=== PATIENT | male | born 1945 | race Caucasian/White ===

== ENCOUNTER 2019-12-28 10:43 | Outpatient (REF) | payer MEDICARE, SELFPAY ==
[2019-12-28 15:14] LABS: Anion Gap 15 (12-20); Blood Urea Nitrogen 35 mg/dL (9-16); Carbon Dioxide 18 mmol/L (22-29); Chloride 111 mmol/L (96-108); Estimated Glomerular Filt Rate 46; Potassium 4.3 mmol/l (3.3-5.1); Sodium 140 mmol/L (135-145)
== END 2019-12-28 10:44 | disposition home or self-care (01) ==
LOC: HO.10HDL 10:43
PROVIDERS: Visit Provider Internal Medicine Hypertension Specialist
DX: R31.9 Hematuria, unspecified (principal); D49.59 Neoplasm of unspecified behavior of other genitourinary organ
CPT/HCPCS: 80051; 82565; 84520

== ENCOUNTER 2020-01-04 10:18 | Outpatient (REF) | payer MEDICARE, SELFPAY ==
[2020-01-04 14:38] LABS: Prostate Specific Antigen < 0.05 ng/mL (<0.05-4.0)
== END 2020-01-04 10:19 | disposition home or self-care (01) ==
LOC: HO.10HDL 10:18
PROVIDERS: Visit Provider Urology
DX: C61 Malignant neoplasm of prostate (principal)
CPT/HCPCS: 84153

== ENCOUNTER → 2020-01-11 10:03 | Outpatient (BNVA) | payer MEDICARE, SELFPAY | PROVIDERS: PCP Internal Medicine; Referring Provider Internal Medicine; Visit Provider Urology | DX: C61 Malignant neoplasm of prostate (principal); N52.9 Male erectile dysfunction, unspecified; Z92.3 Personal history of irradiation | CPT/HCPCS: 51798; 81002; 99212 ==

== ENCOUNTER → 2020-01-25 11:06 | Outpatient (BNVA) | payer MEDICARE, SELFPAY | PROVIDERS: PCP Internal Medicine; Referring Provider Internal Medicine; Visit Provider Internal Medicine Cardiovascular Disease | DX: I25.10 Atherosclerotic heart disease of native coronary artery without angina pectoris (principal); Z95.1 Presence of aortocoronary bypass graft | CPT/HCPCS: 99212 ==

== ENCOUNTER 2020-02-22 09:53 | Outpatient (REF) | payer MEDICARE, SELFPAY ==
[2020-02-22 10:39] LABS: Basophils Absolute Auto 0.1 X10*3/uL (0.0-0.2); Basophils Percent Auto 0.7 % (0-2); Eosinophils Absolute Auto 0.1 X10*3/uL (0.0-0.4); Eosinophils Percent Auto 1.4 % (0-4); Hematocrit 38.5 % (42-52); Imm Gran Abs Auto 0.02 X10*3/uL (0.00-0.03); Imm Gran Pct Auto 0.3 % (0.0-0.4); Immature Retic Fraction 13.9 % (2.3-13.4); Lymphocytes Absolute Auto 1.6 X10*3/uL (1.2-4.9); Mean Corpuscular HGB Conc 33.8 g/dl (31.0-36.0); Mean Corpuscular Volume 85.7 fL (80-98); Mean Platelet Volume 9.3 fL (9.4-12.4); Monocytes Absolute Auto 0.6 X10*3/uL (0.1-1.2); Monocytes Percent Auto 8.2 % (2-11); Neutrophils Absolute Auto 5.3 X10*3/uL (2.0-8.3); Neutrophils Percent Auto 68.4 % (45-73); Platelet Count 115 X10*3/uL (160-400); Red Blood Count 4.49 X10*6/uL (4.60-5.80); Red Cell Distribution Width 13.7 % (11.0-16.0); Retic HGB Equivalent 33.2 pg (30.0-35.0); Reticulocyte Percent 1.5 % (0.5-1.8); Reticulocytes Absolute 0.068 X10*6/uL (0.026-0.095); White Blood Count 7.7 X10*3/uL (4.8-10.8)
[2020-02-22 10:41] LABS: MANUAL DIFF FLAG NO
[2020-02-22 10:56] LABS: D Dimer 2331 NG/ML
[2020-02-22 11:14] LABS: B Type Natriuretic Peptide 210 pg/mL (<100)
[2020-02-22 11:16] LABS: Alanine Aminotransferase 8 U/L (0-40); Albumin Level 3.6 g/dL (3.5-5.0); Alkaline Phosphatase 102 U/L (39-117); Anion Gap 11 (12-20); Aspartate Amino Transferase 13 U/L (5-37); Bilirubin Total 0.6 mg/dL (0.0-1.0); Blood Urea Nitrogen 32 mg/dL (9-16); Calcium 8.4 mg/dL (8.4-10.2); Carbon Dioxide 22 mmol/L (22-29); Chloride 110 mmol/L (96-108); Estimated Glomerular Filt Rate 48; Glucose Fasting 91 mg/dL (60-99); Iron 61 mcg/dL (45-160); Percent Iron Saturation 25 % (15-50); Potassium 3.8 mmol/l (3.3-5.1); Sodium 139 mmol/L (135-145); Total Iron Binding Capacity 242 mcg/dL (228-428); Unsaturated Iron Binding 181 ug/dL
[2020-02-22 11:25] LABS: Ferritin 72 ng/mL (20-250)
[2020-02-22 11:39] LABS: Folate 4.1 ng/mL (> or = 4.0); Vitamin B12 340 pg/mL (200-900)
== END 2020-02-22 09:54 | disposition home or self-care (01) ==
LOC: HO.10HDL 09:53
PROVIDERS: PCP Internal Medicine; Visit Provider Internal Medicine
DX: I25.10 Atherosclerotic heart disease of native coronary artery without angina pectoris (principal); I12.9 Hypertensive chronic kidney disease with stage 1 through stage 4 chronic kidney disease, or unspecified chronic kidney disease; N18.9 Chronic kidney disease, unspecified; J44.9 Chronic obstructive pulmonary disease, unspecified; E78.00 Pure hypercholesterolemia, unspecified; K21.9 Gastro-esophageal reflux disease without esophagitis; G47.33 Obstructive sleep apnea (adult) (pediatric); E66.9 Obesity, unspecified; C61 Malignant neoplasm of prostate; I73.9 Peripheral vascular disease, unspecified; I26.99 Other pulmonary embolism without acute cor pulmonale
CPT/HCPCS: 36415; 80053; 82607; 82728; 82746; 83540; 83880; 85025; 85045; 85379

== ENCOUNTER → 2020-03-06 08:50 | Outpatient (BNV) | payer MEDICARE, SELFPAY | PROVIDERS: PCP Internal Medicine; Visit Provider Internal Medicine | DX: I82.401 Acute embolism and thrombosis of unspecified deep veins of right lower extremity (principal); N18.9 Chronic kidney disease, unspecified | CPT/HCPCS: 99212; 99213; 99214; 99442 ==

== ENCOUNTER → 2020-03-07 09:38 | Outpatient (BNVA) | payer MEDICARE, SELFPAY | PROVIDERS: PCP Internal Medicine; Visit Provider Internal Medicine | DX: G47.33 Obstructive sleep apnea (adult) (pediatric) (principal); J44.9 Chronic obstructive pulmonary disease, unspecified | CPT/HCPCS: 99212 ==

== ENCOUNTER 2020-03-07 15:42 | Outpatient (REF) | payer MEDICARE, SELFPAY ==
--- NOTE | 2020-03-06 14:26 | US_ITS ---
EXAMINATION: US VENOUS ULTRASOUND WITH DOPPLER LOWER EXTREMITY, RIGHT CLINICAL INFORMATION: Right leg DVT in 2019 COMPARISON: Previous right leg venous ultrasound January 2019 TECHNIQUE: Ultrasound of the deep veins is performed from the hip to the calf with compression sonography and color and pulse Doppler assessment. Spectral analysis with color-flow imaging is performed. FINDINGS: There is normal venous compression and respiratory variation and augmented flow. The visualized common femoral vein, superficial femoral vein, profunda femoral vein, and the trifurcation region shows no evidence of deep venous thrombosis. There is wall thickening, hypoechoic soft tissue and limited compression of the popliteal vein. This may represent changes from old DVT. If there is clinical suspicion of acute DVT, short-term follow-up exam in several days would be recommended. There is no significant popliteal fossa cyst. US/US venous duplex LE RT IMPRESSION: Wall thickening, hypoechoic material and limited compression of the popliteal vein. This may represent changes from old DVT. If there is clinical suspicion of acute DVT, short-term follow-up exam in several days would be recommended to ensure stability.
== END 2020-03-07 15:43 | disposition home or self-care (01) ==
LOC: HO.US 15:42
PROVIDERS: PCP Internal Medicine; Visit Provider Internal Medicine
DX: I82.401 Acute embolism and thrombosis of unspecified deep veins of right lower extremity (principal)
CPT/HCPCS: 93971

== ENCOUNTER 2020-03-28 09:47 | Outpatient (REF) | payer MEDICARE, SELFPAY ==
--- NOTE | 2020-03-28 | US_ITS ---
EXAMINATION: US EXTRACRANIAL CAROTID DUPLEX, BILATERAL CLINICAL INFORMATION: This is a 74-year-old male with previous tobacco use, hypertension, hyperlipidemia, myocardial infarction. Carotid artery disease. COMPARISON: Comparison is made to a previous study dated 06/02/2011 which demonstrated bilateral 0-49% internal carotid artery stenoses. TECHNIQUE: Real-time ultrasound and Doppler techniques (integrating B-mode 2-D vascular images, Doppler spectral analysis and color-flow Doppler imaging) were utilized to interrogate the extracranial carotid arteries, the vertebral arteries and proximal subclavian arteries bilaterally. The degree of stenosis is determined by criteria similar to NASCET. FINDINGS: Right Side: 1. There is minimal atherosclerotic plaque seen in the bifurcation/proximal ICA region. 2. The common carotid artery PSV proximally is 74 cm/s and distally PA cm/s. 3. The proximal internal carotid artery velocities are 83 cm/s systolic and 16 cm/s diastolic. 4. The proximal external carotid artery PSV is 234 cm/s. There is a moderate hemodynamically significant stenosis in the right external carotid artery. 5. The vertebral artery shows antegrade flow. 6. The subclavian artery waveforms are normal. Left Side: 1. There is minimal atherosclerotic plaque seen in the bifurcation/proximal ICA region. 2. The common carotid artery PSV proximally is 114 cm/s and distally 85 cm/s. 3. The proximal internal carotid artery velocities are 89 cm/s systolic and 19 cm/s diastolic. 4. The proximal external carotid artery PSV is 240 cm/s.. There is a moderate hemodynamically significant stenosis in the left external carotid artery. 5. The vertebral artery shows antegrade flow. 6. The subclavian artery waveforms are normal. US/US carotid duplex BI IMPRESSION: 1. RIGHT: Minimal, non-hemodynamically significant stenosis of the proximal right internal carotid artery corresponding to a 0-49% stenosis by velocity criteria. 2. LEFT: Minimal, non-hemodynamically significant stenosis of the proximal left internal carotid artery corresponding to a 0-49% stenosis by velocity criteria. 3. There is no change in the category severity of disease when compared to the previous study dated 06/02/2011. 4. There are hemodynamically significant stenoses of the bilateral external carotid arteries.
== END 2020-03-28 09:48 | disposition home or self-care (01) ==
LOC: HO.US 09:47
PROVIDERS: PCP Internal Medicine; Visit Provider Surgery Vascular Surgery
DX: I73.9 Peripheral vascular disease, unspecified (principal); I65.23 Occlusion and stenosis of bilateral carotid arteries; I10 Essential (primary) hypertension; E78.5 Hyperlipidemia, unspecified; I25.2 Old myocardial infarction; Z87.891 Personal history of nicotine dependence
CPT/HCPCS: 93880

== ENCOUNTER 2020-05-03 10:32 | Outpatient (REF) | payer MEDICARE, SELFPAY ==
[2020-05-03 14:54] LABS: Prostate Specific Antigen < 0.05 ng/mL (<0.05-4.0)
== END 2020-05-03 10:33 | disposition home or self-care (01) ==
LOC: HO.10HDL 10:32
PROVIDERS: Visit Provider Urology
DX: Z12.5 Encounter for screening for malignant neoplasm of prostate (principal); C61 Malignant neoplasm of prostate
CPT/HCPCS: 36415; 84153

== ENCOUNTER → 2020-05-11 09:52 | Outpatient (BNVA) | payer MEDICARE, SELFPAY | PROVIDERS: PCP Internal Medicine; Visit Provider Urology | DX: C61 Malignant neoplasm of prostate (principal); N40.0 Benign prostatic hyperplasia without lower urinary tract symptoms | CPT/HCPCS: 99212 ==

== ENCOUNTER 2020-05-16 11:46 | Outpatient (REF) | payer MEDICARE, SELFPAY ==
[2020-05-16 13:14] LABS: MANUAL DIFF FLAG NO
[2020-05-16 13:40] LABS: Anion Gap 13 (12-20); Blood Urea Nitrogen 30 mg/dL (9-16); Calcium 8.8 mg/dL (8.4-10.2); Carbon Dioxide 24 mmol/L (22-29); Chloride 108 mmol/L (96-108); Estimated Glomerular Filt Rate 42; Potassium 4.6 mmol/L (3.3-5.1); Sodium 140 mmol/L (135-145)
[2020-05-16 13:47] LABS: Basophils Absolute Auto 0.1 X10*3/uL (0.0-0.2); Basophils Percent Auto 0.8 % (0-2); Eosinophils Absolute Auto 0.4 X10*3/uL (0.0-0.4); Hematocrit 41.3 % (42-52); Hemoglobin 13.6 g/dl (14.0-18.0); Imm Gran Abs Auto 0.04 X10*3/uL (0.00-0.03); Imm Gran Pct Auto 0.4 % (0.0-0.4); Lymphocytes Absolute Auto 1.9 X10*3/uL (1.2-4.9); Mean Corpuscular HGB Conc 32.9 g/dl (31.0-36.0); Mean Corpuscular Hemoglobin 28.8 pg (27.0-33.0); Mean Corpuscular Volume 87.5 fL (80-98); Mean Platelet Volume 9.8 fL (9.4-12.4); Monocytes Absolute Auto 0.8 X10*3/uL (0.1-1.2); Monocytes Percent Auto 9.3 % (2-11); Neutrophils Absolute Auto 5.8 X10*3/uL (2.0-8.3); Neutrophils Percent Auto 64.5 % (45-73); Platelet Count 140 X10*3/uL (160-400); Red Blood Count 4.72 X10*6/uL (4.60-5.80); Red Cell Distribution Width 14.1 % (11.0-16.0)
== END 2020-05-16 11:47 | disposition home or self-care (01) ==
LOC: HO.10HDL 11:46
PROVIDERS: Visit Provider Internal Medicine Hypertension Specialist
DX: I12.9 Hypertensive chronic kidney disease with stage 1 through stage 4 chronic kidney disease, or unspecified chronic kidney disease (principal); N18.30 Chronic kidney disease, stage 3 unspecified; D49.59 Neoplasm of unspecified behavior of other genitourinary organ
CPT/HCPCS: 36415; 80051; 82310; 82565; 84520; 85025

== ENCOUNTER → 2020-06-01 08:53 | Outpatient (BNVA) | payer MEDICARE, SELFPAY | PROVIDERS: PCP Internal Medicine; Visit Provider Urology | DX: R33.9 Retention of urine, unspecified (principal) | CPT/HCPCS: 52000; 81002; 99212 ==

== ENCOUNTER → 2020-07-06 08:05 | Outpatient (BNVA) | payer MEDICARE, SELFPAY | PROVIDERS: PCP Internal Medicine; Visit Provider Urology | DX: Z13.89 Encounter for screening for other disorder (principal) | CPT/HCPCS: Q3014 ==

== ENCOUNTER → 2020-07-11 09:03 | Outpatient (BNVA) | payer MEDICARE, SELFPAY | PROVIDERS: PCP Internal Medicine; Referring Provider Internal Medicine; Visit Provider Internal Medicine Cardiovascular Disease | DX: I25.5 Ischemic cardiomyopathy (principal); I25.10 Atherosclerotic heart disease of native coronary artery without angina pectoris | CPT/HCPCS: 99212 ==

== ENCOUNTER 2020-08-15 10:52 | Outpatient (REF) | payer MEDICARE, SELFPAY ==
[2020-08-15 13:54] LABS: MANUAL DIFF FLAG NO
[2020-08-15 14:09] LABS: Basophils Absolute Auto 0.1 X10*3/uL (0.0-0.2); Basophils Percent Auto 0.7 % (0-2); Eosinophils Absolute Auto 0.2 X10*3/uL (0.0-0.4); Eosinophils Percent Auto 1.8 % (0-4); Hemoglobin 13.4 g/dl (14.0-18.0); Imm Gran Abs Auto 0.02 X10*3/uL (0.00-0.03); Imm Gran Pct Auto 0.2 % (0.0-0.4); Lymphocytes Absolute Auto 1.8 X10*3/uL (1.2-4.9); Lymphocytes Percent Auto 21.4 % (20-40); Mean Corpuscular HGB Conc 32.7 g/dl (31.0-36.0); Mean Corpuscular Hemoglobin 28.7 pg (27.0-33.0); Mean Corpuscular Volume 87.8 fL (80-98); Mean Platelet Volume 10.3 fL (9.4-12.4); Monocytes Absolute Auto 0.8 X10*3/uL (0.1-1.2); Monocytes Percent Auto 9.3 % (2-11); Neutrophils Absolute Auto 5.4 X10*3/uL (2.0-8.3); Neutrophils Percent Auto 66.6 % (45-73); Platelet Count 145 X10*3/uL (160-400); Red Blood Count 4.67 X10*6/uL (4.60-5.80); Red Cell Distribution Width 14.1 % (11.0-16.0); White Blood Count 8.2 X10*3/uL (4.8-10.8)
[2020-08-15 14:20] LABS: Alanine Aminotransferase 9 U/L (0-40); Albumin Level 3.8 g/dL (3.5-5.0); Alkaline Phosphatase 110 U/L (39-117); Anion Gap 13 (12-20); Aspartate Amino Transferase 15 U/L (5-37); Bilirubin Total 0.7 mg/dL (0.0-1.0); Blood Urea Nitrogen 36 mg/dL (9-16); Calcium 8.8 mg/dL (8.4-10.2); Carbon Dioxide 23 mmol/L (22-29); Chloride 110 mmol/L (96-108); Cholesterol 100 mg/dL; Estimated Glomerular Filt Rate 42; Glucose Random 89 mg/dL (60-115); HDL Cholesterol 28 mg/dL; LDL Cholesterol Calculated 57 mg/dl; Potassium 4.2 mmol/L (3.3-5.1); Sodium 142 mmol/L (135-145); Total Protein 6.1 g/dL (6.5-8.0); Triglycerides 79 mg/dL
[2020-08-15 14:22] LABS: B Type Natriuretic Peptide 114 pg/mL (<100)
[2020-08-15 14:42] LABS: Thyroid Stimulating Hormone 0.96 uIU/mL (0.32-4.0)
[2020-08-15 14:54] LABS: Vitamin B12 338 pg/mL (200-900)
== END 2020-08-15 10:53 | disposition home or self-care (01) ==
LOC: HO.10HDL 10:52
PROVIDERS: Visit Provider Internal Medicine
DX: I25.10 Atherosclerotic heart disease of native coronary artery without angina pectoris (principal); I10 Essential (primary) hypertension; E78.00 Pure hypercholesterolemia, unspecified
CPT/HCPCS: 36415; 80053; 80061; 82607; 82746; 83880; 84443; 85025

== ENCOUNTER → 2020-09-15 09:19 | Outpatient (REF) | payer MEDICARE, SELFPAY ==
--- NOTE | 2020-09-15 09:29 | CA_ITS ---
Transthoracic Echocardiogram Patient (Last, First, Middle): Brian Urena M Gender: Male Date of : 1945 Age: 75 Procedure Date: 09/15/2020 Procedure Type: Transthoracic Echocardiogram Location: OP Height: 165.1 cm Weight: 85.28 kg BSA: 1.93 m2 Heart Rate: bpm BP: 130 / 58 mmHg Cabinet Maker: KEENAN Referring MD: Manas Brennan MD Symptoms: I25.5 - Ischemic cardiomyopathy Conclusions: - Normal left ventricular cavity size. - The left ventricular systolic function is borderline reduced. The visually estimated ejection fraction is between 45-50%. 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 Findings Left Ventricle Normal left ventricular cavity size. There is mildly increased left ventricular wall thickness. The left ventricular systolic function is borderline reduced. The visually estimated ejection fraction is between 45 50%. There is evidence of regional wall motion abnormalities. Abnormal diastolic function is noted. Spectral Doppler is indicative of an impaired relaxation filling pattern. E/E prime ratio is between 8 and 15 consistent with indeterminate filling pressures. 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 Right Ventricle Mildly increased right ventricular cavity size. There is mild to moderately decreased right ventricular systolic function. Atria Both atria are normal in size. Aortic Valve There is a normal trileaflet aortic valve. There is mild calcification of the aortic valve. There is no aortic valve stenosis. There is no aortic valve regurgitation. Mitral Valve Normal mitral valve structure and function. There is trace mitral valve regurgitation. There is no mitral valve stenosis. Tricuspid Valve Normal tricuspid valve structure and function. There is mild to moderate tricuspid valve regurgitation. Normal right atrial pressure. There is no evidence of pulmonary hypertension. Great Vessels The pulmonary artery was not well visualized. There is mild dilatation of the ascending aorta measuring 3.60 cm. Venous The inferior vena cava is normal in size and collapses greater than 50% with inspiration. Pericardium/Pleural There is no evidence of pericardial effusion. Prior Study Comparison No significant change compared to prior study dated: 02/27/2019. Measurements M-Mode Liner Measurements Normals - Women/Men LVIDd: 6.04 3.9-5.3/4.2-5.9 cm LVIDd Index: 3.13 1.9-3.2 cm/m2 LVIDs: 4.52 2.0-3.8 cm M-Mode Volumes LV EDV: 183.00 LV ESV: 93.40 2D Linear Measurements IVSd: 1.11 0.6-0.9/0.6-1.0 cm LVIDd: 5.26 3.9-5.3/4.2-5.9 cm LVIDd Index: 2.73 2.4-3.2/2.2-3.1 cm/m2 LVIDs: 4.74 2.0-3.6 cm LVPWd: 1.16 0.7-1.1 cm Ao Root: 3.00 2.1-3.5 cm LA Diam: 5.40 2.7-3.8/3.0-4.0 cm LAIDs Index: 2.80 1.5-2.3 cm/m2 LV Mass: 292.68 67-162/88-224 g LV Mass Index: 151.65 43-95/49-115 g/m2 LVOT Diam: 2.20 3.0+(-)1.3 cm 2D Systolic Function EF 4C: 62.00 >55% EF 2C: 71.20 >55% M-Mode Systolic Function FS: 25.20 27-47/25-43% Mitral Valve MV Pk E: 0.70 MV PK A: 0.87 MV Decel Time: 130.00 E/A: 0.80 E'Lateral: 11.70 E'Medial: 7.18 E/E' Med: 9.80 E/E' Lat: 6.00 PHT: 38.00 MVA PHT: 5.79 Decel Jay: 5.40 Aortic Valve AoV Pk Iglesia: 1.28 AoV Pk Grad: 7.00 LVOT LVOT Pk Iglesia: 0.66 LVOT Mn Iglesia: 0.45 LVOT VTI: 0.14 LVOT Pk Grad: 2.00 LVOT Mn Grad: 1.00 LVOT Diam: 2.20 LVOT Area: 3.80 Diastolic Function MV Pk E: 0.70 MV Pk A: 0.87 E/A: 0.80 E'Medial: 7.18 E/E' Med: 9.80 E' Laterial: 11.70 E/E' Lat: 6.00 Right Ventricle TAPSE (mm): 1.80 Tricuspid Valve TR Pk Iglesia: 2.71 TR Pk Grad: 29.00 Great Vessels Aorta Ao Root-2D: 3.00 2.0-3.7 cm Ao Asc: 3.60 2.1-3.4 cm Updated in Other Vendor System with Status of Final Dipak Sanchez MD electronically signed on 09/17/2020 7:32:22 PM with status of Final
== END ==
LOC: HO.CARD 09:19
PROVIDERS: Visit Provider Internal Medicine Cardiovascular Disease
DX: I25.5 Ischemic cardiomyopathy (principal)
CPT/HCPCS: 93306

== ENCOUNTER → 2020-10-03 09:20 | Outpatient (BNVA) | payer MEDICARE, SELFPAY | PROVIDERS: PCP Internal Medicine; Visit Provider Internal Medicine | DX: J43.1 Panlobular emphysema (principal); G47.33 Obstructive sleep apnea (adult) (pediatric); Z99.89 Dependence on other enabling machines and devices | CPT/HCPCS: 99212 ==

== ENCOUNTER 2021-01-02 10:53 | Outpatient (REF) | payer MEDICARE, SELFPAY ==
[2021-01-02 13:54] LABS: Hemoglobin 13.3 g/dl (14.0-18.0); Mean Corpuscular HGB Conc 33.3 g/dl (31.0-36.0); Mean Corpuscular Hemoglobin 28.7 pg (27.0-33.0); Mean Corpuscular Volume 86.2 fL (80.0-98.0); Mean Platelet Volume 10.1 fL (9.4-12.4); Platelet Count 144 X10*3/uL (160-400); Red Blood Count 4.64 X10*6/uL (4.60-5.80); Red Cell Distribution Width 14.1 % (11.0-16.0); White Blood Count 9.1 X10*3/uL (4.8-10.8)
[2021-01-02 14:40] LABS: Anion Gap 13 (12-20); Blood Urea Nitrogen 27 mg/dL (9-16); Calcium 8.3 mg/dL (8.4-10.2); Carbon Dioxide 19 mmol/L (22-29); Chloride 111 mmol/L (96-108); Estimated Glomerular Filt Rate 41; Potassium 4.3 mmol/L (3.3-5.1); Sodium 139 mmol/L (135-145)
[2021-01-02 14:57] LABS: Prostate Specific Antigen < 0.05 ng/mL (<0.05-4.0)
== END 2021-01-02 10:54 | disposition home or self-care (01) ==
LOC: HO.10HDL 10:53
PROVIDERS: Internal Medicine Hypertension Specialist; Visit Provider Urology
DX: Z12.5 Encounter for screening for malignant neoplasm of prostate (principal); C61 Malignant neoplasm of prostate; N40.1 Benign prostatic hyperplasia with lower urinary tract symptoms; N13.8 Other obstructive and reflux uropathy; I12.9 Hypertensive chronic kidney disease with stage 1 through stage 4 chronic kidney disease, or unspecified chronic kidney disease; N18.9 Chronic kidney disease, unspecified
CPT/HCPCS: 36415; 80051; 82310; 82565; 84153; 84520; 85027

== ENCOUNTER 2021-01-09 10:08 | Outpatient (REF) | payer MEDICARE, SELFPAY ==
--- NOTE | ~2021-01-09 | XR_ITS ---
EXAMINATION: XR HIP, LEFT CLINICAL INFORMATION: Left hip pain COMPARISON: July 30, 2018 TECHNIQUE: Two views of the left hip. FINDINGS: 2 views of the left hip do not demonstrate any evidence of acute fracture or dislocation. There is an overlying region of sclerosis however this appears to be related to combination of acetabular lip and densely calcified arteries. No femoral head collapse. Hip joint space maintained. XR/XR hip LT min 2V IMPRESSION: No acute fracture or dislocation of the left hip. No significant degenerative change.
== END 2021-01-09 10:09 | disposition home or self-care (01) ==
LOC: HO.XRAY 10:08
PROVIDERS: PCP Internal Medicine; Referring Provider Internal Medicine; Visit Provider Internal Medicine Cardiovascular Disease
DX: I25.5 Ischemic cardiomyopathy (principal); I25.10 Atherosclerotic heart disease of native coronary artery without angina pectoris; M25.552 Pain in left hip
CPT/HCPCS: 73502; 93005; 99212

== ENCOUNTER → 2021-01-11 08:58 | Outpatient (BNVA) | payer MEDICARE, SELFPAY | PROVIDERS: PCP Internal Medicine; Visit Provider Urology | DX: N40.0 Benign prostatic hyperplasia without lower urinary tract symptoms (principal); C61 Malignant neoplasm of prostate | CPT/HCPCS: Q3014 ==

== ENCOUNTER 2021-02-20 10:30 | Outpatient (REF) | payer MEDICARE, SELFPAY ==
[2021-02-20 13:55] LABS: MANUAL DIFF FLAG NO
[2021-02-20 14:10] LABS: Basophils Absolute Auto 0.1 X10*3/uL (0.0-0.2); Basophils Percent Auto 0.7 % (0-2); Eosinophils Absolute Auto 0.2 X10*3/uL (0.0-0.4); Eosinophils Percent Auto 1.7 % (0-4); Hematocrit 38.2 % (42.0-52.0); Hemoglobin 13.1 g/dl (14.0-18.0); Imm Gran Abs Auto 0.05 X10*3/uL (0.00-0.03); Imm Gran Pct Auto 0.6 % (0.0-0.4); Lymphocytes Absolute Auto 1.7 X10*3/uL (1.2-4.9); Lymphocytes Percent Auto 19.2 % (20-40); Mean Corpuscular HGB Conc 34.3 g/dl (31.0-36.0); Mean Corpuscular Hemoglobin 29.4 pg (27.0-33.0); Mean Corpuscular Volume 85.7 fL (80.0-98.0); Mean Platelet Volume 10.4 fL (9.4-12.4); Monocytes Absolute Auto 0.7 X10*3/uL (0.1-1.2); Monocytes Percent Auto 7.6 % (2-11); Neutrophils Absolute Auto 6.1 x10*3/uL (2.0-8.3); Neutrophils Percent Auto 70.2 % (45-73); Platelet Count 159 X10*3/uL (160-400); Red Blood Count 4.46 X10*6/uL (4.60-5.80); Red Cell Distribution Width 13.7 % (11.0-16.0); White Blood Count 8.7 X10*3/uL (4.8-10.8)
[2021-02-20 14:59] LABS: Alanine Aminotransferase 11 U/L (0-40); Albumin Level 3.6 g/dL (3.5-5.0); Alkaline Phosphatase 103 U/L (39-117); Anion Gap 11 (12-20); Aspartate Amino Transferase 14 U/L (5-37); Bilirubin Total 0.6 mg/dL (0.0-1.0); Blood Urea Nitrogen 30 mg/dL (9-16); Carbon Dioxide 21 mmol/L (22-29); Chloride 111 mmol/L (96-108); Estimated Glomerular Filt Rate 45; Glucose Random 89 mg/dL (60-115); Potassium 4.3 mmol/L (3.3-5.1); Sodium 139 mmol/L (135-145)
[2021-02-20 15:00] LABS: B Type Natriuretic Peptide 164 pg/mL (<100)
== END 2021-02-20 10:31 | disposition home or self-care (01) ==
LOC: HO.10HDL 10:30
PROVIDERS: Visit Provider Internal Medicine
DX: I25.5 Ischemic cardiomyopathy (principal)
CPT/HCPCS: 36415; 80053; 83880; 85025

== ENCOUNTER → 2021-04-10 09:19 | Outpatient (BNVA) | payer MEDICARE, SELFPAY | PROVIDERS: PCP Internal Medicine; Visit Provider Internal Medicine | DX: G47.33 Obstructive sleep apnea (adult) (pediatric) (principal); J43.1 Panlobular emphysema; Z99.89 Dependence on other enabling machines and devices | CPT/HCPCS: 94010; 99212 ==

== ENCOUNTER → 2021-04-11 11:16 | Outpatient (BNVA) | payer MEDICARE, SELFPAY | PROVIDERS: PCP Internal Medicine; Referring Provider Internal Medicine; Visit Provider Internal Medicine Cardiovascular Disease | DX: R42 Dizziness and giddiness (principal) | CPT/HCPCS: 99212 ==

== ENCOUNTER 2021-05-16 14:15 | Outpatient (REF) | payer MEDICARE, SELFPAY ==
--- NOTE | ~2021-05-16 | US_ITS ---
EXAMINATION: US EXTRACRANIAL CAROTID DUPLEX, BILATERAL CLINICAL INFORMATION: Dizziness and giddiness, history of coronary artery disease, chronic kidney disease and COPD. COMPARISON: Carotid duplex on 03/28/2020 TECHNIQUE: Real-time ultrasound and Doppler techniques (integrating B-mode 2-D vascular images, Doppler spectral analysis and color-flow Doppler imaging) were utilized to interrogate the extracranial carotid arteries, the vertebral arteries and proximal subclavian arteries bilaterally. The degree of stenosis is determined by criteria similar to NASCET. FINDINGS: Right Side: 1. There is calcified atherosclerotic plaque seen in the bifurcation/proximal ICA region. 2. The common carotid artery PSV proximally is 118 cm/s and distally 80 cm/s. 3. The proximal internal carotid artery velocities are 127 cm/s systolic and 21 cm/s diastolic. 4. The proximal external carotid artery PSV is 310 cm/s. 5. The vertebral artery shows antegrade flow. 6. The subclavian artery waveforms are normal. Left Side: 1. There is calcified atherosclerotic plaque seen in the bifurcation/proximal ICA region. 2. The common carotid artery PSV proximally is 71 cm/s and distally 80 cm/s. 3. The proximal internal carotid artery velocities are 136 cm/s systolic and 20 cm/s diastolic. 4. The proximal external carotid artery PSV is 492 cm/s. 5. The vertebral artery shows antegrade flow. 6. The subclavian artery waveforms are normal. US/US carotid duplex BI IMPRESSION: 1. RIGHT: Moderate, hemodynamically significant stenosis of the proximal right internal carotid artery corresponding to a 50-79% stenosis by velocity criteria. 2. LEFT: Moderate, hemodynamically significant stenosis of the proximal left internal carotid artery corresponding to a 50-79% stenosis by velocity criteria. 3. Progression of severity of disease compared to 03/28/2020. 4. Stenoses of the bilateral external carotid arteries. 5. Incidental note is made of arrhythmia. Consider cardiology followup.
--- NOTE | 2021-05-16 15:00 | HM_ITS ---
* Total monitoring time 13 days and 18 hours. * Underlying rhythm is sinus. Average rate 71/Min. Range 59 to 103/Min. * Occasional supraventricular ectopy with minimal burden. Very brief run but nothing sustained. * Frequent PVCs with a burden of 1.9%. 2 morphologies. 248 couplets. 14 episodes of NSVT, longest 26 beats. * No patient events. MTDD
== END 2021-05-16 14:16 | disposition home or self-care (01) ==
LOC: HO.US 14:15
PROVIDERS: PCP Internal Medicine; Visit Provider Internal Medicine Cardiovascular Disease
DX: I65.23 Occlusion and stenosis of bilateral carotid arteries (principal); R42 Dizziness and giddiness
CPT/HCPCS: 93246; 93880

== ENCOUNTER 2021-07-13 11:30 | Outpatient (REF) | payer MEDICARE, SELFPAY ==
[2021-07-13 11:53] LABS: MANUAL DIFF FLAG NO
[2021-07-13 12:07] LABS: Basophils Absolute Auto 0.1 X10*3/uL (0.0-0.2); Basophils Percent Auto 0.6 % (0-2); Eosinophils Absolute Auto 0.1 X10*3/uL (0.0-0.4); Eosinophils Percent Auto 1.1 % (0-4); Hematocrit 39.9 % (42.0-52.0); Hemoglobin 13.7 g/dl (14.0-18.0); Imm Gran Abs Auto 0.04 X10*3/uL (0.00-0.03); Imm Gran Pct Auto 0.4 % (0.0-0.4); Lymphocytes Absolute Auto 1.6 X10*3/uL (1.2-4.9); Lymphocytes Percent Auto 17.2 % (20-40); Mean Corpuscular HGB Conc 34.3 g/dl (31.0-36.0); Mean Corpuscular Volume 84.5 fL (80.0-98.0); Mean Platelet Volume 9.2 fL (9.4-12.4); Monocytes Absolute Auto 0.9 X10*3/uL (0.1-1.2); Monocytes Percent Auto 9.5 % (2-11); Neutrophils Absolute Auto 6.4 x10*3/uL (2.0-8.3); Neutrophils Percent Auto 71.2 % (45-73); Platelet Count 140 X10*3/uL (160-400); Red Blood Count 4.72 X10*6/uL (4.60-5.80); Red Cell Distribution Width 13.5 % (11.0-16.0)
[2021-07-13 12:34] LABS: Alanine Aminotransferase 10 U/L (0-40); Albumin Level 3.9 g/dL (3.5-5.0); Alkaline Phosphatase 111 U/L (39-117); Anion Gap 13 (12-20); Aspartate Amino Transferase 14 U/L (5-37); Bilirubin Total 0.9 mg/dL (0.0-1.0); Blood Urea Nitrogen 25 mg/dL (9-16); Calcium 9.2 mg/dL (8.4-10.2); Carbon Dioxide 21 mmol/L (22-29); Chloride 107 mmol/L (96-108); Cholesterol 95 mg/dL; Estimated Glomerular Filt Rate 40; Glucose Random 91 mg/dL (60-115); HDL Cholesterol 29 mg/dL; LDL Cholesterol Calculated 52 mg/dl; Potassium 4.1 mmol/L (3.3-5.1); Sodium 137 mmol/L (135-145); Total Protein 6.4 g/dL (6.5-8.0); Triglycerides 71 mg/dL
[2021-07-13 12:55] LABS: Prostate Specific Antigen < 0.05 ng/mL (<0.05-4.0); Thyroid Stimulating Hormone 1.38 uIU/mL (0.32-4.0)
[2021-07-13 13:02] LABS: Vitamin B12 337 pg/mL (200-900)
== END 2021-07-13 11:31 | disposition home or self-care (01) ==
LOC: HO.LAB 11:30
PROVIDERS: Absent Provider Internal Medicine; PCP Internal Medicine; Visit Provider Urology
DX: C61 Malignant neoplasm of prostate (principal); I25.10 Atherosclerotic heart disease of native coronary artery without angina pectoris; E78.00 Pure hypercholesterolemia, unspecified; Z12.5 Encounter for screening for malignant neoplasm of prostate
CPT/HCPCS: 36415; 80053; 80061; 82607; 82746; 84153; 84439; 84443; 85025

== ENCOUNTER → 2021-07-19 15:01 | Outpatient (BNVA) | payer MEDICARE, SELFPAY | PROVIDERS: PCP Internal Medicine; Visit Provider Internal Medicine | DX: J43.1 Panlobular emphysema (principal); G47.33 Obstructive sleep apnea (adult) (pediatric); E66.9 Obesity, unspecified; R09.02 Hypoxemia; Z99.89 Dependence on other enabling machines and devices | CPT/HCPCS: 94618; 99212 ==

== ENCOUNTER → 2021-07-20 08:28 | Outpatient (REF) | payer MEDICARE, SELFPAY ==
--- NOTE | ~2021-07-20 | NM_ITS ---
Myocardial perfusion study Indication: Ischemic cardiomyopathy to evaluate for myocardial ischemia Technique: The patient was brought in for a Lexiscan perfusion study on 07/20/2021. Patient performed low-level exercise and was injected 0.4 mg of Lexiscan intravenously. Within a minute of injection, 30 mCi of sestamibi was given intravenously. Images were obtained using the SPECT gamma camera interlaced with the gating device. Images were obtained in supine position. Resting perfusion study was performed on 07/23/2021. Patient was administered 30 mCi of sestamibi intravenously at rest. Images were then obtained in supine position. Images obtained with and without CT attenuation. Total DLP 82 mGy-cm. Images were processed with the software and compared side to side in short axis, horizontal long axis and vertical long axis views. Findings: The stress perfusion study showed non attenuated images show moderate to severely reduced uptake in the inferior and ingested basal inferolateral wall and mildly reduced uptake in the mid and apical inferolateral wall as well as mildly reduced uptake in the basal lateral wall of the LV myocardium. Remainder of the LV myocardium is normally perfused. Attenuation corrected images show moderately reduced uptake in the inferior as well as moderately reduced uptake in the basal inferolateral and mildly reduced uptake in the mid and apical inferolateral wall of the LV myocardium. Remainder of the LV myocardium is normally perfused. The gated study shows mildly reduced LV systolic function with calculated LVEF of 47%. LV cavity is mildly dilated size. The gated study shows reduced wall thickening and contraction of inferior and inferolateral segments. Resting study shows no change in perfusion pattern compared to stress perfusion study. Gating at rest reveals inferior and inferolateral wall motion abnormality with ejection fraction at 49%. The findings are consistent with no reversible defect. Fixed inferior inferolateral defect consistent with nontransmural myocardial infarction. GA/GA cardiolite stress test Impression: 1. Myocardial perfusion imaging study shows no evidence of ischemia with nontransmural infarct of the inferior and inferolateral wall 2. Gated LVEF is 47% 3. Transient ischemic dilatation not present but LV cavity is dilated EKG is nondiagnostic for ischemia
--- NOTE | 2021-07-20 08:31 | CA_ITS ---
Acquisition Time: 2021-07-20 09:33:09 Total Exercise Time: 00:02:00 Test Indications: Ischemic Cardiomyopathy Medications: Protocol: LEXISCAN Max HR: 097 BPM 67% of Pred: 143 BPM Max BP: 164/072 mmHG Max Work Load: 1.0 METS Pharmacological stress test with Lexiscan injection, while sitting and kicking his legs, with mild to moderate shortness of breath, no chest discomfort, with isolated PAC and PVC, with normotensive response to injection, with nondiagnostic EKG for ischemia. In recovery he was treated with Aminophylline 75mg IVP to reverse Lexiscan. Nuclear images pending. Test reviewed with Dr Almazan. Note: prior to start of test he was instructed to take 2 puffs of his home Proair inhaler. Referred By: Manas Brennan Overread By: HECTOR MARINELLI
--- NOTE | 2021-07-20 08:31 | CA_ITS ---
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 The visually estimated ejection fraction is between 40-45%. - Even with contrast use, wall motion assessment is suboptimal. Basal inferior wall aneurysmal. Possible apical septal hypokinesis. - There is moderately decreased right ventricular systolic function. - There is mild calcification of the aortic valve. Findings Procedure Information Contrast agent, definity, is being given per protocol without apparent complications. Left Ventricle Normal left ventricular cavity size. The left ventricular systolic function is mildly decreased. The visually estimated ejection fraction is between 40 45%. There is evidence of regional wall motion abnormalities. There is paradoxical septal motion consistent with post-operative status. Diastolic function is normal for age. There is mild septal asymmetric hypertrophy. Even with contrast use, wall motion assessment is suboptimal. Basal inferior wall aneurysmal. Possible apical septal hypokinesis. Right Ventricle Mildly increased right ventricular cavity size. There is moderately decreased right ventricular systolic function. Atria Both atria are normal in size. Aortic Valve There is a normal trileaflet aortic valve. There is mild calcification of the aortic valve. There is no aortic valve stenosis. There is no aortic valve regurgitation. Mitral Valve The mitral valve appears normal. There is trace mitral valve regurgitation. There is no mitral valve stenosis. Pulmonic Valve The pulmonic valve is likely normal. Tricuspid Valve There is mild tricuspid valve regurgitation. The pulmonary artery systolic pressure is normal. Great Vessels The asc aorta is normal in size. Small plaque is seen in the sino tubular ridge. Venous The inferior vena cava is normal in size and collapses greater than 50% with inspiration. Pericardium/Pleural There is no evidence of pericardial effusion. Prior Study Comparison No significant change compared to prior study dated: 09/15/2020. Measurements 2D Linear Measurements IVSd: 1.21 0.6-0.9/0.6-1.0 cm LVIDd: 5.65 3.9-5.3/4.2-5.9 cm LVIDd Index: 2.94 2.4-3.2/2.2-3.1 cm/m2 LVIDs: 4.62 2.0-3.6 cm LVPWd: 0.94 0.7-1.1 cm LA Diam: 5.30 2.7-3.8/3.0-4.0 cm LAIDs Index: 2.76 1.5-2.3 cm/m2 LV Mass: 305.20 67-162/88-224 g LV Mass Index: 158.96 43-95/49-115 g/m2 LVOT Diam: 2.30 3.0+(-)1.3 cm 2D Systolic Function EF 4C: 51.60 >55% EF 2C: 50.40 >55% EF BiP: 50.90 >55% Mitral Valve MV Pk E: 0.68 MV PK A: 0.90 MV Decel Time: 99.00 E/A: 0.80 E'Lateral: 11.10 E'Medial: 6.20 E/E' Med: 11.00 E/E' Lat: 6.10 PHT: 29.00 MVA PHT: 7.59 Decel Trimble: 6.87 Aortic Valve AoV Pk Iglesia: 1.16 AoV Mn Iglesia: 0.72 AoV VTI: 0.20 AoV Pk Grad: 5.00 Aov Mn Grad: 3.00 JERAD Cont.VTI: 3.32 LVOT LVOT Pk Iglesia: 0.92 LVOT Mn Iglesia: 0.59 LVOT VTI: 0.16 LVOT Pk Grad: 3.00 LVOT Mn Grad: 2.00 LVOT Diam: 2.30 LVOT Area: 4.15 Diastolic Function MV Pk E: 0.68 MV Pk A: 0.90 E/A: 0.80 E'Medial: 6.20 E/E' Med: 11.00 E' Laterial: 11.10 E/E' Lat: 6.10 Right Ventricle TAPSE (mm): 11.20 TVS' Iglesia: 6.09 Tricuspid Valve TR Pk Iglesia: 2.43 TR Pk Grad: 24.00 Great Vessels Aorta Sinus of Valsalva: 3.26 2.0-3.[address] Ridge: 2.72 1.7-3.4 cm Ao Asc: 3.60 2.1-3.4 cm Pulmonary Valve PV Pk Iglesia: 0.85 Peak PV Grad: 3.00 Updated in Other Vendor System with Status of Final Yon Almazan MD electronically signed on 07/22/2021 2:57:46 PM with status of Final
== END ==
LOC: HO.CARD 08:28
PROVIDERS: Visit Provider Internal Medicine Cardiovascular Disease
DX: I25.5 Ischemic cardiomyopathy (principal)
CPT/HCPCS: 78452; 93017; 93306; A9500; J0280; J2785; Q9957

== ENCOUNTER → 2021-07-24 09:25 | Outpatient (BNVA) | payer MEDICARE, SELFPAY | PROVIDERS: PCP Internal Medicine; Visit Provider Urology | DX: I47.2 Ventricular tachycardia (principal); I25.10 Atherosclerotic heart disease of native coronary artery without angina pectoris; I25.5 Ischemic cardiomyopathy; N40.1 Benign prostatic hyperplasia with lower urinary tract symptoms; R33.8 Other retention of urine; R39.14 Feeling of incomplete bladder emptying | CPT/HCPCS: 99212; Q3014 ==

== ENCOUNTER 2021-08-08 10:22 | Outpatient (REF) | payer MEDICARE, SELFPAY ==
--- NOTE | ~2021-08-08 | US_ITS ---
EXAMINATIONS: US RETROPERITONEAL LIMITED (AORTA) NONINVASIVE ASSESSMENT OF THE ARTERIES OF BOTH LOWER EXTREMITIES TO INCLUDE A PVR EXAM LIMITED (1-2 LEVELS) AND DARON, BILATERAL. US DUPLEX DOPPLER BILATERAL LOWER EXTREMITY ARTERIAL SYSTEMS CLINICAL INFORMATION: Atherosclerosis. COMPARISON: None TECHNIQUES: Fields-scale, color Doppler and spectral Doppler evaluation of the abdominal aorta. The ankle/brachial indices of the distal posterior tibial and the dorsalis pedis arteries were obtained of the lower extremity arterial system bilaterally; along with pressures and pulse volume recordings at the ankle and duplex Doppler techniques of the common femoral, proximal femoral and proximal profunda arteries. The study was performed at rest. Real-time duplex on the examination of the lower extremity arterial systems was performed bilaterally from the levels of the external iliac arteries to the ankles. FINDINGS: A stent appears present within the abdominal aorta and bilateral common iliac arteries. The measurements of the aorta in maximum AP dimension and peak systolic velocity are as follows: Proximal: 2.7 cm, 57 cm/s Mid: 2.6 cm, 22 cm/s Distal: 3.0 cm, 21 cm/s The measurements of the common iliac arteries in maximum AP and TRV dimensions are as follows: Right Common Iliac Artery: 2.0 cm, 102 cm/s Right External Iliac Artery: 687 cm/s Left Common Iliac Artery: 1.7 cm, 27 cm/s Left External Iliac Artery: 0 cm/s FINDINGS AT REST:? RIGHT LE. THE RIGHT ANKLE-BRACHIAL INDEX IS: 0.55 (higher of the DP/PT) >0.97-1.25 = normal - no significant arterial disease 0.75-0.96 = mild peripheral arterial disease 0.50-0.74 = moderate peripheral arterial disease <0.50 = severe peripheral arterial disease <0.30 = critical arterial disease 2. SEGMENTAL PRESSURES: Ankle: PT 88 DP 82 3. PVR WAVEFORMS: Ankle: Limited. No clear dicrotic notch identified. LEFT LE. THE LEFT ANKLE-BRACHIAL INDEX IS: 0.36 (higher of the DP/PT) >0.97-1.25 = normal - no significant arterial disease 0.75-0.96 = mild peripheral arterial disease 0.50-0.74 = moderate peripheral arterial disease <0.50 = severe peripheral arterial disease <0.30 = critical arterial disease 2. SEGMENTAL PRESSURES: Ankle: PT 58 DP could not be identified 3. PVR WAVEFORMS: Ankle: Limited. No clear dicrotic notch identified. Right lower extremity peak systolic velocities (cm/s): Common femoral artery: 275 Profunda femoral artery: 297 Proximal superficial femoral artery: 130 Mid superficial femoral artery: 87 Distal superficial femoral artery: 53 Popliteal artery: 24 Posterior tibial artery: 24 Grayscale and color Doppler imaging of the right lower extremity demonstrates monophasic flow throughout. Left lower extremity peak systolic velocities (cm/s): Common femoral artery: 62 Profunda femoral artery: 27 Proximal superficial femoral artery: 23 Mid superficial femoral artery: 48 Distal superficial femoral artery: 9 Popliteal artery: 12 Posterior tibial artery: 7 Grayscale and color Doppler imaging of the left lower extremity demonstrates monophasic flow throughout. Waveforms appear particularly blunted and widened throughout. US/US abdominal aortic aneurysm IMPRESSION: Status post aortobiiliac stent placement. Significant aortobiiliac disease. Suspect occlusion of the left iliac stent. Suspect moderate to severe right aortoiliac disease. CTA may be of use for further evaluation if clinically indicated.
== END 2021-08-08 10:23 | disposition home or self-care (01) ==
LOC: HO.US 10:22
PROVIDERS: PCP Internal Medicine; Visit Provider Surgery Vascular Surgery
DX: I70.213 Atherosclerosis of native arteries of extremities with intermittent claudication, bilateral legs (principal)
CPT/HCPCS: 76706; 93923; 93925

== ENCOUNTER 2021-08-09 10:49 | Outpatient (REF) | payer MEDICARE, SELFPAY ==
[2021-08-09 11:56] LABS: Anion Gap 17 (12-20); Blood Urea Nitrogen 30 mg/dL (9-16); Calcium 8.5 mg/dL (8.4-10.2); Carbon Dioxide 18 mmol/L (22-29); Chloride 109 mmol/L (96-108); Estimated Glomerular Filt Rate 35; Glucose Random 95 mg/dL (60-115); Potassium 3.9 mmol/L (3.3-5.1); Sodium 140 mmol/L (135-145)
== END 2021-08-09 10:50 | disposition home or self-care (01) ==
LOC: HO.LAB 10:49
PROVIDERS: PCP Internal Medicine; Visit Provider Internal Medicine Hypertension Specialist
DX: I12.9 Hypertensive chronic kidney disease with stage 1 through stage 4 chronic kidney disease, or unspecified chronic kidney disease (principal); N18.9 Chronic kidney disease, unspecified
CPT/HCPCS: 36415; 80048

== ENCOUNTER → 2021-08-21 14:03 | Outpatient (BNVA) | payer MEDICARE, SELFPAY | PROVIDERS: PCP Internal Medicine; Visit Provider Surgery Vascular Surgery | DX: I71.4 Abdominal aortic aneurysm, without rupture (principal); I73.9 Peripheral vascular disease, unspecified; Z86.718 Personal history of other venous thrombosis and embolism; Z79.01 Long term (current) use of anticoagulants | CPT/HCPCS: 99212 ==

== ENCOUNTER → 2021-08-27 10:54 | Outpatient (REF) | payer MEDICARE, SELFPAY ==
--- NOTE | 2021-08-27 11:00 | HM_ITS ---
* Total monitoring time 2 days and 22 hours. * Underlying rhythm is sinus. Average rate 66/Min. Range 57 to 91/Min. * No atrial fibrillation or flutter or AV blocks or pauses. * Occasional supraventricular ectopy with minimal burden. * Occasional ventricular ectopy. 2 morphologies. 35 couplets. Minimal burden. * No patient events. MTDD
== END ==
LOC: HO.CARD 10:54
PROVIDERS: PCP Internal Medicine; Visit Provider Internal Medicine Cardiovascular Disease
DX: I47.2 Ventricular tachycardia (principal)
CPT/HCPCS: 93242

== ENCOUNTER 2021-10-25 14:47 | Outpatient (REF) | payer MEDICARE, SELFPAY ==
--- NOTE | ~2021-10-25 | XR_ITS ---
EXAMINATION: XR CHEST CLINICAL INFORMATION: Covid infection COMPARISON: Previous chest x-ray most recent January 2019 TECHNIQUE: 2 views of the chest were obtained. FINDINGS: The cardiac and mediastinal contours are stable. There are post-CABG changes. There is scarring or subsegmental atelectasis at the lung bases. The lungs are otherwise clear. There is no pleural effusion or pneumothorax. There are median sternotomy wires. There are degenerative changes of the spine. Aortic stent graft partially visualized. XR/XR chest 2V IMPRESSION: Increased linear markings at the lung bases suggestive of scarring or subsegmental atelectasis.
== END 2021-10-25 14:48 | disposition home or self-care (01) ==
LOC: HO.LAB 14:47
PROVIDERS: Absent Provider Internal Medicine; PCP Internal Medicine; Visit Provider Internal Medicine
DX: J43.1 Panlobular emphysema (principal); U07.1 COVID-19; I25.10 Atherosclerotic heart disease of native coronary artery without angina pectoris; E78.00 Pure hypercholesterolemia, unspecified
CPT/HCPCS: 71046

== ENCOUNTER 2021-10-29 10:50 | Outpatient (REF) | payer MEDICARE, SELFPAY ==
[2021-10-29 13:41] LABS: MANUAL DIFF FLAG NO
[2021-10-29 13:50] LABS: Basophils Absolute Auto 0.1 X10*3/uL (0.0-0.2); Basophils Percent Auto 0.5 % (0-2); Eosinophils Absolute Auto 0.2 X10*3/uL (0.0-0.4); Eosinophils Percent Auto 1.6 % (0-4); Hematocrit 39.8 % (42.0-52.0); Hemoglobin 13.5 g/dl (14.0-18.0); Imm Gran Abs Auto 0.06 X10*3/uL (0.00-0.03); Imm Gran Pct Auto 0.6 % (0.0-0.4); Lymphocytes Absolute Auto 2.1 X10*3/uL (1.2-4.9); Lymphocytes Percent Auto 21.4 % (20-40); Mean Corpuscular HGB Conc 33.9 g/dl (31.0-36.0); Mean Corpuscular Hemoglobin 28.8 pg (27.0-33.0); Mean Platelet Volume 9.3 fL (9.4-12.4); Monocytes Percent Auto 10.1 % (2-11); Neutrophils Absolute Auto 6.4 x10*3/uL (2.0-8.3); Neutrophils Percent Auto 65.8 % (45-73); Platelet Count 212 X10*3/uL (160-400); Red Blood Count 4.68 X10*6/uL (4.60-5.80); Red Cell Distribution Width 13.7 % (11.0-16.0); White Blood Count 9.7 X10*3/uL (4.8-10.8)
[2021-10-29 14:10] LABS: Alanine Aminotransferase 15 U/L (0-40); Albumin Level 3.6 g/dL (3.5-5.0); Alkaline Phosphatase 116 U/L (39-117); Anion Gap 15 (12-20); Aspartate Amino Transferase 18 U/L (5-37); Bilirubin Total 0.9 mg/dL (0.0-1.0); Blood Urea Nitrogen 21 mg/dL (9-16); Calcium 8.8 mg/dL (8.4-10.2); Carbon Dioxide 18 mmol/L (22-29); Chloride 110 mmol/L (96-108); Cholesterol 89 mg/dL; Estimated Glomerular Filt Rate 44; Glucose Fasting 101 mg/dL (60-99); HDL Cholesterol 27 mg/dL; LDL Cholesterol Calculated 48 mg/dl; Potassium 3.9 mmol/L (3.3-5.1); Sodium 139 mmol/L (135-145); Total Protein 6.1 g/dL (6.5-8.0); Triglycerides 73 mg/dL
[2021-10-29 14:24] LABS: Thyroid Stimulating Hormone 0.81 uIU/mL (0.32-4.0)
[2021-10-29 14:39] LABS: Folate 6.6 ng/mL (> or = 4.0); Vitamin B12 413 pg/mL (200-900)
== END 2021-10-29 10:51 | disposition home or self-care (01) ==
LOC: HO.10HDL 10:50
PROVIDERS: Visit Provider Internal Medicine
DX: I25.10 Atherosclerotic heart disease of native coronary artery without angina pectoris (principal); E78.00 Pure hypercholesterolemia, unspecified
CPT/HCPCS: 36415; 80053; 80061; 82607; 82746; 84439; 84443; 85025

== ENCOUNTER → 2021-11-27 10:36 | Outpatient (BNVA) | payer MEDICARE, SELFPAY | PROVIDERS: PCP Internal Medicine; Visit Provider Internal Medicine | DX: J43.1 Panlobular emphysema (principal); R09.02 Hypoxemia; G47.33 Obstructive sleep apnea (adult) (pediatric); Z99.89 Dependence on other enabling machines and devices | CPT/HCPCS: 99212 ==

== ENCOUNTER → 2021-12-25 10:19 | Outpatient (BNVA) | payer MEDICARE, SELFPAY | PROVIDERS: PCP Internal Medicine; Visit Provider Internal Medicine | DX: J43.1 Panlobular emphysema (principal); I73.9 Peripheral vascular disease, unspecified; I25.10 Atherosclerotic heart disease of native coronary artery without angina pectoris; G47.33 Obstructive sleep apnea (adult) (pediatric); R09.02 Hypoxemia; Z99.89 Dependence on other enabling machines and devices | CPT/HCPCS: 94618; 99212 ==

== ENCOUNTER 2021-12-26 08:21 | Outpatient (REF) | payer MEDICARE, SELFPAY ==
--- NOTE | ~2021-12-26 | CT_ITS ---
EXAMINATION: CT ANGIOGRAM ABDOMEN AND PELVIS WITH RUN-OFF CLINICAL INFORMATION: Peripheral vascular disease. COMPARISON: Arterial ultrasound from 08/08/[address] of the abdomen pelvis from 09/30/2019 TECHNIQUE: Multiple axial images were obtained through the abdomen, pelvis, and lower extremities following the administration of 85 mL of Omnipaque 350 intravenous contrast. Sagittal, coronal, and MIP oblique sagittal reformatted images were obtained on the CT workstation, uploaded to PACS, and reviewed. Images were evaluated on independent dedicated 3-D workstation and 3-D images were reconstructed with concurrent radiologist supervision and subsequently interpreted. This CT examination was performed using dose optimization techniques as appropriate, variously including the following: *Automated exposure control *Adjustment of mA and/or kV according to patient size (this includes techniques or standardized protocols for targeted exams where dose is matched to indication/reason for exam; i.e. extremities or head) *Use of iterative reconstruction technique DLP: 835 mGy-cm FINDINGS: VASCULATURE: Aorta: There is a fusiform infrarenal abdominal aortic aneurysm which measures a maximum diameter of 3.4 cm which is stable compared to the prior exam. There is an abdominal aortic to bilateral common iliac artery bifurcated stent graft. The main aortic body and right iliac limb is patent. There is occlusion of the left iliac limb of the stent graft. Celiac axis, superior mesenteric artery, inferior mesenteric artery and left renal arteries demonstrate scattered calcified plaque without significant stenosis. There is a stent seen in the right renal artery which is widely patent Right iliac arteries: Right common iliac limb of the stent graft is widely patent without underlying aneurysm or stenosis. The internal iliac artery is occluded. External iliac artery demonstrates diffuse scattered calcified plaque without significant stenosis. Left iliac arteries: Left iliac limb of the stent graft is occluded. There is occlusion extending throughout the left common iliac artery, external iliac artery and internal iliac artery. Right lower extremity: Common femoral artery demonstrates atherosclerotic plaque without significant stenosis. Heavily calcified plaque is causing moderate to severe stenosis in the mid to distal thigh with possible for segment occlusion at the level the adductor canal. Reconstituted flow is seen within the P1 segment of the popliteal artery. 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 A small amount of mural thrombus is seen within the aneurysm sac. No underlying stenosis is seen. Below knee runoff demonstrates patent flow in the anterior tibial artery, posterior tibial artery and peroneal artery without significant stenosis. Left lower extremity: Reconstituted flow is seen within the common femoral artery. Moderate calcified plaque is seen with diffuse mild stenosis. Extensive calcified plaque is seen within the superficial femoral artery with occlusion in the beginning in the mid to distal thigh. Reconstituted flow seen in the P1 segment of the popliteal artery. Popliteal artery demonstrates scattered calcified plaque without significant stenosis or aneurysm. Below knee runoff demonstrates scattered calcified plaque in the anterior tibial artery, posterior tibial artery and peroneal artery without significant stenosis. NONVASCULAR: Severe centrilobular emphysema seen in the lung bases. Small calcified stones seen in the gallbladder. No biliary duct dilatation seen. Bilateral kidneys demonstrate underlying atrophy and diffuse cortical thinning. There is an enhancing exophytic mass within the right kidney measuring 4.2 x 4.0 cm. This mass previously measured 4.0 x 3.4 cm on the noncontrast CT scan. There is a 4.2 x 3.5 cm simple fluid density cyst off the upper pole the left kidney, which is stable. There is an enhancing exophytic mass off the lateral aspect of the midpole the left kidney measuring 1.4 x 1.2 cm, previously measuring maximum diameter of 1.2 cm. Remaining solid abdominal organs are unremarkable. Bowel loops are unremarkable. No free fluid seen in the abdomen and pelvis. Urinary bladder is moderately distended. Metallic fiducial markers are seen within the prostate gland. No pathologic lymphadenopathy or mass lesion seen in the abdomen and pelvis. Osseous structures are intact. CT/CT angio abd aorta runoff IMPRESSION: 1. Infrarenal abdominal aortic aneurysm with a bifurcated stent graft. The main aortic body and right iliac limb are patent. There is occlusion of the left iliac limb of the stent graft. There is occlusion of the left common iliac artery, external iliac artery and internal iliac artery. Reconstituted flow is seen in the common femoral artery. 2. Moderate to severe stenosis in the mid to distal right superficial femoral artery with possible short segment occlusion at the level the adductor canal. Reconstituted flow seen in the P1 segment of the popliteal artery. 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 Patent flow seen in the right below-knee runoff. 3. Occlusion of the left superficial femoral artery beginning in the mid to distal thigh. Reconstituted flow seen in the P1 segment of the popliteal artery. 4. Enhancing masses in the bilateral kidneys as described above.
[2021-12-26] MEDS: iohexoL 350 MG/ML 75 ML INFUS..BTL 85 ML IV (10:59)
[2021-12-27 09:07] LABS: Creatinine POC 1.3 mg/dL (0.5-1.4); GFR POC 57
== END 2021-12-26 08:22 | disposition home or self-care (01) ==
LOC: HO.CT 08:21
PROVIDERS: PCP Internal Medicine; Visit Provider Surgery Vascular Surgery
DX: I73.9 Peripheral vascular disease, unspecified (principal)
CPT/HCPCS: 75635; 82565; Q9967

== ENCOUNTER → 2022-01-01 13:20 | Outpatient (BNVA) | payer MEDICARE, SELFPAY | PROVIDERS: PCP Internal Medicine; Referring Provider Internal Medicine; Visit Provider Internal Medicine Cardiovascular Disease | DX: R42 Dizziness and giddiness (principal); I25.10 Atherosclerotic heart disease of native coronary artery without angina pectoris; I47.20 Ventricular tachycardia, unspecified | CPT/HCPCS: 99212 ==

== ENCOUNTER 2022-01-10 10:54 | Outpatient (REF) | payer MEDICARE, SELFPAY ==
--- NOTE | ~2022-01-10 | CT_ITS ---
EXAMINATION: CT HEAD WITHOUT CONTRAST CLINICAL INFORMATION: Headache. COMPARISON: None available. TECHNIQUE: Contiguous axial imaging was performed from the skull base to vertex without intravenous administration of contrast. This CT examination was performed using dose optimization techniques as appropriate, variously including the following: *Automated exposure control. *Adjustment of mA and/or kV according to patient size (this includes techniques or standardized protocols for targeted exams where dose is matched to indication/reason for exam; i.e. extremities or head). *Use of iterative reconstruction technique. DLP: 629 mGy-cm FINDINGS: There is no evidence of acute intracranial hemorrhage or edematous territorial infarction. Fields-white matter differentiation is preserved. Scattered and partially confluent hypoattenuation in the periventricular and deep white matter are consistent with moderate microangiopathy. Small cortical calcification along the right temporal lobe. Proportional prominence of the ventricles and sulcal spaces without evidence of obstructive hydrocephalus. No abnormal mass effect or midline shift. No extra-axial fluid collections. Calcific atherosclerotic disease of the intracranial internal carotid and vertebral arteries. No hyperdense vessel sign. No acute soft tissue or osseous abnormalities. Mild anterior-inferior subluxation of the temporomandibular joints with degenerative arthropathy. Mild mucosal thickening of the paranasal sinuses. Moderate rightward nasal septal deviation. The mastoid air cells and middle ear cavities are clear. Bilateral lens extractions. CT/CT head/brain wo IV con IMPRESSION: 1. No evidence of acute intracranial hemorrhage or edematous territorial infarction. 2. Moderate underlying microangiopathy and generalized cerebral volume loss. 3. 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
== END 2022-01-10 10:55 | disposition home or self-care (01) ==
LOC: HO.CT 10:54
PROVIDERS: PCP Internal Medicine; Visit Provider Internal Medicine
DX: R51.9 Headache, unspecified (principal)
CPT/HCPCS: 70450

== ENCOUNTER 2022-01-21 11:12 | Outpatient (REF) | payer MEDICARE, SELFPAY ==
[2022-01-21 14:52] LABS: Prostate Specific Antigen < 0.10 ng/mL (<0.05-4.0)
== END 2022-01-21 11:13 | disposition home or self-care (01) ==
LOC: HO.10HDL 11:12
PROVIDERS: Visit Provider Urology
DX: Z12.5 Encounter for screening for malignant neoplasm of prostate (principal); C61 Malignant neoplasm of prostate
CPT/HCPCS: 36415; 84153

== ENCOUNTER → 2022-01-22 10:55 | Outpatient (REF) | payer MEDICARE, SELFPAY ==
--- NOTE | 2022-01-22 10:59 | HM_ITS ---
Conclusion: 1. Patient monitored for total period of 11 days and 8 hours with only 6 days and 23 hours of analyzable data otherwise artifactual 2. Baseline was normal sinus rhythm with average heart of 69 beats per minute 3. No significant pauses greater than 2.5 seconds 4. Total of 15,462 PACs accounting for 2.3% of total beats account for frequent PACs 5. Frequent 3-5 beat run of nonsustained VT some of them are monomorphic in some polymorphic. Fastest at 148 beats per minute 6. Total of 30,441 PVCs accounting for 4.4% total beats account for frequent PVCs 7. Patient reported multiple events that correlated with isolated PVCs MTDD
== END ==
LOC: HO.CARD 10:55
PROVIDERS: Visit Provider Internal Medicine Cardiovascular Disease
DX: I47.20 Ventricular tachycardia, unspecified (principal)
CPT/HCPCS: 93246

== ENCOUNTER → 2022-01-30 09:06 | Outpatient (BNVA) | payer MEDICARE, SELFPAY | PROVIDERS: PCP Internal Medicine; Visit Provider Urology | DX: N40.0 Benign prostatic hyperplasia without lower urinary tract symptoms (principal); C61 Malignant neoplasm of prostate | CPT/HCPCS: 51798; 99212 ==

== ENCOUNTER 2022-02-05 11:21 | Outpatient (REF) | payer MEDICARE, SELFPAY ==
[2022-02-05 14:07] LABS: MANUAL DIFF FLAG NO
[2022-02-05 14:18] LABS: Basophils Absolute Auto 0.1 X10*3/uL (0.0-0.2); Basophils Percent Auto 0.9 % (0-2); Eosinophils Absolute Auto 0.2 X10*3/uL (0.0-0.4); Eosinophils Percent Auto 2.4 % (0-4); Hematocrit 39.9 % (42.0-52.0); Hemoglobin 13.1 g/dl (14.0-18.0); Imm Gran Abs Auto 0.04 X10*3/uL (0.00-0.03); Imm Gran Pct Auto 0.5 % (0.0-0.4); Lymphocytes Absolute Auto 1.8 X10*3/uL (1.2-4.9); Lymphocytes Percent Auto 20.6 % (20-40); Mean Corpuscular HGB Conc 32.8 g/dl (31.0-36.0); Mean Corpuscular Volume 88.5 fL (80.0-98.0); Mean Platelet Volume 10.8 fL (9.4-12.4); Monocytes Absolute Auto 0.8 X10*3/uL (0.1-1.2); Monocytes Percent Auto 9.4 % (2-11); Neutrophils Absolute Auto 5.7 x10*3/uL (2.0-8.3); Neutrophils Percent Auto 66.2 % (45-73); Platelet Count 146 X10*3/uL (160-400); Red Blood Count 4.51 X10*6/uL (4.60-5.80); Red Cell Distribution Width 14.1 % (11.0-16.0); White Blood Count 8.6 X10*3/uL (4.8-10.8)
[2022-02-05 14:55] LABS: Anion Gap 17 (12-20); Blood Urea Nitrogen 31 mg/dL (9-16); Carbon Dioxide 20 mmol/L (22-29); Chloride 109 mmol/L (96-108); Estimated Glomerular Filt Rate 43; Sodium 141 mmol/L (135-145)
== END 2022-02-05 11:22 | disposition home or self-care (01) ==
LOC: HO.10HDL 11:21
PROVIDERS: Visit Provider Internal Medicine Hypertension Specialist
DX: N18.32 Chronic kidney disease, stage 3b (principal)
CPT/HCPCS: 36415; 80051; 82310; 82565; 84520; 85025

== ENCOUNTER → 2022-03-05 10:13 | Outpatient (BNVA) | payer MEDICARE, SELFPAY | PROVIDERS: PCP Internal Medicine; Visit Provider Surgery Vascular Surgery | DX: I71.40 Abdominal aortic aneurysm, without rupture, unspecified (principal); I73.9 Peripheral vascular disease, unspecified; I26.99 Other pulmonary embolism without acute cor pulmonale; M79.662 Pain in left lower leg; R42 Dizziness and giddiness; I25.10 Atherosclerotic heart disease of native coronary artery without angina pectoris; N18.32 Chronic kidney disease, stage 3b; Z95.1 Presence of aortocoronary bypass graft; Z99.81 Dependence on supplemental oxygen | CPT/HCPCS: 99212 ==

== ENCOUNTER → 2022-04-02 10:39 | Outpatient (BNVA) | payer MEDICARE, SELFPAY | PROVIDERS: PCP Internal Medicine; Visit Provider Internal Medicine | DX: J43.1 Panlobular emphysema (principal); R09.02 Hypoxemia; G47.33 Obstructive sleep apnea (adult) (pediatric); Z86.16 Personal history of COVID-19; Z99.89 Dependence on other enabling machines and devices | CPT/HCPCS: 99212 ==

== ENCOUNTER 2022-05-09 13:37 | Outpatient (REF) | payer MEDICARE, SELFPAY ==
[2022-05-09 15:26] LABS: Appearance Urine Clear; Color Urine Yellow; Glucose Urine UA Negative (Negative); Leukocyte Esterase Urine Negative (Negative); Nitrite Urine Negative (Negative); PH 5.5 (5.0-9.0); Specific Gravity - Urine 1.015 (1.005-1.025); Urine Blood Negative (Negative); Urine Ketones Negative (Negative); Urine Protein Negative (Neg-Trace)
[2022-05-09 15:31] LABS: Bacteria Urine None Seen (None Seen); Hyaline Casts Urine 0-2 /LPF (0-2); RBC Urine 0-2 /HPF (0-2); Squamous Epithelial Cell Urine 0-2 /HPF (0-2); WBC Urine 0-5 /HPF (0-5)
== END 2022-05-09 13:38 | disposition home or self-care (01) ==
LOC: HO.LAB 13:37
PROVIDERS: PCP Internal Medicine; Visit Provider Urology
DX: R33.9 Retention of urine, unspecified (principal)
CPT/HCPCS: 81001; 87086

== ENCOUNTER 2022-05-27 15:43 | Observation (INO) | payer MEDICARE, SELFPAY ==
[2022-05-27] VITALS (9 sets, daily range): BP systolic 87–168; BP diastolic 40–70; PULSE 20–87; RESP 13–74; TEMP 36.4–36.7; O2SAT 90–98; BMI 29.6
--- NOTE | ~2022-05-27 | US_ITS ---
EXAMINATION: US EXTRACRANIAL CAROTID DUPLEX, BILATERAL CLINICAL INFORMATION: Lightheadedness COMPARISON: Carotid ultrasound 05/16/2021 TECHNIQUE: Real-time ultrasound and Doppler techniques (integrating B-mode 2-D vascular images, Doppler spectral analysis and color-flow Doppler imaging) were utilized to interrogate the extracranial carotid arteries, the vertebral arteries and proximal subclavian arteries bilaterally. The degree of stenosis is determined by criteria similar to NASCET. FINDINGS: Right Side: 1. There is moderate atherosclerotic plaque seen in the bifurcation/proximal ICA region. 2. The common carotid artery PSV proximally is 81 cm/s and distally 82 cm/s. 3. The proximal internal carotid artery velocities are 160 cm/s systolic and 17 cm/s diastolic. 4. The proximal external carotid artery PSV is 289 cm/s. 5. The vertebral artery shows antegrade flow. 6. The subclavian artery waveforms are stenotic with elevated velocity of 230 cm/s. Left Side: 1. There is moderate atherosclerotic plaque seen in the bifurcation/proximal ICA region. 2. The common carotid artery PSV proximally is 86 cm/s and distally 54 cm/s. 3. The proximal internal carotid artery velocities are 149 cm/s systolic and 20 cm/s diastolic. 4. The proximal external carotid artery PSV is 423 cm/s. 5. The vertebral artery shows antegrade flow. 6. The subclavian artery waveforms are normal. US/US carotid duplex BI IMPRESSION: 1. RIGHT: Moderate, hemodynamically significant stenosis of the proximal right internal carotid artery corresponding to a 50-79% stenosis by velocity criteria. Right ECA stenosis is also present along with worsening right subclavian stenosis. 2. LEFT: Moderate, hemodynamically significant stenosis of the proximal left internal carotid artery corresponding to a 50-79% stenosis by velocity criteria. Severe left external carotid stenosis is again seen. 3. There is no change in the category severity of disease when compared to the previous study dated 05/16/2021.
--- NOTE | ~2022-05-27 | CT_ITS ---
EXAMINATION: CT HEAD WITHOUT CONTRAST CLINICAL INFORMATION: Lightheaded COMPARISON: CT head 01/10/2022 TECHNIQUE: Contiguous axial imaging was performed from the skull base to vertex without intravenous administration of contrast. This CT examination was performed using dose optimization techniques as appropriate, variously including the following: *Automated exposure control *Adjustment of mA and/or kV according to patient size (this includes techniques or standardized protocols for targeted exams where dose is matched to indication/reason for exam; i.e. extremities or head) *Use of iterative reconstruction technique DLP: 1608 mGy-cm FINDINGS: There is no evidence of acute intracranial hemorrhage, midline shift, mass effect, acute territorial infarction or abnormal extra-axial fluid collection. Mild bilateral periventricular white matter patchy low-attenuation changes are similar to that seen on the previous CT likely reflecting sequela of chronic microangiopathy. There is mild to moderate cerebral volume loss with proportionate dilatation of the ventricles and cortical sulci. The paranasal sinuses are clear. Mastoid air cells and middle ear cavities are well-aerated. Osseous calvarium is intact. No significant calvarial soft tissue abnormality is noted. Calcific atherosclerosis of the internal carotid and vertebral arteries. Degenerative changes are noted at the bilateral temporomandibular joints. CT/CT head/brain wo IV con IMPRESSION: No acute intracranial pathology. Generalized cerebral volume loss and mild to moderate underlying chronic microangiopathy.
--- NOTE | ~2022-05-27 | CT_ITS ---
EXAMINATION: CT CHEST WITHOUT CONTRAST CLINICAL INFORMATION: SOB COMPARISON: None available. TECHNIQUE: Multidetector volumetric CT imaging of the chest was done. Axial MIP volume rendering provided. Sagittal and coronal reformatted images were obtained. This CT examination was performed using dose optimization techniques as appropriate, variously including the following: *Automated exposure control *Adjustment of mA and/or kV according to patient size (this includes techniques or standardized protocols for targeted exams where dose is matched to indication/reason for exam; i.e. extremities or head) *Use of iterative reconstruction technique DLP: 263 mGy-cm FINDINGS: FIL[employer]ING [employer]: Well-expanded lungs. LUNGS: There is diffuse centrilobular emphysematous lungs more prominent in the right upper lobe with bullous changes. Patchy atelectatic changes are seen in the left upper and right middle lobe. PProminent interstitial changes seen in both lung bases slightly greater on the left suggestive chronic interstitial lung disease.. There is a 4 mm subpleural nodule left lower lobe image 33/3 and a 6 or nodule left lower lobe image 34/3. MEDIASTINUM: The thyroid lobes are symmetric and normal. The central trachea and the bronchi widely patent. Heart size and the great vessels are normal caliber. No pericardial effusion seen. No abnormal size mediastinal or hilar lymph nodes seen. The thyroid lobes are symmetric and normal. Small hiatal hernia suspected. CORONARY ARTERY CALCIFICATION: Mild coronary artery calcifications are seen PLEURA: There is minimal bilateral posterior basilar pleural thickening. No pleural effusion or calcification seen. AXILLA: No lymphadenopathy. UPPER ABDOMEN: There is focal linear hypodensity in the left hepatic lobe likely ductal prominence. Rest of the liver is unremarkable. Spleen, bilateral adrenal glands and pancreas is unremarkable. There are radiopaque gallstones. There is a large upper pole left renal cyst OSSEOUS STRUCTURES: No aggressive lytic or sclerotic process seen. Mildly indistinct changes with vacuum disc phenomena is noted. There are median sternotomy sutures noted. CT/CT chest wo IV con IMPRESSION: Diffuse centrilobular emphysema with bullous changes most prominent in right upper lobe. There are chronic interstitial lung changes in both lung bases. There are atelectatic changes in the right middle lobe and left upper lobe posteriorly. No consolidation or mass or abnormal lymphadenopathy. Fleischner guidelines were followed.
--- NOTE | ~2022-05-27 | XR_ITS ---
EXAMINATION: XR CHEST CLINICAL INFORMATION: Altered mental status. Cough. COMPARISON: October 25, 2021. TECHNIQUE: Portable AP view of the chest was obtained. XR/XR chest 1V FINDINGS/IMPRESSION: Small bibasilar patchy densities suggest atelectasis and/or infiltrates. No effusion or pneumothorax is seen. The cardiac silhouette is suboptimally evaluated. The patient is status post median sternotomy, possibly for CABG. The aorta is atherosclerotic and uncoiled, suggesting hypertension.
--- NOTE | ~2022-05-27 | MR_ITS ---
EXAMINATION: MR BRAIN WITHOUT CONTRAST CLINICAL INFORMATION: Ataxia. COMPARISON: Head CT from 05/27/2022. TECHNIQUE: Multiplanar, multisequence imaging of the brain was performed without contrast. FINDINGS: No diffusion abnormalities are identified to suggest an acute or subacute infarct. No mass effect or midline shift is seen. Very mild chronic white matter microangiopathic changes noted with generalized parenchymal volume loss and concordant ex vacuo dilatation of the ventricles, without evidence of hydrocephalus. No extra-axial fluid collections are seen. The brainstem and cerebellum are normal. The gradient refocused acquisition demonstrates no pathologic magnetic susceptibility artifact to indicate underlying acute or chronic blood products. The craniovertebral junction, marrow signal, and midline structures are normal. The major intracranial flow voids at the level of the wr[place] of [place] are preserved. The dural venous sinus flow voids are maintained. The mastoid air cells and paranasal sinuses are fairly well aerated. MR/MR head/brain wo con IMPRESSION: No acute intracranial process. Generalized parenchymal volume loss and very mild chronic white matter microangiopathy.
--- NOTE | 2022-05-27 16:01 | ECG_ITS ---
Test Reason : LIGHTHEADNESS Blood Pressure : / mmHG Vent. Rate : 072 BPM Atrial Rate : 072 BPM P-R Int : 224 ms QRS Dur : 126 ms QT Int : 402 ms P-R-T Axes : 000 -72 056 degrees QTc Int : 440 ms Sinus rhythm with marked sinus arrhythmia with 1st degree A-V block Left axis deviation Right bundle branch block Minimal voltage criteria for LVH, may be normal variant ( R in aVL ) Inferior infarct (cited on or before 27-MAY-2022) Abnormal ECG When compared with ECG of 31-MAR-2017 13:11, No significant changes seen Referred By: Faraz Oscar Electronically Signed By:LOAN MATOS
--- NOTE | 2022-05-27 16:09 | ED.EYEPROB ---
HPI - Eye Problem General Chief complaint: Eye Problems <ABDULAZIZ Morris - Last Filed: 05/27/22 18:08> Stated complaint: lightheaded <ABDULAZIZ Morris - Last Filed: 05/27/22 18:08> Time Seen by Provider: 05/27/22 16:00 <ABDULAZIZ Morris Last Filed: 05/27/22 18:08> Source: patient and EMS <ABDULAZIZ Morris Last Filed: 05/27/22 18:08> Mode of arrival: EMS <ABDULAZIZ Morris Last Filed: 05/27/22 18:08> Limitations: no limitations <ABDULAZIZ Morris Last Filed: 05/27/22 18:08> History of Present Illness HPI Narrative: This is a 76 year old male history of COPD on 2L nasal canal as needed , AAA w/o rupture, CAD sp CABG, vertigo, CKD, LAMBERTO on CPAP, isschemic cardiomyopathy, history of DVT anticoagulated on eliquis , BPH, CAD, prostate cancer, peripheral vascular disease presenting with complaints of pain behind R eye sudden in onset about 30 minutes ago a/c w/ lightheadedness described as difficulty ambulating. Patient reports that he has been having intermittent blurred vision however not today, this has been going on intermittently for a few weeks. Patient reports shortness of breath at baseline that may be slightly worsened. Denies chest pain, fevers, chills, headache, vision changes, nausea, vomiting, abdominal pain,weakness, dysphagia or difficulties with speech <ABDULAZIZ Morris Last Filed: 05/27/22 18:08> Related Data Home medications: Home Medications Medication Instructions Recorded Confirmed albuterol sulfate 90 mcg/actuation 2 puff inhalation Q6H PRN SOB 04/10/21 06/04/22 aerosol inhaler amlodipine 5 mg tablet 2.5 mg PO QPM 06/04/22 06/04/22 Previous Rx's Medication Instructions Recorded cilostazol 100 mg tablet 100 mg PO BID #60 tabs 12/13/21 furosemide 20 mg tablet 20 mg PO DAILY 90 days #90 tabs 01/08/22 finasteride 5 mg tablet 5 mg PO DAILY 90 days #90 tabs 01/21/22 lisinopril 20 mg tablet 20 mg PO DAILY 30 days #90 tabs 03/05/22 metoprolol succinate 100 mg 100 mg PO DAILY #90 tabs 03/22/22 tablet,extended release 24 hr apixaban 5 mg tablet 5 mg PO BID #180 tabs 04/26/22 atorvastatin 80 mg tablet 80 mg PO DAILY #30 tabs 04/26/22 nitroglycerin 0.4 mg sublingual 0.4 mg sublingual Q5M PRN chest 04/26/22 tablet pain #20 tabs omeprazole 20 mg capsule,delayed 20 mg PO DAILY #30 caps 04/26/22 release Symbicort 160 mcg-4.5 2 puff PO BID #10.2 grams 06/05/22 mcg/actuation HFA aerosol inhaler (budesonide-formoterol) <ABDULAZIZ Morris Last Filed: 05/27/22 18:08> Allergies/adverse reactions: Allergies Allergy/AdvReac Type Severity Reaction Status Date / Time codeine [CODEINE] Allergy Unknown STOMACH Verified 06/04/22 11:06 UPSET <ABDULAZIZ Morris Last Filed: 05/27/22 18:08> Review of Systems Review of Systems: Constitutional : No Weight loss, No Fever, No Chills, No Fatigue, No Malaise ENT/Mouth : No sore throat, No Rhinorrhea Eyes: + Eye Pain, No Swelling, No Redness Cardiovascular : No Chest Pain, No SOB, No Dyspnea on Exertion, No Orthopnea, No Edema, No Palpitations Respiratory : No Cough, No Sputum, No Wheezing Gastrointestinal : No Nausea, No Vomiting, No Diarrhea, No Constipation, No abdominal Pain, No Hematochezia, No Melena Genitourinary : No Dysuria, No Urinary Frequency, No Hematuria, Musculoskeletal : No joint pain, No Myalgias, No Joint Swelling Skin : No Skin Lesions, No rash Neuro : No Weakness, No Numbness, + Dizziness, No Headache Psych : No Anxiety/Panic, No Depression All other systems reviewed and are negative <ABUDLAZIZ Morris Last Filed: 05/27/22 18:08> Yes all other systems are reviewed and are negative <ABDULAZIZ Morris Last Filed: 05/27/22 18:08> [facility] Past Medical History Attestation statement: The following information was validated with the patient. <ABDULAZIZ Morris - Last Filed: 05/27/22 18:08> Source: old records reviewed and nursing notes reviewed <ABDULAZIZ Morris - Last Filed: 05/27/22 18:08> Medical History: Medical History BPH (benign prostatic hyperplasia) CAD (coronary artery disease) Chronic kidney disease (CKD) stage G3b/A1, moderately decreased glomerular filtration rate (GFR) between 30-44 mL/min/1.73 square meter and albuminuria creatinine ratio less than 30 mg/g COPD (chronic obstructive pulmonary disease) Exercise hypoxemia GERD (gastroesophageal reflux disease) Gout History of stent insertion of renal artery Hypercholesterolemia Hypertension Ischemic cardiomyopathy Obesity (BMI 30-39.9) LAMBERTO on CPAP Pulmonary embolism PVD (peripheral vascular disease) Right leg DVT Right renal mass <ABDULAZIZ Morris - Last Filed: 05/27/22 18:08> Surgical History: Surgical History History of appendectomy S/P AAA repair S/P CABG x 3 <ABDULAZIZ Morris - Last Filed: 05/27/22 18:08> Family History Family History: Family History Father Cancer Mother No problems noted. Brother Heart disease Sister Heart disease CVD (cardiovascular disease) <ABDULAZIZ Morris - Last Filed: 05/27/22 18:08> Social History Social History: Social History Household Members: Spouse and Children Housing: House Alcohol intake: former Patient Tobacco Use Status: Former Tobacco user Tobacco use type: Cigarette Cigarette Packs Per Day: 1 e-Cigarette/Vaping Use: Never Used Second Hand Smoke Exposure: No Advance Directives Date on File: 05/27/22 service: Yes Current occupational status: retired Cognitive needs: No Hearing needs: No Vision needs: Yes <ABDULAZIZ Morris - Last Filed: 05/27/22 18:08> Physical Exam Vital Signs: Vital Signs: Last Vital Signs Temp 98.7 F 05/29/22 11:02 Pulse 68 05/29/22 11:02 Resp 17 05/29/22 11:02 BP 134/64 05/29/22 11:02 Pulse Ox 97 05/29/22 11:02 O2 Del Method Room Air 05/29/22 11:02 O2 Flow Rate 2 05/29/22 07:14 BMI result Body Mass Index 29.6 Vital signs stable <ABDULAZIZ Morris - Last Filed: 05/27/22 18:08> Vital Signs: Last Vital Signs Temp 98.7 F 05/29/22 11:02 Pulse 68 05/29/22 11:02 Resp 17 05/29/22 11:02 BP 134/64 05/29/22 11:02 Pulse Ox 97 05/29/22 11:02 O2 Del Method Room Air 05/29/22 11:02 O2 Flow Rate 2 05/29/22 07:14 BMI result Body Mass Index 29.[address] <[address] MD - Last Filed: 06/07/22 10:50> Appearance: Alert.? Oriented X3.? No acute distress.? Head: Normocephalic, atraumatic, no step-offs or deformities Eyes: Pupils equal, round and reactive to light.? Neck: Normal inspection.? Neck supple.? CVS: Normal heart rate and rhythm.? Pulses normal.? Respiratory: No respiratory distress.? Breath sounds normal.? Abdomen: Soft and nontender.? Skin: Skin warm and dry.? Normal skin color.? Normal skin turgor.? Extremities: No lower extremity edema.? No calf ttp. 5/5 strength to bilateral upper and lower extremities Back: No midline tenderness, no C-spine tenderness, full range of motion, no CVA tenderness bilaterally Neuro: Oriented X 3.? No motor deficit.? No sensory deficit. CN 2-12 intact + cerebellar exam with slight ataxia to left hand with [id number]. Normal right hand [id number]-[id number]. Negative Romberg, pronator drift. Normal sensation to upper and lower extremities. Alert and oriented x4. Patient does not feel like he is able to ambulate he feels very lightheaded. <ABDULAZIZ Morris - Last Filed: 05/27/22 18:08> Course Reevaluation(s) Reevaluation #1: Pressure and then left eye 17, right eye 13. Low suspicion for wet macular degeneration or acute closed angle glaucoma. <ABDULAZIZ Morris - Last Filed: 05/27/22 18:08> Time: 16:23 <ABDULAZIZ Morris - Last Filed: 05/27/22 18:08> Reevaluation #2: Imaging deparment spoke to MRI they are here but not taking patients. Patient not a TPA and noted due to being anticoagulated on Eliquis. Obtaining a brain MRI would not change course of treatment as patient is anticoagulated on Eliquis and tPA would be contraindicated. <ABDULAZIZ Morris - Last Filed: 05/27/22 18:08> Time: 16:30 <ABDULAZIZ Morris - Last Filed: 05/27/22 18:08> Reevaluation #3: Neuro states this could be a migrane vs stroke. No urgency for MRI as patient is not a candidate for TPA. <ABDULAZIZ Morris - Last Filed: 05/27/22 18:08> Time: 16:40 <ABDULAZIZ Morris - Last Filed: 05/27/22 18:08> Additional Reevaluation(s): CBC appears to be around patient's baseline. Chemistry with slight kidney injury, appears to be around his baseline. Patient's BNP 338 deviating from patient's baseline concerns for possible CHF. Bilateral small bibasilar patchy densities suggesting possible atelectasis versus infiltrate, likely atelectasis. Will obtain CT of the chest. CPK within normal limits. EKG nonischemic however troponin pending. UA negative. COVID negative. Head CT with no acute intracranial pathology. Generalized cerebral volume loss and [id number] underlying chronic micro angiopathy 1803 Discussed case w/ Dr. Daniels patient to be admitted to the hospital for further eval and tx migrane vs stroke <ABDULAZIZ Morris - Last Filed: 05/27/22 18:08> Medications Administered Discontinued Medications Generic Name Dose Route Start Last Admin Trade Name Freq PRN Reason Stop Dose Admin Acetaminophen 650 mg 05/27/22 18:49 05/27/22 19:37 Acetaminophen 325 Mg Tablet PO 05/27/22 18:50 650 mg ONCE ONE Administration Amiodarone HCl 400 mg 05/28/22 21:00 05/29/22 08:49 Amiodarone Hcl 200 Mg Tablet PO 400 mg BID EDWARD Administration Amlodipine Besylate 5 mg 05/28/22 09:00 05/29/22 08:49 Amlodipine Besylate 5 Mg Tablet PO 5 mg DAILY EDWARD Administration Protocol Apixaban 5 mg 05/27/22 21:00 05/29/22 08:48 Apixaban 5 Mg Tablet PO 5 mg BID EDWARD Administration Atorvastatin Calcium 80 mg 05/28/22 09:00 05/29/22 08:49 Atorvastatin Calcium 80 Mg Tablet PO 80 mg DAILY EDWARD Administration Cilostazol 100 mg 05/27/22 21:00 05/29/22 08:50 Cilostazol 100 Mg Tablet PO 100 mg BID EDWARD Administration Diphenhydramine HCl 25 mg 05/27/22 18:49 05/27/22 19:37 Diphenhydramine Hcl 25 Mg Capsule PO 05/27/22 18:50 25 mg ONCE ONE Administration Finasteride 5 mg 05/28/22 09:00 05/29/22 08:35 Finasteride 5 Mg Tablet PO 5 mg DAILY EDWARD Administration Fluticasone/Vilanterol 1 puff 05/28/22 08:00 05/29/22 08:02 Fluticasone/Vilanterol 200/25 Blst.W.Dev INHALE 1 puff RDAILY [facility] Administration Furosemide 20 mg 05/28/22 09:00 05/29/22 08:35 Furosemide 20 Mg Tablet PO 20 mg DAILY EDWARD Administration Protocol Lisinopril 20 mg 05/28/22 09:00 05/29/22 08:35 Lisinopril 20 Mg Tablet PO 20 mg DAILY EDWARD Administration Protocol Metoclopramide HCl 10 mg 05/27/22 18:49 05/27/22 19:37 Metoclopramide Hcl 10 Mg Tablet PO 05/27/22 18:50 10 mg ONCE ONE Administration Metoprolol Succinate 100 mg 05/28/22 09:00 05/29/22 08:49 Metoprolol Succinate Er 100 Mg Tab.Er.24h PO 100 mg DAILY EDWARD Administration Protocol Omeprazole 20 mg 05/28/22 06:30 05/29/22 06:08 Omeprazole 20 Mg Capsule.Dr PO 20 mg DAILY@0630 EDWARD Administration Sodium Chloride 3 ml 05/28/22 00:00 05/29/22 08:50 0.9 % Sodium Chloride Flush 3 Ml Syringe IVFLUSH 3 ml QSHIFT EDWARD Administration <ABDULAZIZ Morris - Last Filed: 05/27/22 18:08> Medications Administered Discontinued Medications Generic Name Dose Route Start Last Admin Trade Name Sofiya PRN Reason Stop Dose Admin Acetaminophen 650 mg 05/27/22 18:49 05/27/22 19:37 Acetaminophen 325 Mg Tablet PO 05/27/22 18:50 650 mg ONCE ONE Administration Amiodarone HCl 400 mg 05/28/22 21:00 05/29/22 08:49 Amiodarone Hcl 200 Mg Tablet PO 400 mg BID EDWARD Administration Amlodipine Besylate 5 mg 05/28/22 09:00 05/29/22 08:49 Amlodipine Besylate 5 Mg Tablet PO 5 mg DAILY EDWARD Administration Protocol Apixaban 5 mg 05/27/22 21:00 05/29/22 08:48 Apixaban 5 Mg Tablet PO 5 mg BID EDWARD Administration Atorvastatin Calcium 80 mg 05/28/22 09:00 05/29/22 08:49 Atorvastatin Calcium 80 Mg Tablet PO 80 mg DAILY EDWARD Administration Cilostazol 100 mg 05/27/22 21:00 05/29/22 08:50 Cilostazol 100 Mg Tablet PO 100 mg BID EDWARD Administration Diphenhydramine HCl 25 mg 05/27/22 18:49 05/27/22 19:37 Diphenhydramine Hcl 25 Mg Capsule PO 05/27/22 18:50 25 mg ONCE ONE Administration Finasteride 5 mg 05/28/22 09:00 05/29/22 08:35 Finasteride 5 Mg Tablet PO 5 mg DAILY EDWARD Administration Fluticasone/Vilanterol 1 puff 05/28/22 08:00 05/29/22 08:02 Fluticasone/Vilanterol 200/25 Blst.W.Dev INHALE 1 puff RDAILY EDWARD Administration Furosemide 20 mg 05/28/22 09:00 05/29/22 08:35 Furosemide 20 Mg Tablet PO 20 mg DAILY EDWARD Administration Protocol Lisinopril 20 mg 05/28/22 09:00 05/29/22 08:35 Lisinopril 20 Mg Tablet PO 20 mg DAILY EDWARD Administration Protocol Metoclopramide HCl 10 mg 05/27/22 18:49 05/27/22 19:37 Metoclopramide Hcl 10 Mg Tablet PO 05/27/22 18:50 10 mg ONCE ONE Administration Metoprolol Succinate 100 mg 05/28/22 09:00 05/29/22 08:49 Metoprolol Succinate Er 100 Mg Tab.Er.24h PO 100 mg DAILY EDWARD Administration Protocol Omeprazole 20 mg 05/28/22 06:30 05/29/22 06:08 Omeprazole 20 Mg Capsule. PO 20 mg DAILY@0630 EDWARD Administration Sodium Chloride 3 ml 05/28/22 00:00 05/29/22 08:50 0.9 % Sodium Chloride Flush 3 Ml Syringe IVFLUSH 3 ml QSHIFT EDWARD Administration <Shin St MD - Last Filed: 06/07/22 10:50> Medical Decision Making Medical Decision Making [facility] Narrative: 1623 68-year-old male presents with sudden-onset right-sided eye pain, lightheadedness, intermittent blurred vision symptoms have been intermittent for the past few weeks however worsening 30 minutes prior to arrival. Chronic shortness of breath. Physical examination benign. I pressure in the right 13 eye pressure in the left 17. Neuro nonfocal. Cerebellar with slight ataxia to left hand with [id number]. Normal right hand [id number]. Negative Romberg, pronator drift. Normal sensation to upper and lower extremities. Alert and oriented x4. Patient does not feel like he is able to ambulate he feels very lightheaded. Concerns for possible posterior circulating stroke. Unlikely intracranial hemorrhage. Other differentials include BPPV, vertigo, electrolyte abnormalities, UTI. Shortness of breath likely chronic lung disease, I do not suspect acute COPD exacerbation. Other differential included CHF. Patient anticoagulated low suspicion for PE. Unlikely wet macular degeneration or acute closed angle glaucoma Plan labs, imaging. Case discussed with my attending who agrees MRIs appropriate MRI ordered to rule out posterior circulating stroke. <ABDULAZIZ Morris - Last Filed: 05/27/22 18:08> Differential Diagnosis Differential Diagnoses: The differential diagnosis associated with the presentation includes <ABDULAZIZ Morris - Last Filed: 05/27/22 18:08> Concerns for possible posterior circulating stroke. Unlikely intracranial hemorrhage. Other differentials include BPPV, vertigo, electrolyte abnormalities, UTI. Shortness of breath likely chronic lung disease, I do not suspect acute COPD exacerbation.Other differential included CHF. Patient anticoagulated low suspicion for PE. Unlikely wet macular degeneration or acute closed angle glaucoma <ABDULAZIZ Morris - Last Filed: 05/27/22 18:08> Admission/Observation Consideration of admission/observation: Escalation of care including admission/observation considered <ABDULAZIZ Morris - Last Filed: 05/27/22 18:08> ilsa <ABDULAZIZ Morris - Last Filed: 05/27/22 18:08> Consult Healthcare Provider Management of the patient was discussed with: Assistant Softball Coach (PCP) <ABDULAZIZ Morris - Last Filed: 05/27/22 18:08> Lab Data MDM Lab Attestation statement: I reviewed the patient's lab results. <ABDULAZIZ Morris - Last Filed: 05/27/22 18:08> Result Diagrams: 05/27/22 16:34 05/27/22 16:34 <ABDULAZIZ Morris - Last Filed: 05/27/22 18:08> Labs: Lab Results 05/27/22 05/27/22 05/27/22 Range/Units 16:26 16:34 16:34 WBC 8.7 (4.8-10.8) X10*3/uL RBC 4.84 (4.60-5.80) X10*6/uL Hgb 14.0 (14.0-18.0) g/dl Hct 41.8 L (42.0-52.0) % MCV 86.4 (80.0-98.0) fL MCH 28.9 (27.0-33.0) pg MCHC 33.5 (31.0-36.0) g/dl RDW 13.9 (11.0-16.0) % Plt Count 168 (160-400) X10*3/uL MPV 8.9 L (9.4-12.4) fL Immature Gran % (Auto) 0.3 (0.0-0.4) % Neut % (Auto) 72.5 (45-73) % Lymph % (Auto) 15.0 L (20-40) % Phelps % (Auto) 9.6 (2-11) % Eos % (Auto) 1.8 (0-4) % Baso % (Auto) 0.8 (0-2) % Lymph # (Auto) 1.3 (1.2-4.9) X10*3/uL Phelps # (Auto) 0.8 (0.1-1.2) X10*3/uL Eos # (Auto) 0.2 (0.0-0.4) X10*3/uL Baso # (Auto) 0.1 (0.0-0.2) X10*3/uL Abs Immat Gran (auto) 0.03 (0.00-0.03) X10*3/uL Absolute Neuts (auto) 6.3 (2.0-8.3) x10*3/uL Absolute Nucleated RBC 0.000 (0.0-0.012) X10*3/uL Nucleated RBC % (auto) 0.0 (0.0-0.2) /100WBC PT (10.0-13.1) SEC INR (0.9-1.1) Sodium 139 (135-145) mmol/L Potassium 4.2 (3.3-5.1) mmol/L Chloride 107 (96-108) mmol/L Carbon Dioxide 25 (22-29) mmol/L Anion Gap 11 L (12-20) BUN 27 H (9-16) mg/dL Creatinine 1.66 H (0.5-1.4) mg/dL Estim Creat Clear Calc 35.8 Estimated GFR 40 POC Glucose (60-115) mg/dL Random Glucose 104 (60-115) mg/dL Lactic Acid (0.5-2.0) mmol/L Calcium 9.2 (8.4-10.2) mg/dL Magnesium 2.0 (1.6-2.6) mg/dL Total Bilirubin 0.7 (0.0-1.0) mg/dL AST 15 (5-37) U/L ALT 14 (0-40) U/L Alkaline Phosphatase 105 (39-117) U/L Total Creatine Kinase 47 (38-174) U/L Troponin I High Sens (<3.5-35.0) ng/L B-Natriuretic Peptide (<100) pg/mL Total Protein 6.4 L (6.5-8.0) g/dL Albumin 3.9 (3.5-5.0) g/dL Lipase 23 (8-78) U/L TSH 1.09 (0.32-4.0) uIU/mL Urine Color Urine Appearance Urine pH (5.0-9.0) Ur Specific Hammond (1.005-1.025) Urine Protein (Neg-Trace) mg/dL Urine Glucose (UA) (Negative) mg/dL Urine Ketones (Negative) mg/dL Urine Blood (Negative) Urine Nitrite (Negative) Ur Leukocyte Esterase (Negative) Urine Opiates Screen (Not Detect) Urine Fentanyl Screen (Not Detect) Ur Barbiturates Screen (Not Detect) Ur Phencyclidine Scrn (Not Detect) Ur Amphetamines Screen (Not Detect) U Benzodiazepines Scrn (Not Detect) Urine Cocaine Screen (Not Detect) U Marijuana (THC) Screen (Not Detect) Ethyl Alcohol < 10 mg/dL COVID-19 (SHEILA) Negative (Negative) COVID-19 Clin Com See Note 05/27/22 05/27/22 05/27/22 Range/Units 16:34 16:34 16:35 WBC (4.8-10.8) X10*3/uL RBC (4.60-5.80) X10*6/uL Hgb (14.0-18.0) g/dl Hct (42.0-52.0) % MCV (80.0-98.0) fL MCH (27.0-33.0) pg MCHC (31.0-36.0) g/dl RDW (11.0-16.0) % Plt Count (160-400) X10*3/uL MPV (9.4-12.4) fL Immature Gran % (Auto) (0.0-0.4) % Neut % (Auto) (45-73) % Lymph % (Auto) (20-40) % Phelps % (Auto) (2-11) % Eos % (Auto) (0-4) % Baso % (Auto) (0-2) % Lymph # (Auto) (1.2-4.9) X10*3/uL Phelps # (Auto) (0.1-1.2) X10*3/uL Eos # (Auto) (0.0-0.4) X10*3/uL Baso # (Auto) (0.0-0.2) X10*3/uL Abs Immat Gran (auto) (0.00-0.03) X10*3/uL Absolute Neuts (auto) (2.0-8.3) x10*3/uL Absolute Nucleated RBC (0.0-0.012) X10*3/uL Nucleated RBC % (auto) (0.0-0.2) /100WBC PT 16.3 H (10.0-13.1) SEC INR 1.4 H (0.9-1.1) Sodium (135-145) mmol/L Potassium (3.3-5.1) mmol/L Chloride (96-108) mmol/L Carbon Dioxide (22-29) mmol/L Anion Gap (12-20) BUN (9-16) mg/dL Creatinine (0.5-1.4) mg/dL Estim Creat Clear Calc Estimated GFR POC Glucose (60-115) mg/dL Random Glucose (60-115) mg/dL Lactic Acid 1.9 (0.5-2.0) mmol/L Calcium (8.4-10.2) mg/dL Magnesium (1.6-2.6) mg/dL Total Bilirubin (0.0-1.0) mg/dL AST (5-37) U/L ALT (0-40) U/L Alkaline Phosphatase (39-117) U/L Total Creatine Kinase (38-174) U/L Troponin I High Sens (<3.5-35.0) ng/L B-Natriuretic Peptide 339 H (<100) pg/mL Total Protein (6.5-8.0) g/dL Albumin (3.5-5.0) g/dL Lipase (8-78) U/L TSH (0.32-4.0) uIU/mL Urine Color Urine Appearance Urine pH (5.0-9.0) Ur Specific Hammond (1.005-1.025) Urine Protein (Neg-Trace) mg/dL Urine Glucose (UA) (Negative) mg/dL Urine Ketones (Negative) mg/dL Urine Blood (Negative) Urine Nitrite (Negative) Ur Leukocyte Esterase (Negative) Urine Opiates Screen (Not Detect) Urine Fentanyl Screen (Not Detect) Ur Barbiturates Screen (Not Detect) Ur Phencyclidine Scrn (Not Detect) Ur Amphetamines Screen (Not Detect) U Benzodiazepines Scrn (Not Detect) Urine Cocaine Screen (Not Detect) U Marijuana (THC) Screen (Not Detect) Ethyl Alcohol mg/dL COVID-19 (SHEILA) (Negative) COVID-19 Clin Com 05/27/22 05/27/22 05/27/22 Range/Units 17:13 17:13 17:13 WBC (4.8-10.8) X10*3/uL RBC (4.60-5.80) X10*6/uL Hgb (14.0-18.0) g/dl Hct (42.0-52.0) % MCV (80.0-98.0) fL MCH (27.0-33.0) pg MCHC (31.0-36.0) g/dl RDW (11.0-16.0) % Plt Count (160-400) X10*3/uL MPV (9.4-12.4) fL Immature Gran % (Auto) (0.0-0.4) % Neut % (Auto) (45-73) % Lymph % (Auto) (20-40) % Phelps % (Auto) (2-11) % Eos % (Auto) (0-4) % Baso % (Auto) (0-2) % Lymph # (Auto) (1.2-4.9) X10*3/uL Phelps # (Auto) (0.1-1.2) X10*3/uL Eos # (Auto) (0.0-0.4) X10*3/uL Baso # (Auto) (0.0-0.2) X10*3/uL Abs Immat Gran (auto) (0.00-0.03) X10*3/uL Absolute Neuts (auto) (2.0-8.3) x10*3/uL Absolute Nucleated RBC (0.0-0.012) X10*3/uL Nucleated RBC % (auto) (0.0-0.2) /100WBC PT (10.0-13.1) SEC INR (0.9-1.1) Sodium (135-145) mmol/L Potassium (3.3-5.1) mmol/L Chloride (96-108) mmol/L Carbon Dioxide (22-29) mmol/L Anion Gap (12-20) BUN (9-16) mg/dL Creatinine (0.5-1.4) mg/dL Estim Creat Clear Calc Estimated GFR POC Glucose 104 (60-115) mg/dL Random Glucose (60-115) mg/dL Lactic Acid (0.5-2.0) mmol/L Calcium (8.4-10.2) mg/dL Magnesium (1.6-2.6) mg/dL Total Bilirubin (0.0-1.0) mg/dL AST (5-37) U/L ALT (0-40) U/L Alkaline Phosphatase (39-117) U/L Total Creatine Kinase (38-174) U/L Troponin I High Sens (<3.5-35.0) ng/L B-Natriuretic Peptide (<100) pg/mL Total Protein (6.5-8.0) g/dL Albumin (3.5-5.0) g/dL Lipase (8-78) U/L TSH (0.32-4.0) uIU/mL Urine Color Yellow Urine Appearance Clear Urine pH 6.0 (5.0-9.0) Ur Specific Hammond 1.015 (1.005-1.025) Urine Protein Negative (Neg-Trace) mg/dL Urine Glucose (UA) Negative (Negative) mg/dL Urine Ketones Negative (Negative) mg/dL Urine Blood Negative (Negative) Urine Nitrite Negative (Negative) Ur Leukocyte Esterase Negative (Negative) Urine Opiates Screen Not Detected (Not Detect) Urine Fentanyl Screen Not Detected (Not Detect) Ur Barbiturates Screen Not Detected (Not Detect) Ur Phencyclidine Scrn Not Detected (Not Detect) Ur Amphetamines Screen Not Detected (Not Detect) U Benzodiazepines Scrn Not Detected (Not Detect) Urine Cocaine Screen Not Detected (Not Detect) U Marijuana (THC) Screen Not Detected (Not Detect) Ethyl Alcohol mg/dL COVID-19 (SHEILA) (Negative) COVID-19 Clin Com 05/27/22 05/27/22 Range/Units 17:18 20:08 WBC (4.8-10.8) X10*3/uL RBC (4.60-5.80) X10*6/uL Hgb (14.0-18.0) g/dl Hct (42.0-52.0) % MCV (80.0-98.0) fL MCH (27.0-33.0) pg MCHC (31.0-36.0) g/dl RDW (11.0-16.0) % Plt Count (160-400) X10*3/uL MPV (9.4-12.4) fL Immature Gran % (Auto) (0.0-0.4) % Neut % (Auto) (45-73) % Lymph % (Auto) (20-40) % Phelps % (Auto) (2-11) % Eos % (Auto) (0-4) % Baso % (Auto) (0-2) % Lymph # (Auto) (1.2-4.9) X10*3/uL Phelps # (Auto) (0.1-1.2) X10*3/uL Eos # (Auto) (0.0-0.4) X10*3/uL Baso # (Auto) (0.0-0.2) X10*3/uL Abs Immat Gran (auto) (0.00-0.03) X10*3/uL Absolute Neuts (auto) (2.0-8.3) x10*3/uL Absolute Nucleated RBC (0.0-0.012) X10*3/uL Nucleated RBC % (auto) (0.0-0.2) /100WBC PT (10.0-13.1) SEC INR (0.9-1.1) Sodium (135-145) mmol/L Potassium (3.3-5.1) mmol/L Chloride (96-108) mmol/L Carbon Dioxide (22-29) mmol/L Anion Gap (12-20) BUN (9-16) mg/dL Creatinine (0.5-1.4) mg/dL Estim Creat Clear Calc Estimated GFR POC Glucose (60-115) mg/dL Random Glucose (60-115) mg/dL Lactic Acid (0.5-2.0) mmol/L Calcium (8.4-10.2) mg/dL Magnesium (1.6-2.6) mg/dL Total Bilirubin (0.0-1.0) mg/dL AST (5-37) U/L ALT (0-40) U/L Alkaline Phosphatase (39-117) U/L Total Creatine Kinase (38-174) U/L Troponin I High Sens 22.2 23.4 (<3.5-35.0) ng/L B-Natriuretic Peptide (<100) pg/mL Total Protein (6.5-8.0) g/dL Albumin (3.5-5.0) g/dL Lipase (8-78) U/L TSH (0.32-4.0) uIU/mL Urine Color Urine Appearance Urine pH (5.0-9.0) Ur Specific Hammond (1.005-1.025) Urine Protein (Neg-Trace) mg/dL Urine Glucose (UA) (Negative) mg/dL Urine Ketones (Negative) mg/dL Urine Blood (Negative) Urine Nitrite (Negative) Ur Leukocyte Esterase (Negative) Urine Opiates Screen (Not Detect) Urine Fentanyl Screen (Not Detect) Ur Barbiturates Screen (Not Detect) Ur Phencyclidine Scrn (Not Detect) Ur Amphetamines Screen (Not Detect) U Benzodiazepines Scrn (Not Detect) Urine Cocaine Screen (Not Detect) U Marijuana (THC) Screen (Not Detect) Ethyl Alcohol mg/dL COVID-19 (SHEILA) (Negative) COVID-19 Clin Com <ABDULAZIZ Morris - Last Filed: 05/27/22 18:08> Lab Results 05/27/22 05/27/22 05/27/22 Range/Units 16:26 16:34 16:34 WBC 8.7 (4.8-10.8) X10*3/uL RBC 4.84 (4.60-5.80) X10*6/uL Hgb 14.0 (14.0-18.0) g/dl Hct 41.8 L (42.0-52.0) % MCV 86.4 (80.0-98.0) fL MCH 28.9 (27.0-33.0) pg MCHC 33.5 (31.0-36.0) g/dl RDW 13.9 (11.0-16.0) % Plt Count 168 (160-400) X10*3/uL MPV 8.9 L (9.4-12.4) fL Immature Gran % (Auto) 0.3 (0.0-0.4) % Neut % (Auto) 72.5 (45-73) % Lymph % (Auto) 15.0 L (20-40) % [place] % (Auto) 9.6 (2-11) % Eos % (Auto) 1.8 (0-4) % Baso % (Auto) 0.8 (0-2) % Lymph # (Auto) 1.3 (1.2-4.9) X10*3/uL [place] # (Auto) 0.8 (0.1-1.2) X10*3/uL Eos # (Auto) 0.2 (0.0-0.4) X10*3/uL Baso # (Auto) 0.1 (0.0-0.2) X10*3/uL Abs Immat Gran (auto) 0.03 (0.00-0.03) X10*3/uL Absolute Neuts (auto) 6.3 (2.0-8.3) x10*3/uL Absolute Nucleated RBC 0.000 (0.0-0.012) X10*3/uL Nucleated RBC % (auto) 0.0 (0.0-0.2) /100WBC PT (10.0-13.1) SEC INR (0.9-1.1) Sodium 139 (135-145) mmol/L Potassium 4.2 (3.3-5.1) mmol/L Chloride 107 (96-108) mmol/L Carbon Dioxide 25 (22-29) mmol/L Anion Gap 11 L (12-20) BUN 27 H (9-16) mg/dL Creatinine 1.66 H (0.5-1.4) mg/dL Estim Creat Clear Calc 35.8 Estimated GFR 40 POC Glucose (60-115) mg/dL Random Glucose 104 (60-115) mg/dL Lactic Acid (0.5-2.0) mmol/L Calcium 9.2 (8.4-10.2) mg/dL Magnesium 2.0 (1.6-2.6) mg/dL Total Bilirubin 0.7 (0.0-1.0) mg/dL AST 15 (5-37) U/L ALT 14 (0-40) U/L Alkaline Phosphatase 105 (39-117) U/L Total Creatine Kinase 47 (38-174) U/L Troponin I High Sens (<3.5-35.0) ng/L B-Natriuretic Peptide (<100) pg/mL Total Protein 6.4 L (6.5-8.0) g/dL Albumin 3.9 (3.5-5.0) g/dL Lipase 23 (8-78) U/L TSH 1.09 (0.32-4.0) uIU/mL Urine Color Urine Appearance Urine pH (5.0-9.0) Ur Specific [place] (1.005-1.025) Urine Protein (Neg-Trace) mg/dL Urine Glucose (UA) (Negative) mg/dL Urine Ketones (Negative) mg/dL Urine Blood (Negative) Urine Nitrite (Negative) Ur Leukocyte Esterase (Negative) Urine Opiates Screen (Not Detect) Urine Fentanyl Screen (Not Detect) Ur Barbiturates Screen (Not Detect) Ur Phencyclidine Scrn (Not Detect) Ur Amphetamines Screen (Not Detect) U Benzodiazepines Scrn (Not Detect) Urine Cocaine Screen (Not Detect) U Marijuana (THC) Screen (Not Detect) Ethyl Alcohol < 10 mg/dL COVID-19 (SHEILA) Negative (Negative) COVID-19 Clin Com See Note 05/27/22 05/27/22 05/27/22 Range/Units 16:34 16:34 16:35 WBC (4.8-10.8) X10*3/uL RBC (4.60-5.80) X10*6/uL Hgb (14.0-18.0) g/dl Hct (42.0-52.0) % MCV (80.0-98.0) fL MCH (27.0-33.0) pg MCHC (31.0-36.0) g/dl RDW (11.0-16.0) % Plt Count (160-400) X10*3/uL MPV (9.4-12.4) fL Immature Gran % (Auto) (0.0-0.4) % Neut % (Auto) (45-73) % Lymph % (Auto) (20-40) % [place] % (Auto) (2-11) % Eos % (Auto) (0-4) % Baso % (Auto) (0-2) % Lymph # (Auto) (1.2-4.9) X10*3/uL [place] # (Auto) (0.1-1.2) X10*3/uL Eos # (Auto) (0.0-0.4) X10*3/uL Baso # (Auto) (0.0-0.2) X10*3/uL Abs Immat Gran (auto) (0.00-0.03) X10*3/uL Absolute Neuts (auto) (2.0-8.3) x10*3/uL Absolute Nucleated RBC (0.0-0.012) X10*3/uL Nucleated RBC % (auto) (0.0-0.2) /100WBC PT 16.3 H (10.0-13.1) SEC INR 1.4 H (0.9-1.1) Sodium (135-145) mmol/L Potassium (3.3-5.1) mmol/L Chloride (96-108) mmol/L Carbon Dioxide (22-29) mmol/L Anion Gap (12-20) BUN (9-16) mg/dL Creatinine (0.5-1.4) mg/dL Estim Creat Clear Calc Estimated GFR POC Glucose (60-115) mg/dL Random Glucose (60-115) mg/dL Lactic Acid 1.9 (0.5-2.0) mmol/L Calcium (8.4-10.2) mg/dL Magnesium (1.6-2.6) mg/dL Total Bilirubin (0.0-1.0) mg/dL AST (5-37) U/L ALT (0-40) U/L Alkaline Phosphatase (39-117) U/L Total Creatine Kinase (38-174) U/L Troponin I High Sens (<3.5-35.0) ng/L B-Natriuretic Peptide 339 H (<100) pg/mL Total Protein (6.5-8.0) g/dL Albumin (3.5-5.0) g/dL Lipase (8-78) U/L TSH (0.32-4.0) uIU/mL Urine Color Urine Appearance Urine pH (5.0-9.0) Ur Specific [place] (1.005-1.025) Urine Protein (Neg-Trace) mg/dL Urine Glucose (UA) (Negative) mg/dL Urine Ketones (Negative) mg/dL Urine Blood (Negative) Urine Nitrite (Negative) Ur Leukocyte Esterase (Negative) Urine Opiates Screen (Not Detect) Urine Fentanyl Screen (Not Detect) Ur Barbiturates Screen (Not Detect) Ur Phencyclidine Scrn (Not Detect) Ur Amphetamines Screen (Not Detect) U Benzodiazepines Scrn (Not Detect) Urine Cocaine Screen (Not Detect) U Marijuana (THC) Screen (Not Detect) Ethyl Alcohol mg/dL COVID-19 (S[facility]ILA) (Negative) COVID-19 Clin Com 05/27/22 05/27/22 05/27/22 Range/Units 17:13 17:13 17:13 WBC (4.8-10.8) X10*3/uL RBC (4.60-5.80) X10*6/uL Hgb (14.0-18.0) g/dl Hct (42.0-52.0) % MCV (80.0-98.0) fL MCH (27.0-33.0) pg MCHC (31.0-36.0) g/dl RDW (11.0-16.0) % Plt Count (160-400) X10*3/uL MPV (9.4-12.4) fL Immature Gran % (Auto) (0.0-0.4) % Neut % (Auto) (45-73) % Lymph % (Auto) (20-40) % [place] % (Auto) (2-11) % Eos % (Auto) (0-4) % Baso % (Auto) (0-2) % Lymph # (Auto) (1.2-4.9) X10*3/uL [place] # (Auto) (0.1-1.2) X10*3/uL Eos # (Auto) (0.0-0.4) X10*3/uL Baso # (Auto) (0.0-0.2) X10*3/uL Abs Immat Gran (auto) (0.00-0.03) X10*3/uL Absolute Neuts (auto) (2.0-8.3) x10*3/uL Absolute Nucleated RBC (0.0-0.012) X10*3/uL Nucleated RBC % (auto) (0.0-0.2) /100WBC PT (10.0-13.1) SEC INR (0.9-1.1) Sodium (135-145) mmol/L Potassium (3.3-5.1) mmol/L Chloride (96-108) mmol/L Carbon Dioxide (22-29) mmol/L Anion Gap (12-20) BUN (9-16) mg/dL Creatinine (0.5-1.4) mg/dL Estim Creat Clear Calc Estimated GFR POC Glucose 104 (60-115) mg/dL Random Glucose (60-115) mg/dL Lactic Acid (0.5-2.0) mmol/L Calcium (8.4-10.2) mg/dL Magnesium (1.6-2.6) mg/dL Total Bilirubin (0.0-1.0) mg/dL AST (5-37) U/L ALT (0-40) U/L Alkaline Phosphatase (39-117) U/L Total Creatine Kinase (38-174) U/L Troponin I High Sens (<3.5-35.0) ng/L B-Natriuretic Peptide (<100) pg/mL Total Protein (6.5-8.0) g/dL Albumin (3.5-5.0) g/dL Lipase (8-78) U/L TSH (0.32-4.0) uIU/mL Urine Color Yellow Urine Appearance Clear Urine pH 6.0 (5.0-9.0) Ur Specific [place] 1.015 (1.005-1.025) Urine Protein Negative (Neg-Trace) mg/dL Urine Glucose (UA) Negative (Negative) mg/dL Urine Ketones Negative (Negative) mg/dL Urine Blood Negative (Negative) Urine Nitrite Negative (Negative) Ur Leukocyte Esterase Negative (Negative) Urine Opiates Screen Not Detected (Not Detect) Urine Fentanyl Screen Not Detected (Not Detect) Ur Barbiturates Screen Not Detected (Not Detect) Ur Phencyclidine Scrn Not Detected (Not Detect) Ur Amphetamines Screen Not Detected (Not Detect) U Benzodiazepines Scrn Not Detected (Not Detect) Urine Cocaine Screen Not Detected (Not Detect) U Marijuana (THC) Screen Not Detected (Not Detect) Ethyl Alcohol mg/dL COVID-19 ([facility]ILA) (Negative) COVID-19 Clin Com 05/27/22 05/27/22 Range/Units 17:18 20:08 WBC (4.8-10.8) X10*3/uL RBC (4.60-5.80) X10*6/uL Hgb (14.0-18.0) g/dl Hct (42.0-52.0) % MCV (80.0-98.0) fL MCH (27.0-33.0) pg MCHC (31.0-36.0) g/dl RDW (11.0-16.0) % Plt Count (160-400) X10*3/uL MPV (9.4-12.4) fL Immature Gran % (Auto) (0.0-0.4) % Neut % (Auto) (45-73) % Lymph % (Auto) (20-40) % [place] % (Auto) (2-11) % Eos % (Auto) (0-4) % Baso % (Auto) (0-2) % Lymph # (Auto) (1.2-4.9) X10*3/uL [place] # (Auto) (0.1-1.2) X10*3/uL Eos # (Auto) (0.0-0.4) X10*3/uL Baso # (Auto) (0.0-0.2) X10*3/uL Abs Immat Gran (auto) (0.00-0.03) X10*3/uL Absolute Neuts (auto) (2.0-8.3) x10*3/uL Absolute Nucleated RBC (0.0-0.012) X10*3/uL Nucleated RBC % (auto) (0.0-0.2) /100WBC PT (10.0-13.1) SEC INR (0.9-1.1) Sodium (135-145) mmol/L Potassium (3.3-5.1) mmol/L Chloride (96-108) mmol/L Carbon Dioxide (22-29) mmol/L Anion Gap (12-20) BUN (9-16) mg/dL Creatinine (0.5-1.4) mg/dL Estim Creat Clear Calc Estimated GFR POC Glucose (60-115) mg/dL Random Glucose (60-115) mg/dL Lactic Acid (0.5-2.0) mmol/L Calcium (8.4-10.2) mg/dL Magnesium (1.6-2.6) mg/dL Total Bilirubin (0.0-1.0) mg/dL AST (5-37) U/L ALT (0-40) U/L Alkaline Phosphatase (39-117) U/L Total Creatine Kinase (38-174) U/L Troponin I High Sens 22.2 23.4 (<3.5-35.0) ng/L B-Natriuretic Peptide (<100) pg/mL Total Protein (6.5-8.0) g/dL Albumin (3.5-5.0) g/dL Lipase (8-78) U/L TSH (0.32-4.0) uIU/mL Urine Color Urine Appearance Urine pH (5.0-9.0) Ur Specific [place] (1.005-1.025) Urine Protein (Neg-Trace) mg/dL Urine Glucose (UA) (Negative) mg/dL Urine Ketones (Negative) mg/dL Urine Blood (Negative) Urine Nitrite (Negative) Ur Leukocyte Esterase (Negative) Urine Opiates Screen (Not Detect) Urine Fentanyl Screen (Not Detect) Ur Barbiturates Screen (Not Detect) Ur Phencyclidine Scrn (Not Detect) Ur Amphetamines Screen (Not Detect) U Benzodiazepines Scrn (Not Detect) Urine Cocaine Screen (Not Detect) U Marijuana (THC) Screen (Not Detect) Ethyl Alcohol mg/dL COVID-19 ([facility]ILA) (Negative) COVID-19 Clin Com <Shin St MD - Last Filed: 06/07/22 10:50> Radiology Impression Discussion of test interpretation with radiology: I have reviewed the radiologist's reading. <ABDULAZIZ Morris - Last Filed: 05/27/22 18:08> Core Measures AMI core measures followed: Yes <ABDULAZIZ Morris - Last Filed: 05/27/22 18:08> Measure exclusions: not indicated <ABDULAZIZ Morris - Last Filed: 05/27/22 18:08> Attestation Attending Attestation: I reviewed TITLE CHECKER/PA/Resident note, assessment and plan. I agree with the documentation, assessment and plan unless otherwise stated. <Shin St MD - Last Filed: 06/07/22 10:50> Critical Care Time Critical Care Time Critical Care Time: Yes <ABDULAZIZ Morris - Last Filed: 05/27/22 18:08> Total Critical Care Time: 35 <ABDULAZIZ Morris - Last Filed: 05/27/22 18:08> Attestation: I attest to this time spent taking care of the patient, obtaining history, physical, reviewing labs, imaging, speaking to my attending, speaking to specialist. <ABDULAZIZ Morris - Last Filed: 05/27/22 18:08> Discharge Plan Discharge Clinical Impression: Acute pain in right eye, Lightheadedness, CHF (congestive heart failure) <ABDULAZIZ Morris - Last Filed: 05/27/22 18:08> Patient Disposition: Admitted As Inpatient <ABDULAZIZ Morris - Last Filed: 05/27/22 18:08> Interventions: Admission Worksheet (ED) Last Done: 05/27/22 22:40 <ABDULAZIZ Morris - Last Filed: 05/27/22 18:08> Discharge Date/Time: 05/27/22 22:55 <ABDULAZIZ Morris - Last Filed: 05/27/22 18:08>
[2022-05-27 16:46] LABS: MANUAL DIFF FLAG NO
[2022-05-27 16:53] LABS: Basophils Absolute Auto 0.1 X10*3/uL (0.0-0.2); Basophils Percent Auto 0.8 % (0-2); Eosinophils Absolute Auto 0.2 X10*3/uL (0.0-0.4); Eosinophils Percent Auto 1.8 % (0-4); Hematocrit 41.8 % (42.0-52.0); Imm Gran Abs Auto 0.03 X10*3/uL (0.00-0.03); Imm Gran Pct Auto 0.3 % (0.0-0.4); Lymphocytes Absolute Auto 1.3 X10*3/uL (1.2-4.9); Mean Corpuscular HGB Conc 33.5 g/dl (31.0-36.0); Mean Corpuscular Hemoglobin 28.9 pg (27.0-33.0); Mean Corpuscular Volume 86.4 fL (80.0-98.0); Mean Platelet Volume 8.9 fL (9.4-12.4); Monocytes Absolute Auto 0.8 X10*3/uL (0.1-1.2); Monocytes Percent Auto 9.6 % (2-11); Neutrophils Absolute Auto 6.3 x10*3/uL (2.0-8.3); Neutrophils Percent Auto 72.5 % (45-73); Platelet Count 168 X10*3/uL (160-400); Red Blood Count 4.84 X10*6/uL (4.60-5.80); Red Cell Distribution Width 13.9 % (11.0-16.0); White Blood Count 8.7 X10*3/uL (4.8-10.8)
[2022-05-27 16:55] LABS: INTERNATIONAL NORM RATIO 1.4 (0.9-1.1); Prothrombin Time 16.3 SEC (10.0-13.1)
--- NOTE | 2022-05-27 17:04 | PHA.MEDREC ---
Pharmacy Consult ? Medication Reconciliation Pharmacy has completed the medication reconciliation. Spoke to patient. Patient had list
[2022-05-27 17:05] LABS: Lactic Acid 1.9 mmol/L (0.5-2.0)
[2022-05-27 17:10] LABS: COVID-19 Test Negative (Negative); IDNOW Serial# BCCEAD1C
[2022-05-27 17:16] LABS: B Type Natriuretic Peptide 339 pg/mL (<100)
[2022-05-27 17:21] LABS: Glucose, Whole Blood 104 mg/dL (60-115)
[2022-05-27 17:23] LABS: Alanine Aminotransferase 14 U/L (0-40); Albumin Level 3.9 g/dL (3.5-5.0); Alkaline Phosphatase 105 U/L (39-117); Anion Gap 11 (12-20); Aspartate Amino Transferase 15 U/L (5-37); Bilirubin Total 0.7 mg/dL (0.0-1.0); Blood Urea Nitrogen 27 mg/dL (9-16); Calcium 9.2 mg/dL (8.4-10.2); Carbon Dioxide 25 mmol/L (22-29); Chloride 107 mmol/L (96-108); Creatinine Clr Calc Pharmacy 35.8; Estimated Glomerular Filt Rate 40; Ethanol < 10 mg/dL; Glucose Random 104 mg/dL (60-115); Lipase 23 U/L (8-78); Potassium 4.2 mmol/L (3.3-5.1); Sodium 139 mmol/L (135-145); Total Protein 6.4 g/dL (6.5-8.0)
[2022-05-27 17:43] LABS: Appearance Urine Clear; Color Urine Yellow; Glucose Urine UA Negative (Negative); Leukocyte Esterase Urine Negative (Negative); Nitrite Urine Negative (Negative); Specific Gravity - Urine 1.015 (1.005-1.025); Urine Blood Negative (Negative); Urine Ketones Negative (Negative); Urine Protein Negative (Neg-Trace)
[2022-05-27 17:47] LABS: Amphetamine Screen Urine Not Detected (Not Detect); Barbiturates, Urine Not Detected (Not Detect); Benzodiazepines Screen Urine Not Detected (Not Detect); Cannabinoid Screen Urine Not Detected (Not Detect); Cocaine Screen Urine Not Detected (Not Detect); Fentanyl, urine Not Detected (Not Detect); Opiate Screen Urine Not Detected (Not Detect); Phencyclidine Screen Urine Not Detected (Not Detect)
[2022-05-27 18:06] LABS: Troponin-I High Sensitivity 22.2 ng/L (<3.5-35.0)
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
[2022-05-27] MEDS: diphenhydrAMINE HCL 25 MG CAPSULE PO (19:37)
[2022-05-27] MEDS: Acetaminophen 325 MG TABLET 650 MG PO (19:37)
[2022-05-27] MEDS: Metoclopramide HCl 10 MG TABLET PO (19:37)
--- NOTE | 2022-05-27 19:43 | PC.NURSE ---
assumed care of pt aox4 at bedside no apparent distress, resting quietly
[2022-05-27 20:43] LABS: Troponin-I High Sensitivity 23.4 ng/L (<3.5-35.0)
--- NOTE | 2022-05-27 21:00 | PC.NURSE ---
per pt will not take cilostazol until 2300 d/t eating later
--- NOTE | 2022-05-27 21:09 | MHC.EDTECH ---
pt was given a ham sandwich and haily yue to eat
--- NOTE | 2022-05-27 21:11 | PC.NURSE ---
med rec done by pharmacy per James
[2022-05-27] MEDS: Apixaban 5 MG TABLET PO (21:32)
--- NOTE | 2022-05-27 21:39 | PC.NURSE ---
Called ext [phone] to give report. This nurse was told to Cici Friedman RN. Cici sent.
[2022-05-27 21:45] LABS: TSH reflex Free T4 1.09 uIU/mL (0.32-4.0)
--- NOTE | 2022-05-27 21:55 | PC.NURSE ---
Gave report to [facility] Hudson. Pt to rm [id number].
[2022-05-28] VITALS (7 sets, daily range): BP systolic 125–156; BP diastolic 53–79; PULSE 62–79; RESP 16–20; TEMP 36.6–37.1; O2SAT 93–97
[2022-05-28] MEDS: Omeprazole 20 MG CAPSULE.DR PO (05:44)
[2022-05-28] MEDS: 0.9 % Sodium Chloride Flush 3 ML SYRINGE IVFLUSH ×3 (05:44→21:15)
[2022-05-28 07:39] LABS: MANUAL DIFF FLAG NO
[2022-05-28 07:45] LABS: Basophils Absolute Auto 0.1 X10*3/uL (0.0-0.2); Basophils Percent Auto 0.9 % (0-2); Eosinophils Absolute Auto 0.1 X10*3/uL (0.0-0.4); Eosinophils Percent Auto 1.7 % (0-4); Hematocrit 36.6 % (42.0-52.0); Hemoglobin 12.3 g/dl (14.0-18.0); Imm Gran Abs Auto 0.03 X10*3/uL (0.00-0.03); Imm Gran Pct Auto 0.4 % (0.0-0.4); Lymphocytes Absolute Auto 1.7 X10*3/uL (1.2-4.9); Lymphocytes Percent Auto 21.3 % (20-40); Mean Corpuscular HGB Conc 33.6 g/dl (31.0-36.0); Mean Corpuscular Hemoglobin 28.9 pg (27.0-33.0); Mean Corpuscular Volume 86.1 fL (80.0-98.0); Monocytes Percent Auto 12.5 % (2-11); Neutrophils Absolute Auto 5.2 x10*3/uL (2.0-8.3); Neutrophils Percent Auto 63.2 % (45-73); Platelet Count 146 X10*3/uL (160-400); Red Blood Count 4.25 X10*6/uL (4.60-5.80); Red Cell Distribution Width 13.9 % (11.0-16.0); White Blood Count 8.2 X10*3/uL (4.8-10.8)
[2022-05-28 08:06] LABS: Anion Gap 13 (12-20); Blood Urea Nitrogen 27 mg/dL (9-16); Calcium 8.5 mg/dL (8.4-10.2); Carbon Dioxide 23 mmol/L (22-29); Chloride 109 mmol/L (96-108); Creatinine Clr Calc Pharmacy 36.5; Estimated Glomerular Filt Rate 41; Glucose Random 78 mg/dL (60-115); Potassium 4.1 mmol/L (3.3-5.1); Sodium 141 mmol/L (135-145)
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
--- NOTE | 2022-05-28 10:54 | MHC.CM.PN ---
CM met with Patient at bedside and addressed AR[place] with him, providing him with the original and placing a copy on the chart. Patient lives in a house with his and he required no services nor DME DUPLICATION SPECIALIST. Home/self care is the goal and CM has initiated and will follow for dc planning. Patient has received Covid vax x3 and his PCP is Dr. Taylor Nuno.Patient's Son/Bryan is the HCP.
--- NOTE | 2022-05-28 12:00 | P.DS_ITS ---
DS: Providers Provider Date of Service: 05/28/22 Date of admission: 05/27/22 20:36 Date of discharge: 05/28/22 Primary care physician: Taylor Nuno MD Admitting clinician: Ana Toscano Attending physician on admission: Manny Davis Consults: 05/27/22 20:35 Consult to Neurology Routine Consulting Provider: [facility] Reason for consultation: dizziness 05/27/22 21:07 Consult to Cardiology Routine Consulting Provider: [facility] Reason for consultation: lightheadedness, NSVT on holter monitor Has provider been notified: Yes Attending physician on discharge: Alejandro Clinton Discharging clinician: Ana Toscano DS: Diagnosis Discharge Diagnosis (1) Lightheadedness: Status: Acute (2) PVC (premature ventricular contraction): Status: Acute (3) Nonsustained ventricular tachycardia: Status: Acute (4) Ischemic cardiomyopathy: Status: Acute (5) COPD (chronic obstructive pulmonary disease): Status: Acute DS: Summary Hospital Course Hospital Course: HPI on admission 05/27: 76-year-old male with history of BPH, CAD s/p CABG in 2014, CKD stage 3, severe COPD with exercise hypoxemia on 2 L supplemental O2 p.r.n., PAD, AAA without rupture, GERD, hypertension, ischemic cardiomyopathy, hypercholesterolemia, LAMBERTO on CPAP, history of DVT and PE anticoagulated with Eliquis presented to the ED earlier today for evaluation of sudden onset pain behind the right eye that lasted for several minutes before resolving Marley.? At that time he denies any visual changes.? Denies any pain of the eye globe itself and denies any history of glaucoma.? He states he has had intermittent blurred vision over the last few months but was not present today.? He states he has also been having intermittent lightheadedness with associated diaphoresis and reports constant tinnitus.? He denies any room spinning dizziness.? Denies any fevers, chills, otalgia, hearing loss from baseline, nausea, vomiting, abdominal pain, palpitations, worsening shortness of breath, or chest pain.? Denies any focal paresthesias or weakness.? No facial droop her slurred speech.? No dysphagia.? H e states he has been experiencing several episodes daily of diarrhea ongoing for many months that has not changed. In the ED, vital stable. IOPs within normal limits. Hematology studies unremarkable.? PT 16.3, INR 1.4.? Creatinine baseline at 1.66, BUN 27, electrolyte levels normal.? BNP 339. Urinalysis unremarkable.? Urine tox screen negative.? Negative for COVID-19.? Orthostatic vital signs negative.? Head CT without any acute intracranial abnormalities.? Chest CT shows diffuse central lobular emphysema with bullous changes most prominent in the right upper lobe as well as chronic interstitial lung changes in the bilateral lung bases and atelectasis in the right middle lobe and left upper lobe posteriorly.? No focal consolidation or mass.? ED provider discussed case with Neurology who is recommending admission. Hospital course: Hospital course uneventful. MRI brain without any acute abnormalities. There were no recurrent episodes of right eye pain or any episodes of lightheadednes s/diaphoresis. Orthostatic vital signs negative. ESR WNL. Carotid doppler showing b/l 50-79% stenosis, but no occlusive disease. Pt observed on telemetry showing occasional PVCs but no runs. Evaluated by neurology recommending follow up for EEG outpatient. Evaluated by Dr. Almazan who feels that it is possible that the frequent PACs/PVCs and short runs of NSVT on holter montior could be contributory to symptoms as symptoms reported at that time did correlate with PVCs on monitor. Recommended resuming amiodorone. Discussed with Dr. 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 Thyroid and liver function tests were within normal limits. Pt loaded with 400mg BID x 2 doses and will continue 400mg BID x 13 more days, then 200mg daily. Advised to follow up with both Dr. Brennan and Dr. Storm soon. Pt was educated on side effects and toxicity risks. Follow up with PCP soon. Status at Discharge Functional status at discharge: independent ambulation Overall status at discharge: patient is back to baseline Time Spent with Patient Time attestation: Total time managing care of this patient today ____ minutes. Discharge coordination time: Greater than 30 minutes Quality: Safe Use of Opioids Does Pt have an Active Cancer Diagnosis on the Problem List?: No Quality: Stroke Does the patient have a stroke diagnosis?: No Physical Exam Vital Signs: Vital Signs: Last Vital Signs Temp 98.7 F 05/28/22 11:16 Pulse 62 05/28/22 11:16 Resp 20 05/28/22 11:16 BP 148/70 H 05/28/22 11:16 Pulse Ox 93 05/28/22 11:16 O2 Del Method Room Air 05/28/22 11:16 O2 Flow Rate 2 05/28/22 07:30 BMI result Body Mass Index 29.6 Constitutional - Awake and Alert, No apparent distress Eyes - PERRLA, EOMI Cardiovascular - S1S2, RRR, No edema Respiratory - Normal lung expansion, Normal respiratory effort, No respiratory distress, CTA bilaterally Extremities - no calf tenderness bilaterally, no swelling Skin - Warm/Dry Neurological - Alert & oriented x3, CN II-XII in tact Psychological - Appropriate affect DS: Data Data Completed and Pending Labs on day of discharge: Laboratory Results - last 24 hr 05/27/22 05/27/22 05/27/22 16:26 16:34 16:34 WBC 8.7 RBC 4.84 Hgb 14.0 Hct 41.8 L MCV 86.4 MCH 28.9 MCHC 33.5 RDW 13.9 Plt Count 168 MPV 8.9 L Immature Gran % (Auto) 0.3 Neut % (Auto) 72.5 Lymph % (Auto) 15.0 L [place] % (Auto) 9.6 Eos % (Auto) 1.8 Baso % (Auto) 0.8 Lymph # (Auto) 1.3 [place] # (Auto) 0.8 Eos # (Auto) 0.2 Baso # (Auto) 0.1 Abs Immat Gran (auto) 0.03 Absolute Neuts (auto) 6.3 Absolute Nucleated RBC 0.000 Nucleated RBC % (auto) 0.0 PT INR Sodium 139 Potassium 4.2 Chloride 107 Carbon Dioxide 25 Anion Gap 11 L BUN 27 H Creatinine 1.66 H Estim Creat Clear Calc 35.8 Estimated GFR 40 POC Glucose Random Glucose 104 Lactic Acid Calcium 9.2 Magnesium 2.0 Total Bilirubin 0.7 AST 15 ALT 14 Alkaline Phosphatase 105 Total Creatine Kinase 47 Troponin I High Sens B-Natriuretic Peptide Total Protein 6.4 L Albumin 3.9 Lipase 23 TSH 1.09 Urine Color Urine Appearance Urine pH Ur Specific Hematite Urine Protein Urine Glucose (UA) Urine Ketones Urine Blood Urine Nitrite Ur Leukocyte Esterase Urine Opiates Screen Urine Fentanyl Screen Ur Barbiturates Screen Ur Phencyclidine Scrn Ur Amphetamines Screen U Benzodiazepines Scrn Urine Cocaine Screen U Marijuana (THC) Screen Ethyl Alcohol < 10 COVID-19 (SHEILA) Negative COVID-19 Clin Com See Note 05/27/22 05/27/22 05/27/22 16:34 16:34 16:35 WBC RBC Hgb Hct MCV MCH MCHC RDW Plt Count MPV Immature Gran % (Auto) Neut % (Auto) Lymph % (Auto) [place] % (Auto) Eos % (Auto) Baso % (Auto) Lymph # (Auto) [place] # (Auto) Eos # (Auto) Baso # (Auto) Abs Immat Gran (auto) Absolute Neuts (auto) Absolute Nucleated RBC Nucleated RBC % (auto) PT 16.3 H INR 1.4 H Sodium Potassium Chloride Carbon Dioxide Anion Gap BUN Creatinine Estim Creat Clear Calc Estimated GFR POC Glucose Random Glucose Lactic Acid 1.9 Calcium Magnesium Total Bilirubin AST ALT Alkaline Phosphatase Total Creatine Kinase Troponin I High Sens B-Natriuretic Peptide 339 H Total Protein Albumin Lipase TSH Urine Color Urine Appearance Urine pH Ur Specific Hematite Urine Protein Urine Glucose (UA) Urine Ketones Urine Blood Urine Nitrite Ur Leukocyte Esterase Urine Opiates Screen Urine Fentanyl Screen Ur Barbiturates Screen Ur Phencyclidine Scrn Ur Amphetamines Screen U Benzodiazepines Scrn Urine Cocaine Screen U Marijuana (THC) Screen Ethyl Alcohol COVID-19 ([facility]ILA) COVID-19 [employer] Com 05/27/22 05/27/22 05/27/22 17:13 17:13 17:13 WBC RBC Hgb Hct MCV MCH MCHC RDW Plt Count MPV Immature Gran % (Auto) Neut % (Auto) Lymph % (Auto) [place] % (Auto) Eos % (Auto) Baso % (Auto) Lymph # (Auto) [place] # (Auto) Eos # (Auto) Baso # (Auto) Abs Immat Gran (auto) Absolute Neuts (auto) Absolute Nucleated RBC Nucleated RBC % (auto) PT INR Sodium Potassium Chloride Carbon Dioxide Anion Gap BUN Creatinine Estim Creat Clear Calc Estimated GFR POC Glucose 104 Random Glucose Lactic Acid Calcium Magnesium Total Bilirubin AST ALT Alkaline Phosphatase Total Creatine Kinase Troponin I High Sens B-Natriuretic Peptide Total Protein Albumin Lipase TSH Urine Color Yellow Urine Appearance Clear Urine pH 6.0 Ur Specific Hematite 1.015 Urine Protein Negative Urine Glucose (UA) Negative Urine Ketones Negative Urine Blood Negative Urine Nitrite Negative Ur Leukocyte Esterase Negative Urine Opiates Screen Not Detected Urine Fentanyl Screen Not Detected Ur Barbiturates Screen Not Detected Ur Phencyclidine Scrn Not Detected Ur Amphetamines Screen Not Detected U Benzodiazepines Scrn Not Detected Urine Cocaine Screen Not Detected U Marijuana (THC) Screen Not Detected Ethyl Alcohol COVID-19 ([facility]ILA) COVID-19 [employer] Com 05/27/22 05/27/22 05/28/22 17:18 20:08 06:53 WBC 8.2 RBC 4.25 L Hgb 12.3 L Hct 36.6 L MCV 86.1 MCH 28.9 MCHC 33.6 RDW 13.9 Plt Count 146 L MPV 9.0 L Immature Gran % (Auto) 0.4 Neut % (Auto) 63.2 Lymph % (Auto) 21.3 [place] % (Auto) 12.5 H Eos % (Auto) 1.7 Baso % (Auto) 0.9 Lymph # (Auto) 1.7 [place] # (Auto) 1.0 Eos # (Auto) 0.1 Baso # (Auto) 0.1 Abs Immat Gran (auto) 0.03 Absolute Neuts (auto) 5.2 Absolute Nucleated RBC 0.000 Nucleated RBC % (auto) 0.0 PT INR Sodium Potassium Chloride Carbon Dioxide Anion Gap BUN Creatinine Estim Creat Clear Calc Estimated GFR POC Glucose Random Glucose Lactic Acid Calcium Magnesium Total Bilirubin AST ALT Alkaline Phosphatase Total Creatine Kinase Troponin I High Sens 22.2 23.4 B-Natriuretic Peptide Total Protein Albumin Lipase TSH Urine Color Urine Appearance Urine pH Ur Specific Hematite Urine Protein Urine Glucose (UA) Urine Ketones Urine Blood Urine Nitrite Ur Leukocyte Esterase Urine Opiates Screen Urine Fentanyl Screen Ur Barbiturates Screen Ur Phencyclidine Scrn Ur Amphetamines Screen U Benzodiazepines Scrn Urine Cocaine Screen U Marijuana (THC) Screen Ethyl Alcohol COVID-19 (SHEILA) COVID-19 [employer] 05/28/22 06:53 WBC RBC Hgb Hct MCV MCH MCHC RDW Plt Count MPV Immature Gran % (Auto) Neut % (Auto) Lymph % (Auto) [place] % (Auto) Eos % (Auto) Baso % (Auto) Lymph # (Auto) [place] # (Auto) Eos # (Auto) Baso # (Auto) Abs Immat Gran (auto) Absolute Neuts (auto) Absolute Nucleated RBC Nucleated RBC % (auto) PT INR Sodium 141 Potassium 4.1 Chloride 109 H Carbon Dioxide 23 Anion Gap 13 BUN 27 H Creatinine 1.63 H Estim Creat Clear Calc 36.5 Estimated GFR 41 POC Glucose Random Glucose 78 Lactic Acid Calcium 8.5 D Magnesium Total Bilirubin AST ALT Alkaline Phosphatase Total Creatine Kinase Troponin I High Sens B-Natriuretic Peptide Total Protein Albumin Lipase TSH Urine Color Urine Appearance Urine pH Ur Specific Hematite Urine Protein Urine Glucose (UA) Urine Ketones Urine Blood Urine Nitrite Ur Leukocyte Esterase Urine Opiates Screen Urine Fentanyl Screen Ur Barbiturates Screen Ur Phencyclidine Scrn Ur Amphetamines Screen U Benzodiazepines Scrn Urine Cocaine Screen U Marijuana (THC) Screen Ethyl Alcohol COVID-19 ([facility]) COVID-19 Clin Com Discharge Plan Discharge Anticipated Discharge Date/Time: 05/29/22 11:35 Patient Disposition: Home, Self-Care Discharge Diagnosis: right eye pain, lightheadedness Referrals: Jocelyn Storm MD [Physician] - 2 Weeks Jocelyn Kate MD [Physician] - 1 Week (EEG) Po,Taylor Huerta MD [Primary Care Provider] - 1 Week Manas Brennan MD [Physician] - 1 Week Discharge Medications: New amiodarone 200 mg Tablet See Rx Instructions .ROUTE .COMPLEX Qty: 60 0RF Rx Instructions: Take 2 tabs (400mg TWICE daily) x 13 days, then 200mg ONCE daily Continued cilostazol 100 mg tablet 100 mg PO BID Qty: 60 5RF furosemide 20 mg tablet 20 mg PO DAILY 90 Days Qty: 90 2RF finasteride 5 mg tablet 5 mg PO DAILY 90 Days Qty: 90 3RF lisinopril 20 mg tablet 20 mg PO DAILY 30 Days Qty: 90 2RF metoprolol succinate 100 mg tablet extended release 24 hr 100 mg PO DAILY Qty: 90 3RF omeprazole 20 mg capsule,delayed release(DR/EC) 20 mg PO DAILY Qty: 30 11RF amlodipine 5 mg tablet 5 mg PO DAILY 30 Days Qty: 30 7RF nitroglycerin 0.4 mg tablet, sublingual 0.4 mg sublingual Q5M PRN (Reason: chest pain) Qty: 20 1RF Rx Instructions: do not exceed 3 doses per episode atorvastatin 80 mg tablet 80 mg PO DAILY Qty: 30 11RF apixaban 5 mg tablet 5 mg PO BID Qty: 180 3RF budesonide-formoterol [Symbicort] 160-4.5 mcg/actuation HFA aerosol inhaler 2 puff PO BID Qty: 10.2 0RF albuterol sulfate 90 mcg/actuation HFA aerosol inhaler 2 puff inhalation Q6H PRN (Reason: SOB) Discharge Orders: Discharge Order (Routine); Ordered 05/29/22 Ordered By: Ana Toscano Diet: Advance to usual diet Activity on Discharge: As tolerated Stand Alone Forms: Patient Portal Discharge page Care Plan Goals: Resolve lightheadedness/diaphoresis episodes Health Concerns: Right eye pain Lightheadedness/diaphoresis Non-sustained Ventricular arrythemia noted on Holter monitor with PAC's/PVC's Plan of Treatment: Your head CT and subsequent MRI of the brain were negative for any acute abnormality to account for your symptoms. Your inflammatory markers were unremarkable. We evaluated your carotid arties which with ultrasound to look for any occlusive disease that could be contributory. There was stenosis of the arteries, but no occlusion. You should continue on your statin and cilostazol for your arterial disease and follow up with Dr. Valentin for routine visits as scheduled. You were evaluated by neurology as well while in the hospital. In addition to the mentioned studies, Dr. Kate is recommending outpatient follow up for EEG study. You were also evaluated by cardiology. It is less likely that the lightheadedness and diaphoresis episodes are neurologic in etiology, but it is possible they are related to the abnormal findings on your holter monitor from January. You were started on amiodorone while in the hospital to help with abnormal rhythm. You should follow up with cardiology for further monitoring. You will also need to follow up with Dr. Storm for pulmonary monitoring on this drug (he is aware it was initiated) Plan: -Continue amiodarone 400 mg twice daily x 13 days (additional 26 dose), then transition to 200mg daily. Next dose due tonight 05/29 at 845pm -Schedule follow up soon with Dr. Brennan -Schedule follow up with Dr. Storm -You will need follow up thyroid and liver function tests and pulmonary testing (PFTs and chest xrays with Dr. Storm) Follow up soon with PCP Assessment: See above Discharge Date/Time: 05/29/22 12:58
[2022-05-28] MEDS: Furosemide 20 MG TABLET PO (13:58)
[2022-05-28] MEDS: Apixaban 5 MG TABLET PO ×2 (13:58→21:05)
[2022-05-28] MEDS: Atorvastatin Calcium 80 MG TABLET PO (13:58)
[2022-05-28] MEDS: Finasteride 5 MG TABLET PO (13:58)
[2022-05-28] MEDS: amLODIPine Besylate 5 MG TABLET PO (13:58)
[2022-05-28] MEDS: Metoprolol Succinate ER 100 MG TAB.ER.24H PO (13:58)
[2022-05-28] MEDS: cilostazoL 100 MG TABLET PO ×2 (13:58→21:05)
[2022-05-28] MEDS: lisinopriL 20 MG TABLET PO (13:59)
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
[2022-05-28 15:47] LABS: Erythrocyte Sedimentation Rate 11 MM/HR (0-15)
--- NOTE | 2022-05-28 18:51 | P.PNIM_ITS ---
Subjective Subjective Date of Service: 05/28/22 Interval History: Seen in follow up for right eye pain, lightheadedness Interval history: no complaints. No recurrent symptoms Review of Systems Review of Systems: Yes all other systems are reviewed and are negative Physical Exam Vital Signs: Vital Signs: Last Vital Signs Temp 98.0 F 05/28/22 15:21 Pulse 64 05/28/22 15:21 Resp 17 05/28/22 15:21 BP 135/61 05/28/22 15:21 Pulse Ox 93 05/28/22 15:21 O2 Del Method Room Air 05/28/22 15:21 O2 Flow Rate 2 05/28/22 07:30 BMI result Body Mass Index 29.6 Constitutional - Awake and Alert, No apparent distress Eyes - PERRLA, EOMI Cardiovascular - S1S2, RRR, No edema Respiratory - Normal lung expansion, Normal respiratory effort, No respiratory distress, CTA bilaterally Extremities - no calf tenderness bilaterally, no swelling Skin - Warm/Dry Neurological - Alert & oriented x3, CN II-XII in tact Psychological - Appropriate affect Objective Data Active Medications Acetaminophen (Acetaminophen 325 Mg Tablet) 650 mg PO Q6H PRN PRN Reason: Pain, Mild (Pain Scale 1-3) Albuterol Sulfate (Albuterol Sulfate 90 Mcg 8 Gm Inhaler) 2 puff INHALE Q6H PRN PRN Reason: Shortness of Breath Amiodarone HCl (Amiodarone Hcl 200 Mg Tablet) 400 mg PO BID [facility] Amlodipine Besylate (Amlodipine Besylate 5 Mg Tablet) 5 mg PO DAILY [facility]; Protocol Last Admin: 05/28/22 13:58 Dose: 5 mg Documented By: MAYCO Apixaban (Apixaban 5 Mg Tablet) 5 mg PO BID [facility] Last Admin: 05/28/22 13:58 Dose: 5 mg Documented By: MAYCO Atorvastatin Calcium (Atorvastatin Calcium 80 Mg Tablet) 80 mg PO DAILY [facility] Last Admin: 05/28/22 13:58 Dose: 80 mg Documented By: MAYCO Cilostazol (Cilostazol 100 Mg Tablet) 100 mg PO BID [facility] Last Admin: 05/28/22 13:58 Dose: 100 mg Documented By: MAYCO Finasteride (Finasteride 5 Mg Tablet) 5 mg PO DAILY [facility] Last Admin: 05/28/22 13:58 Dose: 5 mg Documented By: MAYCO Fluticasone/Vilanterol (Fluticasone/Vilanterol 200/25 Blst.W.Dev) 1 puff INHALE RDAILY [facility] Last Admin: 05/28/22 09:16 Dose: Not Given Documented By: CODEY Non-Admin Reason: medication not available, pharm called. Furosemide (Furosemide 20 Mg Tablet) 20 mg PO DAILY [facility]; Protocol Last Admin: 05/28/22 13:58 Dose: 20 mg Documented By: MAYCO Lisinopril (Lisinopril 20 Mg Tablet) 20 mg PO DAILY [facility]; Protocol Last Admin: 05/28/22 13:59 Dose: 20 mg Documented By: MAYCO Melatonin (Melatonin 3 Mg Tablet) 6 mg PO BEDTIME PRN PRN Reason: Insomnia Metoprolol Succinate (Metoprolol Succinate Er 100 Mg Tab.Er.24h) 100 mg PO [place] [facility]; Protocol Last Admin: 05/28/22 13:58 Dose: 100 mg Documented By: MAYCO Nitroglycerin (Nitroglycerin 0.4 Mg Tab.Subl) 0.4 mg SUBLINGUAL Q5M PRN PRN Reason: chest pain Omeprazole (Omeprazole 20 Mg Capsule.Dr) 20 mg PO DAILY@0630 [facility] Last Admin: 05/28/22 05:44 Dose: 20 mg Documented By: SHAMAR Ondansetron HCl (Ondansetron Hcl 4 Mg/2 Ml Vial) 4 mg IVPUSH Q8H PRN PRN Reason: Nausea and Vomiting Pharmacy Consult (Consult Rx Perform Med Rec) 1 each MISCELLANE ONCE PRN PRN Reason: Consult order Sodium Chloride (0.9 % Sodium Chloride Flush 3 Ml Syringe) 3 ml IVFLUSH QSHIFT [facility] Last Admin: 05/28/22 14:05 Dose: 3 ml Documented By: MAYCO Labs 05/28/22 06:53 05/28/22 06:53 Labs: Laboratory Results - last 24 hr 05/27/22 05/27/22 05/28/22 16:34 20:08 06:53 MCV 86.1 MCH 28.9 MCHC 33.6 RDW 13.9 Plt Count 146 L MPV 9.0 L Immature Gran % (Auto) 0.4 Neut % (Auto) 63.2 Lymph % (Auto) 21.3 [place] % (Auto) 12.5 H Eos % (Auto) 1.7 Baso % (Auto) 0.9 Lymph # (Auto) 1.7 [place] # (Auto) 1.0 Eos # (Auto) 0.1 Baso # (Auto) 0.1 Abs Immat Gran (auto) 0.03 Absolute Neuts (auto) 5.2 Absolute Nucleated RBC 0.000 Nucleated RBC % (auto) 0.0 ESR Anion Gap Estim Creat Clear Calc Estimated GFR Random Glucose Calcium Troponin I High Sens 23.4 TSH 1.09 05/28/22 05/28/22 06:53 06:53 MCV MCH MCHC RDW Plt Count MPV Immature Gran % (Auto) Neut % (Auto) Lymph % (Auto) [place] % (Auto) Eos % (Auto) Baso % (Auto) Lymph # (Auto) [place] # (Auto) Eos # (Auto) Baso # (Auto) Abs Immat Gran (auto) Absolute Neuts (auto) Absolute Nucleated RBC Nucleated RBC % (auto) ESR 11 Anion Gap 13 Estim Creat Clear Calc 36.5 Estimated GFR 41 Random Glucose 78 Calcium 8.5 D Troponin I High Sens TSH Microbiology Microbiology Results: Microbiology 05/27/22 16:34 Blood Culture - Preliminary Blood - Venous No growth after 24 hours. 05/27/22 16:36 Blood Culture - Preliminary Blood - Venous No growth after 24 hours. Assessment and Plan (1) PVC (premature ventricular contraction): Status: Acute (2) Acute pain in right eye: Status: Acute (3) Lightheadedness: Status: Acute Plan 76-year-old male with history of BPH, CAD s/p CABG in 2014, CKD stage 3, severe COPD with exercise hypoxemia on 2 L supplemental O2 p.r.n., PAD, AAA without rupture, GERD, hypertension, ischemic cardiomyopathy, hypercholesterolemia, LAMBERTO on CPAP, history of DVT and PE anticoagulated with Eliquis to be observed for pain behind right eye and lightheadedness. #Pain behind right eye -?related to migraine -No focal neuro deficit on exam.? Head CT and MRI brain without any acute intracranial abnormality. -ESR normal -appreciate neurology input #Chronic intermittent lightheadedness with diaphoresis -ongoing several months. No syncope or falls -Orthostatics negative -Head CT negative, MRI brain with out acute abnormality -On eliquis and antiplatelet. Unable to obtain CTA head/neck d/t CKD, but carotid doppler pending per neurology -Appreciate neurology input -Will initiate amiodorone load per cardiology given holter results showing PACs/ PVCs and NSVT -monitor on telemetry #PAD/AAA with claudication -continue statin, cilostazol # CAD/ischemic cardiomyopathy -no anginal chest pain -continue Eliquis, cilostazol, beta-anabel #HFrEF -no acute exacerbation -continue furosemide # COPD -no acute exacerbation -continue maintenance inhalers, albuterol p.r.n. # hypertension-reasonably controlled -continue home antihypertensives # history DVT/PE -continue Eliquis # CKD stage 3 -renal function baseline, monitor BMP DVT prophylaxis-on Eliquis Full code Dispo- plan to d/c home tomorrow pending amiodorone tolerance Time Spent With Patient Time: Total time managing care of this patient today ____ minutes. Quality Stroke Does the patient have a stroke diagnosis?: No VTE Prior VTE?: No VTE Risk Level:: Medical - moderate - high VTE Device Contraindication: Treatment Not Indicated VTE Drug Contraindication: N/A - Med Ordered
[2022-05-28] MEDS: Amiodarone HCL 200 MG TABLET 400 MG PO (21:05)
[2022-05-29 03:24] VITALS: BP 121/58; PULSE 61; RESP 16; TEMP 36.8; O2SAT 97
[2022-05-29] MEDS: Omeprazole 20 MG CAPSULE.DR PO (06:08)
[2022-05-29 07:14] VITALS: BP 126/61; PULSE 58; RESP 17; TEMP 36.3; O2SAT 95
[2022-05-29] MEDS: Fluticasone/Vilanterol 200/25 BLST.W.DEV 1 PUFF INHALE (08:02)
[2022-05-29 08:04] VITALS: PULSE 82; RESP 18; O2SAT 94
[2022-05-29] MEDS: Finasteride 5 MG TABLET PO (08:35)
[2022-05-29] MEDS: Furosemide 20 MG TABLET PO (08:35)
[2022-05-29] MEDS: lisinopriL 20 MG TABLET PO (08:35)
[2022-05-29] MEDS: Apixaban 5 MG TABLET PO (08:48)
[2022-05-29] MEDS: Metoprolol Succinate ER 100 MG TAB.ER.24H PO (08:49)
[2022-05-29] MEDS: Atorvastatin Calcium 80 MG TABLET PO (08:49)
[2022-05-29] MEDS: amLODIPine Besylate 5 MG TABLET PO (08:49)
[2022-05-29] MEDS: Amiodarone HCL 200 MG TABLET 400 MG PO (08:49)
[2022-05-29] MEDS: 0.9 % Sodium Chloride Flush 3 ML SYRINGE IVFLUSH (08:50)
[2022-05-29] MEDS: cilostazoL 100 MG TABLET PO (08:50)
--- NOTE | 2022-05-29 10:19 | PM.PNCARD ---
Subjective Subjective Date of Service: 05/29/22 Interval history: States that he is feeling okay. No new complaints. Dizziness slightly better. Review of Systems Review of Systems Yes all other systems are reviewed and are negative Constitutional: Reports as per HPI and Reports no additional constitutional complaints Eyes: Reports as per HPI and Denies no additional eye complaints Denies system reviewed and no additional complaints, except as documented and Reports as per HPI Cardiovascular: Reports as per HPI, Reports no additional cardiovascular complaints, Denies acrocyanosis, Denies cool extremities, Denies chest pain, Denies leg edema, Reports lightheadedness, Denies palpitations and Reports dyspnea Respiratory: Reports as per HPI, Denies no additional respiratory complaints and Reports dyspnea Gastrointestinal: Reports as per HPI and Denies no additional gastrointestinal complaints Genitourinary: Reports no additional male genitourinary complaints and Reports as per HPI Musculoskeletal: Reports no additional musculoskeletal complaints and Reports as per HPI Skin/Breast: Reports system reviewed and no additional complaints, except as docu Reports system reviewed and no additional complaints, except as documented and Reports as per HPI Psychiatric: Reports no additional psychiatric complaints and Reports as per HPI Endocrine: Reports no additional endocrine complaints, Reports as per HPI and Denies palpitations Hematologic/Lymphatic: Reports no additional hematologic/lymphatic complaints and Reports as per HPI Allergic/Immunologic: Reports no additional allergic/immunologic complaints and Reports as per HPI Physical Exam Vital Signs: Last Vital Signs Temp 97.4 F 05/29/22 07:14 Pulse 82 05/29/22 08:04 Resp 18 05/29/22 08:04 BP 126/61 05/29/22 07:14 Pulse Ox 95 05/29/22 07:14 O2 Del Method Nasal Cannula 05/29/22 07:14 O2 Flow Rate 2 05/29/22 07:14 BMI result Body Mass Index 29.6 Const General: comfortable and no acute distress Orientation/consciousness: patient oriented x3 HEENT Other: Unremarkable Head: Yes normal to inspection Neck Neck: Yes normal visual inspection Chest Chest palpation & inspection: normal inspection of the chest Resp Auscultation: clear to auscultation bilaterally Cardio Palpation: normal PMI Heart sounds: S1 normal heart sound present, S2 normal heart sound present, no gallops, no murmurs and no rubs GI Palpation (GI): Soft to palpation Back/Spine/Pelvis Other: unremarkable Skin General skin exam: no rashes or lesions noted Neuro General: patient oriented x3 Extrem General: Yes normal to inspection Psych Mental Status: mental status grossly normal Objective Labs and Meds 05/28/22 06:53 05/28/22 06:53 Lab results: Laboratory Results - last 24 hr 05/28/22 06:53 ESR 11 Imaging Radiologist's impression: Impressions Brain MRI 05/28/22 10:12 IMPRESSION: No acute intracranial process. Generalized parenchymal volume loss and very mild chronic white matter microangiopathy. Carotid Doppler Study 05/28/22 17:56 IMPRESSION: 1. RIGHT: Moderate, hemodynamically significant stenosis of the proximal right internal carotid artery corresponding to a 50-79% stenosis by velocity criteria. Right ECA stenosis is also present along with worsening right subclavian stenosis. 2. LEFT: Moderate, hemodynamically significant stenosis of the proximal left internal carotid artery corresponding to a 50-79% stenosis by velocity criteria. Severe left external carotid stenosis is again seen. 3. There is no change in the category severity of disease when compared to the previous study dated 05/16/2021. Progress Note: A&P Assessment and plan (1) Lightheadedness: Status: Acute (2) PVC (premature ventricular contraction): Status: Acute (3) Nonsustained ventricular tachycardia: Status: Acute (4) Ischemic cardiomyopathy: Status: Acute (5) COPD (chronic obstructive pulmonary disease): Status: Acute (6) Encounter for monitoring amiodarone therapy: Status: Acute (7) Bilateral carotid artery stenosis: Status: Acute Plan Pertinent data reviewed. Holter from last year showed underlying sinus rhythm with frequent PACs and PVCs. Short runs of NSVT. There was correlation between symptoms and PVCs. Echocardiogram from last year with LVEF of 40-45%. Basal inferior aneurysm and possible apical septal hypokinesis. Diminished right ventricular function. Myocardial perfusion imaging study from 2021 shows no ischemia. Nontransmural infarct of the inferior/inferolateral wall. Telemetry with PVCs. Chest CT scan shows diffuse emphysema with bullous changes. Chronic interstitial lung changes. Troponins are unremarkable. Cardiac BNP is 339. Brain MRI shows no acute intracranial process. Generalized parenchymal volume loss and very mild chronic white matter microangiopathy. Carotid study shows moderate stenosis of both carotids. Right subclavian stenosis. Both right and left external carotid stenosis. It is mentioned that there is no changes severity compared to prior study from 1 year ago. Overall, still not clear as to why he feels dizzy but PVCs may play a role as there was a correlation between symptoms and PVCs on the Holter. Unless there is any other contraindication from pulmonary standpoint, can resume amiodarone. It seems that he already got a dose last night. We can monitor in the outpatient setting and see if that helps. Discussed with hospitalist. Time Spent With Patient Time: Total time managing care of this patient today 45 minutes. This includes review of chart, imaging studies, laboratory data, discussion with hospitalist, review of telemetry, documentation,arranging follow-up appointment, coordination of care. Progress Note: Quality Stroke Does the patient have a stroke diagnosis?: No Procedures Date of Service Date of Service: 05/29/22
[2022-05-29 11:02] VITALS: BP 134/64; PULSE 68; RESP 17; TEMP 37.1; O2SAT 97
--- NOTE | 2022-05-29 11:37 | MHC.CM.PN ---
Patient has been medically cleared for dc to home today, self care.
== END 2022-05-29 12:58 | disposition home or self-care (01) ==
LOC: HO.ED 18:08 → HO.EDOVER 20:43 → HO.IMC 21:12
PROVIDERS: Physician Assistant; Admitting Provider Student in an Organized Health Care Education/Training Program; Emergency Provider Emergency Medicine; PCP Internal Medicine; Visit Provider Physician Assistant
DX: H57.11 Ocular pain, right eye (principal); R42 Dizziness and giddiness; R06.02 Shortness of breath; I13.0 Hypertensive heart and chronic kidney disease with heart failure and stage 1 through stage 4 chronic kidney disease, or unspecified chronic kidney disease; N18.32 Chronic kidney disease, stage 3b; I50.9 Heart failure, unspecified; I49.3 Ventricular premature depolarization; Z20.822 Contact with and (suspected) exposure to COVID-19; I47.29 Other ventricular tachycardia; I25.5 Ischemic cardiomyopathy; E78.00 Pure hypercholesterolemia, unspecified; J43.1 Panlobular emphysema; Z99.81 Dependence on supplemental oxygen; Z86.718 Personal history of other venous thrombosis and embolism; Z87.891 Personal history of nicotine dependence; Z95.1 Presence of aortocoronary bypass graft; Z79.01 Long term (current) use of anticoagulants; Z79.02 Long term (current) use of antithrombotics/antiplatelets; Z79.899 Other long term (current) drug therapy
CPT/HCPCS: 36415; 70450; 70551; 71045; 71250; 80048; 80053; 80307; 81003; 82077; 82550; 82947; 83605; 83690; 83735; 83880; 84443; 84484; 85025; 85610; 85652; 87040; 87635; 93005; 93880; 94640; 99222; 99285

== ENCOUNTER → 2022-06-04 10:29 | Outpatient (BNVA) | payer MEDICARE, SELFPAY | PROVIDERS: PCP Internal Medicine; Visit Provider Internal Medicine | DX: I25.10 Atherosclerotic heart disease of native coronary artery without angina pectoris (principal); I47.20 Ventricular tachycardia, unspecified; I25.5 Ischemic cardiomyopathy; R42 Dizziness and giddiness; J43.1 Panlobular emphysema; R09.02 Hypoxemia; I82.501 Chronic embolism and thrombosis of unspecified deep veins of right lower extremity; I49.3 Ventricular premature depolarization; G47.33 Obstructive sleep apnea (adult) (pediatric); Z99.89 Dependence on other enabling machines and devices | CPT/HCPCS: 93005; 99212 ==

== ENCOUNTER 2022-07-17 10:38 | Outpatient (REF) | payer MEDICARE, SELFPAY ==
[2022-07-17 13:36] LABS: Blood Urea Nitrogen 38 mg/dL (9-16); Estimated Glomerular Filt Rate 34
== END 2022-07-17 10:39 | disposition home or self-care (01) ==
LOC: HO.10HDL 10:38
PROVIDERS: Visit Provider Surgery Vascular Surgery
DX: I73.9 Peripheral vascular disease, unspecified (principal)
CPT/HCPCS: 36415; 82565; 84520

== ENCOUNTER 2022-07-23 10:06 | Outpatient (REF) | payer MEDICARE, SELFPAY ==
[2022-07-23 11:57] LABS: Prostate Specific Antigen < 0.10 ng/mL (<0.05-4.0)
== END 2022-07-23 10:07 | disposition home or self-care (01) ==
LOC: HO.LAB 10:06
PROVIDERS: PCP Internal Medicine; Visit Provider Urology
DX: Z12.5 Encounter for screening for malignant neoplasm of prostate (principal); C61 Malignant neoplasm of prostate; G47.33 Obstructive sleep apnea (adult) (pediatric); I73.9 Peripheral vascular disease, unspecified; I25.10 Atherosclerotic heart disease of native coronary artery without angina pectoris; R09.02 Hypoxemia; Z99.89 Dependence on other enabling machines and devices
CPT/HCPCS: 36415; 84153; 99212

== ENCOUNTER → 2022-07-25 08:50 | Outpatient (BNVA) | payer MEDICARE, SELFPAY | PROVIDERS: PCP Internal Medicine; Visit Provider Urology | DX: N40.0 Benign prostatic hyperplasia without lower urinary tract symptoms (principal); C61 Malignant neoplasm of prostate | CPT/HCPCS: Q3014 ==

== ENCOUNTER 2022-08-05 09:45 | Outpatient (REF) | payer MEDICARE, SELFPAY ==
[2022-08-05 11:35] LABS: Hematocrit 38.2 % (42.0-52.0); Hemoglobin 12.5 g/dl (14.0-18.0); Mean Corpuscular HGB Conc 32.7 g/dl (31.0-36.0); Mean Corpuscular Hemoglobin 28.9 pg (27.0-33.0); Mean Corpuscular Volume 88.4 fL (80.0-98.0); Mean Platelet Volume 9.5 fL (9.4-12.4); Platelet Count 168 X10*3/uL (160-400); Red Blood Count 4.32 X10*6/uL (4.60-5.80); Red Cell Distribution Width 13.8 % (11.0-16.0); White Blood Count 8.9 X10*3/uL (4.8-10.8)
[2022-08-05 11:54] LABS: Anion Gap 13 (12-20); Blood Urea Nitrogen 38 mg/dL (9-16); Carbon Dioxide 26 mmol/L (22-29); Chloride 108 mmol/L (96-108); Estimated Glomerular Filt Rate 30; Glucose Random 88 mg/dL (60-115); Potassium 4.8 mmol/L (3.3-5.1); Sodium 142 mmol/L (135-145)
[2022-08-06 18:28] LABS: Calcium (PTHI) 9.1 mg/dL (8.6-10.3); PTHI 79 pg/mL (16-77)
== END 2022-08-05 09:46 | disposition home or self-care (01) ==
LOC: HO.LAB 09:45
PROVIDERS: PCP Internal Medicine; Visit Provider Internal Medicine Hypertension Specialist
DX: N18.30 Chronic kidney disease, stage 3 unspecified (principal)
CPT/HCPCS: 36415; 80048; 83970; 85027

== ENCOUNTER 2022-09-12 12:44 | Outpatient (AMB) | payer MEDICARE, SELFPAY ==
--- NOTE | 2022-09-12 12:50 | A.OFFVIS_ITS ---
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 Accompanied by: Spouse Allergies codeine [CODEINE] Allergy (Unknown, Verified 07/25/22 08:51) STOMACH UPSET Medication List - Last Reconciled 09/12/22 by Manas Brennan MD albuterol sulfate 90 mcg/actuation 2 puffs inhalation Q6H PRN amiodarone 200 mg PO DAILY amlodipine 2.5 mg PO QPM apixaban 5 mg PO BID atorvastatin 80 mg PO DAILY cilostazol 100 mg PO BID furosemide 20 mg PO DAILY 90 days lisinopril 10 mg PO DAILY metoprolol succinate ER 100 mg PO DAILY nitroglycerin 0.4 mg sublingual Q5M PRN pantoprazole 40 mg PO DAILY Symbicort 160-4.5 mcg/actuation (budesonide-formoterol) 2 puffs PO BID 30 days NS HPI HPI Comments History of Present Illness Details Brian comes for follow-up. He has been doing well from cardiac perspective. Does not have any significant palpitations. Still gets lightheaded but he says he gets lightheaded when he is asleep and wakes up from sleep. This is unlikely to be related to low blood pressure. However he also has lightheaded some other times. He denies any syncopal episodes. His lisinopril was recently reduced due to advancing kidney disease by Nephrology. He denies any orthopnea, PND, leg edema. No exertional chest pain. Uses oxygen when he exerts himself. Does have chronic exertional shortness of breath. [facility] Medical History (Updated 09/12/22 @ 13:18 by Manas Brennan MD) BPH (benign prostatic hyperplasia) CAD (coronary artery disease) CHF (congestive heart failure) Chronic kidney disease (CKD) stage G3b/A1, moderately decreased glomerular filtration rate (GFR) between 30-44 mL/min/1.73 square meter and albuminuria creatinine ratio less than 30 mg/g COPD (chronic obstructive pulmonary disease) Exercise hypoxemia GERD (gastroesophageal reflux disease) Gout History of stent insertion of renal artery Hypercholesterolemia Hypertension Ischemic cardiomyopathy Obesity (BMI 30-39.9) LAMBERTO on CPAP Pulmonary embolism PVD (peripheral vascular disease) Right leg DVT Right renal mass Surgical History History of appendectomy S/P AAA repair S/P CABG x 3 Family History Father Cancer Mother No problems noted. Brother Heart disease Sister Heart disease CVD (cardiovascular disease) Other Mental health disorder Substance use disorder Social History Household Members: Spouse and Children Housing: House Alcohol intake: former Patient Tobacco Use Status: Former Tobacco user Tobacco use type: Cigarette Cigarette Packs Per Day: 1 e-Cigarette/Vaping Use: Never Used Second Hand Smoke Exposure: No Advance Directives Date on File: 05/27/22 service: Yes Current occupational status: retired Cognitive needs: No Hearing needs: No Vision needs: Yes Review of Systems Const Denies chills, Denies fatigue, Denies fever(s), Denies frequent falls, Denies weakness, Denies weight gain and Denies weight loss ENT Denies dizziness Card Denies chest pain, Denies leg edema, Denies lightheadedness, Denies palpitations, Denies dyspnea, Denies dyspnea on exertion, Denies orthopnea and Denies other (loss of consciousness) Resp Denies cough, Denies dyspnea and Denies dyspnea on exertion GI Denies hematochezia and Denies change in stool character Musc Denies abnormal gait, Denies muscle weakness, Denies numbness, Denies radiating pain into limb and Denies tingling Neuro Denies abnormal gait, Denies dizziness, Denies frequent falls, Denies numbness, Denies tingling and Denies weakness Endo Denies fatigue and Denies palpitations Physical Exam Vital Signs: Last Vital Signs Pulse 60 09/12/22 12:52 BP 140/66 H 09/12/22 12:52 BMI result Body Mass Index 30.1 Const General: cooperative, comfortable, no acute distress, alert, awake and well groomed Nutritional Appearance: overweight Orientation/consciousness: patient oriented x3 Limitations: no limitations Neck Neck: Yes trachea midline, Yes supple and Yes no JVD Chest Chest palpation & inspection: normal inspection of the chest and other (Well- healed sternotomy scar) Resp Effort & Inspection: normal respiratory effort Auscultation: no crackles, no wheezes and diminished lung sounds Cardio Jugular venous distension: no JVD Palpation: normal PMI Rate: regular rate Rhythm: regular rhythm Heart sounds: S1 normal heart sound present, S2 normal heart sound present and Other heart sounds present (S4 present) Peripheral pulses: posterior tibial pulses not present and dorsalis pedis pulses not present GI Auscultation: normal bowel sounds Skin General skin exam: no rashes or lesions noted Neuro General: patient oriented x3 and no focal motor deficits Extrem General: Yes no clubbing, cyanosis or edema Psych Appearance: grossly normal Office Procedures EKG Details: EKG shows normal sinus rhythm first-degree AV block with left anterior fascicular block as well as right bundle-branch block with LVH [id number], Complete Assessment & Plan Assessment & Plan (1) CAD (coronary artery disease): Comment: Coronary artery bypass graft June [address] mendoza and Dr. Brennan October 2017 nuclear stress make ski me a an infarct inferolateral and basal echo August 2018 50-55% moderate TV basal inferior basal inferoseptal dyskinetic echo March 2019 EF 40-45% basal inferior aneurysmal Code(s): I25.10 - Atherosclerotic heart disease of [place] coronary artery without angina pectoris Qualifiers: Coronary Disease-Associated Artery/Lesion type: [place] artery Three Affiliated vs. transplanted heart: [place] heart Associated angina: without angina Qualified Code(s): I25.10 - Atherosclerotic heart disease of [place] coronary artery without angina pectoris Plan: CAD status post redo coronary artery bypass grafting with diffuse significant vascular disease. Doing well with no symptoms of angina. No further workup is indicated at this point time. Continue aggressive risk factor modification. Target goal LDL closer to 50 mg per daily. Continue full oral anticoagulation, currently on apixaban. Avoid aspirin therapy to reduce bleeding risk. Continue aggressive blood pressure control. (2) Labile blood pressure: Code(s): R09.89 - Other specified symptoms and signs involving the circulatory and respiratory systems Plan: Labile blood pressure which is difficult control given his diffuse vascular disease. Advised to maintain adequate hydration. Continues to intermittent episode of lightheadedness but much improved since changes medications. Allow permissive hypertension up to systolic 150 if necessary. Goal blood pressure although if possible up to systolic 140/84. Continue monitor blood pressure at home maintain a log. Continue current therapy. Low-salt diet was discussed. (3) Nonsustained ventricular tachycardia: Code(s): I47.2 - Ventricular tachycardia Plan: Nonsustained ventricular tachycardia in the setting of [id number] LV systolic dysfunction. Doing well on amiodarone therapy. Tolerating the same. Continue the same. Avoidance of stimulants was discussed. Annual check for amiodarone toxicity should be pursued. (4) Ischemic cardiomyopathy: Comment: Normalized LV ejection fraction after 2nd redo coronary artery bypass grafting in May of 2014. Echo 02/18 is 40-45% Code(s): I25.5 - Ischemic cardiomyopathy Plan: Ischemic cardiomyopathy with [id number] LV systolic dysfunction without any overt signs of heart failure. Continue current neurohormonal modulation metoprolol, lisinopril. On low-dose furosemide therapy. Continue aggressive blood pressure control. Continue CPAP therapy. Continue oxygen supplementation therapy for COPD. Continue maintain activity level as tolerated please current shortness of breath appears more likely related to deconditioning and COPD. Will follow up in the clinic in 6 months time, sooner p.r.n.. Thank you for allowing me to partake in his care Medications: Changed From lisinopril 20 mg PO DAILY 30 days 90 tabs 2RF To lisinopril 10 mg PO DAILY Coding Level of Care Code Est Pt Level 4 (96346) Diagnoses CAD (coronary artery disease) I25.10 Coronary Disease-Associated Artery/Lesion type: [place] artery Three [place] vs. transplanted heart: [place] heart Associated angina: without angina Labile blood pressure R09.89 Nonsustained ventricular tachycardia I47.2 Ischemic cardiomyopathy I25.5 CPT Codes EKG - CPT: [id number], Complete ([id number])
[2022-09-12 12:52] VITALS: BP 140/66; PULSE 60; BMI 30.1
== END 2022-09-12 13:21 | disposition home or self-care (01) ==
PROVIDERS: Visit Provider Internal Medicine Cardiovascular Disease
DX: I25.10 Atherosclerotic heart disease of native coronary artery without angina pectoris (principal); R09.89 Other specified symptoms and signs involving the circulatory and respiratory systems; I47.20 Ventricular tachycardia, unspecified; I25.5 Ischemic cardiomyopathy
CPT/HCPCS: 93010; 99214

== ENCOUNTER → 2022-09-12 12:44 | Outpatient (BNVA) | payer MEDICARE, SELFPAY | PROVIDERS: Visit Provider Internal Medicine Cardiovascular Disease | DX: I25.10 Atherosclerotic heart disease of native coronary artery without angina pectoris (principal); R09.89 Other specified symptoms and signs involving the circulatory and respiratory systems; I47.20 Ventricular tachycardia, unspecified; I25.5 Ischemic cardiomyopathy; Z79.899 Other long term (current) drug therapy; Z99.81 Dependence on supplemental oxygen; Z99.89 Dependence on other enabling machines and devices | CPT/HCPCS: 93005; 99212 ==

== ENCOUNTER 2022-09-30 10:23 | Outpatient (AMB) | payer MEDICARE, SELFPAY ==
[2022-09-30 10:34] VITALS: BP 130/62; PULSE 60; O2SAT 94; BMI 30.1
--- NOTE | 2022-09-30 10:34 | MHC.OFFVIS ---
Intake Vital Signs 09/30/22 10:34 Height 5 ft 5 in Weight 181 lb BMI 30.1 BP 130/62 Blood Pressure Location Lt brachial Position Standing Pulse 60 Pulse Source Pulse Oximeter Pulse Oximetry (%) 94 Oxygen Delivery Method Nasal Cannula Oxygen Flow Rate 2 Intake Visit Reasons: copd Intake Note: pt is here for follow up and states he is feeling okay, does not go out much, all same issues with lightheadedness. 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 Allergies codeine [CODEINE] Allergy (Unknown, Verified 09/30/22 10:40) STOMACH UPSET Medication List - Last Reconciled 09/30/22 by Jocelyn Storm MD albuterol sulfate 90 mcg/actuation 2 puffs inhalation Q6H PRN amiodarone 200 mg PO DAILY amlodipine 2.5 mg PO QPM 90 days apixaban 5 mg PO BID atorvastatin 80 mg PO DAILY cilostazol 100 mg PO BID furosemide 20 mg PO DAILY 90 days lisinopril 10 mg PO DAILY metoprolol succinate ER 100 mg PO DAILY nitroglycerin 0.4 mg sublingual Q5M PRN pantoprazole 40 mg PO DAILY Symbicort 160-4.5 mcg/actuation (budesonide-formoterol) 2 puffs PO BID 30 days NS Do you need a note to return to daycare/school/sports/work: No HPI copd HPI Details THIS 77 YEARS OLD VERY PLEASANT GENTLEMAN IS HERE FOR FOLLOW-UP. BREATHING HAS BEEN RELATIVELY STABLE EXCEPT FOR MILD INTERMITTENT COUGH AND GETTING SHORT OF BREATH ON WALKING. HE IS STAYING MOSTLY IN THE HOUSE. HE STAYS ON OXYGEN 24 HOURS A DAY. USES SYMBICORT 2 PUFFS B.I.D. REGULARLY AND ALBUTEROL HFA ONLY ONCE IN A WHILE. USING HIS CPAP REGULARLY EVERY NIGHT. ACCORDING TO HIS HE DOES NOT SNORE WHEN HE HAS THE CPAP ON, AND ALSO THERE IS NOT MUCH AIR LEAK. SO HE DID NOT GO TO USE CHINSTRAP. COMPLAINS OF INTERMITTENT LIGHTHEADED FEELING BUT HE HAS LEARNED TO LIVE WITH THAT USUALLY SITS DOWN AND RELAXES AND IT GOES AWAY. [facility] Medical History (Updated 09/30/22 @ 10:56 by Jocelyn Storm MD) BPH (benign prostatic hyperplasia) CAD (coronary artery disease) CHF (congestive heart failure) Chronic kidney disease (CKD) stage G3b/A1, moderately decreased glomerular filtration rate (GFR) between 30-44 mL/min/1.73 square meter and albuminuria creatinine ratio less than 30 mg/g COPD (chronic obstructive pulmonary disease) Exercise hypoxemia GERD (gastroesophageal reflux disease) Gout History of stent insertion of renal artery Hypercholesterolemia Hypertension Ischemic cardiomyopathy Obesity (BMI 30-39.9) LAMBERTO on CPAP Pulmonary embolism PVD (peripheral vascular disease) Right leg DVT Right renal mass Surgical History History of appendectomy S/P AAA repair S/P CABG x 3 Family History Father Cancer Mother No problems noted. Brother Heart disease Sister Heart disease CVD (cardiovascular disease) Other Mental health disorder Substance use disorder Social History Household Members: Spouse and Children Housing: House Alcohol intake: former Patient Tobacco Use Status: Former Tobacco user Tobacco use type: Cigarette Cigarette Packs Per Day: 1 e-Cigarette/Vaping Use: Never Used Second Hand Smoke Exposure: No Advance Directives Date on File: 05/27/22 service: Yes Current occupational status: retired Cognitive needs: No Hearing needs: No Vision needs: Yes Review of Systems Const All systems reviewed & are unremarkable except as noted in HPI and below Eyes Reports no additional complaints ENT Reports nasal congestion (Mild intermittent) Card Denies chest pain, Reports leg edema and Reports dyspnea on exertion Resp Reports as per HPI and Reports dyspnea on exertion GI Reports heartburn (GERD symptoms controlled) Reports urinary incontinence (Controlled with med) Musc Reports back pain (Mild) Skin/Breast Reports system reviewed and no additional complaints, except as documented Neuro Reports no additional complaints Psych Reports no additional complaints Physical Exam Vital Signs: Last Vital Signs Pulse 60 09/30/22 10:34 BP 130/62 09/30/22 10:34 Pulse Ox 94 09/30/22 10:34 Oxygen Delivery Method Nasal Cannula 09/30/22 10:34 Oxygen Flow Rate 2 09/30/22 10:34 BMI result Body Mass Index 30.1 Const General: cooperative, comfortable, no acute distress, alert, awake and well groomed Nutritional Appearance: overweight Orientation/consciousness: patient oriented x3 Limitations: no limitations Neck Neck: Yes trachea midline, Yes supple and Yes no JVD Chest Chest palpation & inspection: abnormal inspection of the chest, normal palpation of entire chest wall and other (Well-healed sternotomy scar) Resp Other: Percussion note is resonant, breath sounds are distant with prolonged expiratory phase. However clear and there is is there is no wheezing or Creps Auscultation: no crackles, no wheezes and diminished lung sounds Cardio Jugular venous distension: no JVD Palpation: normal PMI Rate: regular rate Rhythm: regular rhythm Heart sounds: S1 normal heart sound present, S2 normal heart sound present and Other heart sounds present (S4 present) Peripheral pulses: posterior tibial pulses not present and dorsalis pedis pulses not present GI Auscultation: normal bowel sounds Skin General skin exam: no rashes or lesions noted Neuro General: patient oriented x3 and no focal motor deficits Extrem General: Yes venous stasis dermatitis (He veers elastic stockings) Psych Appearance: grossly normal and well kempt Mental Status: mental status grossly normal Assessment & Plan Assessment & Plan (1) Obesity (BMI 30-39.9): Comment: Moderate ,stable Code(s): E66.9 - Obesity, unspecified (2) LAMBERTO on CPAP: Comment: He has chronic obstructive sleep apnea related to his obesity. Treated well with CPAP and he has been very compliant. He does have the new CPAP machine which is a different make ,LUZ His mask is the nasal, He seems to have air leak through the mouth, On his last visit we discussed about using the chinstrap. However he did not like to use it and say is that there is not much air leak through the mouth. He is doing fairly well. Code(s): G47.33 - Obstructive sleep apnea (adult) (pediatric); Z99.89 - Dependence on other enabling machines and devices (3) COPD (chronic obstructive pulmonary disease): Comment: HE HAS SEVERE CHRONIC OBSTRUCTIVE PULMONARY DISEASE, SYMPTOMATICALLY, HE IS REMAINING STABLE . REMAINS WELL CONTROLLED WITH HIS CURRENT REGIMEN, WHICH INCLUDES: [place]: SYMBICORT 160-4.52 PUFFS B.I.D. AND ALBUTEROL HFA 2 PUFFS Q 6 HOURS P.R.N.. Code(s): J44.9 - Chronic obstructive pulmonary disease, unspecified Qualifiers: COPD type: emphysema Emphysema type: panlobular Qualified Code(s): J43.1 - Panlobular emphysema Coding Level of Care Code Est Pt Level 3 (11652) Diagnoses Obesity (BMI 30-39.9) E66.9 LAMBERTO on CPAP G47.33; Z99.89 COPD (chronic obstructive pulmonary disease) J43.1 COPD type: emphysema Emphysema type: panlobular
== END 2022-09-30 10:50 | disposition home or self-care (01) ==
PROVIDERS: PCP Internal Medicine; Visit Provider Internal Medicine
DX: E66.9 Obesity, unspecified (principal); G47.33 Obstructive sleep apnea (adult) (pediatric); Z99.89 Dependence on other enabling machines and devices; J43.1 Panlobular emphysema
CPT/HCPCS: 99213

== ENCOUNTER → 2022-09-30 10:23 | Outpatient (BNVA) | payer MEDICARE, SELFPAY | PROVIDERS: PCP Internal Medicine; Visit Provider Internal Medicine | DX: G47.33 Obstructive sleep apnea (adult) (pediatric) (principal); J43.1 Panlobular emphysema; Z99.89 Dependence on other enabling machines and devices; E66.9 Obesity, unspecified; Z68.30 Body mass index [BMI] 30.0-30.9, adult | CPT/HCPCS: 99212 ==

== ENCOUNTER 2022-10-09 08:15 | Outpatient (AMB) | payer MEDICARE, SELFPAY ==
--- NOTE | 2022-10-09 08:26 | A.OFFPC_ITS ---
Vital Signs 10/09/22 08:27 Height 5 ft 5 in Weight 181 lb BMI 30.1 BP 172/92 H Blood Pressure Location Lt brachial Position Sitting Pulse 67 Pulse Source Pulse Oximeter Pulse Oximetry (%) 96 Oxygen Delivery Method Nasal Cannula Intake Visit Reasons: COPD cholesterol CAD Allergies codeine [CODEINE] Allergy (Unknown, Verified 10/09/22 08:27) STOMACH UPSET Tobacco use date assessed: 04/11/22 Fall risk assessment: No Falls in past year Last assessed Fall Risk: 10/09/22 Dental Screening Dental Screen Date: 10/09/22 Did you have a dental visit in the last 12 months?: Yes Did you have a dental problem in the last 6 months where you did not have access to dental care?: No Was dental information given to patient?: Patient has dentist HPI COPD cholesterol CAD HPI Details 77-year-old Obese male with multiple medical problems hypertension coronary artery disease hypercholesterolemia obstructive sleep apnea chronic kidney disease and history of nonsustained ventricular tachycardia coming in for follow-up. June last seen. Patient has been complaining of shortness of breath had seen Pulmonary on Symbicort and albuterol and on oxygen. Uses CPAP regularly for obstructive sleep apnea. Patient follows up with Cardiology also concern about the lightheadedness but patient relates this occurs when he wakes up from sleep. Blood pressure goal up to 150 for the ventricular tachycardia on amiodarone. Patient also follows up with Renal stage III chronic kidney disease creatinine is a increased and so decrease lisinopril to 5 mg once a day continue with amlodipine 5 mg once a day as for the prostate cancer patient follows up with urology seen 07/25/2022 2018 had radiation and hormones [facility] Medical History (Updated 09/30/22 @ 10:56 by Jocelyn Storm MD) BPH (benign prostatic hyperplasia) CAD (coronary artery disease) CHF (congestive heart failure) Chronic kidney disease (CKD) stage G3b/A1, moderately decreased glomerular filtration rate (GFR) between 30-44 mL/min/1.73 square meter and albuminuria creatinine ratio less than 30 mg/g COPD (chronic obstructive pulmonary disease) Exercise hypoxemia GERD (gastroesophageal reflux disease) Gout History of stent insertion of renal artery Hypercholesterolemia Hypertension Ischemic cardiomyopathy Obesity (BMI 30-39.9) LAMBERTO on CPAP Pulmonary embolism PVD (peripheral vascular disease) Right leg DVT Right renal mass Surgical History History of appendectomy S/P AAA repair S/P CABG x 3 Family History Father Cancer Mother No problems noted. Brother Heart disease Sister Heart disease CVD (cardiovascular disease) Other Mental health disorder Substance use disorder Social History Household Members: Spouse and Children Housing: House Alcohol intake: former Patient Tobacco Use Status: Former Tobacco user Tobacco use type: Cigarette Cigarette Packs Per Day: 1 e-Cigarette/Vaping Use: Never Used Second Hand Smoke Exposure: No Advance Directives Date on File: 05/27/22 service: Yes Current occupational status: retired Cognitive needs: No Hearing needs: No Vision needs: Yes Questionnaire PHQ-9 Over the last 2 weeks, how often have you been bothered by any of the following problems? 1. Little interest or pleasure in doing things: not at all 2. Feeling down, depressed, or hopeless: not at all 3. Trouble falling or staying asleep, or sleeping too much: not at all 4. Feeling tired or having little energy: not at all 5. Poor appetite or overeating: not at all 6. Feeling bad about yourself - or that you are a failure or have let yourself or your family down: not at all 7. Trouble concentrating on things, such as reading the newspaper or watching television: not at all 8. Moving or speaking so slowly that other people could have noticed. Or the opposite - being so fidgety or restless that you have been moving around a lot more than usual: not at all 9. Thoughts that you would be better off or of hurting yourself in some way: not at all Total score: 0 Depression Screening Interpretation: Negative Source: Developed by Drs. Raoul Bazan, Malini Tejada, Ari Randall and colleagues, with an educational chad from [employer]. Thrive Questionnaire Date Thrive assessed: 04/11/22 AUDIT C Alcohol Use Questionnaire (AUDIT-C) 1. How often do you have a drink containing alcohol?: Never 2. How many drinks containing alcohol do you have on a typical day when you are drinking?: 1 or 2 (0) 3. How often do you have six or more drinks on one occasion?: Never Total Score: 0 STARR-7 AMB Questionnaire STARR-7 Date STARR - 7 assessed: 04/11/22 Source: Developed by Drs. Raoul Bazan, Malini Tejaad, Ari Randall and colleagues, with an educational chad from [employer]. Physical exam (Primary Care) Vital Signs: Last Vital Signs Pulse 67 10/09/22 08:27 BP 172/92 H 10/09/22 08:27 Pulse Ox 96 10/09/22 08:27 Oxygen Delivery Method Nasal Cannula 10/09/22 08:27 BMI result Body Mass Index 30.1 Tobacco/Smoking Status: Tobacco use Status Tobacco use date assessed 04/11/22 10/09/22 08:28 Patient Tobacco Use Status Former Tobacco user 10/09/22 08:28 Tobacco use type Cigarette 10/09/22 08:28 e-Cigarette/Vaping Use Never Used 10/09/22 08:28 PHQ-9: PHQ-9 Score PHQ-9: Total score 0 10/09/22 08:28 Depression Screening Interpretation: Negative Thrive Assessment: Date of Thrive Assessment Date Thrive assessed 04/11/22 10/09/22 08:28 Const General: alert; No acute distress Eyes Conjunctivae: conjunctivae normal Resp Auscultation: clear to auscultation bilaterally Cardio Rate: regular rate Rhythm: regular rhythm GI Inspection: Yes normal to inspection Extrem General: Yes normal to inspection and No edema Assessment and Plan Assessment & Plan (1) COPD (chronic obstructive pulmonary disease): Comment: HE HAS SEVERE CHRONIC OBSTRUCTIVE PULMONARY DISEASE, SYMPTOMATICALLY, HE IS REMAINING STABLE . REMAINS WELL CONTROLLED WITH HIS CURRENT REGIMEN, WHICH INCLUDES: [place]: SYMBICORT 160-4.52 PUFFS B.I.D. AND ALBUTEROL HFA 2 PUFFS Q 6 HOURS P.R.N.. Code(s): J44.9 - Chronic obstructive pulmonary disease, unspecified Qualifiers: COPD type: emphysema Emphysema type: panlobular Qualified Code(s): J43.1 - Panlobular emphysema Plan: Patient follows up with Pulmonary continue with inhalers and oxygen about blood work (2) Ischemic cardiomyopathy: Comment: Normalized LV ejection fraction after 2nd redo coronary artery bypass grafting in May of 2014. Echo 02/18 is 40-45% Code(s): I25.5 - Ischemic cardiomyopathy Plan: Continue with present medication and follows up with Cardiology. Control the cholesterol, weight, blood pressure (3) Nonsustained ventricular tachycardia: Code(s): I47.2 - Ventricular tachycardia Plan: Continue with amiodarone will continue to follow-up with renal function (4) Chronic kidney disease (CKD) stage G3b/A1, moderately decreased glomerular filtration rate (GFR) between 30-44 mL/min/1.73 square meter and albuminuria creatinine ratio less than 30 mg/g: Code(s): N18.32 - Chronic kidney disease, stage 3b Plan: Stay hydrated, avoid NSAIDs (5) LAMBERTO on CPAP: Comment: He has chronic obstructive sleep apnea related to his obesity. Treated well with CPAP and he has been very compliant. He does have the new CPAP machine which is a different make ,LUZ His mask is the nasal, He seems to have air leak through the mouth, On his last visit we discussed about using the chinstrap. However he did not like to use it and say is that there is not much air leak through the mouth. He is doing fairly well. Code(s): G47.33 - Obstructive sleep apnea (adult) (pediatric); Z99.89 - Dependence on other enabling machines and devices Plan: Continue to use the CPAP more than 4 hours a night and benefits from this (6) Right leg DVT: Comment: Patient has history of DVT and he continues to be on Apixaban 5 mg b.i.d. Code(s): I82.401 - Acute embolism and thrombosis of unspecified deep veins of right lower extremity Qualifiers: Affected thrombotic vein of extremity: unspecified vein of extremity Chronicity: chronic Qualified Code(s): I82.501 - Chronic embolism and thrombosis of unspecified deep veins of right lower extremity Plan: Continue with anticoagulation (7) BPH (benign prostatic hyperplasia): Code(s): N40.0 - Benign prostatic hyperplasia without lower urinary tract symptoms Plan: Patient follows up with urology (8) Obesity (BMI 30-39.9): Comment: Moderate ,stable Code(s): E66.9 - Obesity, unspecified Plan: Diet and exercise (9) Hypercholesterolemia: Code(s): E78.00 - Pure hypercholesterolemia, unspecified Plan: Avoid fried foods, chicken skin, eggs, butter margarine, pastries and meat. Be it pork or beef they have a lot of cholesterol LDL goal of less than 50 and triglyceride less than 150 patient is on atorvastatin 80 mg once a day (10) CAD (coronary artery disease): Comment: Coronary artery bypass graft June [address] and Dr. Brennan October 2017 nuclear stress make ski me a an infarct inferolateral and basal echo August 2018 50-55% moderate TV basal inferior basal inferoseptal dyskinetic echo March 2019 EF 40-45% basal inferior aneurysmal Code(s): I25.10 - Atherosclerotic heart disease of [place] coronary artery without angina pectoris Qualifiers: Coronary Disease-Associated Artery/Lesion type: [place] artery [place] vs. transplanted heart: [place] heart Associated angina: without angina Qualified Code(s): I25.10 - Atherosclerotic heart disease of [place] coronary artery without angina pectoris Plan: Control the cholesterol, weight, blood pressure (11) Prostate cancer: Comment: Late 201718 Grade group 4 external beam radiation with GnRH Code(s): C61 - Malignant neoplasm of prostate Plan: Patient follows up with urology PSA less than 0.1 (12) Hypertension: Code(s): I10 - Essential (primary) hypertension Qualifiers: Hypertension type: essential hypertension Qualified Code(s): I10 - Essential (primary) hypertension Plan: Continue with blood pressure medication. Decrease salt intake and exercise continue with lisinopril 10 mg once a day metoprolol 100 mg once a day and a mlodipine 2.5 mg once a day Coding Level of Care Code Est Pt Level 4 (87338) Diagnoses COPD (chronic obstructive pulmonary disease) J43.1 COPD type: emphysema Emphysema type: panlobular Ischemic cardiomyopathy I25.5 Nonsustained ventricular tachycardia I47.2 Chronic kidney disease (CKD) stage G3b/A1, moderately decreased glomerular filtration rate (GFR) between 30-44 mL/min/1.73 square meter and albuminuria creatinine ratio less than 30 mg/g N18.32 LAMBERTO on CPAP G47.33; Z99.89 Right leg DVT I82.501 Affected thrombotic vein of extremity: unspecified vein of extremity Chronicity: chronic BPH (benign prostatic hyperplasia) N40.0 Obesity (BMI 30-39.9) E66.9 Hypercholesterolemia E78.00 CAD (coronary artery disease) I25.10 Coronary Disease-Associated Artery/Lesion type: [place] artery [place] vs. transplanted heart: [place] heart Associated angina: without angina Prostate cancer C61 Hypertension I10 Hypertension type: essential hypertension
[2022-10-09 08:27] VITALS: BP 172/92; PULSE 67; O2SAT 96; BMI 30.1
== END 2022-10-09 09:24 | disposition home or self-care (01) ==
PROVIDERS: PCP Internal Medicine; Visit Provider Internal Medicine
DX: I12.9 Hypertensive chronic kidney disease with stage 1 through stage 4 chronic kidney disease, or unspecified chronic kidney disease (principal); J43.1 Panlobular emphysema; I47.20 Ventricular tachycardia, unspecified; N18.32 Chronic kidney disease, stage 3b; I25.5 Ischemic cardiomyopathy; G47.33 Obstructive sleep apnea (adult) (pediatric); Z99.89 Dependence on other enabling machines and devices; I82.501 Chronic embolism and thrombosis of unspecified deep veins of right lower extremity; N40.0 Benign prostatic hyperplasia without lower urinary tract symptoms; E66.9 Obesity, unspecified; E78.00 Pure hypercholesterolemia, unspecified; I25.10 Atherosclerotic heart disease of native coronary artery without angina pectoris
CPT/HCPCS: 99214

== ENCOUNTER 2022-11-19 13:29 | Outpatient (REF) | payer MEDICARE, SELFPAY ==
[2022-11-19 14:39] LABS: Hemoglobin 11.6 g/dl (14.0-18.0); Mean Corpuscular HGB Conc 32.2 g/dl (31.0-36.0); Mean Corpuscular Volume 86.7 fL (80.0-98.0); Mean Platelet Volume 9.3 fL (9.4-12.4); Platelet Count 192 X10*3/uL (160-400); Red Blood Count 4.15 X10*6/uL (4.60-5.80); Red Cell Distribution Width 15.6 % (11.0-16.0); White Blood Count 10.3 X10*3/uL (4.8-10.8)
[2022-11-19 15:59] LABS: Anion Gap 12 (12-20); Blood Urea Nitrogen 39 mg/dL (9-16); Calcium 9.5 mg/dL (8.4-10.2); Carbon Dioxide 25 mmol/L (22-29); Chloride 107 mmol/L (96-108); Estimated Glomerular Filt Rate 29; Glucose Random 99 mg/dL (60-115); Potassium 4.6 mmol/L (3.3-5.1); Sodium 139 mmol/L (135-145)
== END 2022-11-19 13:30 | disposition home or self-care (01) ==
LOC: HO.LAB 13:29
PROVIDERS: PCP Internal Medicine; Visit Provider Internal Medicine Hypertension Specialist
DX: N18.32 Chronic kidney disease, stage 3b (principal)
CPT/HCPCS: 36415; 80048; 85027

== ENCOUNTER 2022-11-26 10:20 | Outpatient (RCR) | payer MEDICARE, SELFPAY ==
[2020-03-06 08:57] VITALS: BP 152/67; PULSE 80; RESP 12; TEMP 36.9; O2SAT 94; BMI 31.6
--- NOTE | 2020-03-06 09:33 | PM.HEMONCPN ---
Medical Summary - Medical Summary Date of Service: 03/06/20 Chief complaint: Follow-up Medical Summary: Diagnosis: Right lower extremity DVT, right pulmonary embolism January 2019 Admitted to [facility] in January with upper respiratory infection. Few days later admitted to [facility] with complaints of right lower extremity swelling and shortness of breath. Doppler revealed acute thrombus in right middle femoral vein to the calfs. CT angio performed 02/25 revealed large filling defect inferior branch of right lower lobe pulmonary artery. Interval History Interval history: Patient is here in follow-up. He is doing okay, wearing compression socks on the right lower extremity which is helping for leg swelling. He denies any chest pain or shortness of breath. He has been advised to take folic acid supplementation. However the cost of prescription strength folic acid is prohibitive, it is not covered by his insurance. Cost of Eliquis is also going to be over 400 dollars until he meets his deductible for this year. Review of Systems - Constitutional Reports as per HPI, Reports no additional constitutional complaints - Cardiovascular Reports no additional cardiovascular complaints - Respiratory Reports no additional respiratory complaints - Gastrointestinal Reports no additional gastrointestinal complaints [facility] Medical History: Medical History (Last Updated 02/24/20 @ 17:12 by Taylor Nuno MD) BPH (benign prostatic hyperplasia) CAD (coronary artery disease) Chronic kidney disease (CKD) stage G3b/A1, moderately decreased glomerular filtration rate (GFR) between 30-44 mL/min/1.73 square meter and albuminuria creatinine ratio less than 30 mg/g COPD (chronic obstructive pulmonary disease) GERD (gastroesophageal reflux disease) Gout History of stent insertion of renal artery Hypercholesterolemia Hypertension Ischemic cardiomyopathy Obesity (BMI 30-39.9) Obstructive sleep apnea Pulmonary embolism PVD (peripheral vascular disease) Right leg DVT Right renal mass Family History: Family History (Last Updated 02/18/20 @ 09:15 by ALEJANDRO Winkler) Father Cancer Mother No problems noted. Brother Heart disease Sister Heart disease CVD (cardiovascular disease) Surgical History: Surgical History (Last Updated 02/18/20 @ 09:14 by ALEJANDRO Winkler) History of appendectomy S/P AAA repair S/P CABG x 3 Smoking status: Former smoker Oncology Screenings - ECOG Performance Status ECOG Performance Status: 1 Home Medications and Allergies Home Medications Medication Instructions Recorded Confirmed Type amlodipine 2.5 mg tablet 2.5 mg PO DAILY 01/11/20 03/06/20 History apixaban 5 mg tablet 5 mg PO BID 01/11/20 03/06/20 History atorvastatin 80 mg tablet 80 mg PO DAILY 01/11/20 03/06/20 History finasteride 5 mg tablet 5 mg PO DAILY 01/11/20 03/06/20 History furosemide 20 mg tablet 20 mg PO DAILY 01/11/20 03/06/20 History metoprolol succinate 100 mg 100 mg PO DAILY 01/11/20 03/06/20 History tablet,extended release 24 hr Allergies Allergy/AdvReac Type Severity Reaction Status Date / Time codeine [CODEINE] Allergy Unknown STOMACH Verified 02/18/20 09:13 UPSET Exam Vital signs: Vital Signs Temp 98.4 F 03/06/20 08:57 Pulse 80 03/06/20 08:57 Resp 12 03/06/20 08:57 BP 152/67 H 03/06/20 08:57 Pulse Ox 94 03/06/20 08:57 Intake & Output 03/05/20 03/06/20 03/06/20 18:59 06:59 18:59 Other: Weight 86.2 kg Weight 86.2 kg Body Mass Index 31.6 - Constitutional Present: no acute distress - Routine HEENT Exam Head: Present: normal inspection Eye: Present: EOMI - Routine Neck Exam Present: full ROM. Absent: lymphadenopathy - Routine Respiratory Exam Absent: respiratory distress - Routine Cardiovascular Exam Cardiovascular: Present: S1, S2 - Routine Extremities Exam Absent: pedal edema Progress Note: A/P (1) Right leg DVT Status: Chronic Assessment and plan: 1. This is a 74-year-old male with right lower extremity DVT and right sided pulmonary embolism diagnosed in January 2019. He has been on Eliquis for over a year. Because of persistent elevation of D-dimer he was recommended extended duration of anticoagulation. Now the cost of Eliquis is becoming prohibitive. I have ordered right lower extremity Doppler to re-evaluate thrombus. I will consider discontinuing anticoagulation or switching to warfarin if he needs to be on AC. 2. Mild folic acid deficiency. Was advised to take at least the 400 micro g dose which is cheaper and [id number]. Results to be discussed via tele visit. - Time Spent With Patient Total time spent is greater than 50% in coordination of care (as documented) at patient's floor/unit and/or counseling patient: 15 - 24 minutes
--- NOTE | 2020-03-06 09:37 | MHC.HEMONCMA ---
Patient came in for a follow up of his DVT, state he is still taking his eliquis, and that he is feeling good but sometimes gets alot of pain in his calves. He will get blood work and have a 2 week f/u telehealth appt with the doctor.
--- NOTE | 2020-03-06 10:24 | MHC.HEMONCMA ---
Patient needs to have an ultrasound to look for a DVT. I tried placing order in order fascilitator, but the website is having issues. I will try in a couple of hours.
--- NOTE | 2020-03-06 12:40 | MHC.HEMONCMA ---
Spoke with ultrasound, we booked the patient for today at 2:30pm. Patient needs to register. Called and spoke with patient and let him know about the appt.
--- NOTE | 2020-03-21 10:12 | HO.HEMONCTE1 ---
Hem/Onc Clinic Telehealth - Telehealth Location of Provider rendering services: office Location of Patient: home Patient Identification confirmed using: Name, : Yes Telehealth Method: telephone Patient verbally consented to treatment: yes Patient verbally consented to billing insurance company: Yes Patient informed of any privacy concerns related to visit: Yes Medical Summary - Medical Summary Date of Service: 03/21/20 Chief complaint: Scheduled follow-up Medical Summary: Diagnosis: Right lower extremity DVT, right pulmonary embolism January 2019 Admitted to [facility] in January with upper respiratory infection. Few days later admitted to [facility] [place] [place] with complaints of right lower extremity swelling and shortness of breath. Doppler revealed acute thrombus in right middle femoral vein to the calfs. CT angio performed 02/25 revealed large filling defect inferior branch of right lower lobe pulmonary artery. Interval History Interval history: This is a scheduled tele visit for patient based on COVID-19 pandemic guidelines. He remains on Eliquis. He wants to know results of blood work from his last visit as well as lower extremity Doppler. He is doing well and has no complaints today. Review of Systems - Constitutional Reports system reviewed and no additional complaints, except as documented, Denies fatigue, Denies fever(s) Home Medications and Allergies Home Medications Medication Instructions Recorded Confirmed Type atorvastatin 80 mg tablet 80 mg PO DAILY 01/11/20 03/06/20 History finasteride 5 mg tablet 5 mg PO DAILY 01/11/20 03/06/20 History metoprolol succinate 100 mg 100 mg PO DAILY 01/11/20 03/06/20 History tablet,extended release 24 hr nitroglycerin 0.4 mg sublingual 0.4 mg SUBLINGUAL DAILY 03/07/20 03/21/20 History tablet Allergies Allergy/AdvReac Type Severity Reaction Status Date / Time codeine [CODEINE] Allergy Unknown STOMACH Verified 03/07/20 09:47 UPSET Exam Vital signs: Vital Signs Temp 98.4 F 03/06/20 08:57 Pulse 80 03/06/20 08:57 Resp 12 03/06/20 08:57 BP 152/67 H 03/06/20 08:57 Pulse Ox 94 03/06/20 08:57 Weight 86.2 kg Body Mass Index 31.6 - Constitutional Present: no acute distress - Routine HEENT Exam Head: Present: normal inspection - Routine Neck Exam Present: full ROM. Absent: lymphadenopathy - Routine Respiratory Exam Absent: respiratory distress - Routine Cardiovascular Exam Cardiovascular: Present: S1, S2 - Routine Extremities Exam Absent: pedal edema Progress Note: A/P (1) Right leg DVT Status: Chronic Assessment and plan: 1. This is a 74-year-old male with right lower extremity DVT and right sided pulmonary embolism diagnosed in January 2019. He has been on Eliquis for over a year. Because of persistent elevation of D-dimer he was recommended extended duration of anticoagulation. His last D-dimer in February 2020remains above 2000. right lower extremity Doppler revealed probable changes of old DVT in right popliteal vein which could not be compressed. We again discussed pros and cons of long-term anticoagulation. He prefers to remain on Eliquis although it is expensive. follow-up in 6 months. - Time Spent With Patient Total time spent is greater than 50% in coordination of care (as documented) at patient's floor/unit and/or counseling patient: 15 - 24 minutes
--- NOTE | 2020-03-21 10:50 | MHC.HEMONCMA ---
Patient had a telehealth f/u with the doctor. Reviewed the chart with the patient, updated medications and allergies. Transferred call to the doctor. Dr Vincent would like to see him again in 6 months. Appt was made and mailed to the patient.
--- NOTE | 2020-09-18 09:49 | P.PNHO_ITS ---
Medical Summary - Medical Summary Date of Service: 09/18/20 Chief complaint: Follow-up Medical Summary: Diagnosis: Right lower extremity DVT, right pulmonary embolism January 2019 Admitted to [facility] in January with upper respiratory infection. Few days later admitted to [facility] [place] with complaints of right lower extremity swelling and shortness of breath. Doppler revealed acute thrombus in right middle femoral vein to the calfs. CT angio performed 02/25 revealed large filling defect inferior branch of right lower lobe pulmonary artery. Interval History Interval history: Patient is here in follow-up. He is doing quite well and has no complaints today. He remains on Eliquis twice daily and tolerating it well. He does report occasional skin bruising but nothing significant and denies any mucosal bleeding such as epistaxis or hematuria. He denies fatigue, pleuritic chest pain, shortness of breath or cough. Review of Systems - Constitutional Reports as per HPI, Reports no additional constitutional complaints - Cardiovascular Reports no additional cardiovascular complaints - Respiratory Reports no additional respiratory complaints - Gastrointestinal Reports no additional gastrointestinal complaints [facility] Medical History: Medical History (Last Updated 07/11/20 @ 09:46 by Manas Brennan MD) BPH (benign prostatic hyperplasia) CAD (coronary artery disease) Chronic kidney disease (CKD) stage G3b/A1, moderately decreased glomerular filtration rate (GFR) between 30-44 mL/min/1.73 square meter and albuminuria creatinine ratio less than 30 mg/g COPD (chronic obstructive pulmonary disease) GERD (gastroesophageal reflux disease) Gout History of stent insertion of renal artery Hypercholesterolemia Hypertension Ischemic cardiomyopathy Obesity (BMI 30-39.9) Obstructive sleep apnea Pulmonary embolism PVD (peripheral vascular disease) Right leg DVT Right renal mass Family History: Family History (Last Reviewed 07/06/20 @ 08:05 by ALEJANDRO Warren) Father Cancer Mother No problems noted. Brother Heart disease Sister Heart disease CVD (cardiovascular disease) Surgical History: Surgical History (Last Reviewed 07/06/20 @ 08:05 by ALEJANDRO Warren) History of appendectomy S/P AAA repair S/P CABG x 3 Social History: Social History (Last Reviewed 07/06/20 @ 08:05 by ALEJANDRO Warren) Alcohol History: Alcohol intake: former Alcohol History Details: Alcohol intake frequency: does not drink Tobacco History: Cigarette Packs Per Day: 1 Smoked in Last 30 Days: No Substance Use History: Use of substances other than those prescribed or required for medical reasons : No Oncology Screenings - ECOG Performance Status ECOG Performance Status: 1 Home Medications and Allergies Home Medications Medication Instructions Recorded Confirmed Type finasteride 5 mg tablet 5 mg PO DAILY 01/11/20 08/25/20 History Allergies Allergy/AdvReac Type Severity Reaction Status Date / Time codeine [CODEINE] Allergy Unknown STOMACH Verified 07/06/20 08:04 UPSET Exam Vital signs: Vital Signs Temp 98.4 F 03/06/20 08:57 Pulse 80 03/06/20 08:57 Resp 12 03/06/20 08:57 BP 152/67 H 03/06/20 08:57 Pulse Ox 94 03/06/20 08:57 Weight 86.2 kg Body Mass Index 31.6 - Constitutional Present: no acute distress - Routine HEENT Exam Head: Present: normal inspection - Routine Neck Exam Present: full ROM. Absent: lymphadenopathy - Routine Respiratory Exam Absent: respiratory distress - Routine Cardiovascular Exam Cardiovascular: Present: S1, S2 - Routine Extremities Exam Absent: pedal edema Data - Labs CBC & Chem 7: 09/18/20 10:15 Progress Note: A/P (1) Right leg DVT Status: Chronic Assessment and plan: 1. This is a 75-year-old male with right lower extremity DVT and right sided pulmonary embolism diagnosed in January 2019. He is on Eliquis 5 mg b.i.d.. He has persistent elevation of D-dimer. In March 2020 revealed wall thickening, hypoechoic material and limited compression of popliteal vein, probable old DVT. 2. Chronic mild thrombocytopenia. Normal vitamin B12 and folate levels. This is being monitored. follow-up in 6 months. - Time Spent With Patient Time Spent with Patient (in minutes): 15
[2020-09-18 10:20] LABS: Hematocrit 39.5 % (42-52); Hemoglobin 13.1 g/dl (14.0-18.0); Mean Corpuscular HGB Conc 33.2 g/dl (31.0-36.0); Mean Corpuscular Hemoglobin 28.5 pg (27.0-33.0); Mean Corpuscular Volume 86.1 fL (80-98); Mean Platelet Volume 9.1 fL (9.4-12.4); Platelet Count 126 X10*3/uL (160-400); Red Blood Count 4.59 X10*6/uL (4.60-5.80); Red Cell Distribution Width 13.6 % (11.0-16.0); White Blood Count 8.1 X10*3/uL (4.8-10.8)
[2020-09-18 10:22] VITALS: BP 145/65; PULSE 69; RESP 14; TEMP 36.4; O2SAT 93; BMI 31.5
[2020-09-18 10:37] LABS: D Dimer 2036 NG/ML
--- NOTE | 2020-09-18 16:06 | MHC.HEMONCMA ---
Patient came in for a follow up, states that he is doing well. Clinical summary was reviewed and updated. Patient had labs and will return in 6 months for a follow up.
--- NOTE | 2021-03-26 08:24 | HE.ONCSEC ---
PATIENTS CALLED AND CANCELLED APPT SAYS HE IS NOT FEELING TOO WELL , I RESCHEDULED APPT W/ PATIENT ON THE PHONE .
--- NOTE | 2021-04-17 10:32 | P.PNHO_ITS ---
Medical Summary - Medical Summary Date of Service: 04/17/21 Chief complaint: Follow-up Medical Summary: Diagnosis: Right lower extremity DVT, right pulmonary embolism January 2019 Admitted to [facility] in January with upper respiratory infection. Few days later admitted to [facility] with complaints of right lower extremity swelling and shortness of breath. Doppler revealed acute thrombus in right middle femoral vein to the calfs. CT angio performed 02/25 revealed large filling defect inferior branch of right lower lobe pulmonary artery. Interval History Interval history: Patient is here in follow-up. He is doing quite well and has no complaints today. He remains on Eliquis twice daily and tolerating it well. He does report occasional skin bruising but nothing significant and denies any mucosal bleeding such as epistaxis or hematuria. He denies fatigue, pleuritic chest pain, shortness of breath or cough. [facility] Medical History: Medical History (Last Reviewed 04/11/21 @ 12:01 by Manas Brennan MD) BPH (benign prostatic hyperplasia) CAD (coronary artery disease) Chronic kidney disease (CKD) stage G3b/A1, moderately decreased glomerular filtration rate (GFR) between 30-44 mL/min/1.73 square meter and albuminuria creatinine ratio less than 30 mg/g COPD (chronic obstructive pulmonary disease) GERD (gastroesophageal reflux disease) Gout History of stent insertion of renal artery Hypercholesterolemia Hypertension Ischemic cardiomyopathy Obesity (BMI 30-39.9) LAMBERTO on CPAP Pulmonary embolism PVD (peripheral vascular disease) Right leg DVT Right renal mass Family History: Family History (Last Reviewed 04/11/21 @ 12:01 by Manas Brennan MD) Father Cancer Mother No problems noted. Brother Heart disease Sister Heart disease CVD (cardiovascular disease) Surgical History: Surgical History (Last Reviewed 04/11/21 @ 12:01 by Manas Brennan MD) History of appendectomy S/P AAA repair S/P CABG x 3 Social History: Social History (Last Reviewed 04/11/21 @ 12:01 by Manas Brennan MD) Living Situation History: Housing: House Tobacco History: Patient Tobacco Use Status: Former Tobacco user Tobacco use type: Cigarette Cigarette Packs Per Day: 1 Smoked in Last 30 Days: No e-Cigarette/Vaping Use: Never Used Second Hand Smoke Exposure: No Substance Use History: Use of substances other than those prescribed or required for medical reasons : No Occupation Assessmet: Current occupational status: retired Oncology Screenings - ECOG Performance Status ECOG Performance Status: 1 Home Medications and Allergies Home Medications Medication Instructions Recorded Confirmed Type albuterol sulfate 90 mcg/actuation 2 puff INHALATION Q6H PRN 04/10/21 04/17/21 History aerosol inhaler amlodipine 2.5 mg tablet 5 mg PO DAILY tab 04/10/21 04/17/21 History Allergies Allergy/AdvReac Type Severity Reaction Status Date / Time codeine [CODEINE] Allergy Unknown STOMACH Verified 04/10/21 09:42 UPSET Exam Vital signs: Vital Signs Temp 97.6 F 09/18/20 10:22 Pulse 69 09/18/20 10:22 Resp 14 09/18/20 10:22 BP 145/65 H 09/18/20 10:22 Pulse Ox 93 09/18/20 10:22 Weight 86 kg BMI result Body Mass Index 31.5 - Constitutional Present: no acute distress - Routine HEENT Exam Head: Present: normal inspection - Routine Neck Exam Present: full ROM. Absent: lymphadenopathy - Routine Respiratory Exam Absent: respiratory distress - Routine Cardiovascular Exam Cardiovascular: Present: S1, S2 - Routine Extremities Exam Absent: pedal edema Data - Labs CBC & Chem 7: 09/18/20 10:15 Labs: Laboratory Tests 02/20/21 10:35 WBC 8.7 RBC 4.46 L Hgb 13.1 L Hct 38.2 L MCV 85.7 Plt Count 159 L Assessment and Plan Patient Active problem list reviewed?: Yes (1) Right leg DVT Status: Chronic Assessment and plan: 1. This is a 75-year-old male with right lower extremity DVT and right sided pulmonary embolism diagnosed in January 2019. He is on Eliquis 5 mg b.i.d.. He has persistent elevation of D-dimer. He has chronic swelling of right lower extremity. In March 2020 revealed wall thickening, hypoechoic material and limited compression of popliteal vein, probable old DVT. 2. Chronic mild thrombocytopenia. Normal vitamin B12 and folate levels. follow-up in 6 months. - Time Spent With Patient Time Spent with Patient (in minutes): 15
[2021-04-17 10:38] VITALS: BP 146/71; PULSE 78; RESP 18; TEMP 36.8; O2SAT 95; BMI 31.4
--- NOTE | 2021-04-17 14:35 | MHC.HEMONC ---
Patient present for follow up with Dr Vincent. Vital signs done, medications reviewed and labs drawn by phlebotomy. Dr Vincent in to see the patient. Follow up scheduled for 10/16/21.
--- NOTE | 2021-09-17 11:50 | MHC.HEMONC ---
Triage line - Sent stat message for Apixaban (Eliquis) refill. called pt back to notify of receipt of vm
--- NOTE | 2021-09-18 11:55 | MHC.HEMONC ---
Pt called for Eloquis refill, Dr Vincent notified. Pt called notified of refill reordered
--- NOTE | 2021-11-26 09:05 | P.PNHO-ONC_ITS ---
Medical Summary - Medical Summary Date of Service: 11/26/21 Chief complaint: Follow-up Medical Summary: Diagnosis: Right lower extremity DVT, right pulmonary embolism January 2019 Admitted to [facility] in January with upper respiratory infection. Few days later [place] [facility] [place] complaints of right lower extremity swelling and shortness of breath. Doppler revealed acute thrombus in right middle femoral vein to the calfs. CT angio performed 02/25 revealed large filling defect inferior branch of right lower lobe pulmonary artery. Interval History Interval history: Patient is here in follow-up. He is doing quite well and has no complaints today. He remains on Eliquis twice daily and tolerating it well. He states that for several months he has been experiencing lightheadedness and sweats which comes on suddenly even at nighttime. This is not related to position. He has undergone cardiac evaluation, he was told that he may have atrial fibrillation. Review of Systems - Constitutional Reports as per HPI, Reports no additional constitutional complaints, Denies anorexia, Denies fatigue, Denies lack of energy, Denies malaise - Cardiovascular Denies chest pain with activity, Denies foot swelling - Respiratory Reports no additional respiratory complaints - Gastrointestinal Reports no additional gastrointestinal complaints [facility] Medical History: Medical History (Last Reviewed 11/26/21 @ 09:10 by Smitha Guajardo) BPH (benign prostatic hyperplasia) CAD (coronary artery disease) Chronic kidney disease (CKD) stage G3b/A1, moderately decreased glomerular filtration rate (GFR) between 30-44 mL/min/1.73 square meter and albuminuria creatinine ratio less than 30 mg/g COPD (chronic obstructive pulmonary disease) Exercise hypoxemia GERD (gastroesophageal reflux disease) Gout History of stent insertion of renal artery Hypercholesterolemia Hypertension Ischemic cardiomyopathy Obesity (BMI 30-39.9) LAMBERTO on CPAP Pulmonary embolism PVD (peripheral vascular disease) Right leg DVT Right renal mass Family History: Family History (Last Reviewed 11/26/21 @ 09:10 by Smitha Guajardo) Father Cancer Mother No problems noted. Brother Heart disease Sister Heart disease CVD (cardiovascular disease) Surgical History: Surgical History (Last Reviewed 11/26/21 @ 09:10 by Smitha Guajardo) History of appendectomy S/P AAA repair S/P CABG x 3 Social History: Social History (Last Updated 11/26/21 @ 09:11 by Smitha Guajardo) Living Situation History: Household Members: None Housing: House Alcohol History Details: 1. How often do you have a drink containing alcohol?: a. Never Tobacco History: Patient Tobacco Use Status: Former Tobacco user Tobacco use type: Cigarette Cigarette Packs Per Day: 1 Smoked in Last 30 Days: No e-Cigarette/Vaping Use: Never Used Second Hand Smoke Exposure: No Substance Use History: Use of substances other than those prescribed or required for medical reasons : No Domestic Abuse History: Have you been hit, kicked, punched, or otherwise hurt by someone within the past year? If so, by whom?: No Do you feel safe in your current relationship?: No Current Relationship Homicidal Assessment: Do you have thoughts of harming others: None Do you have a plan to hurt others: No Plan Do you have the means to hurt others: No Nutrition Assessment: Recently lost weight without trying: No Occupation Assessmet: Current occupational status: retired Home Medications and Allergies Home Medications Medication Instructions Recorded Confirmed Type albuterol sulfate 90 mcg/actuation 2 puff inhalation Q6H PRN SOB 04/10/21 11/26/21 History aerosol inhaler Allergies Allergy/AdvReac Type Severity Reaction Status Date / Time codeine [CODEINE] Allergy Unknown STOMACH Verified 10/30/21 12:28 UPSET Exam Vital signs: Vital Signs Temp 98.2 F 04/17/21 10:38 Pulse 78 04/17/21 10:38 Resp 18 04/17/21 10:38 BP 146/71 H 04/17/21 10:38 Pulse Ox 95 04/17/21 10:38 O2 Del Method 04/17/21 10:38 Weight 85.7 kg BMI result Body Mass Index 31.4 - Constitutional Present: no acute distress - Routine HEENT Exam Head: Present: normal inspection - Routine Neck Exam Present: full ROM. Absent: lymphadenopathy - Routine Respiratory Exam Absent: respiratory distress - Routine Cardiovascular Exam Cardiovascular: Present: S1, S2 - Routine Extremities Exam Absent: pedal edema Data - Labs CBC & Chem 7: 09/18/20 10:15 Labs: Laboratory Tests 10/29/21 11:00 WBC 9.7 RBC 4.68 Hgb 13.5 L Hct 39.8 L Plt Count 212 D Assessment and Plan Patient Active problem list reviewed?: Yes (1) Right leg DVT Status: Chronic Assessment and plan: 1. This is a 75-year-old male with right lower extremity DVT and right sided pulmonary embolism diagnosed in January 2019. He is on chronic anticoagulation with Eliquis 5 mg b.i.d.. In March 2020 revealed wall thickening, hypoechoic material and limited compression of popliteal vein, probable old DVT. 2. Chronic mild thrombocytopenia. Normal vitamin B12 and folate levels. CBC in October 2021 shows normal platelet counts. follow-up in 1 year. - Time Spent With Patient Time Spent with Patient (in minutes): 15
[2021-11-26 09:08] VITALS: BP 178/82; PULSE 77; RESP 14; TEMP 36.8; O2SAT 94; BMI 29.9
--- NOTE | 2021-11-26 09:59 | MHC.HEMONCMA ---
patient seen today for followup prostate ca, VSS, labs, 1 yr followup.
[2022-11-26 10:13] VITALS: BP 180/77; PULSE 59; RESP 15; TEMP 36.4; O2SAT 95; BMI 30.3
--- NOTE | 2022-11-26 10:33 | MHC.HEMONCMA ---
Patient seen today for followup right LE DVT, VSS, 1 yr followup.
--- NOTE | 2022-11-26 10:43 | PM.HEMONCPN ---
Medical Summary - Medical Summary Date of Service: 11/26/22 Chief complaint: Follow-up Primary Care Provider: Taylor Nuno MD Medical Summary: Diagnosis: Right lower extremity DVT, right pulmonary embolism January 2019 Admitted to [facility] in January with upper respiratory infection. Few days later admitted to [facility] with complaints of right lower extremity swelling and shortness of breath. Doppler revealed acute thrombus in right middle femoral vein to the calfs. CT angio performed 02/25 revealed large filling defect inferior branch of right lower lobe pulmonary artery. Interval History Interval history: Patient is here in follow-up. He is doing okay, he is aware that his kidney functions have deteriorated somewhat. He has a follow-up with his counseling department chair in 2 days. He was told by his floriculture professor to remain on Eliquis. He is taking 5 mg b.i.d.. He denies dysuria, decreased urination, frequency or urgency. He reports some low back pain. He is now on oxygen, 2 L nasal cannula. He denies any chest pain or shortness of breath at this time. He denies any bruising or bleeding. Review of Systems - Constitutional Reports as per HPI, Reports fatigue, Reports malaise, Denies weight loss - Cardiovascular Reports no additional cardiovascular complaints - Respiratory Reports no additional respiratory complaints - Gastrointestinal Reports no additional gastrointestinal complaints [facility] Medical History: Medical History (Last Reviewed 11/26/22 @ 10:17 by Smitha Guajardo) BPH (benign prostatic hyperplasia) CAD (coronary artery disease) CHF (congestive heart failure) Chronic kidney disease (CKD) stage G3b/A1, moderately decreased glomerular filtration rate (GFR) between 30-44 mL/min/1.73 square meter and albuminuria creatinine ratio less than 30 mg/g COPD (chronic obstructive pulmonary disease) Exercise hypoxemia GERD (gastroesophageal reflux disease) Gout History of stent insertion of renal artery Hypercholesterolemia Hypertension Ischemic cardiomyopathy Obesity (BMI 30-39.9) LAMBERTO on CPAP Pulmonary embolism PVD (peripheral vascular disease) Right leg DVT Right renal mass Family History: Family History (Last Reviewed 11/26/22 @ 10:17 by Smitha Guajardo) Father Cancer Mother No problems noted. Brother Heart disease Sister Heart disease CVD (cardiovascular disease) Other Mental health disorder Substance use disorder Surgical History: Surgical History (Last Reviewed 11/26/22 @ 10:17 by Smitha Guajardo) History of appendectomy S/P AAA repair S/P CABG x 3 Social History: Social History (Last Reviewed 11/26/22 @ 10:17 by Smitha Guajardo) Living Situation History: Household Members: Spouse Household Members: Children Housing: House Alcohol History Details: 1. How often do you have a drink containing alcohol?: a. Never Tobacco History: Patient Tobacco Use Status: Former Tobacco user Tobacco use type: Cigarette Cigarette Packs Per Day: 1 Smoked in Last 30 Days: No e-Cigarette/Vaping Use: Never Used Second Hand Smoke Exposure: No Substance Use History: Use of substances other than those prescribed or required for medical reasons: No Domestic Abuse History: Have you been hit, kicked, punched, or otherwise hurt by someone within the past year? 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: service: Yes Current occupational status: retired Home Medications and Allergies Home Medications Medication Instructions Recorded Confirmed Type albuterol sulfate 90 mcg/actuation 2 puff inhalation Q6H PRN SOB 04/10/21 11/26/22 History aerosol inhaler lisinopril 20 mg tablet 10 mg PO DAILY 09/12/22 11/26/22 History Allergies Allergy/AdvReac Type Severity Reaction Status Date / Time codeine [CODEINE] Allergy Unknown STOMACH Verified 10/09/22 08:27 UPSET Exam Vital signs: Vital Signs Temp 97.6 F 11/26/22 10:13 Pulse 59 11/26/22 10:13 Resp 15 11/26/22 10:13 BP 180/77 H 11/26/22 10:13 Pulse Ox 95 11/26/22 10:13 O2 Del Method Room Air, Nasal Cannula 11/26/22 10:13 Intake & Output 11/25/22 11/26/22 11/26/22 18:59 06:59 18:59 Other: Weight 82.6 kg Weight in Grams 42329 Weight 82.6 kg BMI result Body Mass Index 30.3 - Constitutional Present: no acute distress - Routine HEENT Exam Head: Present: normal inspection - Routine Neck Exam Present: full ROM. Absent: lymphadenopathy - Routine Respiratory Exam Absent: respiratory distress - Routine Cardiovascular Exam Cardiovascular: Present: S1, S2 - Routine Extremities Exam Absent: pedal edema Data - Labs CBC & Chem 7: 09/18/20 10:15 Assessment and Plan Patient Active problem list reviewed?: Yes (1) Right leg DVT Problem details: Patient has history of DVT and he continues to be on Apixaban 5 mg b.i.d. Status: Chronic Assessment and plan: 1. This is a 77-year-old male with right lower extremity DVT and right sided pulmonary embolism diagnosed in January 2019. He is on chronic anticoagulation with Eliquis 5 mg b.i.d.. He was recommended to stay on anticoagulation by his floriculture professor as well. In March 2020 revealed wall thickening, hypoechoic material and limited compression of popliteal vein, probable old DVT. He has worsening kidney functions. His creatinine is now over 2. I have recommended that he cut back his Eliquis to 2.5 mg b.i.d.. He will check with his floriculture professor and counseling department chair as well. CBC in November 2022 shows mild normocytic anemia, thrombocytopenia has resolved. follow-up in 1 year. - Time Spent With Patient Time Spent with Patient (in minutes): 20
== END 2023-09-26 | disposition home or self-care (01) ==
LOC: HO.ONC 10:20
PROVIDERS: PCP Internal Medicine; Visit Provider Internal Medicine
DX: I26.99 Other pulmonary embolism without acute cor pulmonale (principal); I82.411 Acute embolism and thrombosis of right femoral vein; I82.4Z1 Acute embolism and thrombosis of unspecified deep veins of right distal lower extremity; D69.6 Thrombocytopenia, unspecified; J44.9 Chronic obstructive pulmonary disease, unspecified; Z79.01 Long term (current) use of anticoagulants; Z99.81 Dependence on supplemental oxygen
CPT/HCPCS: 36415; 85027; 85379; 99213; 99214; Q3014

== ENCOUNTER 2022-11-28 14:49 | Outpatient (REF) | payer MEDICARE, SELFPAY | END 2022-11-28 14:50 | disposition home or self-care (01) | LOC: HO.LAB 14:49 | PROVIDERS: Visit Provider Internal Medicine Hypertension Specialist | DX: N39.0 Urinary tract infection, site not specified (principal) | CPT/HCPCS: 87086 ==

== ENCOUNTER 2022-12-16 13:28 | Outpatient (AMB) | payer MEDICARE, SELFPAY ==
--- NOTE | 2022-12-16 13:52 | AM.OFFVISNUR ---
Intake Intake Visit Reasons: Flu Shot Allergies codeine [CODEINE] Allergy (Unknown, Verified 10/09/22 08:27) STOMACH UPSET Office Procedures Flu Questionnaire Does the patient have a severe egg allergy?: No Does the patient have severe life threatening allergies?: No Does the patient have a fever or illness today?: No Has the patient ever had Guillain-[place] Syndrome?: No Has the patient ever had any past reaction to a flu shot?: No Immunizations flu vacc [id number] 6mos up(PF) 60 mcg(15 mcgx4)/0.5 mL IM syringe Performing Provider: Taylor Nuno MD Performing Location: [facility] Administered by: ALEJANDRO Haq on 12/16/22 13:52 Dose Route Admin Location Dispensed Lot Number Expiration Date NDC Manager Client 0.5 mL IM Left Deltoid 0.5 mL [id number] 08/31/23 69235-986-25 [employer] VIS Given Date VIS Provided VIS Publication Date 12/16/22 Single Vaccine 20 Eligibility Eligibility Date Funding Source Not [facility] Eligible 12/16/22 Private Coding Assessment & Plan Assessment & Plan Orders: Orders Influenza [id number] Immunization Today Z23 - Encounter for immunization
== END 2022-12-16 13:53 | disposition home or self-care (01) ==
LOC: HO.HMGH 13:28
PROVIDERS: PCP Internal Medicine; Visit Provider Internal Medicine
DX: Z23 Encounter for immunization (principal)
CPT/HCPCS: 90471; 90686

== ENCOUNTER 2023-01-13 10:51 | Outpatient (AMB) | payer MEDICARE, SELFPAY ==
--- NOTE | 2023-01-13 11:00 | A.OFFPC_ITS ---
Vital Signs 01/13/23 11:01 01/13/23 11:46 Height 5 ft 5 in Weight 181 lb BMI 30.1 BP 190/62 H 160/60 H Blood Pressure Location Lt brachial Lt brachial Position Sitting Pulse 65 Pulse Source Pulse Oximeter Pulse Oximetry (%) 97 Oxygen Delivery Method Room Air Intake Visit Reasons: 3 mon f/u Turkish Rubber Required: No Accompanied by: Spouse Allergies codeine [CODEINE] Allergy (Unknown, Verified 01/13/23 11:03) STOMACH UPSET Medication List - Last Reconciled 01/13/23 by Taylor Nuno MD albuterol sulfate 90 mcg/actuation 2 puffs inhalation Q6H PRN amiodarone 200 mg PO DAILY amlodipine 2.5 mg PO QPM 90 days apixaban 5 mg PO BID atorvastatin 80 mg PO DAILY cilostazol 100 mg PO BID furosemide 20 mg PO DAILY 90 days lisinopril 10 mg PO DAILY 30 days metoprolol succinate ER 100 mg PO DAILY nitroglycerin 0.4 mg sublingual Q5M PRN pantoprazole 40 mg PO DAILY Symbicort 160-4.5 mcg/actuation (budesonide-formoterol) 2 puffs PO BID 30 days NS Tobacco use date assessed: 04/11/22 Fall risk assessment: No Falls in past year Last assessed Fall Risk: 01/13/23 Dental Screening Dental Screen Date: 01/13/23 Did you have a dental visit in the last 12 months?: No Did you have a dental problem in the last 6 months where you did not have access to dental care?: No Was dental information given to patient?: No (Dentures) HPI 3 mon f/u HPI Details 77-year-old obese male with multiple med ical problems COPD ischemic cardiomyopathy nonsustained ventricular tachycardia chronic kidney disease obstructive sleep apnea history of right leg DVT BPH hypercholesterolemia coronary artery disease hypertension and history of prostate cancer last seen in October 2022.. Review of the notes November 2022 seen by Nephrology stage IIIB chronic kidney disease stable blood pressure continue with amlodipine lisinopril: Echo showing mild to moderate reduction in systolic function and diastolic dysfunction EF 45%. Patient also follows up with hematology oncology with a history of right lower extremity DVT and right pulmonary embolism January 2019 anticoagulation Eliquis 5 mg twice a day March 2020 ultrasound showing popliteal vein limited compression all DVT patient was advised to decrease Eliquis to 2.5 mg twice a day [facility] Medical History (Updated 01/13/23 @ 11:54 by Taylor Nuno MD) CHF (congestive heart failure) Exercise hypoxemia LAMBERTO on CPAP Pulmonary embolism Right leg DVT Gout BPH (benign prostatic hyperplasia) Obesity (BMI 30-39.9) GERD (gastroesophageal reflux disease) Hypercholesterolemia Chronic kidney disease (CKD) stage G3b/A1, moderately decreased glomerular filtration rate (GFR) between 30-44 mL/min/1.73 square meter and albuminuria creatinine ratio less than 30 mg/g Right renal mass History of stent insertion of renal artery Ischemic cardiomyopathy CAD (coronary artery disease) PVD (peripheral vascular disease) COPD (chronic obstructive pulmonary disease) Hypertension Surgical History History of appendectomy S/P AAA repair S/P CABG x 3 Family History Father Cancer Mother No problems noted. Brother Heart disease Sister Heart disease CVD (cardiovascular disease) Other Mental health disorder Substance use disorder Social History Household Members: Spouse and Children Housing: House Alcohol intake: former Patient Tobacco Use Status: Former Tobacco user Tobacco use type: Cigarette Cigarette Packs Per Day: 1 e-Cigarette/Vaping Use: Never Used Second Hand Smoke Exposure: No Advance Directives Date on File: 05/27/22 service: Yes Current occupational status: retired Cognitive needs: No Hearing needs: No Vision needs: Yes Questionnaire Thrive Questionnaire Date Thrive assessed: 04/11/22 STARR-7 AMB Questionnaire STARR-7 Date STARR - 7 assessed: 04/11/22 Source: Developed by Drs. Raoul Bazan, Malini Tejada, Ari Randall and colleagues, with an educational chad from [facility]. Physical exam (Primary Care) Vital Signs: Last Vital Signs Pulse 65 01/13/23 11:01 BP 160/60 H 01/13/23 11:46 Pulse Ox 97 01/13/23 11:01 Oxygen Delivery Method Room Air 01/13/23 11:01 BMI result Body Mass Index 30.1 Tobacco/Smoking Status: Tobacco use Status Tobacco use date assessed 04/11/22 01/13/23 11:06 Patient Tobacco Use Status Former Tobacco user 11/13/23 11:06 Tobacco use type Cigarette 01/13/23 11:06 e-Cigarette/Vaping Use Never Used 01/13/23 11:06 Thrive Assessment: Date of Thrive Assessment Date Thrive assessed 04/11/22 01/13/23 11:06 Const General: alert; No acute distress Eyes Conjunctivae: conjunctivae normal Resp Auscultation: clear to auscultation bilaterally Cardio Rate: regular rate Rhythm: regular rhythm GI Inspection: Yes normal to inspection Extrem General: Yes normal to inspection and No edema Assessment and Plan Assessment & Plan (1) Ischemic cardiomyopathy: Comment: Normalized LV ejection fraction after 2nd redo coronary artery bypass grafting in May of 2014. Echo 02/18 is 40-45% Code(s): I25.5 - Ischemic cardiomyopathy Plan: Continue to follow-up with cardiology continue with present medication (2) Chronic kidney disease (CKD) stage G3b/A1, moderately decreased glomerular filtration rate (GFR) between 30-44 mL/min/1.73 square meter and albuminuria creatinine ratio less than 30 mg/g: Code(s): N18.32 - Chronic kidney disease, stage 3b Plan: Patient follows up with Nephrology continuing to monitor. Continue with blood pressure control (3) CAD (coronary artery disease): Comment: Coronary artery bypass graft June [address] and Dr. Brennan October 2017 nuclear stress make ski me a an infarct inferolateral and basal echo August 2018 50-55% moderate TV basal inferior basal inferoseptal dyskinetic echo March 2019 EF 40-45% basal inferior aneurysmal Code(s): I25.10 - Atherosclerotic heart disease of [place] coronary artery without angina pectoris Qualifiers: Associated angina: without angina Coronary Disease-Associated Artery/L esion type: [place] artery [place] vs. transplanted heart: lo[place]ock heart Qualified Code(s): I25.10 - Atherosclerotic heart disease of [place] coronary artery without angina pectoris Plan: Control the cholesterol, weight, blood pressure (4) Prostate cancer: Comment: Late 201718 Grade group 4 external beam radiation with GnRH Code(s): C61 - Malignant neoplasm of prostate Plan: July 2022 last PSA number tested (5) Hypercholesterolemia: Code(s): E78.00 - Pure hypercholesterolemia, unspecified Plan: Avoid fried foods, chicken skin, eggs, butter margarine, pastries and meat. Be it pork or beef they have a lot of cholesterol LDL goal of less than 70 and triglyceride of less than 150. Patient on atorvastatin 80 mg once a (6) Obesity (BMI 30-39.9): Comment: Moderate ,stable Code(s): E66.9 - Obesity, unspecified Plan: Diet and exercise (7) Right leg DVT: Comment: Patient has history of DVT and he continues to be on Apixaban 5 mg b.i.d. Code(s): I82.401 - Acute embolism and thrombosis of unspecified deep veins of right lower extremity Qualifiers: Affected thrombotic vein of extremity: unspecified vein of extremity Chronicity: chronic Qualified Code(s): I82.501 - Chronic embolism and thrombosi s of unspecified deep veins of right lower extremity Plan: Patient follows up with Hematology-Oncology continue with anticoagulation and due to renal function has been advised decrease in dose (8) LAMBERTO on CPAP: Comment: He has chronic obstructive sleep apnea related to his obesity. Treated well with CPAP and he has been very compliant. He does have the new CPAP machine which is a different make ,LUZ His mask is the nasal, He seems to have air leak through the mouth, On his last visit we discussed about using the chinstrap. However he did not like to use it and say is that there is not much air leak through the mouth. He is doing fairly well. Code(s): G47.33 - Obstructive sleep apnea (adult) (pediatric); Z99.89 - Dependence on other enabling machines and devices Plan: Continue to use the CPAP more than 4 hours a night and benefits from this (9) COPD (chronic obstructive pulmonary disease): Comment: HE HAS SEVERE CHRONIC OBSTRUCTIVE PULMONARY DISEASE, SYMPTOMATICALLY, HE IS REMAINING STABLE . REMAINS WELL CONTROLLED WITH HIS CURRENT REGIMEN, WHICH INCLUDES: [place]: SYMBICORT 160-4.52 PUFFS B.I.D. AND ALBUTEROL HFA 2 PUFFS Q 6 HOURS P.R.N.. Code(s): J44.9 - Chronic obstructive pulmonary disease, unspecified Qualifiers: COPD type: emphysema Emphysema type: panlobular Qualified Code(s): J43.1 - Panlobular emphysema Plan: Continue with inhaler as needed patient follows up with Pulmonary (10) Low back pain: Code(s): M54.50 - Low back pain, unspecified Orders: Orders XR lumbar spine 2-3V Today M54.50 - Low back pain, unspecified B Type Natriuretic Peptide 3 Months I25.5 - Ischemic cardiomyopathy Complete Blood Count Auto Diff 3 Months I25.5 - Ischemic cardiomyopathy Comprehensive Met. Panel 3 Months I25.5 - Ischemic cardiomyopathy Free T4 (Free Thyroxine) 3 Months I25.5 - Ischemic cardiomyopathy Thyroid Stimulating Hormone 3 Months I25.5 - Ischemic cardiomyopathy Lipid Panel 3 Months E78.00 - Pure hypercholesterolemia, unspecified, I25.5 - Ischemic cardiomyopathy Reticulocyte Count 3 Months I25.5 - Ischemic cardiomyopathy Ferritin 3 Months I25.5 - Ischemic cardiomyopathy IRON PROFILE 3 Months I25.5 - Ischemic cardiomyopathy Vitamin B12 and Folate 3 Months I25.5 - Ischemic cardiomyopathy Medications: Refilled lisinopril 10 mg PO DAILY 30 days 30 tabs 11RF I10 - Essential (primary) hypertension Coding Level of Care Code Est Pt Level 4 (01969) Diagnoses Ischemic cardiomyopathy I25.5 Chronic kidney disease (CKD) stage G3b/A1, moderately decreased glomerular filtration rate (GFR) between 30-44 mL/min/1.73 square meter and albuminuria creatinine ratio less than 30 mg/g N18.32 Coronary artery disease involving lovelock coronary artery of [place] heart without angina pectoris I25.10 Associated angina: without angina Coronary Disease-Associated Artery/Lesion type: [place] artery [place] vs. transplanted heart: lo[place]ock heart Prostate cancer C61 Hypercholesterolemia E78.00 Obesity (BMI 30-39.9) E66.9 Chronic deep vein thrombosis (DVT) of right lower extremity, unspecified vein I82.501 Affected thrombotic vein of extremity: unspecified vein of extremity Chronicity: chronic LAMBERTO on CPAP G47.33; Z99.89 Panlobular emphysema J43.1 COPD type: emphysema Emphysema type: panlobular Low back pain M54.50
[2023-01-13 11:01] VITALS: BP 190/62; PULSE 65; O2SAT 97; BMI 30.1
[2023-01-13 11:46] VITALS: BP 160/60
== END 2023-01-13 12:01 | disposition home or self-care (01) ==
PROVIDERS: PCP Internal Medicine; Visit Provider Internal Medicine
DX: N18.32 Chronic kidney disease, stage 3b (principal); C61 Malignant neoplasm of prostate; I82.501 Chronic embolism and thrombosis of unspecified deep veins of right lower extremity; J43.1 Panlobular emphysema; I25.5 Ischemic cardiomyopathy; I25.10 Atherosclerotic heart disease of native coronary artery without angina pectoris; E78.00 Pure hypercholesterolemia, unspecified; E66.9 Obesity, unspecified; G47.33 Obstructive sleep apnea (adult) (pediatric); Z99.89 Dependence on other enabling machines and devices; M54.50 Low back pain, unspecified
CPT/HCPCS: 99214

== ENCOUNTER 2023-01-15 10:48 | Outpatient (REF) | payer MEDICARE, SELFPAY ==
--- NOTE | ~2023-01-15 | XR_ITS ---
EXAMINATION: XR LUMBOSACRAL SPINE CLINICAL INFORMATION: Low back pain COMPARISON: 05/30/2018 TECHNIQUE: Three views of the lumbosacral spine. FINDINGS: Examination is limited due to retroperitoneal vascular stent. Lateral views revealed diffuse osteopenia and mild degenerative changes with narrowing of L4-L5 intervertebral disc space and facet arthropathy. There is no fracture, subluxation, spondylolysis or listhesis. The XR/XR lumbar spine 2-3V IMPRESSION: Mild degenerative changes at the level of L4-L5.
== END 2023-01-15 10:49 | disposition home or self-care (01) ==
LOC: HO.XRAY 10:48
PROVIDERS: PCP Internal Medicine; Visit Provider Internal Medicine
DX: M54.50 Low back pain, unspecified (principal)
CPT/HCPCS: 72100

== ENCOUNTER 2023-01-29 11:00 | Outpatient (REF) | payer MEDICARE, SELFPAY ==
[2023-01-29 12:54] LABS: Prostate Specific Antigen < 0.10 ng/mL (<0.05-4.0)
== END 2023-01-29 11:01 | disposition home or self-care (01) ==
LOC: HO.LAB 11:00
PROVIDERS: PCP Internal Medicine; Visit Provider Urology
DX: Z12.5 Encounter for screening for malignant neoplasm of prostate (principal); C61 Malignant neoplasm of prostate
CPT/HCPCS: 36415; 84153

== ENCOUNTER 2023-01-31 08:45 | Outpatient (AMB) | payer MEDICARE, SELFPAY ==
--- NOTE | 2023-01-31 08:47 | MHC.OFFVIS ---
Intake Intake Visit Reasons: 6m/PSA(set) Intake Note: Patient is Present for Follow Up Urology Medication: none Antibiotic Allergies: None Blood Thinners: Apixaban PVR: 700 Allergies codeine [CODEINE] Allergy (Unknown, Verified 01/31/23 08:51) STOMACH UPSET HPI HPI Comments History of Present Illness Details Nicholas is a pleasant male. He is patient of Dr. Nuno. He is seen for the following urologic issues - prostate cancer - incomplete bladder emptying High PVR 700 cc PSA remains stable Did discuss high residual with poor bladder emptying Will proceed with teaching CIC To perform 2 times per day Prostate cancer: 2018 - Grade group 4 - radiation with hormones Prostate cancer was diagnosed 09/17 Dr Thornton. Diagnosis was reached by needle biopsy, for elevated PSA, PSA at diagnosis 13, size at TRUS 95gm The [place] grade is 12 core biopsy 6/6 right side , 4+4 = 8 10-80%, 2/6 left, 3+3 = 6. TNM Classification of Malignant Tumours (TNM) T1c. The [place] (NCCN) risk category is 09/17 , High Risk (PSA > 20, Gl 8+, T3). Initial therapy included Primary treatment, External beam radiation with short term hormonal ablation 09/19/17 GnRH - bicalutamide 10/05/17 GnRH shot 10/20/17 Laser TURP and gold seed marker placement 12/18 bicalutamide 150, finasteride 03/[address] [place] [facility] [place] of [place]. Recent labs included 11/18 PSA 3.6, T 636 07/19 PSA 0.25, T 5, 10/19 PSA 0.16, T 8, 02/18 PSA 0.1 T 7 2 PSA 0.07 T 208, 09/19 PSA 0.05 T 220, 12/20 PSA < 0.05 T 220, 05/21 <0.1, 01/21 <0.1, 01/22 <0.1, 07/23 <0.1, 01/23 <0.1 Recent imaging included 09/17 , a bone scan - NAD 09/17, a CT (computed tomography) scan, NAD Associated conditions erectile dysfunction Yes Therapeutic plan: Continue with surveillance - finasteride can stop Neurogenic bladder Prior TURP late 2017 [facility] Medical History CHF (congestive heart failure) Exercise hypoxemia LAMBERTO on CPAP Pulmonary embolism Right leg DVT Gout BPH (benign prostatic hyperplasia) Obesity (BMI 30-39.9) GERD (gastroesophageal reflux disease) Hypercholesterolemia Chronic kidney disease (CKD) stage G3b/A1, moderately decreased glomerular filtration rate (GFR) between 30-44 mL/min/1.73 square meter and albuminuria creatinine ratio less than 30 mg/g Right renal mass History of stent insertion of renal artery Ischemic cardiomyopathy CAD (coronary artery disease) PVD (peripheral vascular disease) COPD (chronic obstructive pulmonary disease) Hypertension Surgical History History of appendectomy S/P AAA repair S/P CABG x 3 Family History Father Cancer Mother No problems noted. Brother Heart disease Sister Heart disease CVD (cardiovascular disease) Other Mental health disorder Substance use disorder Social History Household Members: Spouse and Children Housing: House Alcohol intake: former Patient Tobacco Use Status: Former Tobacco user Tobacco use type: Cigarette Cigarette Packs Per Day: 1 e-Cigarette/Vaping Use: Never Used Second Hand Smoke Exposure: No Advance Directives Date on File: 05/27/22 service: Yes Current occupational status: retired Cognitive needs: No Hearing needs: No Vision needs: Yes Review of Systems Const Denies chills and Denies fever(s) Card Reports no additional complaints and Denies syncope Resp Denies cough GI Denies abdominal pain and Denies heartburn Reports as per HPI and Denies change in libido Neuro Denies syncope Psych Denies change in libido Endo Denies change in libido Physical Exam Const General: cooperative, healthy appearing, comfortable and no acute distress Orientation/consciousness: patient oriented x3 HEENT Face and sinus: Yes normal facial exam Mouth: moist mucous membranes Neck Neck: Yes normal visual inspection, Yes full ROM and Yes trachea midline Chest Chest palpation & inspection: normal inspection of the chest Resp Effort & Inspection: normal respiratory effort, able to speak in complete sentences and no respiratory distress GI Inspection: Yes normal to inspection Back/Spine/Pelvis Cervical Spine: normal cervical lordosis Thoracic/Lumbar Spine: thoracic and lumbar spine normal to inspection Skin General skin exam: no rashes or lesions noted Neuro General: patient oriented x3, gait normal, tone normal and moves all extremities Extrem General: Yes normal to inspection and Yes capillary refill normal Office Procedures Post Void Residual Post Residual Void Post Void Residual (PVR): 700 [id number] Void Residual by ultrasound Assessment & Plan Assessment & Plan (1) Prostate cancer: Comment: Late 2018 Grade group 4 external beam radiation with GnRH Code(s): C61 - Malignant neoplasm of prostate (2) Urinary retention with incomplete bladder emptying: Code(s): R33.9 - Retention of urine, unspecified Plan CIC teaching for incomplete bladder emptying Six month follow-up PSA Orders: Orders AMB Urinalysis Automated Today Z13.9 - Encounter for screening, unspecified AMB Post Void Residual by ultrasound Today N40.0 - Benign prostatic hyperplasia without lower urinary tract symptoms Prostate Specific Antigen 6 Months C61 - Malignant neoplasm of prostate Patient Instructions: Imaging studies, laboratory and physical exam results were discussed and reviewed in detail. No major barriers to patient understanding were identified. An opportunity to ask questions regarding the treatment plan was provided. All questions were answered. The patient expressed understanding and agreement with the above treatment plan. The patient is aware they should contact our office by phone for worsening of their current condition or the appearance of new urologic symptoms. Compliance is encouraged with any medications and followup testing that is ordered. It is a privilege to participate in the urologic care of your patient. If you have any questions or concerns regarding treatment for the above conditions, or other urologic issues, please do not hesitate to contact me. The office telephone contact is [phone]. This note is constructed using voice recognition software. While every effort has been made to ensure accuracy check out clerk errors may have been included. Yours sincerely, Dr Juan Thornton MD, [facility] - Urology Providers of Expert, Compassionate Care for the Genitourinary System Coding Level of Care Code Est Pt Level 4 (65458) Diagnoses Prostate cancer C61 Urinary retention with incomplete bladder emptying R33.9 CPT Codes Post Residual Void - PVR CPT Code: 35921-Syap Void Residual by ultrasound ([id number])
== END 2023-01-31 09:13 | disposition home or self-care (01) ==
PROVIDERS: Visit Provider Urology
DX: C61 Malignant neoplasm of prostate (principal); R33.9 Retention of urine, unspecified
CPT/HCPCS: 99213

== ENCOUNTER → 2023-01-31 08:45 | Outpatient (BNVA) | payer MEDICARE, SELFPAY | PROVIDERS: Visit Provider Urology | DX: C61 Malignant neoplasm of prostate (principal); R33.9 Retention of urine, unspecified | CPT/HCPCS: 51798; 99212 ==

== ENCOUNTER 2023-02-04 10:45 | Outpatient (AMB) | payer MEDICARE, SELFPAY ==
[2023-02-04 10:51] VITALS: BP 142/58; PULSE 59; O2SAT 95; BMI 31.0
--- NOTE | 2023-02-04 10:51 | MHC.OFFVIS ---
Intake Vital Signs 02/04/23 10:51 Height 5 ft 5 in Weight 186 lb 4.65 oz BMI 31.0 BP 142/58 H Blood Pressure Location Lt brachial Position Sitting Pulse 59 Pulse Source Pulse Oximeter Pulse Oximetry (%) 95 Oxygen Delivery Method Nasal Cannula Oxygen Flow Rate 3 Intake Visit Reasons: copd Intake Note: pt is here for follow up and states he is using cpap, using oxygen before bed and it seems to be helping with the usage of cpap and keeping his mouth closed. [employer] Required: No Allergies codeine [CODEINE] Allergy (Unknown, Verified 02/04/23 11:14) STOMACH UPSET Medication List - Last Reconciled 02/04/23 by Jocelyn Storm MD albuterol sulfate 90 mcg/actuation 2 puffs inhalation Q6H PRN amiodarone 200 mg PO DAILY amlodipine 2.5 mg PO QPM 90 days apixaban 5 mg PO BID atorvastatin 80 mg PO DAILY cilostazol 100 mg PO BID furosemide 20 mg PO DAILY 90 days lisinopril 10 mg PO DAILY 30 days metoprolol succinate ER 100 mg PO DAILY nitroglycerin 0.4 mg sublingual Q5M PRN pantoprazole 40 mg PO DAILY Symbicort 160-4.5 mcg/actuation (budesonide-formoterol) 2 puffs PO BID 30 days NS Do you need a note to return to daycare/school/sports/work: No HPI copd HPI Details 77 years old very pleasant gentleman is here for his follow-up after 6 months. He is a case of COPD which is well controlled with the current use of Symbicort. He has to use albuterol only once in a while. He is mostly staying in the house only once a week he goes outdoors for [employer]. Sleeps well with his CPAP on. He uses nasal pillows, does need chinstrap but he does not want to use it. So according to his there is some air leak . He feels comfortable and wakes up refreshed. [facility] Medical History CHF (congestive heart failure) Exercise hypoxemia LAMBERTO on CPAP Pulmonary embolism Right leg DVT Gout BPH (benign prostatic hyperplasia) Obesity (BMI 30-39.9) GERD (gastroesophageal reflux disease) Hypercholesterolemia Chronic kidney disease (CKD) stage G3b/A1, moderately decreased glomerular filtration rate (GFR) between 30-44 mL/min/1.73 square meter and albuminuria creatinine ratio less than 30 mg/g Right renal mass History of stent insertion of renal artery Ischemic cardiomyopathy CAD (coronary artery disease) PVD (peripheral vascular disease) COPD (chronic obstructive pulmonary disease) Hypertension Surgical History History of appendectomy S/P AAA repair S/P CABG x 3 Family History Father Cancer Mother No problems noted. Brother Heart disease Sister Heart disease CVD (cardiovascular disease) Other Mental health disorder Substance use disorder Social History Household Members: Spouse and Children Housing: House Alcohol intake: former Patient Tobacco Use Status: Former Tobacco user Tobacco use type: Cigarette Cigarette Packs Per Day: 1 e-Cigarette/Vaping Use: Never Used Second Hand Smoke Exposure: No Advance Directives Date on File: 05/27/22 service: Yes Current occupational status: retired Cognitive needs: No Hearing needs: No Vision needs: Yes Review of Systems Const All systems reviewed & are unremarkable except as noted in HPI and below Eyes Reports no additional complaints ENT Reports nasal congestion (Mild intermittent) Card Denies chest pain, Reports leg edema and Reports dyspnea on exertion Resp Reports as per HPI and Reports dyspnea on exertion GI Reports heartburn (GERD symptoms controlled) Reports urinary incontinence (Controlled with med) Musc Reports back pain (Mild) Skin/Breast Reports system reviewed and no additional complaints, except as documented Neuro Reports no additional complaints Psych Reports no additional complaints Physical Exam Vital Signs: Last Vital Signs Pulse 59 02/04/23 10:51 BP 142/58 H 02/04/23 10:51 Pulse Ox 95 02/04/23 10:51 Oxygen Delivery Method Nasal Cannula 02/04/23 10:51 Oxygen Flow Rate 3 02/04/23 10:51 BMI result Body Mass Index 31.0 Const General: cooperative, comfortable, no acute distress, alert, awake and well groomed Nutritional Appearance: overweight Orientation/consciousness: patient oriented x3 Limitations: no limitations Neck Neck: Yes trachea midline, Yes supple and Yes no JVD Chest Chest palpation & inspection: normal inspection of the chest, normal palpation of entire chest wall and no tenderness Resp Other: Percussion note is resonant, breath sounds are distant with prolonged expiratory phase. However clear and there is is there is no wheezing or Creps Auscultation: no crackles, no wheezes and diminished lung sounds Cardio Jugular venous distension: no JVD Palpation: normal PMI Rate: regular rate Rhythm: regular rhythm Heart sounds: S1 normal heart sound present, S2 normal heart sound present and Other heart sounds present (S4 present) Peripheral pulses: posterior tibial pulses not present and dorsalis pedis pulses not present GI Auscultation: normal bowel sounds Skin General skin exam: no rashes or lesions noted Neuro General: patient oriented x3 and no focal motor deficits Extrem General: Yes venous stasis dermatitis (He veers elastic stockings) Psych Appearance: grossly normal and well kempt Mental Status: mental status grossly normal Results Reviewed Results Reviewed: Compliance report for the last 30 nights is reviewed, He has used 30/30 nights, 100%. Average use per night 9 hours 0 minute. There is air leak moderate to maximum. The residual AHI is still 12.7 mostly due to obstructive events about some central apneas as well Assessment & Plan Assessment & Plan (1) COPD (chronic obstructive pulmonary disease): Comment: HE HAS SEVERE CHRONIC OBSTRUCTIVE PULMONARY DISEASE, HE IS REMAINING STABLE . COPD REMAINS WELL CONTROLLED WITH HIS CURRENT REGIMEN. WHICH INCLUDES: [place]: Code(s): J44.9 - Chronic obstructive pulmonary disease, unspecified Qualifiers: COPD type: emphysema Emphysema type: panlobular Qualified Code(s): J43.1 - Panlobular emphysema Plan: CONTINUE CURRENT REGIMEN : SYMBICORT 160-4.52 PUFFS B.I.D.. ALBUTEROL 2 PUFFS Q 4 6 HOURS ONLY P.R.N. (2) Exercise hypoxemia: Comment: Brian is known to have exercise induced hypoxemia. He uses O2 2 L/minute with any physical activity and especially when he goes outdoors. He has POC which is quite convenient to use. Code(s): R09.02 - Hypoxemia Plan: CONTINUE THE SAME (3) LAMBERTO on CPAP: Comment: He has chronic obstructive sleep apnea related to his obesity. Treated well with CPAP and he has been very compliant. He does have the new CPAP machine which is a different make ,LUZ His mask is the nasal, He does have Air leak , mostly through the mouth. Discussed about using the chinstrap, but he does not want it. Code(s): G47.33 - Obstructive sleep apnea (adult) (pediatric); Z99.89 - Dependence on other enabling machines and devices Plan: Discussed with him about the air leak, Advise that he should tighten the straps little more, And make sure that the mask stays on his nose Coding Level of Care Code Est Pt Level 3 (03944) Diagnoses Panlobular emphysema J43.1 COPD type: emphysema Emphysema type: panlobular Exercise hypoxemia R09.02 LAMBERTO on CPAP G47.33; Z99.89
== END 2023-02-04 11:16 | disposition home or self-care (01) ==
PROVIDERS: PCP Internal Medicine; Visit Provider Internal Medicine
DX: J43.1 Panlobular emphysema (principal); R09.02 Hypoxemia; G47.33 Obstructive sleep apnea (adult) (pediatric); Z99.89 Dependence on other enabling machines and devices
CPT/HCPCS: 99213

== ENCOUNTER → 2023-02-04 10:45 | Outpatient (BNVA) | payer MEDICARE, SELFPAY | PROVIDERS: PCP Internal Medicine; Visit Provider Internal Medicine | DX: J43.1 Panlobular emphysema (principal); R09.02 Hypoxemia; G47.33 Obstructive sleep apnea (adult) (pediatric); Z99.89 Dependence on other enabling machines and devices | CPT/HCPCS: 99212 ==

== ENCOUNTER 2023-02-11 10:51 | Outpatient (AMB) | payer MEDICARE, SELFPAY ==
[2023-02-11 10:53] VITALS: BP 164/66; PULSE 63; O2SAT 97; BMI 30.4
--- NOTE | 2023-02-11 10:53 | HO.NEPHOV ---
HPI HPI Comments History of Present Illness Details 77-year-old obese male with multiple medical problems COPD on home oxygen coronary artery disease/ ischemic cardiomyopathy nonsustained ventricular tachycardia ;Echo showing mild to moderate reduction in systolic function and diastolic dysfunction EF 45%. obstructive sleep apnea - on CPAP history of right leg DVT BPH /history of prostate cancer last seen in October 2022 hypercholesterolemia hypertension Patient also follows up with hematology oncology with a history of right lower extremity DVT and right pulmonary embolism [place] He has chronic kidney disease stage IIIB with a baseline serum creatinine of 2 mg/dL He has a history of incomplete bladder emptying. He has follow-up with Urology for possible intermittent catheterization. He is not too keen on this at this time. Today has no specific complaints like dysuria, urgency, increased frequency. No hematuria. PFSH Medical History CHF (congestive heart failure) Exercise hypoxemia LAMBERTO on CPAP Pulmonary embolism Right leg DVT Gout BPH (benign prostatic hyperplasia) Obesity (BMI 30-39.9) GERD (gastroesophageal reflux disease) Hypercholesterolemia Chronic kidney disease (CKD) stage G3b/A1, moderately decreased glomerular filtration rate (GFR) between 30-44 mL/min/1.73 square meter and albuminuria creatinine ratio less than 30 mg/g Right renal mass History of stent insertion of renal artery Ischemic cardiomyopathy CAD (coronary artery disease) PVD (peripheral vascular disease) COPD (chronic obstructive pulmonary disease) Hypertension Surgical History History of appendectomy S/P AAA repair S/P CABG x 3 Family History Father Cancer Mother No problems noted. Brother Heart disease Sister Heart disease CVD (cardiovascular disease) Other Mental health disorder Substance use disorder Social History Household Members: Spouse and Children Housing: House Alcohol intake: former Patient Tobacco Use Status: Former Tobacco user Tobacco use type: Cigarette Cigarette Packs Per Day: 1 e-Cigarette/Vaping Use: Never Used Second Hand Smoke Exposure: No Advance Directives Date on File: 05/27/22 service: Yes Current occupational status: retired Cognitive needs: No Hearing needs: No Vision needs: Yes Vital Signs 02/11/23 10:53 Height 5 ft 5 in Weight 183 lb BMI 30.4 BP 164/66 H Blood Pressure Location Lt brachial Position Sitting Pulse 63 Pulse Source Pulse Oximeter Pulse Oximetry (%) 97 Oxygen Delivery Method Room Air Physical Exam Vital Signs: Last Vital Signs Pulse 63 02/11/23 10:53 BP 164/66 H 02/11/23 10:53 Pulse Ox 97 02/11/23 10:53 Oxygen Delivery Method Room Air 02/11/23 10:53 BMI result Body Mass Index 30.4 Const General: comfortable Nutritional Appearance: well nourished Orientation/consciousness: patient oriented x3 HEENT Head: No normal to inspection Mouth: moist mucous membranes Neck Neck: Yes supple and Yes no JVD Resp Auscultation: clear to auscultation bilaterally, no rales and rub present Cardio Jugular venous distension: no JVD Palpation: no palpable S3 and no palpable S4 Heart sounds: no rubs GI Palpation (GI): Soft to palpation and nontender Percussion: No Fluid wave present General: Yes no CVA tenderness Back/Spine/Pelvis Back: no CVA tenderness Skin General skin exam: no rashes or lesions noted Neuro General: patient oriented x3 Extrem General: Yes no pedal edema and No clubbing Assessment & Plan Assessment & Plan (1) Chronic kidney disease (CKD) stage G3b/A1, moderately decreased glomerular filtration rate (GFR) between 30-44 mL/min/1.73 square meter and albuminuria creatinine ratio less than 30 mg/g: Code(s): N18.32 - Chronic kidney disease, stage 3b Plan: Renal function is close to baseline. I will recheck renal function today. Continue to avoid nephrotoxic agents including NSAIDs. Since he has a history of urinary retention/incomplete by bladder emptying ongoing obstruction should be considered. Once he starts intermittent catheterization the renal function might improve further. (2) CAD (coronary artery disease): Comment: Coronary artery bypass graft June [address] and Dr. Brennan October 2017 nuclear stress make ski me a an infarct inferolateral and basal echo August 2018 50-55% moderate TV basal inferior basal inferoseptal dyskinetic echo March 2019 EF 40-45% basal inferior aneurysmal Code(s): I25.10 - Atherosclerotic heart disease of [place] coronary artery without angina pectoris Qualifiers: Associated angina: without angina Coronary Disease-Associated Artery/Lesion type: [place] artery [place] vs. transplanted heart: [place] heart Qualified Code(s): I25.10 - Atherosclerotic heart disease of [place] coronary artery without angina pectoris Plan: Currently stable. Follows with Cardiology (3) Hypertension: Code(s): I10 - Essential (primary) hypertension Qualifiers: Hypertension type: essential hypertension Qualified Code(s): I10 - Essential (primary) hypertension Plan: Blood pressure is elevated today. He has not taken his medications yet. Increase him to stand low-sodium diet. Discussed importance of compliance (4) Prostate cancer: Comment: Late 2018 Grade group 4 external beam radiation with GnRH Code(s): C61 - Malignant neoplasm of prostate Plan: Follows with Urology (5) Urinary retention with incomplete bladder emptying: Code(s): R33.9 - Retention of urine, unspecified Plan: Await initiation of intermittent catheterization Orders: Orders Creatinine Today C61 - Malignant neoplasm of prostate, I10 - Essential (primary) hypertension, I25.10 - Atherosclerotic heart disease of [place] coronary artery without angina pectoris, I25.5 - Ischemic cardiomyopathy, N18.32 - Chronic kidney disease, stage 3b, R33.9 - Retention of urine, unspecified Electrolytes Today C61 - Malignant neoplasm of prostate, I10 - Essential (primary) hypertension, I25.10 - Atherosclerotic heart disease of [place] coronary artery without angina pectoris, I25.5 - Ischemic cardiomyopathy, N18.32 - Chronic kidney disease, stage 3b, R33.9 - Retention of urine, unspecified Blood Urea Nitrogen Today C61 - Malignant neoplasm of prostate, I10 - Essential (primary) hypertension, I25.10 - Atherosclerotic heart disease of [place] coronary artery without angina pectoris, I25.5 - Ischemic cardiomyopathy, N18.32 - Chronic kidney disease, stage 3b, R33.9 - Retention of urine, unspecified Calcium Today C61 - Malignant neoplasm of prostate, I10 - Essential (primary) hypertension, I25.10 - Atherosclerotic heart disease of [place] coronary artery without angina pectoris, I25.5 - Ischemic cardiomyopathy, N18.32 - Chronic kidney disease, stage 3b, R33.9 - Retention of urine, unspecified Parathyroid Hormone Intact Today C61 - Malignant neoplasm of prostate, I10 - Essential (primary) hypertension, I25.10 - Atherosclerotic heart disease of [place] coronary artery without angina pectoris, I25.5 - Ischemic cardiomyopathy, N18.32 - Chronic kidney disease, stage 3b, R33.9 - Retention of urine, unspecified Complete Blood Count no Diff Today C61 - Malignant neoplasm of prostate, I10 - Essential (primary) hypertension, I25.10 - Atherosclerotic heart disease of [place] coronary artery without angina pectoris, I25.5 - Ischemic cardiomyopathy, N18.32 - Chronic kidney disease, stage 3b, R33.9 - Retention of urine, unspecified Coding Level of Care Code Est Pt Level 4 (67614) Diagnoses Chronic kidney disease (CKD) stage G3b/A1, moderately decreased glomerular filtration rate (GFR) between 30-44 mL/min/1.73 square meter and albuminuria creatinine ratio less than 30 mg/g N18.32 Coronary artery disease involving [place] coronary artery of [place] heart without angina pectoris I25.10 Associated angina: without angina Coronary Disease-Associated Artery/Lesion type: [place] artery [place] vs. transplanted heart: [place] heart Essential hypertension I10 Hypertension type: essential hypertension Prostate cancer C61 Urinary retention with incomplete bladder emptying R33.9 Results Reviewed Nephrology Results: Hgb 11.6 g/dl (14.0-18.0) L 11/19/22 WBC 10.3 X10*3/uL (4.8-10.8) 11/19/22 Plt Count 192 X10*3/uL (160-400) 11/19/22 Sodium 139 mmol/L (135-145) 11/19/22 Potassium 4.6 mmol/L (3.3-5.1) 11/19/22 Chloride 107 mmol/L (96-108) 11/19/22 Carbon Dioxide 25 mmol/L (22-29) 11/19/22 BUN 39 mg/dL (9-16) H 11/19/22 Creatinine 2.19 mg/dL (0.5-1.4) H 11/19/22 Calcium 9.5 mg/dL (8.4-10.2) 11/19/22
== END 2023-02-11 11:19 | disposition home or self-care (01) ==
PROVIDERS: PCP Internal Medicine; Visit Provider Internal Medicine Hypertension Specialist
DX: N18.32 Chronic kidney disease, stage 3b (principal); I25.10 Atherosclerotic heart disease of native coronary artery without angina pectoris; I10 Essential (primary) hypertension; C61 Malignant neoplasm of prostate; R33.9 Retention of urine, unspecified
CPT/HCPCS: 99214

== ENCOUNTER → 2023-02-11 10:51 | Outpatient (BNVA) | payer MEDICARE, SELFPAY | PROVIDERS: PCP Internal Medicine; Visit Provider Internal Medicine Hypertension Specialist | DX: I12.9 Hypertensive chronic kidney disease with stage 1 through stage 4 chronic kidney disease, or unspecified chronic kidney disease (principal); N18.32 Chronic kidney disease, stage 3b; I25.10 Atherosclerotic heart disease of native coronary artery without angina pectoris; C61 Malignant neoplasm of prostate; R33.9 Retention of urine, unspecified | CPT/HCPCS: 99212 ==

== ENCOUNTER 2023-02-11 11:30 | Outpatient (REF) | payer MEDICARE, SELFPAY ==
[2023-02-11 13:59] LABS: Hematocrit 34.7 % (42.0-52.0); Hemoglobin 11.1 g/dl (14.0-18.0); Mean Corpuscular Hemoglobin 27.9 pg (27.0-33.0); Mean Corpuscular Volume 87.2 fL (80.0-98.0); Mean Platelet Volume 9.6 fL (9.4-12.4); Platelet Count 209 X10*3/uL (160-400); Red Blood Count 3.98 X10*6/uL (4.60-5.80); White Blood Count 8.6 X10*3/uL (4.8-10.8)
[2023-02-11 14:17] LABS: Parathyroid Hormone Intact 102.1 pg/mL (8.7-77.1)
== END 2023-02-11 11:31 | disposition home or self-care (01) ==
LOC: HO.10HDL 11:30
PROVIDERS: Visit Provider Internal Medicine Hypertension Specialist
DX: N18.32 Chronic kidney disease, stage 3b (principal); I25.10 Atherosclerotic heart disease of native coronary artery without angina pectoris; I10 Essential (primary) hypertension; C61 Malignant neoplasm of prostate; R33.9 Retention of urine, unspecified; I25.5 Ischemic cardiomyopathy; E78.00 Pure hypercholesterolemia, unspecified
CPT/HCPCS: 36415; 83970; 85027

== ENCOUNTER → 2023-02-25 10:03 | Outpatient (BNVA) | payer MEDICARE, SELFPAY | PROVIDERS: PCP Internal Medicine; Visit Provider Urology ==

== ENCOUNTER 2023-03-04 09:02 | Outpatient (REF) | payer MEDICARE, SELFPAY ==
--- NOTE | ~2023-03-04 | CT_ITS ---
EXAMINATION: CT ABDOMEN AND PELVIS WITHOUT CONTRAST CLINICAL INFORMATION: Abdominal aortic aneurysm. COMPARISON: CTA abdomen 12/26/2021. TECHNIQUE: Multidetector volumetric imaging was performed from the superior aspect of the liver through the pubic symphysis. Sagittal and coronal reformatted images were obtained on the technologist's workstation. This CT examination was performed using dose optimization techniques as appropriate, variously including the following: *Automated exposure control *Adjustment of mA and/or kV according to patient size (this includes techniques or standardized protocols for targeted exams where dose is matched to indication/reason for exam; i.e. extremities or head) *Use of iterative reconstruction technique DLP: 468 mGy-cm FINDINGS: LUNG BASES: Severe emphysema with subpleural fibrosis at the lung bases.. LIVER, GALLBLADDER, AND BILIARY TREE: The liver is normal in size, shape, and attenuation. No focal hepatic lesion or biliary ductal dilatation is present. Layering cholelithiasis without evidence of cholecystitis. PANCREAS: No discrete pancreatic mass. No pancreatic ductal dilatation. SPLEEN: Unremarkable. ADRENAL GLANDS: Unremarkable. KIDNEYS AND URETERS: 4.5 x 3.9 cm exophytic mass in the upper pole right kidney measures simple fluid density, but on previous imaging wasn't enhancing mass. I do not see the typical post ablation change around this lesion so it is unclear whether this is been treated. Similar 1.3 cm exophytic lesion from the lateral mid left kidney also measures simple fluid density 1 previously was enhancing. Clinical correlation is necessary. Renal vascular calcifications. No definite kidney stones. No hydroureteronephrosis. BLADDER: Markedly distended urinary bladder similar to the previous exam. GASTROINTESTINAL TRACT: The small and large bowel are normal in caliber. ABDOMINAL WALL: Bilateral fat-containing inguinal hernias. LYMPH NODES: No lymphadenopathy. VASCULAR: Aortobiiliac stent graft. Right renal artery stent. The excluded aneurysm sac is stable measuring a maximum of 3.6 x 2.8 cm compared to 3.6 x 2.9 cm. PELVIC VISCERA: Prostate fiducial markers and likely TURP defect. OSSEOUS STRUCTURES: Degenerative changes in the spine. CT/CT abdomen pelvis wo IV con IMPRESSION: Stable abdominal aortic aneurysm status post endovascular aortic repair. Nonspecific renal masses as above. On the current study these measure simple fluid density and on the prior study were enhancing. Recommend clinical correlation for any interval treatment. Would recommend ongoing surveillance depending on clinical circumstances. Fleischner guidelines were followed.
[2023-03-04 09:25] LABS: MANUAL DIFF FLAG NO
[2023-03-04 09:28] LABS: Basophils Absolute Auto 0.1 X10*3/uL (0.0-0.2); Basophils Percent Auto 0.9 % (0-2); Eosinophils Absolute Auto 0.1 X10*3/uL (0.0-0.4); Eosinophils Percent Auto 1.5 % (0-4); Hemoglobin 10.8 g/dl (14.0-18.0); Imm Gran Abs Auto 0.05 X10*3/uL (0.00-0.03); Imm Gran Pct Auto 0.6 % (0.0-0.4); Immature Retic Fraction 24.7 % (2.3-13.4); Lymphocytes Absolute Auto 1.7 X10*3/uL (1.2-4.9); Lymphocytes Percent Auto 18.8 % (20-40); Mean Corpuscular HGB Conc 32.7 g/dl (31.0-36.0); Mean Corpuscular Hemoglobin 27.1 pg (27.0-33.0); Mean Corpuscular Volume 82.9 fL (80.0-98.0); Mean Platelet Volume 8.8 fL (9.4-12.4); Monocytes Absolute Auto 0.9 X10*3/uL (0.1-1.2); Neutrophils Absolute Auto 6.2 x10*3/uL (2.0-8.3); Neutrophils Percent Auto 68.2 % (45-73); Platelet Count 190 X10*3/uL (160-400); Red Blood Count 3.98 X10*6/uL (4.60-5.80); Retic HGB Equivalent 30.5 pg (30.0-35.0); Reticulocyte Percent 1.6 % (0.5-1.8); Reticulocytes Absolute 0.065 X10*6/uL (0.026-0.095); White Blood Count 9.1 X10*3/uL (4.8-10.8)
[2023-03-04 09:51] LABS: B Type Natriuretic Peptide 511 pg/mL (<100)
[2023-03-04 09:54] LABS: Alanine Aminotransferase 20 U/L (0-40); Albumin Level 3.7 g/dL (3.5-5.0); Alkaline Phosphatase 96 U/L (39-117); Anion Gap 12 (12-20); Aspartate Amino Transferase 24 U/L (5-37); Bilirubin Total 0.5 mg/dL (0.0-1.0); Blood Urea Nitrogen 41 mg/dL (9-16); Calcium 9.4 mg/dL (8.4-10.2); Carbon Dioxide 25 mmol/L (22-29); Chloride 109 mmol/L (96-108); Cholesterol 97 mg/dL (<200); Estimated Glomerular Filt Rate 26; Glucose Random 93 mg/dL (60-115); HDL Cholesterol 36 mg/dL (>40); Iron 37 mcg/dL (45-160); LDL Cholesterol Calculated 47 mg/dL (<100); Percent Iron Saturation 13 % (15-50); Potassium 4.8 mmol/L (3.3-5.1); Sodium 141 mmol/L (135-145); Total Iron Binding Capacity 276 mcg/dL (228-428); Total Protein 6.6 g/dL (6.5-8.0); Triglycerides 73 mg/dL (<150); Unsaturated Iron Binding 239 ug/dL
[2023-03-04 10:08] LABS: Ferritin 15 ng/mL (20-250); Free T4 (Free Thyroxine) 1.27 ng/dL (0.71-1.85); Thyroid Stimulating Hormone 1.79 uIU/mL (0.32-4.0)
[2023-03-04 10:23] LABS: Folate 5.1 ng/mL (> or = 4.0)
[2023-03-04 12:39] LABS: Vitamin B12 290 pg/mL (200-900)
== END 2023-03-04 09:03 | disposition home or self-care (01) ==
LOC: HO.CT 09:02
PROVIDERS: PCP Internal Medicine; Visit Provider Surgery Vascular Surgery
DX: I71.40 Abdominal aortic aneurysm, without rupture, unspecified (principal); I10 Essential (primary) hypertension; I25.5 Ischemic cardiomyopathy; E78.00 Pure hypercholesterolemia, unspecified
CPT/HCPCS: 36415; 74176; 80053; 80061; 82607; 82728; 82746; 83540; 83880; 84439; 84443; 85025; 85045

== ENCOUNTER 2023-03-17 11:09 | Outpatient (AMB) | payer MEDICARE, SELFPAY ==
--- NOTE | 2023-03-17 11:15 | A.OFFVIS_ITS ---
Intake Vital Signs 03/17/23 11:16 Height 5 ft 5 in Weight 185 lb 3.013 oz BMI 30.8 BP 134/76 Blood Pressure Location Lt brachial Position Sitting Pulse 56 Intake Visit Reasons: 6 mth f/up Intake Note: 6 month follow-up with ekg feeling ok [employer] Required: No Allergies codeine [CODEINE] Allergy (Unknown, Verified 02/11/23 10:56) STOMACH UPSET Medication List - Last Reconciled 03/17/23 by Manas Brennan MD albuterol sulfate 90 mcg/actuation 2 puffs inhalation Q6H PRN amiodarone 200 mg PO DAILY amlodipine 2.5 mg PO QPM apixaban 5 mg PO BID ascorbate calcium (vitamin C) 500 mg PO DAILY ascorbic acid (vitamin C) 500 mg PO DAILY 90 days atorvastatin 80 mg PO DAILY cilostazol 100 mg PO BID cyanocobalamin (vitamin B-12) 1,000 mcg PO DAILY ferrous sulfate 324 mg PO DAILY furosemide 20 mg PO DAILY 90 days lisinopril 10 mg PO DAILY 30 days mecobalamin (vitamin B12) 1,000 mcg PO DAILY metoprolol succinate ER 100 mg PO DAILY nitroglycerin 0.4 mg sublingual Q5M PRN pantoprazole 40 mg PO DAILY Symbicort 160-4.5 mcg/actuation (budesonide-formoterol) 2 puffs PO BID NS HPI HPI Comments History of Present Illness Details Brian comes for follow-up. Cardiac perspective he has been doing well. His blood pressure is better regulated. Denies any lightheadedness, syncope. No worsening shortness of breath. Using oxygen around the clock. Denies orthopnea, PND, leg edema. No anginal sounding chest discomfort. Taking all his medications. Creatinine is noted to be in the 2.4 range. No repeat blood clots. No prolonged palpitations irregular heartbeat. [facility] Medical History CHF (congestive heart failure) Exercise hypoxemia LAMBERTO on CPAP Pulmonary embolism Right leg DVT Gout BPH (benign prostatic hyperplasia) Obesity (BMI 30-39.9) GERD (gastroesophageal reflux disease) Hypercholesterolemia Chronic kidney disease (CKD) stage G3b/A1, moderately decreased glomerular filtration rate (GFR) between 30-44 mL/min/1.73 square meter and albuminuria creatinine ratio less than 30 mg/g Right renal mass History of stent insertion of renal artery Ischemic cardiomyopathy CAD (coronary artery disease) PVD (peripheral vascular disease) COPD (chronic obstructive pulmonary disease) Hypertension Surgical History History of appendectomy S/P AAA repair S/P CABG x 3 Family History Father Cancer Mother No problems noted. Brother Heart disease Sister Heart disease CVD (cardiovascular disease) Other Mental health disorder Substance use disorder Social History Household Members: Spouse and Children Housing: House Alcohol intake: former Patient Tobacco Use Status: Former Tobacco user Tobacco use type: Cigarette Cigarette Packs Per Day: 1 e-Cigarette/Vaping Use: Never Used Second Hand Smoke Exposure: No Advance Directives Date on File: 05/27/22 service: Yes Current occupational status: retired Cognitive needs: No Hearing needs: No Vision needs: Yes Review of Systems Const Denies chills, Denies fatigue, Denies fever(s), Denies frequent falls, Denies weakness, Denies weight gain and Denies weight loss ENT Denies dizziness Card Denies chest pain, Denies leg edema, Denies lightheadedness, Denies palpitations, Denies dyspnea, Denies dyspnea on exertion, Denies orthopnea and Denies other (loss of consciousness) Resp Denies cough, Denies dyspnea and Denies dyspnea on exertion GI Denies hematochezia and Denies change in stool character Musc Denies abnormal gait, Denies muscle weakness, Denies numbness, Denies radiating pain into limb and Denies tingling Neuro Denies abnormal gait, Denies dizziness, Denies frequent falls, Denies numbness, Denies tingling and Denies weakness Endo Denies fatigue and Denies palpitations Physical Exam Vital Signs: Last Vital Signs Pulse 56 03/17/23 11:16 BP 134/76 03/17/23 11:16 BMI result Body Mass Index 30.8 Const General: cooperative, comfortable, no acute distress, alert, awake and well groomed Nutritional Appearance: overweight Orientation/consciousness: patient oriented x3 Limitations: no limitations Neck Neck: Yes trachea midline, Yes supple and Yes no JVD Chest Chest palpation & inspection: normal inspection of the chest and other (Well- healed sternotomy scar) Resp Effort & Inspection: normal respiratory effort Auscultation: no crackles, no wheezes and diminished lung sounds Cardio Jugular venous distension: no JVD Palpation: normal PMI Rate: regular rate Rhythm: regular rhythm Heart sounds: S1 normal heart sound present, S2 normal heart sound present and Other heart sounds present (S4 present) Peripheral pulses: posterior tibial pulses not present and dorsalis pedis pulses not present GI Auscultation: normal bowel sounds Skin General skin exam: no rashes or lesions noted Neuro General: patient oriented x3 and no focal motor deficits Extrem General: Yes no clubbing, cyanosis or edema Psych Appearance: grossly normal Office Procedures EKG Details: EKG shows sinus bradycardia with first-degree AV block with low-amplitude P waves suggestive of atrial myopathy with right bundle-branch block and left axis deviation suggestive of left anterior fascicular block, inferior infarct can not be ruled out with LVH [id number], Complete Assessment & Plan Assessment & Plan (1) Ischemic cardiomyopathy: Comment: Normalized LV ejection fraction after 2nd redo coronary artery bypass grafting in May of 2014. Echo 02/18 is 40-45% Code(s): I25.5 - Ischemic cardiomyopathy Plan: Ischemic cardiomyopathy with [id number] LV systolic dysfunction. Clinically euvolemic and well compensated. Doing well with no signs of heart failure. Continue current neurohormonal modulation with lisinopril and metoprolol. Continue current low-dose diuretic therapy. No clinical signs of heart failure. Continue management of COPD with oxygen supplementation. (2) Nonsustained ventricular tachycardia: Code(s): I47.2 - Ventricular tachycardia Plan: Nonsustained ventricular tachycardia with inferior scar. Clinically without any recurrence. Questionable symptoms related to it but has done well on amiodarone therapy with no symptoms of lightheadedness. Continue to monitor for amiodarone toxicity on annual basis with TSH chest x-ray. (3) CAD (coronary artery disease): Comment: Coronary artery bypass graft June [address] m[address] and Dr. Brennan October 2017 nuclear stress make ski me a an infarct inferolateral and basal echo August 2018 50-55% moderate TV basal inferior basal inferoseptal dyskinetic echo March 2019 EF 40-45% basal inferior aneurysmal Code(s): I25.10 - Atherosclerotic heart disease of [place] coronary artery without angina pectoris Qualifiers: Coronary Disease-Associated Artery/Lesion type: [place] artery [place] vs. transplanted heart: [place] heart Associated angina: without angina Qualified Code(s): I25.10 - Atherosclerotic heart disease of [place] coronary artery without angina pectoris Plan: CAD status post redo coronary artery bypass grafting. Currently doing well without any symptoms of angina. Currently on full oral anticoagulation which needs to be reduced to 2.5 mg b.i.d. given his advancing kidney disease. Continue high-intensity statin therapy with atorvastatin 80 mg daily a target goal LDL closer to 60 mg/dL. It has diffuse vascular disease being followed by vascular surgery. Blood pressure is optimally controlled at this point in time. (4) Labile blood pressure: Code(s): R09.89 - Other specified symptoms and signs involving the circulatory and respiratory systems Plan: Labile blood pressure related to diffuse vascular disease. Difficult control. Target goal blood pressure less than systolic 140s acceptable. Low-salt diet was discussed. Continue current therapy. Importance of adequate oral hydration was discussed. Follow up in the clinic in 6 months time, sooner p.r.n.. Thank you for allowing me to partake in his care Medications: Changed From apixaban 5 mg PO BID 180 tabs 3RF To apixaban 2.5 mg (1/2 x 5 mg) PO BID 180 tabs 3RF Coding Level of Care Code Est Pt Level 4 (96930) Diagnoses Ischemic cardiomyopathy I25.5 Nonsustained ventricular tachycardia I47.2 Coronary artery disease involving [place] coronary artery of [place] heart without angina pectoris I25.10 Coronary Disease-Associated Artery/Lesion type: [place] artery [place] vs. transplanted heart: [place] heart Associated angina: without angina Labile blood pressure R09.89 CPT Codes EKG - CPT: 05023-[id number], Complete ([id number])
[2023-03-17 11:16] VITALS: BP 134/76; PULSE 56; BMI 30.8
== END 2023-03-17 11:53 | disposition home or self-care (01) ==
PROVIDERS: PCP Internal Medicine; Visit Provider Internal Medicine Cardiovascular Disease
DX: I25.5 Ischemic cardiomyopathy (principal); I47.20 Ventricular tachycardia, unspecified; I25.10 Atherosclerotic heart disease of native coronary artery without angina pectoris; R09.89 Other specified symptoms and signs involving the circulatory and respiratory systems
CPT/HCPCS: 93010; 99214

== ENCOUNTER → 2023-03-17 11:09 | Outpatient (BNVA) | payer MEDICARE, SELFPAY | PROVIDERS: PCP Internal Medicine; Visit Provider Internal Medicine Cardiovascular Disease | DX: I25.5 Ischemic cardiomyopathy (principal); I47.29 Other ventricular tachycardia; I25.10 Atherosclerotic heart disease of native coronary artery without angina pectoris; R09.89 Other specified symptoms and signs involving the circulatory and respiratory systems | CPT/HCPCS: 93005; 99212 ==

== ENCOUNTER 2023-03-27 13:55 | Outpatient (AMB) | payer MEDICARE, SELFPAY ==
--- NOTE | 2023-03-27 14:10 | A.OFFVIS_ITS ---
Intake Intake Visit Reasons: discuss [facility]IC Intake Note: Patient is Present for Follow Up Urology Medication: None Antibiotic Allergies: None Blood Thinners: Eliquis Allergies codeine [CODEINE] Allergy (Unknown, Verified 03/27/23 14:23) STOMACH UPSET HPI HPI Comments History of Present Illness Details Nicholas is a pleasant male. He is patient of Dr. Nuno. He is seen for the following urologic issues - prostate cancer - incomplete bladder emptying High PVR 700 cc PSA remains stable Discussed teaching for [facility] At this point he would prefer to follow with intermittent PVR Was accompanied by Bladder slowly failing Prostate cancer: 2018 - Grade group 4 - radiation with hormones Prostate cancer was diagnosed 09/17 Dr Thornton. Diagnosis was reached by needle biopsy, for elevated PSA, PSA at diagnosis 13, size at TRUS 95gm The [place] grade is 12 core biopsy 6/6 right side , 4+4 = 8 10-80%, 2/6 left, 3+3 = 6. TNM Classification of Malignant Tumours (TNM) T1c. The [place] (NCCN) risk category is 09/17 , High Risk (PSA > 20, Gl 8+, T3). Initial therapy included Primary treatment, External beam radiation with short term hormonal ablation 09/19/17 GnRH - bicalutamide 10/05/17 GnRH shot 10/20/17 Laser TURP and gold seed marker placement 12/18 bicalutamide 150, finasteride 03/[address] Levine [facility] [place] - 12 m of suppression. Recent labs included 11/18 PSA 3.6, T 636 07/19 PSA 0.25, T 5, 10/19 PSA 0.16, T 8, 02/18 PSA 0.1 T 7 04/22 PSA 0.07 T 208, 09/19 PSA 0.05 T 220, 12/20 PSA < 0.05 T 220, 05/21 <0.1, 01/21 <0.1, 01/22 <0.1, 07/23 <0.1, 01/23 <0.1 Recent imaging included 09/17 , a bone scan - NAD 09/17, a CT (computed tomography) scan, NAD Associated conditions erectile dysfunction Yes Therapeutic plan: Continue with surveillance - finasteride can stop Neurogenic bladder Prior TURP late 2017 [facility] Medical History CHF (congestive heart failure) Exercise hypoxemia LAMBERTO on CPAP Pulmonary embolism Right leg DVT Gout BPH (benign prostatic hyperplasia) Obesity (BMI 30-39.9) GERD (gastroesophageal reflux disease) Hypercholesterolemia Chronic kidney disease (CKD) stage G3b/A1, moderately decreased glomerular filtration rate (GFR) between 30-44 mL/min/1.73 square meter and albuminuria creatinine ratio less than 30 mg/g Right renal mass History of stent insertion of renal artery Ischemic cardiomyopathy CAD (coronary artery disease) PVD (peripheral vascular disease) COPD (chronic obstructive pulmonary disease) Hypertension Surgical History History of appendectomy S/P AAA repair S/P CABG x 3 Family History Father Cancer Mother No problems noted. Brother Heart disease Sister Heart disease CVD (cardiovascular disease) Other Mental health disorder Substance use disorder Social History Household Members: Spouse and Children Housing: House Alcohol intake: former Patient Tobacco Use Status: Former Tobacco user Tobacco use type: Cigarette Cigarette Packs Per Day: 1 e-Cigarette/Vaping Use: Never Used Second Hand Smoke Exposure: No Advance Directives Date on File: 05/27/22 service: Yes Current occupational status: retired Cognitive needs: No Hearing needs: No Vision needs: Yes Review of Systems Const Denies chills and Denies fever(s) Card Reports no additional complaints and Denies syncope Resp Denies cough GI Denies abdominal pain and Denies heartburn Reports as per HPI and Denies change in libido Neuro Denies syncope Psych Denies change in libido Endo Denies change in libido Physical Exam Const General: cooperative, healthy appearing, comfortable and no acute distress Orientation/consciousness: patient oriented x3 HEENT Face and sinus: Yes normal facial exam Mouth: moist mucous membranes Neck Neck: Yes normal visual inspection, Yes full ROM and Yes trachea midline Chest Chest palpation & inspection: normal inspection of the chest Resp Effort & Inspection: normal respiratory effort, able to speak in complete sentences and no respiratory distress GI Inspection: Yes normal to inspection Back/Spine/Pelvis Cervical Spine: normal cervical lordosis Thoracic/Lumbar Spine: thoracic and lumbar spine normal to inspection Skin General skin exam: no rashes or lesions noted Neuro General: patient oriented x3, gait normal, tone normal and moves all extremities Extrem General: Yes normal to inspection and Yes capillary refill normal Assessment & Plan Assessment & Plan (1) BPH (benign prostatic hyperplasia): Code(s): N40.0 - Benign prostatic hyperplasia without lower urinary tract symptoms (2) Prostate cancer: Comment: Late 2018 Grade group 4 external beam radiation with GnRH Code(s): C61 - Malignant neoplasm of prostate (3) Urinary retention with incomplete bladder emptying: Code(s): R33.9 - Retention of urine, unspecified Plan Six-month follow-up Orders: Orders Prostate Specific Antigen 6 Months C61 - Malignant neoplasm of prostate Patient Instructions: Imaging studies, laboratory and physical exam results were discussed and reviewed in detail. No major barriers to patient understanding were identified. An opportunity to ask questions regarding the treatment plan was provided. All questions were answered. The patient expressed understanding and agreement with the above treatment plan. The patient is aware they should contact our office by phone for worsening of their current condition or the appearance of new urologic symptoms. Compliance is encouraged with any medications and followup testing that is ordered. It is a privilege to participate in the urologic care of your patient. If you have any questions or concerns regarding treatment for the above conditions, or other urologic issues, please do not hesitate to contact me. The office telephone contact is [phone]. This note is constructed using voice recognition software. While every effort has been made to ensure accuracy consultant errors may have been included. Yours sincerely, Dr Juan Thornton MD, [facility] - Urology Providers of Expert, Compassionate Care for the Genitourinary System Coding Level of Care Code Est Pt Level 3 (72545) Diagnoses BPH (benign prostatic hyperplasia) N40.0 Prostate cancer C61 Urinary retention with incomplete bladder emptying R33.9
== END 2023-03-27 14:41 | disposition home or self-care (01) ==
PROVIDERS: PCP Internal Medicine; Visit Provider Urology
DX: N40.0 Benign prostatic hyperplasia without lower urinary tract symptoms (principal); C61 Malignant neoplasm of prostate; R33.9 Retention of urine, unspecified
CPT/HCPCS: 99213

== ENCOUNTER → 2023-03-27 13:55 | Outpatient (BNVA) | payer MEDICARE, SELFPAY | PROVIDERS: PCP Internal Medicine; Visit Provider Urology | DX: N40.1 Benign prostatic hyperplasia with lower urinary tract symptoms (principal); R33.9 Retention of urine, unspecified; C61 Malignant neoplasm of prostate | CPT/HCPCS: 99212 ==

== ENCOUNTER 2023-04-03 14:10 | Outpatient (AMB) | payer MEDICARE, SELFPAY ==
[2023-04-03 14:13] VITALS: BMI 30.8
--- NOTE | 2023-04-03 14:13 | A.OFFVIS_ITS ---
Intake Vital Signs 04/03/23 14:13 Height 5 ft 5 in Weight 185 lb BMI 30.8 Intake Visit Reasons: CTA Abd/pelvis for AAA on 03/04/23 Intake Note: 1 yr follow up AAA s/p CTA abd/pelvis 03/04/23. Pt states no abdominal pain but does have bilateral LE pain, pt states its a tired and aching sensation Accompanied by: Self / Same As Patient Allergies codeine [CODEINE] Allergy (Unknown, Verified 04/03/23 14:15) STOMACH UPSET HPI CTA Abd/pelvis for AAA on 03/04/23 HPI Details Very pleasant 77-year-old gentleman presents for routine surveillance regarding aortic aneurysm. He originally had this aneurysm repaired at [facility] by Dr. Peter. This was nearly 12 years ago. He has been seeing us for routine surveillance ultrasounds. Currently is doing fairly well. He does report that he has difficulty ambulating and is leading mostly a sedentary lifestyle. But he is able to function and do his daily activities. He does go to [place] once a week. Now presents for routine surveillance follow-up. [facility] Medical History CHF (congestive heart failure) Exercise hypoxemia LAMBERTO on CPAP Pulmonary embolism Right leg DVT Gout BPH (benign prostatic hyperplasia) Obesity (BMI 30-39.9) GERD (gastroesophageal reflux disease) Hypercholesterolemia Chronic kidney disease (CKD) stage G3b/A1, moderately decreased glomerular filtration rate (GFR) between 30-44 mL/min/1.73 square meter and albuminuria creatinine ratio less than 30 mg/g Right renal mass History of stent insertion of renal artery Ischemic cardiomyopathy CAD (coronary artery disease) PVD (peripheral vascular disease) COPD (chronic obstructive pulmonary disease) Hypertension Surgical History History of appendectomy S/P AAA repair S/P CABG x 3 Family History Father Cancer Mother No problems noted. Brother Heart disease Sister Heart disease CVD (cardiovascular disease) Other Mental health disorder Substance use disorder Social History Household Members: Spouse and Children Housing: House Alcohol intake: former Patient Tobacco Use Status: Former Tobacco user Tobacco use type: Cigarette Cigarette Packs Per Day: 1 e-Cigarette/Vaping Use: Never Used Second Hand Smoke Exposure: No Advance Directives Date on File: 05/27/22 service: Yes Current occupational status: retired Cognitive needs: No Hearing needs: No Vision needs: Yes Review of Systems Const All systems reviewed & are unremarkable except as noted in HPI and below Reports no additional complaints ENT Reports Normal hearing present Card Denies chest pain, Denies chest pain at rest, Denies chest pain with activity and Denies pedal edema Resp Denies cough GI Denies abdominal pain Musc Denies abnormal gait, Denies muscle cramps and Denies radiating pain into limb Skin/Breast Denies skin ulcer and Denies wounds Neuro Reports Normal hearing present and Denies abnormal gait Psych Reports no additional complaints Physical Exam Vital Signs: BMI result Body Mass Index 30.8 Const General: cooperative, healthy appearing and comfortable Orientation/consciousness: oriented to person, oriented to place and oriented to time HEENT Head: Yes normal to inspection Neck Neck: Yes normal visual inspection Carotids: no bruits Chest Chest palpation & inspection: normal inspection of the chest Resp Effort & Inspection: normal respiratory effort and able to speak in complete sentences Auscultation: clear to auscultation bilaterally, no crackles, no rales, no rhonchi and no wheezes Cardio Rate: regular rate Rhythm: regular rhythm Heart sounds: S1 normal heart sound present and S2 normal heart sound present Bruits: no carotid bruits Peripheral pulses: Peripheral pulses 2+ throughout GI Inspection: Yes normal to inspection Skin Wounds: no wounds Hair: normal Neuro General: oriented to person, oriented to place and oriented to time Cranial nerves: Yes CN's II-XII intact bilaterally and Yes Normal hearing present Cognition (Neuro): normal cognition Motor exam (neuro): 5/5 motor strength present throughout Extrem Other: venous exam: No significant superficial varicosities or spider telangiec tasias, minimal edema General: No clubbing, No cyanosis and No edema Psych Appearance: grossly normal Mental Status: mental status grossly normal Speech and movement: Normal speech and movement present Results Reviewed Results Reviewed: CT angiogram dated 03/04/2023 demonstrates stable aortic endograft measuring 3.6 cm. Written report and images were reviewed Assessment & Plan Assessment & Plan (1) AAA (abdominal aortic aneurysm) without rupture: Comment: 2012 - EVAR by Dr. Peter at [facility] Code(s): I71.4 - Abdominal aortic aneurysm, without rupture Qualifiers: Abdominal aorta location: infrarenal aorta Qualified Code(s): I71.43 - Infrarenal abdominal aortic aneurysm, without rupture Plan: In short patient has stable aortic endograft. We have discussed the pathophysiology of aortic aneurysms and the risk of ruptures. We have discussed rupture risk based on size. the patient is scheduled for surveillance follow- up in approximately 1 year. Thank you for allowing us to participate in the care of this patient Orders: Orders CT abdomen pelvis wo IV con 364 Days I71.43 - Infrarenal abdominal aortic aneurysm, without rupture Coding Level of Care Code Est Pt Level 4 (02540) Diagnoses Infrarenal abdominal aortic aneurysm (AAA) without rupture I71.43 Abdominal aorta location: infrarenal aorta
== END 2023-04-03 14:33 | disposition home or self-care (01) ==
PROVIDERS: PCP Internal Medicine; Visit Provider Surgery Vascular Surgery
DX: I71.43 Infrarenal abdominal aortic aneurysm, without rupture (principal)
CPT/HCPCS: 99213

== ENCOUNTER → 2023-04-03 14:10 | Outpatient (BNVA) | payer MEDICARE, SELFPAY | PROVIDERS: PCP Internal Medicine; Visit Provider Surgery Vascular Surgery | DX: I71.43 Infrarenal abdominal aortic aneurysm, without rupture (principal) | CPT/HCPCS: 99212 ==

== ENCOUNTER 2023-04-17 10:37 | Outpatient (AMB) | payer MEDICARE, SELFPAY ==
[2023-04-17 10:40] VITALS: BP 152/68; PULSE 65; BMI 29.6
--- NOTE | 2023-04-17 10:40 | MHC.PC.OV ---
Vital Signs 04/17/23 10:40 Height 5 ft 5 in Weight 178 lb BMI 29.6 BP 152/68 H Blood Pressure Location Lt brachial Position Sitting Pulse 65 Pulse Source Pulse Oximeter Oxygen Delivery Method Nasal Cannula Intake Visit Reasons: 3 month f/u Intake Note: Patient came in without oxygen. Sat went down to 82. I put him on the oxygen tank here in the office and it went up to 94. Allergies codeine [CODEINE] Allergy (Unknown, Verified 04/17/23 10:40) STOMACH UPSET Medication List - Last Reconciled 04/17/23 by Taylor Nuno MD albuterol sulfate 90 mcg/actuation 2 puffs inhalation Q6H PRN amiodarone 200 mg PO DAILY amlodipine 2.5 mg PO QPM apixaban 2.5 mg (1/2 x 5 mg) PO BID ascorbic acid (vitamin C) 500 mg PO DAILY 90 days atorvastatin 80 mg PO DAILY cilostazol 100 mg PO BID cyanocobalamin (vitamin B-12) 1,000 mcg PO DAILY ferrous sulfate 324 mg PO DAILY furosemide 20 mg PO DAILY 90 days lisinopril 10 mg PO DAILY 30 days mecobalamin (vitamin B12) 1,000 mcg PO DAILY metoprolol succinate ER 100 mg PO DAILY nitroglycerin 0.4 mg sublingual Q5M PRN pantoprazole 40 mg PO DAILY Symbicort 160-4.5 mcg/actuation (budesonide-formoterol) 2 puffs PO BID NS Tobacco use date assessed: 04/17/23 Fall risk assessment: No Falls in past year Last assessed Fall Risk: 04/17/23 Dental Screening Dental Screen Date: 04/17/23 Did you have a dental visit in the last 12 months?: Yes Did you have a dental problem in the last 6 months where you did not have access to dental care?: No Was dental information given to patient?: Patient has dentist HPI 3 month f/u HPI Details 77-year-old overweight male with a history of ischemic cardiomyopathy chronic kidney disease coronary artery disease history of prostate cancer hypercholesterolemia history of right leg DVT obstructive sleep apnea COPD coming in for follow-up last seen in January 2023. Patient has a history of AAA and had recent CT scan March 2023 3.6 cm this was repaired 12 years ago stable surveillance with a CT scan 1 year. Patient follows up with urology incomplete bladder emptying high PVR 700 cc CIC. As for cardiology March 2023 doing well using oxygen normalized left ventricular ejection fraction after 2nd redo of the coronary artery bypass graft May 2014 full anticoagulation advised reduced to 2.5 mg twice a day given advancing kidney disease atorvastatin 80 mg once a day less than 60 target target blood pressure of 140. Patient also follows up with Nephrology chronic kidney disease stage IIIb. Pulmonary follow-up for COPD continuing with Symbicort and albuterol has the O2 for physical activity and as for obstructive sleep apnea continue with CPAP. [facility] Medical History CHF (congestive heart failure) Exercise hypoxemia LAMBERTO on CPAP Pulmonary embolism Right leg DVT Gout BPH (benign prostatic hyperplasia) Obesity (BMI 30-39.9) GERD (gastroesophageal reflux disease) Hypercholesterolemia Chronic kidney disease (CKD) stage G3b/A1, moderately decreased glomerular filtration rate (GFR) between 30-44 mL/min/1.73 square meter and albuminuria creatinine ratio less than 30 mg/g Right renal mass History of stent insertion of renal artery Ischemic cardiomyopathy CAD (coronary artery disease) PVD (peripheral vascular disease) COPD (chronic obstructive pulmonary disease) Hypertension Surgical History History of appendectomy S/P AAA repair S/P CABG x 3 Family History Father Cancer Mother No problems noted. Brother Heart disease Sister Heart disease CVD (cardiovascular disease) Other Mental health disorder Substance use disorder Social History Household Members: Spouse and Children Housing: House Alcohol intake: former Patient Tobacco Use Status: Former Tobacco user Tobacco use type: Cigarette Cigarette Packs Per Day: 1 e-Cigarette/Vaping Use: Never Used Second Hand Smoke Exposure: No Advance Directives Date on File: 05/27/22 service: Yes Current occupational status: retired Cognitive needs: No Hearing needs: No Vision needs: Yes Questionnaire PHQ-9 Over the last 2 weeks, how often have you been bothered by any of the following problems? 1. Little interest or pleasure in doing things: not at all 2. Feeling down, depressed, or hopeless: not at all 3. Trouble falling or staying asleep, or sleeping too much: not at all 4. Feeling tired or having little energy: not at all 5. Poor appetite or overeating: not at all 6. Feeling bad about yourself - or that you are a failure or have let yourself or your family down: not at all 7. Trouble concentrating on things, such as reading the newspaper or watching television: not at all 8. Moving or speaking so slowly that other people could have noticed. Or the opposite - being so fidgety or restless that you have been moving around a lot more than usual: not at all 9. Thoughts that you would be better off or of hurting yourself in some way: not at all Total score: 0 Depression Screening Interpretation: Negative Depression Screening Done: Yes Source: Developed by Drs. Raoul Bazan, Malini Tejada, Ari Randall and colleagues, with an educational chad from [employer]. Thrive Questionnaire Date Thrive assessed: 04/17/23 I am a: Patient What is your living situation today?: I have a steady place to live Within the past 12 months, did the food you bought not last and you didn't have the money to get more?: Never true Within the past 12 months, did you worry whether your food would run out before you got money to buy more?: Never true Do you have trouble paying for medicines?: No Do you have trouble getting transportation to medical appointments?: No Do you have trouble paying your heating and electricity bill?: No Do you have trouble taking care of your child, family member or friend?: No Do you have trouble with day-to-day activities such as bathing, preparing meals, shopping, managing finances, etc.?: No Are you currently unemployed and looking for a job?: No Are you interested in more education?: No Currently or been in a relationship where the following occur: no concerns reported THRIVE Score: 0 AUDIT C Alcohol Use Questionnaire (AUDIT-C) 1. How often do you have a drink containing alcohol?: Never 2. How many drinks containing alcohol do you have on a typical day when you are drinking?: 1 or 2 (0) 3. How often do you have six or more drinks on one occasion?: Never Total Score: 0 STARR-7 AMB Questionnaire STARR-7 Date STARR - 7 assessed: 04/17/23 Feeling nervous, anxious, or on edge: 0 = Not at all Not being able to stop or control worryin = Not at all Worrying too much about different things: 0 = Not at all Trouble relaxin = Not at all Being so restless that it is hard to sit still: 0 = Not at all Becoming easily annoyed or irritable: 0 = Not at all Feeling afraid as if something awful might happen: 0 = Not at all Total STARR-7 score (0-4 normal; 5-9 mild; 10-14 moderate; 15-21 severe): 0 Source: Developed by Drs. Raoul Bazan, Malini Tejada, Ari Randall and colleagues, with an educational chad from [employer]. Physical exam (Primary Care) Vital Signs: Last Vital Signs Pulse 65 04/17/23 10:40 BP 152/68 H 04/17/23 10:40 Oxygen Delivery Method Nasal Cannula 04/17/23 10:40 BMI result Body Mass Index 29.6 Tobacco/Smoking Status: Tobacco use Status Tobacco use date assessed 04/17/23 04/17/23 10:51 Patient Tobacco Use Status Former Tobacco user 04/17/23 10:51 Tobacco use type Cigarette 04/17/23 10:51 e-Cigarette/Vaping Use Never Used 04/17/23 10:51 PHQ-9: PHQ-9 Score PHQ-9: Total score 0 04/17/23 11:17 Depression Screening Interpretation: Negative Thrive Assessment: Date of Thrive Assessment Date Thrive assessed 04/17/23 04/17/23 10:51 Currently or been in a relationship where the following occur: no concerns reported Const General: alert; No acute distress Eyes Conjunctivae: conjunctivae normal Resp Auscultation: clear to auscultation bilaterally Cardio Rate: regular rate Rhythm: regular rhythm GI Inspection: Yes normal to inspection Extrem General: Yes normal to inspection and No edema Results AMB Urinalysis, Automated UA Leukoctes 2 Jona/uL Last Edit by ALEJANDRO Polanco on 04/17/23 11:54 UA Nitrite Negative Last Edit by ALEJANDRO Polanco on 04/17/23 11:54 UA Urobilinogen 0.2 mg/dL Last Edit by ALEJANDRO Polanco on 04/17/23 11:54 UA Protein 3 mg/dL Last Edit by Allan Hines, RMA on 04/17/23 11:54 UA pH 6.0 Last Edit by Allan Hines, RMA on 04/17/23 11:54 UA Blood 2 Dat/uL Last Edit by Allan Hines, RMA on 04/17/23 11:54 UA Specific [place] 1.020 Last Edit by Allan Hines, RMA on 04/17/23 11:54 UA Ketone Negative Last Edit by Allan Hines, RMA on 04/17/23 11:54 UA Bilirubin 0 mg/dL Last Edit by Allan Hines, RMA on 04/17/23 11:54 UA Glucose 0 mg/dL Last Edit by Allan Hines, RMA on 04/17/23 11:54 Assessment and Plan Assessment & Plan (1) COPD (chronic obstructive pulmonary disease): Comment: HE HAS SEVERE CHRONIC OBSTRUCTIVE PULMONARY DISEASE, HE IS REMAINING STABLE . COPD REMAINS WELL CONTROLLED WITH HIS CURRENT REGIMEN. WHICH INCLUDES: [place]: Code(s): J44.9 - Chronic obstructive pulmonary disease, unspecified Qualifiers: COPD type: emphysema Emphysema type: panlobular Qualified Code(s): J43.1 - Panlobular emphysema Plan: Continue to follow-up with Pulmonary and continue with the inhalers (2) Ischemic cardiomyopathy: Comment: Normalized LV ejection fraction after 2nd redo coronary artery bypass grafting in May of 2014. Echo 02/18 is 40-45% Code(s): I25.5 - Ischemic cardiomyopathy Plan: Continue with present medication patient is being followed up by Cardiology (3) Labile blood pressure: Code(s): R09.89 - Other specified symptoms and signs involving the circulatory and respiratory systems Plan: Continue with present blood pressure medication (4) AAA (abdominal aortic aneurysm) without rupture: Comment: 2011 - EVAR by Dr. Peter at [facility] Code(s): I71.4 - Abdominal aortic aneurysm, without rupture Qualifiers: Abdominal aorta location: infrarenal aorta Qualified Code(s): I71.43 - Infrarenal abdominal aortic aneurysm, without rupture Plan: Patient is followed up by vascular surgeon and stable with last March [address] scan (5) Chronic kidney disease (CKD) stage G3b/A1, moderately decreased glomerular filtration rate (GFR) between 30-44 mL/min/1.73 square meter and albuminuria creatinine ratio less than 30 mg/g: Code(s): N18.32 - Chronic kidney disease, stage 3b Plan: Keep well hydrated avoid NSAIDs patient follows up with Nephrology (6) LAMBERTO on CPAP: Comment: He has chronic obstructive sleep apnea related to his obesity. Treated well with CPAP and he has been very compliant. He does have the new CPAP machine which is a different make ,LUZ His mask is the nasal, He does have Air leak , mostly through the mouth. Discussed about using the chinstrap, but he does not want it. Code(s): G47.33 - Obstructive sleep apnea (adult) (pediatric); Z99.89 - Dependence on other enabling machines and devices Plan: Continue to use the CPAP more than 4 hours a night and benefits from this (7) Hypercholesterolemia: Code(s): E78.00 - Pure hypercholesterolemia, unspecified Plan: Avoid fried foods, chicken skin, eggs, butter margarine, pastries and meat. Be it pork or beef they have a lot of cholesterol LDL goal of less than 60 on atorvastatin 80 mg once a day (8) CAD (coronary artery disease): Comment: Coronary artery bypass graft June [address] and Dr. Brennan October 2017 nuclear stress make ski me a an infarct inferolateral and basal echo August 2018 50-55% moderate TV basal inferior basal inferoseptal dyskinetic echo March 2019 EF 40-45% basal inferior aneurysmal Code(s): I25.10 - Atherosclerotic heart disease of [place] coronary artery without angina pectoris Qualifiers: Associated angina: without angina Coronary Disease-Associated Artery/Lesion type: [place] artery [place] vs. transplanted heart: [place] heart Qualified Code(s): I25.10 - Atherosclerotic heart disease of [place] coronary artery without angina pectoris Plan: Control the cholesterol, weight, blood pressure, diabetes on anticoagulation lower dose due to renal function (9) Prostate cancer: Comment: Late 201718 Grade group 4 external beam radiation with GnRH Code(s): C61 - Malignant neoplasm of prostate Plan: CIC advised patient follows up with urology (10) Hypertension: Code(s): I10 - Essential (primary) hypertension Qualifiers: Hypertension type: essential hypertension Qualified Code(s): I10 - Essential (primary) hypertension Plan: Continue with blood pressure medication. Decrease salt intake and exercise patient takes lisinopril 10 mg once a day metoprolol 100 mg once a day amlodipine 2.5 mg once a day (11) Dysuria: Code(s): R30.0 - Dysuria Orders: Orders AMB Urinalysis Automated Today R30.0 - Dysuria, Z13.9 - Encounter for screening, unspecified Coding Level of Care Code Est Pt Level 4 (94119) Diagnoses Panlobular emphysema J43.1 COPD type: emphysema Emphysema type: panlobular Ischemic cardiomyopathy I25.5 Labile blood pressure R09.89 Infrarenal abdominal aortic aneurysm (AAA) without rupture I71.43 Abdominal aorta location: infrarenal aorta Chronic kidney disease (CKD) stage G3b/A1, moderately decreased glomerular filtration rate (GFR) between 30-44 mL/min/1.73 square meter and albuminuria creatinine ratio less than 30 mg/g N18.32 LAMBERTO on CPAP G47.33; Z99.89 Hypercholesterolemia E78.00 Coronary artery disease involving [place] coronary artery of [place] heart without angina pectoris I25.10 Associated angina: without angina Coronary Disease-Associated Artery/Lesion type: [place] artery [place] vs. transplanted heart: [place] heart Prostate cancer C61 Essential hypertension I10 Hypertension type: essential hypertension Dysuria R30.0
== END 2023-04-17 11:42 | disposition home or self-care (01) ==
PROVIDERS: PCP Internal Medicine; Visit Provider Internal Medicine
DX: R30.0 Dysuria (principal)
CPT/HCPCS: 81003; 99214

== ENCOUNTER 2023-05-07 09:55 | Outpatient (REF) | payer MEDICARE, SELFPAY ==
[2023-05-07 10:20] LABS: MANUAL DIFF FLAG NO
[2023-05-07 10:51] LABS: Basophils Absolute Auto 0.1 X10*3/uL (0.0-0.2); Eosinophils Absolute Auto 0.2 X10*3/uL (0.0-0.4); Eosinophils Percent Auto 2.4 % (0-4); Hematocrit 35.9 % (42.0-52.0); Imm Gran Abs Auto 0.05 X10*3/uL (0.00-0.03); Imm Gran Pct Auto 0.6 % (0.0-0.4); Lymphocytes Absolute Auto 1.7 X10*3/uL (1.2-4.9); Lymphocytes Percent Auto 21.4 % (20-40); Mean Corpuscular HGB Conc 33.4 g/dl (31.0-36.0); Mean Corpuscular Hemoglobin 27.5 pg (27.0-33.0); Mean Corpuscular Volume 82.3 fL (80.0-98.0); Mean Platelet Volume 9.4 fL (9.4-12.4); Monocytes Absolute Auto 0.8 X10*3/uL (0.1-1.2); Monocytes Percent Auto 9.7 % (2-11); Neutrophils Absolute Auto 5.3 x10*3/uL (2.0-8.3); Neutrophils Percent Auto 64.9 % (45-73); Platelet Count 223 X10*3/uL (160-400); Red Blood Count 4.36 X10*6/uL (4.60-5.80); Red Cell Distribution Width 17.4 % (11.0-16.0); White Blood Count 8.1 X10*3/uL (4.8-10.8)
[2023-05-07 11:14] LABS: Calcium 8.9 mg/dL (8.4-10.2)
[2023-05-07 11:17] LABS: B Type Natriuretic Peptide 335 pg/mL (<100)
[2023-05-07 11:29] LABS: Alanine Aminotransferase 24 U/L (0-40); Albumin Level 3.5 g/dL (3.5-5.0); Alkaline Phosphatase 107 U/L (39-117); Anion Gap 13 (12-20); Aspartate Amino Transferase 24 U/L (5-37); Bilirubin Total 0.6 mg/dL (0.0-1.0); Blood Urea Nitrogen 42 mg/dL (9-16); Carbon Dioxide 20 mmol/L (22-29); Chloride 109 mmol/L (96-108); Cholesterol 93 mg/dL (<200); Estimated Glomerular Filt Rate 32; Glucose Random 86 mg/dL (60-115); HDL Cholesterol 31 mg/dL (>40); LDL Cholesterol Calculated 51 mg/dL (<100); Potassium 4.6 mmol/L (3.3-5.1); Sodium 137 mmol/L (135-145); Total Protein 6.6 g/dL (6.5-8.0); Triglycerides 59 mg/dL (<150)
[2023-05-07 11:58] LABS: Free T4 (Free Thyroxine) 1.22 ng/dL (0.71-1.85); Thyroid Stimulating Hormone 1.86 uIU/mL (0.32-4.0)
[2023-05-07 12:05] LABS: Folate 6.4 ng/mL (> or = 4.0); Vitamin B12 640 pg/mL (200-900)
== END 2023-05-07 09:56 | disposition home or self-care (01) ==
LOC: HO.LAB 09:55
PROVIDERS: Internal Medicine; Visit Provider Internal Medicine Hypertension Specialist
DX: E78.00 Pure hypercholesterolemia, unspecified (principal); I12.9 Hypertensive chronic kidney disease with stage 1 through stage 4 chronic kidney disease, or unspecified chronic kidney disease; N18.32 Chronic kidney disease, stage 3b; I25.10 Atherosclerotic heart disease of native coronary artery without angina pectoris; C61 Malignant neoplasm of prostate; R33.9 Retention of urine, unspecified; I25.5 Ischemic cardiomyopathy; I71.40 Abdominal aortic aneurysm, without rupture, unspecified
CPT/HCPCS: 36415; 80053; 80061; 82310; 82607; 82746; 83880; 84439; 84443; 85025

== ENCOUNTER 2023-05-13 11:07 | Outpatient (AMB) | payer MEDICARE, SELFPAY ==
[2023-05-13 11:10] VITALS: BP 160/64; PULSE 56; O2SAT 97; BMI 30.6
--- NOTE | 2023-05-13 11:10 | HO.NEPHOV ---
HPI HPI Comments History of Present Illness Details 77-year-old obese male with multiple medical problems COPD on home oxygen coronary artery disease/ ischemic cardiomyopathy nonsustained ventricular tachycardia ;Echo showing mild to moderate reduction in systolic function and diastolic dysfunction EF 45%. obstructive sleep apnea - on CPAP history of right leg DVT BPH /history of prostate cancer last seen in October 2022 hypercholesterolemia hypertension Patient also follows up with hematology oncology with a history of right lower extremity DVT and right pulmonary embolism [place] He has chronic kidney disease stage IIIB with a baseline serum creatinine of 2 mg/dL He has a history of incomplete bladder emptying. He has follow-up with Urology for possible intermittent catheterization. He is not too keen on this at this time. Today has no specific complaints like dysuria, urgency, increased frequency. No hematuria. [facility] Medical History CHF (congestive heart failure) Exercise hypoxemia LAMBERTO on CPAP Pulmonary embolism Right leg DVT Gout BPH (benign prostatic hyperplasia) Obesity (BMI 30-39.9) GERD (gastroesophageal reflux disease) Hypercholesterolemia Chronic kidney disease (CKD) stage G3b/A1, moderately decreased glomerular filtration rate (GFR) between 30-44 mL/min/1.73 square meter and albuminuria creatinine ratio less than 30 mg/g Right renal mass History of stent insertion of renal artery Ischemic cardiomyopathy CAD (coronary artery disease) PVD (peripheral vascular disease) COPD (chronic obstructive pulmonary disease) Hypertension Surgical History History of appendectomy S/P AAA repair S/P CABG x 3 Family History Father Cancer Mother No problems noted. Brother Heart disease Sister Heart disease CVD (cardiovascular disease) Other Mental health disorder Substance use disorder Social History Household Members: Spouse and Children Housing: House Alcohol intake: former Patient Tobacco Use Status: Former Tobacco user Tobacco use type: Cigarette Cigarette Packs Per Day: 1 e-Cigarette/Vaping Use: Never Used Second Hand Smoke Exposure: No Advance Directives Date on File: 05/27/22 service: Yes Current occupational status: retired Cognitive needs: No Hearing needs: No Vision needs: Yes Vital Signs 05/13/23 11:10 Height 5 ft 5 in Weight 184 lb 2 oz BMI 30.6 BP 160/64 H Blood Pressure Location Lt brachial Position Sitting Pulse 56 Pulse Source Pulse Oximeter Pulse Oximetry (%) 97 Oxygen Delivery Method Nasal Cannula Physical Exam Vital Signs: Last Vital Signs Pulse 56 05/13/23 11:10 BP 160/64 H 05/13/23 11:10 Pulse Ox 97 05/13/23 11:10 Oxygen Delivery Method Nasal Cannula 05/13/23 11:10 BMI result Body Mass Index 30.6 Assessment & Plan Assessment & Plan (1) Chronic kidney disease (CKD) stage G3b/A1, moderately decreased glomerular filtration rate (GFR) between 30-44 mL/min/1.73 square meter and albuminuria creatinine ratio less than 30 mg/g: Code(s): N18.32 - Chronic kidney disease, stage 3b Plan: Renal function is close to baseline. Continue to avoid nephrotoxic agents including NSAIDs. No IV Contrast (2) CAD (coronary artery disease): Comment: Coronary artery bypass graft June [address] and Dr. Brennan October 2017 nuclear stress make ski me a an infarct inferolateral and basal echo August 2018 50-55% moderate TV basal inferior basal inferoseptal dyskinetic echo March 2019 EF 40-45% basal inferior aneurysmal Code(s): I25.10 - Atherosclerotic heart disease of [place] coronary artery without angina pectoris Qualifiers: Coronary Disease-Associated Artery/Lesion type: [place] artery [place] vs. transplanted heart: [place] heart Associated angina: without angina Qualified Code(s): I25.10 - Atherosclerotic heart disease of [place] coronary artery without angina pectoris Plan: Currently stable. Follows with Cardiology (3) Hypertension: Code(s): I10 - Essential (primary) hypertension Qualifiers: Hypertension type: essential hypertension Qualified Code(s): I10 - Essential (primary) hypertension Plan: Blood pressure remains elevated WILL INCREASE AMLODIPINE to 5 mg DAILY ( from 2.5 mg) Encouraged him to stay low-sodium diet. Discussed importance of compliance (4) Prostate cancer: Comment: Late 201718 Grade group 4 external beam radiation with GnRH Code(s): C61 - Malignant neoplasm of prostate Plan: Follows with Urology Orders: Orders Parathyroid Hormone Intact 4 Months N18.32 - Chronic kidney disease, stage 3b Coding Level of Care Code Est Pt Level 4 (07996) Diagnoses Chronic kidney disease (CKD) stage G3b/A1, moderately decreased glomerular filtration rate (GFR) between 30-44 mL/min/1.73 square meter and albuminuria creatinine ratio less than 30 mg/g N18.32 Coronary artery disease involving [place] coronary artery of [place] heart without angina pectoris I25.10 Coronary Disease-Associated Artery/Lesion type: [place] artery [place] vs. transplanted heart: [place] heart Associated angina: without angina Essential hypertension I10 Hypertension type: essential hypertension Prostate cancer C61 Results Reviewed Nephrology Results: Hgb 12.0 g/dl (14.0-18.0) L 05/07/23 WBC 8.1 X10*3/uL (4.8-10.8) 05/07/23 Plt Count 223 X10*3/uL (160-400) 05/07/23 Sodium 137 mmol/L (135-145) 05/07/23 Potassium 4.6 mmol/L (3.3-5.1) 05/07/23 Chloride 109 mmol/L (96-108) H 05/07/23 Carbon Dioxide 20 mmol/L (22-29) L 05/07/23 BUN 42 mg/dL (9-16) H 05/07/23 Creatinine 2.03 mg/dL (0.5-1.4) H 05/07/23 Calcium 9.0 mg/dL (8.4-10.2) 05/07/23 PTH Intact 102.1 pg/mL (8.7-77.1) H 02/11/23
== END 2023-05-13 11:36 | disposition home or self-care (01) ==
PROVIDERS: PCP Internal Medicine; Visit Provider Internal Medicine Hypertension Specialist
DX: N18.32 Chronic kidney disease, stage 3b (principal); I25.10 Atherosclerotic heart disease of native coronary artery without angina pectoris; I10 Essential (primary) hypertension; C61 Malignant neoplasm of prostate
CPT/HCPCS: 99214

== ENCOUNTER → 2023-05-13 11:07 | Outpatient (BNVA) | payer MEDICARE, SELFPAY | PROVIDERS: PCP Internal Medicine; Visit Provider Internal Medicine Hypertension Specialist | DX: I12.9 Hypertensive chronic kidney disease with stage 1 through stage 4 chronic kidney disease, or unspecified chronic kidney disease (principal); N18.32 Chronic kidney disease, stage 3b; I25.10 Atherosclerotic heart disease of native coronary artery without angina pectoris; C61 Malignant neoplasm of prostate | CPT/HCPCS: 99212 ==

== ENCOUNTER 2023-07-24 11:37 | Outpatient (AMB) | payer MEDICARE, SELFPAY ==
--- NOTE | 2023-07-24 11:38 | A.OFFPC_ITS ---
Vital Signs 07/24/23 11:50 Height 5 ft 5 in Weight 183 lb BMI 30.4 BP 144/76 H Blood Pressure Location Lt brachial Position Sitting Pulse 87 Pulse Source Pulse Oximeter Pulse Oximetry (%) 97 Oxygen Delivery Method Nasal Cannula Intake Visit Reasons: Urinary retention, cardiomyopathy COPD Allergies codeine [CODEINE] Allergy (Unknown, Verified 05/13/23 11:12) STOMACH UPSET Medication List - Last Reconciled 07/24/23 by Taylor Huerta Po, albuterol sulfate 90 mcg/actuation 2 puffs inhalation Q6H PRN amiodarone 200 mg PO DAILY amlodipine 5 mg PO QPM apixaban 2.5 mg PO BID ascorbic acid (vitamin C) 500 mg PO DAILY 90 days atorvastatin 80 mg PO DAILY cilostazol 100 mg PO BID ferrous sulfate 324 mg PO DAILY furosemide 20 mg PO DAILY 90 days lisinopril 10 mg PO DAILY 30 days mecobalamin (vitamin B12) 1,000 mcg PO DAILY metoprolol succinate ER 100 mg PO DAILY nitroglycerin 0.4 mg sublingual Q5M PRN pantoprazole 40 mg PO DAILY Symbicort 160-4.5 mcg/actuation (budesonide-formoterol) 2 puffs PO BID NS Tobacco use date assessed: 04/17/23 Fall risk assessment: No Falls in past year Last assessed Fall Risk: 07/24/23 Dental Screening Dental Screen Date: 04/17/23 HPI Urinary retention, cardiomyopathy COPD HPI Details 77-year-old obese male with COPD ischemi c cardiomyopathy hypertension history of AAA, chronic kidney disease obstructive sleep apnea hypercholesterolemia coronary artery disease history of prostate cancer coming in for follow-up. Last seen in April 2023. Review of the notes follows up w [facility] Nephrology last echocardiogram showing EF of 45% chronic kidney disease stage IIIB serum creatinine baseline 2 has a history of incomplete bladder emptying and doing CIC knows to have no IV contrast as well as NSAIDs. With the blood pressure being elevated advised to increase amlodipine to 5 mg once a day. PAtient complains of leg swelling, also cic cannot do- seeing Urology [facility] Medical History CHF (congestive heart failure) Exercise hypoxemia LAMBERTO on CPAP Pulmonary embolism Right leg DVT Gout BPH (benign prostatic hyperplasia) Obesity (BMI 30-39.9) GERD (gastroesophageal reflux disease) Hypercholesterolemia Chronic kidney disease (CKD) stage G3b/A1, moderately decreased glomerular filtration rate (GFR) between 30-44 mL/min/1.73 square meter and albuminuria creatinine ratio less than 30 mg/g Right renal mass History of stent insertion of renal artery Ischemic cardiomyopathy CAD (coronary artery disease) PVD (peripheral vascular disease) COPD (chronic obstructive pulmonary disease) Hypertension Surgical History History of appendectomy S/P AAA repair S/P CABG x 3 Family History Father Cancer Mother No problems noted. Brother Heart disease Sister Heart disease CVD (cardiovascular disease) Other Mental health disorder Substance use disorder Social History Household Members: Spouse and Children Housing: House Alcohol intake: former Patient Tobacco Use Status: Former Tobacco user Tobacco use type: Cigarette Cigarette Packs Per Day: 1 e-Cigarette/Vaping Use: Never Used Second Hand Smoke Exposure: No Advance Directives Date on File: 05/27/22 service: Yes Current occupational status: retired Cognitive needs: No Hearing needs: No Vision needs: Yes Questionnaire Thrive Questionnaire Date Thrive assessed: 04/17/23 STARR-7 AMB Questionnaire STARR-7 Date STARR - 7 assessed: 04/17/23 Source: Developed by Drs. Raoul Bazan, Malini Tejada, Ari Randall and colleagues, with an educational chad from [employer]. Physical exam (Primary Care) Vital Signs: Last Vital Signs Pulse 87 07/24/23 11:50 BP 144/76 H 07/24/23 11:50 Pulse Ox 97 07/24/23 11:50 Oxygen Delivery Method Nasal Cannula 07/24/23 11:50 BMI result Body Mass Index 30.4 Tobacco/Smoking Status: Tobacco use Status Tobacco use date assessed 04/17/23 07/24/23 11:39 Patient Tobacco Use Status Former Tobacco user 07/24/23 11:39 Tobacco use type Cigarette 07/24/23 11:39 e-Cigarette/Vaping Use Never Used 07/24/23 11:39 Thrive Assessment: Date of Thrive Assessment Date Thrive assessed 04/17/23 07/24/23 11:39 Const General: alert; No acute distress Eyes Conjunctivae: conjunctivae normal Resp Auscultation: clear to auscultation bilaterally Cardio Rate: regular rate Rhythm: regular rhythm GI Inspection: Yes normal to inspection Extrem General: Yes normal to inspection and No edema Assessment and Plan Assessment & Plan (1) Ischemic cardiomyopathy: Comment: Normalized LV ejection fraction after 2nd redo coronary artery bypass grafting in May of 2014. Echo 02/18 is 40-45% Code(s): I25.5 - Ischemic cardiomyopathy Plan: Continue to follow up with Cardiology and continue with present medication (2) COPD (chronic obstructive pulmonary disease): Comment: HE HAS SEVERE CHRONIC OBSTRUCTIVE PULMONARY DISEASE, HE IS REMAINING STABLE . COPD REMAINS WELL CONTROLLED WITH HIS CURRENT REGIMEN. WHICH INCLUDES: [place]: Code(s): J44.9 - Chronic obstructive pulmonary disease, unspecified Qualifiers: COPD type: emphysema Emphysema type: panlobular Qualified Code(s): J43.1 - Panlobular emphysema Plan: Continue with albuterol inhaler and Symbicort (3) Chronic kidney disease (CKD) stage G3b/A1, moderately decreased glomerular filtration rate (GFR) between 30-44 mL/min/1.73 square meter and albuminuria creatinine ratio less than 30 mg/g: Code(s): N18.32 - Chronic kidney disease, stage 3b Plan: Patient was just recently seen by Nephrology and advised increase in the blood pressure medication amlodipine 10 mg QD continue with lisinopril 10 mg once a day and metoprolol 100 mg once a day (4) LAMBERTO on CPAP: Comment: He has chronic obstructive sleep apnea related to his obesity. Treated well with CPAP and he has been very compliant. He does have the new CPAP machine which is a different make ,LUZ His mask is the nasal, He does have Air leak , mostly through the mouth. Discussed about using the chinstrap, but he does not want it. Code(s): G47.33 - Obstructive sleep apnea (adult) (pediatric); Z99.89 - Dependence on other enabling machines and devices Plan: Continue to use the CPAP more than 4 hours a night and benefits from the (5) CAD (coronary artery disease): Comment: Coronary artery bypass graft June [address] and Dr. Brennan October 2017 nuclear stress make ski me a an infarct inferolateral and basal echo August 2018 50-55% moderate TV basal inferior basal inferoseptal dyskinetic echo March 2019 EF 40-45% basal inferior aneurysmal Code(s): I25.10 - Atherosclerotic heart disease of [place] coronary artery without angina pectoris Qualifiers: Coronary Disease-Associated Artery/Lesion type: [place] artery [place] vs. transplanted heart: [place] heart Associated angina: without angina Qualified Code(s): I25.10 - Atherosclerotic heart disease of [place] coronary art vu without angina pectoris Plan: Control the cholesterol, weight, blood pressure, and continue with anticoagulation (6) Hypercholesterolemia: Code(s): E78.00 - Pure hypercholesterolemia, unspecified Plan: Avoid fried foods, chicken skin, eggs, butter margarine, pastries and meat. Be it pork or beef they have a lot of cholesterol LDL goal of less than 70 and triglyceride of less than 150 on atorvastatin 80 mg once a day (7) Prostate cancer: Comment: Late 201718 Grade group 4 external beam radiation with GnRH Code(s): C61 - Malignant neoplasm of prostate Plan: Patient follows up with urology and planned CIC (8) Hypertension: Code(s): I10 - Essential (primary) hypertension Qualifiers: Hypertension type: essential hypertension Qualified Code(s): I10 - Essential (primary) hypertension Plan: Continue with blood pressure medication. Decrease salt intake and exercise Coding Level of Care Code Est Pt Level 4 (09243) Diagnoses Ischemic cardiomyopathy I25.5 Panlobular emphysema J43.1 COPD type: emphysema Emphysema type: panlobular Chronic kidney disease (CKD) stage G3b/A1, moderately decreased glomerular filtration rate (GFR) between 30-44 mL/min/1.73 square meter and albuminuria creatinine ratio less than 30 mg/g N18.32 LAMBERTO on CPAP G47.33; Z99.89 Coronary artery disease involving [place] coronary artery of [place] heart without angina pectoris I25.10 Coronary Disease-Associated Artery/Lesion type: [place] artery [place] vs. transplanted heart: [place] heart Associated angina: without angina Hypercholesterolemia E78.00 Prostate cancer C61 Essential hypertension I10 Hypertension type: essential hypertension
[2023-07-24 11:50] VITALS: BP 144/76; PULSE 87; O2SAT 97; BMI 30.4
== END 2023-07-24 12:45 | disposition home or self-care (01) ==
PROVIDERS: PCP Internal Medicine; Visit Provider Internal Medicine
DX: I25.5 Ischemic cardiomyopathy (principal); J43.1 Panlobular emphysema; N18.32 Chronic kidney disease, stage 3b; C61 Malignant neoplasm of prostate; G47.33 Obstructive sleep apnea (adult) (pediatric); Z99.89 Dependence on other enabling machines and devices; I25.10 Atherosclerotic heart disease of native coronary artery without angina pectoris; E78.00 Pure hypercholesterolemia, unspecified; I10 Essential (primary) hypertension
CPT/HCPCS: 99214

== ENCOUNTER 2023-07-31 13:21 | Outpatient (REF) | payer MEDICARE, SELFPAY ==
[2023-07-31 14:35] LABS: Anion Gap 15 (12-20); Blood Urea Nitrogen 38 mg/dL (9-16); Carbon Dioxide 21 mmol/L (22-29); Chloride 109 mmol/L (96-108); Estimated Glomerular Filt Rate 30; Potassium 4.3 mmol/L (3.3-5.1); Sodium 141 mmol/L (135-145)
[2023-07-31 14:55] LABS: Prostate Specific Antigen < 0.10 ng/mL (<0.05-4.0)
== END 2023-07-31 13:22 | disposition home or self-care (01) ==
LOC: HO.LAB 13:21
PROVIDERS: Internal Medicine Hypertension Specialist; PCP Internal Medicine; Visit Provider Urology
DX: C61 Malignant neoplasm of prostate (principal); I12.9 Hypertensive chronic kidney disease with stage 1 through stage 4 chronic kidney disease, or unspecified chronic kidney disease; N18.32 Chronic kidney disease, stage 3b; I25.10 Atherosclerotic heart disease of native coronary artery without angina pectoris; R33.9 Retention of urine, unspecified; I25.5 Ischemic cardiomyopathy; Z12.5 Encounter for screening for malignant neoplasm of prostate
CPT/HCPCS: 36415; 80051; 82565; 84153; 84520

== ENCOUNTER 2023-08-05 09:40 | Outpatient (AMB) | payer MEDICARE, SELFPAY ==
--- NOTE | 2023-08-05 09:50 | A.OFFVIS_ITS ---
Intake Visit Reasons: 6m/PSA/PVR(set) Intake Note: Patient is Present for PVR/PSA Urology Med: Finasteride is currently on hold Antibiotic Allergy: None Blood Thinner: Apixaban Last PVR: 700ml (CIC was introduced at last visit Patient had declined) Todays PVR: 999+ Allergies codeine [CODEINE] Allergy (Unknown, Verified 08/05/23 09:56) STOMACH UPSET HPI Comments Details: Nicholas is a pleasant male. He is patient of Dr. Nuno. He is seen for the following urologic issues - prostate cancer - incomplete bladder emptying High PVR 700 cc - 999+ PSA remains stable Trial bethanechol b.i.d. Review in 3 months Bladder slowly failing Prostate cancer: 2018 - Grade group 4 - radiation with hormones Prostate cancer was diagnosed 09/17 Dr Thornton. Diagnosis was reached by needle biopsy, for elevated PSA, PSA at diagnosis 13, size at TRUS 95gm The Cammy grade is 12 core biopsy 6/6 right side , 4+4 = 8 10-80%, 2/6 left, 3+3 = 6. TNM Classification of Malignant Tumours (TNM) T1c. The D'Monique (NCCN) risk category is 09/17 , High Risk (PSA > 20, Gl 8+, T3). Initial therapy included Primary treatment, External beam radiation with short term hormonal ablation 09/19/17 GnRH - bicalutamide 10/05/17 GnRH shot 10/20/17 Laser TURP and gold seed marker placement 12/18 bicalutamide 150, finasteride 03/[address] Levine [facility] - 12 m of suppression. Recent labs included 11/18 PSA 3.6, T 636 07/19 PSA 0.25, T 5, 10/19 PSA 0.16, T 8, 02/18 PSA 0.1 T 7 04/22 PSA 0.07 T 208, 09/19 PSA 0.05 T 220, 12/20 PSA < 0.05 T 220, 05/21 <0.1, 01/21 <0.1, 01/22 <0.1, 07/23 <0.1, 01/23 <0.1 Recent imaging included 09/17 , a bone scan - NAD 09/17, a CT (computed tomography) scan, NAD Associated conditions erectile dysfunction Yes Therapeutic plan: Continue with surveillance - finasteride can stop Neurogenic bladder Prior TURP late 2017 [facility] Medical History CHF (congestive heart failure) Exercise hypoxemia LAMBERTO on CPAP Pulmonary embolism Right leg DVT Gout BPH (benign prostatic hyperplasia) Obesity (BMI 30-39.9) GERD (gastroesophageal reflux disease) Hypercholesterolemia Chronic kidney disease (CKD) stage G3b/A1, moderately decreased glomerular filtration rate (GFR) between 30-44 mL/min/1.73 square meter and albuminuria creatinine ratio less than 30 mg/g Right renal mass History of stent insertion of renal artery Ischemic cardiomyopathy CAD (coronary artery disease) PVD (peripheral vascular disease) COPD (chronic obstructive pulmonary disease) Hypertension Surgical History History of appendectomy S/P AAA repair S/P CABG x 3 Family History Father Cancer Mother No problems noted. Brother Heart disease Sister Heart disease CVD (cardiovascular disease) Other Mental health disorder Substance use disorder Social History Household Members: Spouse and Children Housing: House Alcohol intake: former Patient Tobacco Use Status: Former Tobacco user Tobacco use type: Cigarette Cigarette Packs Per Day: 1 e-Cigarette/Vaping Use: Never Used Second Hand Smoke Exposure: No Advance Directives Date on File: 05/27/22 service: Yes Current occupational status: retired Cognitive needs: No Hearing needs: No Vision needs: Yes Review of Systems Const Denies chills and Denies fever(s) Card Reports no additional complaints and Denies syncope Resp Denies cough GI Denies abdominal pain and Denies heartburn Reports as per HPI and Denies change in libido Neuro Denies syncope Psych Denies change in libido Endo Denies change in libido Physical Exam Const General: cooperative, healthy appearing, comfortable and no acute distress Orientation/consciousness: patient oriented x3 HEENT Face and sinus: Yes normal facial exam Mouth: moist mucous membranes Neck Neck: Yes normal visual inspection, Yes full ROM and Yes trachea midline Chest Chest palpation & inspection: normal inspection of the chest Resp Effort & Inspection: normal respiratory effort, able to speak in complete sentences and no respiratory distress GI Inspection: Yes normal to inspection Back/Spine/Pelvis Cervical Spine: normal cervical lordosis Thoracic/Lumbar Spine: thoracic and lumbar spine normal to inspection Skin General skin exam: no rashes or lesions noted Neuro General: patient oriented x3, gait normal, tone normal and moves all extremities Extrem General: Yes normal to inspection and Yes capillary refill normal Office Procedures Post Void Residual Post Residual Void Post Void Residual (PVR): 999 [id number] Void Residual by ultrasound Assessment & Plan Assessment & Plan (1) BPH (benign prostatic hyperplasia): Code(s): N40.0 - Benign prostatic hyperplasia without lower urinary tract symptoms Category: Medical (2) Prostate cancer: Comment: Late 2018 Grade group 4 external beam radiation with GnRH Code(s): C61 - Malignant neoplasm of prostate Category: Medical (3) Urinary retention with incomplete bladder emptying: Code(s): R33.9 - Retention of urine, unspecified Category: Medical Plan Three-month follow-up trial bethanechol Orders: Orders AMB Post Void Residual by ultrasound Today R33.9 - Retention of urine, unspecified Medications: New bethanechol chloride 50 mg PO BID 90 days 180 tabs 1RF R33.9 - Retention of urine, unspecified Patient Instructions: Imaging studies, laboratory and physical exam results were discussed and reviewed in detail. No major barriers to patient understanding were identified. An opportunity to ask questions regarding the treatment plan was provided. All questions were answered. The patient expressed understanding and agreement with the above treatment plan. The patient is aware they should contact our office by phone for worsening of their current condition or the appearance of new urologic symptoms. Compliance is encouraged with any medications and followup testing that is ordered. It is a privilege to participate in the urologic care of your patient. If you have any questions or concerns regarding treatment for the above conditions, or other urologic issues, please do not hesitate to contact me. The office telepho ne contact is [phone]. This note is constructed using voice recognition software. While every effort has been made to ensure accuracy prison teacher errors may have been included. Yours sincerely, Dr Juan Thornton MD, [facility] - Urology Providers of Expert, Compassionate Care for the Genitourinary System Coding Level of Care Code Est Pt Level 4 (33355) Diagnoses BPH (benign prostatic hyperplasia) N40.0 Prostate cancer C61 Urinary retention with incomplete bladder emptying R33.9 CPT Codes Post Residual Void - PVR CPT Code: [id number] Void Residual by ultrasound ([id number])
== END 2023-08-05 10:30 | disposition home or self-care (01) ==
PROVIDERS: PCP Internal Medicine; Visit Provider Urology
DX: N40.0 Benign prostatic hyperplasia without lower urinary tract symptoms (principal); C61 Malignant neoplasm of prostate; R33.9 Retention of urine, unspecified
CPT/HCPCS: 99213

== ENCOUNTER → 2023-08-05 09:40 | Outpatient (BNVA) | payer MEDICARE, SELFPAY | PROVIDERS: PCP Internal Medicine; Visit Provider Urology | DX: J43.1 Panlobular emphysema (principal); R09.02 Hypoxemia; G47.33 Obstructive sleep apnea (adult) (pediatric); Z79.899 Other long term (current) drug therapy; Z99.89 Dependence on other enabling machines and devices; N40.1 Benign prostatic hyperplasia with lower urinary tract symptoms; R33.8 Other retention of urine; C61 Malignant neoplasm of prostate | CPT/HCPCS: 51798; 99212 ==

== ENCOUNTER 2023-08-05 10:56 | Outpatient (AMB) | payer MEDICARE, SELFPAY ==
[2023-08-05 11:11] VITALS: BP 152/50; PULSE 55; O2SAT 93; BMI 30.4
--- NOTE | 2023-08-05 11:11 | A.OFFVIS_ITS ---
Vital Signs 08/05/23 11:11 Height 5 ft 5 in Weight 182 lb 15.739 oz BMI 30.4 BP 152/50 H Blood Pressure Location Rt brachial Position Sitting Pulse 55 Pulse Source Pulse Oximeter Pulse Oximetry (%) 93 Oxygen Delivery Method Nasal Cannula Oxygen Flow Rate 2 Intake Visit Reasons: copd Intake Note: pt is here for follow up and states he is using the cpap every night and using oxygen only at daytime. [employer] Required: No Allergies codeine [CODEINE] Allergy (Unknown, Verified 08/05/23 11:27) STOMACH UPSET Medication List - Last Reconciled 08/05/23 by Jocelyn Storm MD albuterol sulfate 90 mcg/actuation 2 puffs inhalation Q6H PRN amiodarone 200 mg PO DAILY amlodipine 5 mg PO QPM apixaban 2.5 mg PO BID ascorbic acid (vitamin C) 500 mg PO DAILY 90 days atorvastatin 80 mg PO DAILY bethanechol chloride 50 mg PO BID 90 days cilostazol 100 mg PO BID ferrous sulfate 324 mg PO DAILY furosemide 20 mg PO DAILY 90 days lisinopril 10 mg PO DAILY 30 days mecobalamin (vitamin B12) 1,000 mcg PO DAILY metoprolol succinate ER 100 mg PO DAILY nitroglycerin 0.4 mg sublingual Q5M PRN pantoprazole 40 mg PO DAILY Symbicort 160-4.5 mcg/actuation (budesonide-formoterol) 2 puffs PO BID NS Do you need a note to return to daycare/school/sports/work: No HPI HPI copd: Details: This 58 years old gentleman just turned 78, and in spite of his multiple medical problems he is still doing well. Continues to use his CPAP regularly every night. He uses nasal pillows , and does have some air leak through the mouth as noted by his . But he claims that he sleeps fine , and does not like to use the chinstrap. COPD has remained very stable without any acute exacerbation. He uses O2 just with the portable unit when he goes outdoors, and p.r.n. during the daytime at home, His cardiac status has also remains stable. He has chronic peripheral vascular disease and venous stasis, but it is remaining stable. [facility] Medical History CHF (congestive heart failure) Exercise hypoxemia LAMBERTO on CPAP Pulmonary embolism Right leg DVT Gout BPH (benign prostatic hyperplasia) Obesity (BMI 30-39.9) GERD (gastroesophageal reflux disease) Hypercholesterolemia Chronic kidney disease (CKD) stage G3b/A1, moderately decreased glomerular filtration rate (GFR) between 30-44 mL/min/1.73 square meter and albuminuria creatinine ratio less than 30 mg/g Right renal mass History of stent insertion of renal artery Ischemic cardiomyopathy CAD (coronary artery disease) PVD (peripheral vascular disease) COPD (chronic obstructive pulmonary disease) Hypertension Surgical History History of appendectomy S/P AAA repair S/P CABG x 3 Family History Father Cancer Mother No problems noted. Brother Heart disease Sister Heart disease CVD (cardiovascular disease) Other Mental health disorder Substance use disorder Social History Household Members: Spouse and Children Housing: House Alcohol intake: former Patient Tobacco Use Status: Former Tobacco user Tobacco use type: Cigarette Cigarette Packs Per Day: 1 e-Cigarette/Vaping Use: Never Used Second Hand Smoke Exposure: No Advance Directives Date on File: 05/27/22 service: Yes Current occupational status: retired Cognitive needs: No Hearing needs: No Vision needs: Yes Review of Systems Const All systems reviewed & are unremarkable except as noted in HPI and below Eyes Reports no additional complaints ENT Reports nasal congestion (Mild intermittent) Card Denies chest pain, Reports leg edema and Reports dyspnea on exertion Resp Reports as per HPI and Reports dyspnea on exertion GI Reports heartburn (GERD symptoms controlled) Reports urinary incontinence (Controlled with med) Musc Reports back pain (Mild) Skin/Breast Reports system reviewed and no additional complaints, except as documented Neuro Reports no additional complaints Psych Reports no additional complaints Physical Exam Vital Signs: Last Vital Signs Pulse 55 08/05/23 11:11 BP 152/50 H 08/05/23 11:11 Pulse Ox 93 08/05/23 11:11 Oxygen Delivery Method Nasal Cannula 08/05/23 11:11 Oxygen Flow Rate 2 08/05/23 11:11 BMI result Body Mass Index 30.4 Const General: cooperative, comfortable, no acute distress, alert, awake and well groomed Nutritional Appearance: overweight Orientation/consciousness: patient oriented x3 Limitations: no limitations Neck Neck: Yes trachea midline, Yes supple and Yes no JVD Chest Chest palpation & inspection: normal inspection of the chest, normal palpation of entire chest wall and no tenderness Resp Other: Percussion note is resonant, breath sounds are distant with prolonged expiratory phase. However clear and there is is there is no wheezing or Creps Auscultation: no crackles, no wheezes and diminished lung sounds Cardio Jugular venous distension: no JVD Palpation: normal PMI Rate: regular rate Rhythm: regular rhythm Heart sounds: S1 normal heart sound present, S2 normal heart sound present and Other heart sounds present (S4 present) Peripheral pulses: posterior tibial pulses not present and dorsalis pedis pulses not present GI Auscultation: normal bowel sounds Skin General skin exam: no rashes or lesions noted Neuro General: patient oriented x3 and no focal motor deficits Extrem General: Yes venous stasis dermatitis (But lateral chronic stasis edema worse on the right sides/elastic socks) Psych Appearance: grossly normal and well kempt Mental Status: mental status grossly normal Results Reviewed Results Reviewed: Compliance data not available but he claims that he uses every night regularly Assessment & Plan Assessment & Plan (1) COPD (chronic obstructive pulmonary disease): Comment: HE HAS SEVERE CHRONIC OBSTRUCTIVE PULMONARY DISEASE, HE IS REMAINING STABLE . COPD REMAINS WELL CONTROLLED WITH HIS CURRENT REGIMEN. WHICH INCLUDES: Code(s): J44.9 - Chronic obstructive pulmonary disease, unspecified Category: Medical Qualifiers: COPD type: emphysema Emphysema type: panlobular Qualified Code(s): J43.1 - Panlobular emphysema Plan: Continue to use Symbicort 160-4.52 puffs b.i.d. And albuterol HFA 2 puffs Q 6 hours only p.r.n. (2) Exercise hypoxemia: Comment: Brian is known to have exercise induced hypoxemia. He uses O2 2 L/minute with any physical activity and especially when he goes outdoors. He has POC which is quite convenient to use. Code(s): R09.02 - Hypoxemia Category: Medical Plan: Continue to use O2 2 L/minute for any physical exertion at home or when going outdoors. (3) LAMBERTO on CPAP: Comment: He has chronic obstructive sleep apnea related to his obesity. Treated well with CPAP and he has been very compliant. He does have the new CPAP machine which is a different make ,LUZ His interface is NASAL PILLOWS . He does have Air leak , mostly through the mouth. Code(s): G47.33 - Obstructive sleep apnea (adult) (pediatric); Z99.89 - Dependence on other enabling machines and devices Category: Medical Plan: Continue to use CPAP regularly every night. Discussed about using the chinstrap, but he does not want it. Coding Level of Care Code Est Pt Level 3 (88992) Diagnoses Panlobular emphysema J43.1 COPD type: emphysema Emphysema type: panlobular Exercise hypoxemia R09.02 LAMBERTO on CPAP G47.33; Z99.89
== END 2023-08-05 11:28 | disposition home or self-care (01) ==
PROVIDERS: PCP Internal Medicine; Visit Provider Internal Medicine
DX: J43.1 Panlobular emphysema (principal); R09.02 Hypoxemia; G47.33 Obstructive sleep apnea (adult) (pediatric); Z99.89 Dependence on other enabling machines and devices
CPT/HCPCS: 99213

== ENCOUNTER 2023-09-08 10:32 | Outpatient (AMB) | payer MEDICARE, SELFPAY ==
[2023-09-08 11:03] VITALS: BP 170/56; PULSE 71; O2SAT 88
--- NOTE | 2023-09-08 11:03 | AM.OFFWIN_ITS ---
Intake Vital Signs 09/08/23 11:03 Height 5 ft 5 in BP 170/56 H Blood Pressure Location Rt brachial Position Sitting Pulse 71 Pulse Source Pulse Oximeter Pulse Oximetry (%) 88 L Oxygen Delivery Method Nasal Cannula Intake Visit Reasons: EP Fell 09/04/23 lower back pain/swelling/breathing Intake Note: pt is here for fell on 09/04/23, lower back pain Patient Tobacco Use Status: Former Tobacco user Allergies codeine [CODEINE] Allergy (Unknown, Verified 09/08/23 11:03) STOMACH UPSET Do you need a note to return to daycare/school/sports/work: No HPI EP Fell 09/04/23 lower back pain/swelling/breathing HPI Details This note is constructed using voice recognition software. While every effort has been made to ensure accuracy, relief driller errors may have been included. 78-year-old male patient currently on [place] iquis following clots, presents 4 days after a fall in the shower landing on his back. He notes that he did not want to be seen in the emergency room initially as he has had prolonged wait times in the he denies hitting his head that he knows of, denies lightheadedness or dizziness. He denies chest pain, lightheadedness, dizziness prior to the event. He reports that this was a mechanical fall, has grab bars in the shower, and good skid proof mat on the floor of the shower. His notes that he initially had large amount of bruising on his buttocks. He notes that since the time of the fall he has had pain in his lower back and his ribs bilaterally. He denies any additional shortness of breath, however remains on oxygen long- term due to chronic COPD. He denies loss of control of bowel or bladder. No numbness or tingling. He reports his elevated when he does not take his medicine. He is concerned that he has been put on amlodipine, and after starting that medication his legs swell. He feels that the increased swelling in his legs that has been going on for several months, has led to increased falls. He denies the legs being more swollen than normal. FOR[facility]LY [facility] Medical History CHF (congestive heart failure) Exercise hypoxemia LAMBERTO on CPAP Pulmonary embolism Right leg DVT Gout BPH (benign prostatic hyperplasia) Obesity (BMI 30-39.9) GERD (gastroesophageal reflux disease) Hypercholesterolemia Chronic kidney disease (CKD) stage G3b/A1, moderately decreased glomerular filtration rate (GFR) between 30-44 mL/min/1.73 square meter and albuminuria creatinine ratio less than 30 mg/g Right renal mass History of stent insertion of renal artery Ischemic cardiomyopathy CAD (coronary artery disease) PVD (peripheral vascular disease) COPD (chronic obstructive pulmonary disease) Hypertension Surgical History History of appendectomy S/P AAA repair S/P CABG x 3 Family History Father Cancer Mother No problems noted. Brother Heart disease Sister Heart disease CVD (cardiovascular disease) Other Mental health disorder Substance use disorder Social History Household Members: Spouse and Children Housing: House Alcohol intake: former Patient Tobacco Use Status: Former Tobacco user Tobacco use type: Cigarette Cigarette Packs Per Day: 1 e-Cigarette/Vaping Use: Never Used Second Hand Smoke Exposure: No Advance Directives Date on File: 05/27/22 service: Yes Current occupational status: retired Cognitive needs: No Hearing needs: No Vision needs: Yes Review of Systems Const All systems reviewed & are unremarkable except as noted in HPI and below Physical Exam Vital Signs: Last Vital Signs Pulse 71 09/08/23 11:03 BP 170/56 H 09/08/23 11:03 Pulse Ox 88 L 09/08/23 11:03 Oxygen Delivery Method Nasal Cannula 09/08/23 11:03 Const General: cooperative, healthy appearing, comfortable, no acute distress and alert Orientation/consciousness: patient oriented x3 Limitations: no limitations HEENT Head: Yes normal to inspection and Yes normocephalic Ears: hearing grossly normal bilaterally General nose exam: Normal external nose present Face and sinus: Yes normal facial exam and Yes sinuses nontender Mouth: Normal oral and palatal mucosa present and tongue normal Teeth and gingiva: dentition normal Throat: Yes posterior oropharynx normal Eyes General: appearance normal, both eyes and all related structures Neck Neck: Yes normal visual inspection, Yes full ROM and Yes no lymphadenopathy Resp Other: Tender to palpation over posterior ribs bilaterally. No palpable fracture. Effort & Inspection: normal respiratory effort and able to speak in complete sentences Auscultation: clear to auscultation bilaterally Cardio Jugular venous distension: no JVD Palpation: normal PMI Rate: regular rate Heart sounds: S1 normal heart sound present, S2 normal heart sound present, no click, no gallops, no murmurs and no rubs GI Inspection: Yes normal to inspection Palpation (GI): Soft to palpation and nontender Percussion: Yes normal to percussion Auscultation: normal bowel sounds Back/Spine/Pelvis Other: Tender to palpation over her lumbar region. No step-offs. Skin General skin exam: no rashes or lesions noted, elasticity normal and turgor normal Neuro General: patient oriented x3 Extrem General: Yes capillary refill normal, Yes normal exam except as noted and Yes edema (+2 BLE to knees) Psych Appearance: grossly normal Mental Status: mental status grossly normal Speech and movement: Normal speech and movement present Affect: normal affect Assessment & Plan Assessment & Plan (1) Rib pain on left side: Code(s): R07.81 - Pleurodynia Plan: Will obtain x-ray to rule out fracture. Advised use of acetaminophen, as he is unable to take NSAIDs. Continue with topical lidocaine, as taken at home as well as topical muscle rubs. (2) Rib pain on right side: Code(s): R07.81 - Pleurodynia Plan: Will obtain x-ray to rule out fracture. Advised use of acetaminophen, as he is unable to take NSAIDs. Continue with topical lidocaine, as taken at home as well as topical muscle rubs. (3) Lumbar pain: Code(s): M54.50 - Low back pain, unspecified Plan: X-ray ordered given nature of injury. Supportive measures reviewed. Offered prescription for prednisone for anti-inflammatory effects, declined by patient and his . (4) Fall: Code(s): W19.XXXA - Unspecified fall, initial encounter Qualifiers: Encounter type: initial encounter Qualified Code(s): W19.XXXA - Unspecified fall, initial encounter Plan: Advised follow-up with PCP in regards to the cancer treatment, as he has noted that a contributing factor to the falls is increased leg swelling following calcium channel anabel administration. Continue with use of grab bars and shower. (5) Hypertension: Code(s): I10 - Essential (primary) hypertension Qualifiers: Hypertension type: essential hypertension Qualified Code(s): I10 - Essential (primary) hypertension Plan: Advised follow-up with primary care provider in regards to treatment plan. Patient has not taken his medication today, likely contributing to elevation today. Advised compliance with medication. Plan See above for full details and plan. Orders: Orders XR lumbar spine 2-3V Today M54.50 - Low back pain, unspecified, W19.XXXA - Unspecified fall, initial encounter XR ribs BI min 4V w CXR1V Today R07.81 - Pleurodynia, W19.XXXA - Unspecified fall, initial encounter Coding Level of Care Code Est Pt Level 4 (24156) Diagnoses Rib pain on left side R07.81 Rib pain on right side R07.81 Lumbar pain M54.50 Fall, initial encounter W19.XXXA Encounter type: initial encounter Essential hypertension I10 Hypertension type: essential hypertension Time Spent (min) 25
== END 2023-09-08 11:57 | disposition home or self-care (01) ==
PROVIDERS: PCP Internal Medicine; Visit Provider Registered Nurse
DX: R07.81 Pleurodynia (principal); M54.50 Low back pain, unspecified; W19.XXXA Unspecified fall, initial encounter; I10 Essential (primary) hypertension
CPT/HCPCS: 99213

== ENCOUNTER 2023-09-08 11:52 | Outpatient (REF) | payer MEDICARE, SELFPAY ==
--- NOTE | ~2023-09-08 | XR_ITS ---
EXAMINATION: XR LUMBOSACRAL SPINE CLINICAL INFORMATION: Low back pain COMPARISON: Lumbar spine x-ray on 01/15/2023 TECHNIQUE: Three views of the lumbosacral spine. FINDINGS: The visualized lumbar vertebrae are intact with normal alignment. Intervertebral disc spaces are mildly reduced at L4-L5 and L5-S1. Abdominal aorta and bilateral iliac stent grafts are seen. XR/XR lumbar spine 2-3V IMPRESSION: 1. Unchanged mild L4-L5 and L5-S1 degenerative lumbar disc disease. 2. No fracture or dislocation of lumbar spine is seen. 3. Unchanged abdominal biiliac aortic stent graft.
--- NOTE | ~2023-09-08 | XR_ITS ---
EXAMINATION: XR RIBS, BILATERAL CLINICAL INFORMATION: Pleurodynia COMPARISON: Chest radiograph 05/27/2022 TECHNIQUE: Single view chest with 5 additional views right RIBS. FINDINGS: There is mild cardiac enlargement. Bibasilar scarring/atelectasis is present. Patient status post median sternotomy and CABG. Abdominal aortic stent graft is present. No destructive rib lesions or fractures are seen Some scarring is present at both lung bases, unchanged compared to 05/27/2022 XR/XR ribs BI min 4V w CXR1V IMPRESSION: No acute intrathoracic disease. No rib fractures are seen.
== END 2023-09-08 11:53 | disposition home or self-care (01) ==
LOC: HO.HMGCX 11:52
PROVIDERS: PCP Internal Medicine; Visit Provider Registered Nurse
DX: M54.50 Low back pain, unspecified (principal); R07.81 Pleurodynia; W19.XXXA Unspecified fall, initial encounter
CPT/HCPCS: 71111; 72100

== ENCOUNTER 2023-09-12 03:22 | Inpatient (IN) | payer MEDICARE, SELFPAY ==
[2023-09-12] VITALS (19 sets, daily range): BP systolic 89–172; BP diastolic 33–81; PULSE 70–87; RESP 14–24; TEMP 36.2–38.2; O2SAT 87–96; BMI 34.6
--- NOTE | ~2023-09-12 | CT_ITS ---
EXAMINATION: CT CHEST WITHOUT CONTRAST CLINICAL INFORMATION: Dyspnea, fall. Evaluate for pneumonia. Evaluate for vertebral fracture. COMPARISON: CT exam from 05/27/2022. CXR from 05/27/2022 and 09/12/2023. TECHNIQUE: Multidetector volumetric CT imaging of the chest was done. Axial MIP volume rendering provided. Sagittal and coronal reformatted images were obtained. This CT examination was performed using dose optimization techniques as appropriate, variously including the following: *Automated exposure control *Adjustment of mA and/or kV according to patient size (this includes techniques or standardized protocols for targeted exams where dose is matched to indication/reason for exam; i.e. extremities or head) *Use of iterative reconstruction technique DLP: 403 mGy-cm FINDINGS: LUNGS AND PLEURA: Severe centrilobular emphysema has an upper lobe predominance. An irregular noncalcified nodule of approximately 0.5 cm average diameter within the superior segment of the right lower lobe is unchanged compared to 05/27/2022 (image 278, series 5). Also, no significant change in a nodule of 0.4 cm average diameter in the medial left apex (image 81, series 5). A new area of irregular mild patchy airspace opacity is present in the inferior aspect of the right upper lobe near the minor fissure. Peripheral opacities of mild atelectasis or scarring in both lower lobes. Also, chronic interstitial opacities and traction bronchiectasis in lower lobes. No pleural effusion or pneumothorax. CARDIOVASCULAR: There is cardiomegaly with prominent right atrium. No pericardial effusion. Multivessel atherosclerotic calcification of coronary arteries, status post coronary artery bypass graft surgery. There is extensive atherosclerotic calcification of the thoracic aorta which remains in normal size range. MEDIASTINUM AND LOWER NECK: No mediastinal mass. The esophagus and thyroid gland are unremarkable. LYMPHATICS: No pathologic sized lymph nodes. UPPER ABDOMEN: Gallbladder is distended to approximately 5 cm transverse diameter and contains several small calcified stones. No gallbladder wall thickening or pericholecystic fluid. No intrahepatic ductal dilatation. Adrenal glands are normal. Chronic cortical atrophy of both kidneys. 4.5 cm simple cyst of the upper pole of the left kidney. No renal imaging follow-up is recommended for a simple cyst. 1.7 cm exophytic focus of the lateral left kidney has density of approximately 50 Hounsfield units which is unchanged compared to contrast-enhanced images from 12/26/2021 and is consistent with a proteinaceous cyst (Bosniak category 2 cyst), for which no follow-up imaging is recommended. Aortic stent graft is partially included in [id number]. SKELETAL AND CHEST WALL: There is a healed sternotomy. Sternotomy wires are intact. T9 anterior compression fracture deformity results in approximately 35% anterior height loss. This compression fracture is new compared to 05/27/2022; however, it has a relatively old appearance and was present on radiographs from 09/08/2023. No rib fractures. No chest wall hematoma. CT/CT chest wo IV con IMPRESSION: * Severe pulmonary emphysema. * Chronic interstitial disease with traction bronchiectasis involving lower lobes. * A new area of mild patchy opacity in the inferior aspect of the right upper lobe is suspicious for pneumonia. No pleural effusion or lymphadenopathy. * A few pulmonary nodules are detected and remain stable compared to 05/27/2022. * Atherosclerotic disease of coronary arteries and thoracoabdominal aorta, status post coronary artery bypass graft surgery. * Incidentally noted is a hydropic appearance of the gallbladder and gallstones. However, no gallbladder wall thickening or pericholecystic inflammatory changes. No imaging evidence of cholecystitis. * T9 vertebral body compression fracture appears to be old. However, it is new since the prior chest CT from 05/27/2022.
--- NOTE | ~2023-09-12 | XR_ITS ---
EXAMINATION: XR CHEST CLINICAL INFORMATION: Dyspnea. Productive cough. Concern for pneumonia. COMPARISON: 09/08/2023 TECHNIQUE: Frontal view of the chest was obtained. FINDINGS: The lung volumes are relatively low. The cardiomediastinal silhouette is stable. There is bilateral lower lung field increased markings/patchy opacities. The upper lung casanova are clear. There are no significant pleural effusions. The bony structures and soft tissues are unremarkable. XR/XR chest 1V IMPRESSION: Low lung volumes. Bilateral lower lung field increased markings/patchy opacities. This may be chronic and/or technical. Developing infiltrates also a consideration. Correlation needed.
--- NOTE | ~2023-09-12 | XR_ITS ---
EXAMINATION: XR CHEST CLINICAL INFORMATION: Pneumonia. COMPARISON: Chest radiograph 09/18/2023. TECHNIQUE: Frontal view of the chest was obtained. FINDINGS: Stable prominence of the cardiomediastinal silhouette with sternotomy wires and postsurgical changes from coronary artery bypass graft. Similar to slightly increased patchy and reticular opacities in the lower lung casanova. Background of severe emphysema. No pleural effusion. No pneumothorax. No acute osseous findings. XR/XR chest 1V IMPRESSION: 1. Similar to slightly increased patchy and reticular opacities in the lower lung casanova that could indicate a superimposed infectious/inflammatory process within a background of severe emphysema. Short-term follow-up chest radiograph is recommended. 2. Severe emphysema. 3. No pleural effusion or pneumothorax.
--- NOTE | ~2023-09-12 | XR_ITS ---
EXAMINATION: PORTABLE CHEST 1 VIEW CLINICAL INFORMATION: sob, wheezing, increasing edema. COMPARISON: 09/12/2023. TECHNIQUE: Portable frontal view of the chest was obtained. FINDINGS: The lungs are well expanded. Coarsened reticular markings at both lung bases with some improved aeration of the left base and better visualization of the left hemidiaphragm. No significant effusion, overt edema, or pneumothorax. The patient is status post sternotomy and CABG with vascular calcification in aorta. No acute bony abnormality seen. XR/XR chest 1V IMPRESSION: Chronic appearing and postoperative changes. Persistent linear airspace opacifications with improved aeration at the left base when compared to 09/12/2023.
--- NOTE | ~2023-09-12 | XR_ITS ---
EXAMINATION: XR CHEST CLINICAL INFORMATION: Central line placement. COMPARISON: Most recent chest radiographs dated 09/20/2023. TECHNIQUE: Frontal view of the chest was obtained. FINDINGS: Left-sided central venous catheter with the tip in the region of the left brachiocephalic vein. No pleural effusion or pneumothorax. Patchy bibasilar airspace opacities, unchanged. Stable cardiomediastinal silhouette. Sternal wires and mediastinal surgical clips are redemonstrated. XR/XR chest 1V IMPRESSION: 1. Left-sided central venous catheter with the tip in the region of the left brachiocephalic vein. 2. Patchy bibasilar airspace opacities, unchanged.
--- NOTE | ~2023-09-12 | XR_ITS ---
EXAMINATION: XR CHEST CLINICAL INFORMATION: Central line placement COMPARISON: 09/17/2023 TECHNIQUE: Frontal view of the chest was obtained. FINDINGS: The tip of the right IJ line is at the level the lower right brachiocephalic vein, near region of confluence of right and left brachiocephalic veins. No pneumothorax. The mid and upper lung zones are hyperlucent from the known severe emphysematous disease. There are persistent small patchy and streaky opacities in lower lung zones. No new abnormalities. Cardiomediastinal silhouette has stable size and contour, status post coronary artery bypass graft surgery with intact sternotomy wires in place. XR/XR chest 1V IMPRESSION: No pneumothorax or other significant change after the right IJ line placement.
--- NOTE | ~2023-09-12 | XR_ITS ---
EXAMINATION: XR CHEST CLINICAL INFORMATION: Hypoxia COMPARISON: Chest x-ray 09/20/2023 TECHNIQUE: Frontal view of the chest was obtained. FINDINGS: Cardiac silhouette is normal in size. Atherosclerotic disease of the aortic arch. Left-sided jugular catheter is noted with catheter tip terminating within the mid SVC. Patchy bilateral lower lung airspace disease is likely stable. No gross pleural effusion. No pneumothorax. XR/XR chest 1V IMPRESSION: Stable patchy bilateral lower lung airspace disease.
--- NOTE | 2023-09-12 03:41 | ED.FALL ---
HPI - Fall General Chief Complaint: Fall Stated Complaint: fall Time Seen by Provider: 09/12/23 03:25 Source: patient Mode of arrival: EMS Limitations: no limitations History of Present Illness ED Provider: Dr. Kai Clement HPI Narrative: 78-year-old male with a history of COPD on 2 L of oxygen via nasal cannula, hypertension, coronary disease, ischemic myopathy, hypercholesterolemia, obstructive sleep apnea on CPAP, CHF, right renal mass, chronic kidney disease who presents emergency department for evaluation of fall, back pain, cough and shortness of breath. The patient states he was sitting on the edge of the bed when his right knee gave out on him causing him to slide to the floor landing on his buttocks. He did not hit his head, injure his neck or back. He states that his and son were unable to get him off the floor therefore an ambulance was called and he was transported to the emergency department for evaluation. Patient told me that if he did not fall this evening he would not have come to the emergency department for evaluation since ?this is the last place I want to be?. He states that several weeks prior he did fall backwards in the shower and injured his upper back at that time. He states that he had x-rays after the fall and was told that he had no fractures. He states however he has been having severe upper back pain which is worse with breathing and coughing. He has been taking Tylenol and using lidocaine patches with no relief for the pain. He states that over the past 2 days he has had a cough which is consistent with thick sputum. He denied fever or chills. He states he has shortness of breath but this is chronic in his caused by his COPD. He has noticed increased swelling in his lower extremities but he states he has had similar swelling in the past. Patient's came to the emergency department and states that the patient took a 25 mg tramadol last night for the 1st time she believes that this may have caused him to be weak in his legs gave out on him. She states that the tramadol did not help his pain. She also states that the patient's shortness of breath has been worse since his 1st fall 1 week ago and he has been complaining of severe pain to the point where he has had to sleep in a recliner he has had difficulty walking. Patient does not have nebulizer machine at home. Related Data Home Medications ?Medication ?Instructions ?Recorded ?Confirmed albuterol sulfate 90 mcg/actuation 2 puff inhalation Q6H PRN SOB 04/10/21 09/12/23 aerosol inhaler mecobalamin (vitamin B12) 1,000 1,000 mcg PO DAILY 03/17/23 09/12/23 mcg chewable tablet tramadol 50 mg tablet 50 mg PO BID PRN Severe Pain 09/12/23 09/12/23 (Scale Score 7-10) Previous Rx's ?Medication ?Instructions ?Recorded lisinopril 10 mg tablet 10 mg PO DAILY 30 days #30 tabs 01/13/23 metoprolol succinate 100 mg 100 mg PO DAILY #90 tabs 03/19/23 tablet,extended release 24 hr atorvastatin 80 mg tablet 80 mg PO DAILY #30 tabs 04/24/23 nitroglycerin 0.4 mg sublingual 0.4 mg sublingual Q5M PRN chest 05/14/23 tablet pain #25 tabs apixaban 2.5 mg tablet 2.5 mg PO BID #60 tabs 05/16/23 cilostazol 100 mg tablet 100 mg PO BID #60 tabs 06/10/23 pantoprazole 40 mg tablet,delayed 40 mg PO DAILY #30 tabs 06/13/23 release Symbicort 160 mcg-4.5 2 puff PO BID #10.2 grams 06/17/23 mcg/actuation HFA aerosol inhaler (budesonide-formoterol) furosemide 20 mg tablet 20 mg PO DAILY 90 days #90 tabs 06/30/23 amiodarone 200 mg tablet 200 mg PO DAILY #30 tabs 08/15/23 ascorbic acid (vitamin C) 500 mg 500 mg PO DAILY 90 days #90 tabs 08/29/23 tablet Allergies Allergy/AdvReac Type Severity Reaction Status Date / Time codeine [CODEINE] Allergy Unknown STOMACH Verified 09/12/23 03:32 UPSET Iodinated Contrast Media Allergy Anaphylaxis Verified 09/12/23 03:32 [Contrast Dye] oxycodone Allergy Anaphylaxis Verified 09/12/23 03:32 Review of Systems Review of Systems: Yes all other systems are reviewed and are negative [facility] Past Medical History [facility] Narrative: Social history: He states he lives at home with his . Medical History CHF (congestive heart failure) Exercise hypoxemia LAMBERTO on CPAP Pulmonary embolism Right leg DVT Gout BPH (benign prostatic hyperplasia) Obesity (BMI 30-39.9) GERD (gastroesophageal reflux disease) Hypercholesterolemia Chronic kidney disease (CKD) stage G3b/A1, moderately decreased glomerular filtration rate (GFR) between 30-44 mL/min/1.73 square meter and albuminuria creatinine ratio less than 30 mg/g Right renal mass History of stent insertion of renal artery Ischemic cardiomyopathy CAD (coronary artery disease) PVD (peripheral vascular disease) COPD (chronic obstructive pulmonary disease) Hypertension Surgical History History of appendectomy S/P AAA repair S/P CABG x 3 Family History Family History Father Cancer Mother No problems noted. Brother Heart disease Sister Heart disease CVD (cardiovascular disease) Other Mental health disorder Substance use disorder Social History Social History Household Members: Spouse, Family and Children Housing: House Do you presently have visiting nurse or other home services: No Alcohol intake: former Patient Tobacco Use Status: Former Tobacco user Tobacco use type: Cigarette Cigarette Packs Per Day: 1 e-Cigarette/Vaping Use: Never Used Second Hand Smoke Exposure: No Advance Directives Date on File: 05/27/22 service: Yes Current occupational status: retired Cognitive needs: No Hearing needs: No Vision needs: Yes Physical Exam Vital Signs: Vital Signs: Last Vital Signs Temp 98.8 F 09/13/23 07:54 Pulse 71 09/13/23 11:09 Resp 18 09/13/23 11:09 BP 134/70 09/13/23 08:45 Pulse Ox 94 09/13/23 07:54 O2 Del Method Nasal Cannula 09/13/23 07:54 O2 Flow Rate 3 09/13/23 07:54 Oxygen Flow Rate 2 09/12/23 03:30 BMI result Body Mass Index 34.6 Elevated respiratory rate of 20, elevated blood pressure of 172/61 Exam: General: Awake, alert, appears dyspneic and is tachypneic, also appears to be in in distress secondary to his upper back pain. Head: Normocephalic, atraumatic EENT: PERRL, Lids normal, sclera normal, conjunctiva normal, nose normal , ears normal, throat without erythema or exudates Neck: Supple, no adenopathy Lung: breath sounds symmetric, diffuse wheezing and rhonchi with no rales Chest: symmetric movement, nontender Heart: regular rate and rhythm, normal S1, S2 no murmurs or rubs Abdomen: soft, non-tender, nondistended, normal bowel sounds Back: no vertebral tenderness, no paraspinal muscle tenderness, no CVA tenderness Extremities: no deformities, moves all extremities symmetrically, trace to 1+ pitting edema in his lower extremities, symmetric Neuro: Awake, alert, oriented, normal speech, cranial nerves intact, moves all extremities symmetrically Psych: Pleasant, cooperative Medications Administered Generic Name Dose Route Start Last Admin Trade Name Freq PRN Reason Stop Dose Admin Albuterol/Ipratropium 3 ml 09/12/23 12:00 09/13/23 11:08 Albuterol/Iprat 2.5/0.5mg 3 Ml Ampul.Neb INHALE 3 ml RQ4H WHILE AWAKE EDWARD Administration Albuterol/Ipratropium 3 ml 09/12/23 10:39 09/13/23 00:00 Albuterol/Iprat 2.5/0.5mg 3 Ml Ampul.Neb INHALE 3 ml Q4H PRN Administration Wheezing Amiodarone HCl 200 mg 09/13/23 09:00 09/13/23 08:45 Amiodarone Hcl 200 Mg Tablet PO 200 mg DAILY EDWARD Administration Apixaban 2.5 mg 09/12/23 21:00 09/13/23 08:44 Apixaban 2.5 Mg Tablet PO 2.5 mg BID EDWARD Administration Ascorbic Acid 500 mg 09/13/23 09:00 09/13/23 08:44 Ascorbic Acid 500 Mg Tablet PO 500 mg DAILY EDWARD Administration Atorvastatin Calcium 80 mg 09/13/23 09:00 09/13/23 08:44 Atorvastatin Calcium 80 Mg Tablet PO 80 mg DAILY EDWARD Administration Cilostazol 100 mg 09/12/23 21:00 09/13/23 08:45 Cilostazol 100 Mg Tablet PO 100 mg BID EDWARD Administration Cyanocobalamin 1,000 mcg 09/13/23 09:00 09/13/23 08:44 Cyanocobalamin (Vitamin B-12) 1,000 Mcg Tablet PO 1,000 mcg DAILY EDWARD Administration Fluticasone/Vilanterol 1 puff 09/12/23 12:30 09/13/23 08:23 Fluticasone/Vilanterol 200/25 Blst.W.Dev INHALE Not Given RDAILY EDWARD Furosemide 20 mg 09/12/23 11:55 09/13/23 08:44 Furosemide 20 Mg Tablet PO 20 mg DAILY EDWARD Administration Protocol Levofloxacin 750 mg in 150 mls @ 100 mls/hr 09/12/23 10:45 09/12/23 12:42 Levaquin IV Infused Q48H EDWARD Infusion Lisinopril 10 mg 09/12/23 11:55 09/13/23 08:45 Lisinopril 10 Mg Tablet PO 10 mg DAILY EDWARD Administration Protocol Magnesium Hydroxide 30 ml 09/12/23 10:39 09/13/23 08:53 Milk Of Magnesia 30 Ml Oral.Susp PO 30 ml DAILY PRN Administration Constipation Methylprednisolone Sodium Succinate 40 mg 09/12/23 19:00 09/13/23 06:01 Methylprednisolone Sod Succ 40 Mg/Ml Vial IVPUSH 40 mg Q12H EDWARD Administration Metoprolol Succinate 100 mg 09/12/23 11:55 09/13/23 08:44 Metoprolol Succinate Er 100 Mg Tab.Er.24h PO 100 mg DAILY EDWARD Administration Protocol Omeprazole 20 mg 09/13/23 06:30 09/13/23 05:59 Omeprazole 20 Mg Capsule.Dr PO 20 mg DAILY@0630 EDWARD Administration Sodium Chloride 3 ml 09/12/23 16:00 09/13/23 08:44 0.9 % Sodium Chloride Flush 3 Ml Syringe IVFLUSH 3 ml QSHIFT EDWARD Administration Discontinued Medications Generic Name Dose Route Start Last Admin Trade Name Freq PRN Reason Stop Dose Admin Acetaminophen 975 mg 09/12/23 07:24 09/12/23 07:40 Acetaminophen 325 Mg Tablet PO 09/12/23 07:25 975 mg ONCE STA Administration Albuterol Sulfate 5 mg 09/12/23 05:50 09/12/23 06:17 Albuterol Sulfate 2.5 Mg/0.5 Ml Vial.Neb INHALE 09/12/23 05:51 5 mg ONCE ONE Administration Albuterol Sulfate 5 mg/ 0 mg 09/12/23 04:00 09/12/23 04:04 Albuterol/Ipratropium 3 ml INHALE 09/12/23 04:01 1 each ONCE ONE Administration Ceftriaxone Sodium 1 gm/ 50 mls @ 100 mls/hr 09/12/23 07:24 09/12/23 08:15 Sodium Chloride IV 09/12/23 07:53 Infused ONCE ONE Infusion Azithromycin 500 mg/ Sodium 250 mls @ 125 mls/hr 09/12/23 07:24 09/12/23 10:19 Chloride IV 09/12/23 09:23 Infused ONCE ONE Infusion Sodium Chloride 500 mls @ 500 mls/hr 09/12/23 08:15 09/12/23 10:19 Ns IV 09/12/23 09:14 Infused .Q1H EDWARD Infusion Methylprednisolone Sodium Succinate 125 mg 09/12/23 05:50 09/12/23 06:22 Methylprednisolone Sod Succ 125 Mg/2 Ml Vial IVPUSH 09/12/23 05:51 125 mg ONCE ONE Administration Morphine Sulfate 15 mg 09/12/23 03:41 09/12/23 03:44 Morphine Sulfate Immed Release 15 Mg Tablet PO 09/12/23 03:42 15 mg ONCE ONE Administration Morphine Sulfate 4 mg 09/12/23 05:42 09/12/23 06:22 Morphine Sulfate 4 Mg/Ml Cartridge IVPUSH 09/12/23 05:43 4 mg ONCE STA Administration Protocol 78-year-old male with a history of COPD on 2 L of oxygen via nasal cannula, hypertension, coronary disease, ischemic myopathy, hypercholesterolemia, obstructive sleep apnea on CPAP, CHF, right renal mass, chronic kidney disease who presents emergency department for evaluation of fall, back pain, cough and shortness of breath. Patient states he was sitting on the side of his bed when his right knee gave out on him causing him to slip to the floor and landing on his buttocks. He had no acute injury from the fall but was unable to get up, family was unable to get him off the floor therefore an ambulance was called and he was brought to emergency department. Patient did fall 2 weeks prior with injury to his upper back with negative x-rays. He states that since then he has been having constant back pain which is worse with coughing and breathing. Patient has had a productive cough for the past 2 days and states that he was short of breath but this is consistent with a COPD. Vital signs revealed elevated blood pressure and elevated respiratory rate. Patient had no vertebral tenderness or paraspinal muscle tenderness. Lung exam did reveal diffuse wheezing and rhonchi. Differential diagnosis: ?Includes but is not limited to COPD exacerbation, pneumonia, contusion to back, mechanical fall Following evaluation was ordered: Chest x-ray one view Patient was initially treated with the following: Bronchodilator protocol, morphine 15 mg orally Course: Medical Decision Making Medical Decision Making MDM Narrative: 78-year-old male with a history of COPD on 2 L of oxygen via nasal cannula, hypertension, coronary disease, ischemic myopathy, hypercholesterolemia, obstructive sleep apnea on CPAP, CHF, right renal mass, chronic kidney disease who presents emergency department for evaluation of fall, back pain, cough and shortness of breath. Patient states he was sitting on the side of his bed when his right knee gave out on him causing him to slip to the floor and landing on his buttocks. Patient has been complaining of severe back pain since a fall 1 week prior, had negative spine x-rays as an outpatient. Patient states he has had a productive cough and difficulty breathing Vital signs revealed elevated blood pressure and elevated respiratory rate. Patient had no vertebral tenderness or paraspinal muscle tenderness. Lung exam did reveal diffuse wheezing and rhonchi. 07:26 Differential diagnosis: ?Includes but is not limited to exacerbation of chronic lung disease , pneumonia, contusion to back, mechanical fall, vertebral fracture, rib fractures, electrolyte abnormalities, anemia Following evaluation was ordered: CBC, CMP, magnesium, lactic acid, PTT, troponin, VBG, blood cultures x2, chest x-ray, CT scan of the chest without IV contrast Patient was initially treated with the following: Bronchodilator protocol, morphine 15 mg orally Course: 07:26 hours The patient got no improvement with his oral morphine, therefore I ordered morphine 4 mg IV. Patient only had minimal improvement of his breathing with the albuterol 7.5 mg and ipratropium 0.5 mg, therefore I ordered albuterol 5 mg nebulized and Solu-Medrol 125 mg IV. My interpretation patient's laboratory evaluation is as follows: WBCs elevated 11,100. Patient has a normocytic anemia with an H&H of 11.5 and 35.0-this is chronic. VBG revealed a normal pH of 7.40 and a normal pCO2 of 33 with a slightly low bicarb 20-this is reassuring VBG. Patient's BUN and creatinine were elevated 45 and 2.32-this is chronic. CO2 was low 19. Troponin was elevated at 81.9-this could be secondary to the patient's chronic kidney disease. Repeat due at 09:15 hours. Lactic acid was normal at 1.7. Urinalysis positive for blood and leukocyte esterase. Microscopic revealed greater than 20 RBCs, greater than 50 WBCs, 3-5 squamous cells and 4+ bacteria-this is consistent with a UTI. CT scan of the chest did not reveal any rib fractures but the patient does have a new T9 compression fracture compared to CT scan on 0 05/27/2022 but seen on radiographs on 09/08/2023 (when the patient fell)-this could explain the patient's severe back pain. CT also revealed a new patchy infiltrate in the right upper lobe. Patient will be treated for pneumonia and urinary tract infection with ceftriaxone 1 g IV and azithromycin 500 mg IV. 08:06 I did discuss the patient's admission over tiger text with the admitting hospitalist physician topographical field assistant, Cornelia Lucio the patient will be admitted further management. Admission/Observation Consideration of admission/observation: Escalation of care including admission/observation considered Lab Data MDM Lab Attestation statement: I reviewed the patient's lab results. 09/13/23 06:30 09/13/23 06:23 Labs: Lab Results 09/12/23 09/12/23 09/12/23 Range/Units 06:16 06:32 06:39 WBC 11.1 H (4.8-10.8) X10*3/uL RBC 3.97 L (4.60-5.80) X10*6/uL Hgb 11.8 L (14.0-18.0) g/dl Hct 35.0 L (42.0-52.0) % MCV 88.2 (80.0-98.0) fL MCH 29.7 (27.0-33.0) pg MCHC 33.7 (31.0-36.0) g/dl RDW 16.7 H (11.0-16.0) % Plt Count 195 (160-400) X10*3/uL MPV 8.7 L (9.4-12.4) fL Immature Gran % (Auto) 0.5 H (0.0-0.4) % Neut % (Auto) 83.3 H (45-73) % Lymph % (Auto) 7.0 L (20-40) % [place] % (Auto) 8.2 (2-11) % Eos % (Auto) 0.5 (0-4) % Baso % (Auto) 0.5 (0-2) % Lymph # (Auto) 0.8 L (1.2-4.9) X10*3/uL [place] # (Auto) 0.9 (0.1-1.2) X10*3/uL Eos # (Auto) 0.1 (0.0-0.4) X10*3/uL Baso # (Auto) 0.1 (0.0-0.2) X10*3/uL Abs Immat Gran (auto) 0.06 H (0.00-0.03) X10*3/uL Absolute Neuts (auto) 9.2 H (2.0-8.3) x10*3/uL Absolute Nucleated RBC 0.000 (0.0-0.012) X10*3/uL Nucleated RBC % (auto) 0.0 (0.0-0.2) /100WBC APTT 37.6 H (26.0-36.8) SEC VBG pH 7.40 (7.32-7.43) VBG pCO2 33 mmHg VBG pO2 87 mmHg VBG HCO3 20 L (22-26) mmol/L VBG O2 Saturation 97.0 % VBG Base Excess -3.0 mmol/L Sodium 137 (135-145) mmol/L Potassium 4.7 (3.3-5.1) mmol/L Chloride 106 (96-108) mmol/L Carbon Dioxide 19 L (22-29) mmol/L Anion Gap 17 (12-20) BUN 45 H (9-16) mg/dL Creatinine 2.32 H (0.5-1.4) mg/dL Estim Creat Clear Calc 26.8 Estimated GFR 27 Random Glucose 114 (60-115) mg/dL Lactic Acid 1.7 (0.5-2.0) mmol/L Calcium 9.2 (8.4-10.2) mg/dL Magnesium 2.0 (1.6-2.6) mg/dL Total Bilirubin 0.6 (0.0-1.0) mg/dL AST 25 (5-37) U/L ALT 22 (0-40) U/L Alkaline Phosphatase 105 (39-117) U/L Total Creatine Kinase 64 (38-174) U/L Troponin I High Sens 81.9 H D (<3.5-35.0) ng/L Total Protein 6.6 (6.5-8.0) g/dL Albumin 3.6 (3.5-5.0) g/dL Lipase 12 (8-78) U/L Urine Color Yellow Urine Appearance Turbid Urine pH 5.5 (5.0-9.0) Ur Specific [place] 1.015 (1.005-1.025) Urine Protein 100 (2+) H (Neg-Trace) mg/dL Urine Glucose (UA) Negative (Negative) mg/dL Urine Ketones Negative (Negative) mg/dL Urine Blood Large (3+) H (Negative) Urine Nitrite Negative (Negative) Ur Leukocyte Esterase Large (3+) H (Negative) Urine RBC >20 H (0-2) /HPF Urine WBC >50 H (0-5) /HPF Ur Squamous Epith Cells 3-5 (0-2) /HPF Urine Bacteria 4+ (None Seen) Hyaline Casts 0-2 (0-2) /LPF 09/12/23 Range/Units 09:09 WBC (4.8-10.8) X10*3/uL RBC (4.60-5.80) X10*6/uL Hgb (14.0-18.0) g/dl Hct (42.0-52.0) % MCV (80.0-98.0) fL MCH (27.0-33.0) pg MCHC (31.0-36.0) g/dl RDW (11.0-16.0) % Plt Count (160-400) X10*3/uL MPV (9.4-12.4) fL Immature Gran % (Auto) (0.0-0.4) % Neut % (Auto) (45-73) % Lymph % (Auto) (20-40) % [place] % (Auto) (2-11) % Eos % (Auto) (0-4) % Baso % (Auto) (0-2) % Lymph # (Auto) (1.2-4.9) X10*3/uL [place] # (Auto) (0.1-1.2) X10*3/uL Eos # (Auto) (0.0-0.4) X10*3/uL Baso # (Auto) (0.0-0.2) X10*3/uL Abs Immat Gran (auto) (0.00-0.03) X10*3/uL Absolute Neuts (auto) (2.0-8.3) x10*3/uL Absolute Nucleated RBC (0.0-0.012) X10*3/uL Nucleated RBC % (auto) (0.0-0.2) /100WBC APTT (26.0-36.8) SEC VBG pH (7.32-7.43) VBG pCO2 mmHg VBG pO2 mmHg VBG HCO3 (22-26) mmol/L VBG O2 Saturation % VBG Base Excess mmol/L Sodium (135-145) mmol/L Potassium (3.3-5.1) mmol/L Chloride (96-108) mmol/L Carbon Dioxide (22-29) mmol/L Anion Gap (12-20) BUN (9-16) mg/dL Creatinine (0.5-1.4) mg/dL Estim Creat Clear Calc Estimated GFR Random Glucose (60-115) mg/dL Lactic Acid (0.5-2.0) mmol/L Calcium (8.4-10.2) mg/dL Magnesium (1.6-2.6) mg/dL Total Bilirubin (0.0-1.0) mg/dL AST (5-37) U/L ALT (0-40) U/L Alkaline Phosphatase (39-117) U/L Total Creatine Kinase (38-174) U/L Troponin I High Sens 72.8 H (<3.5-35.0) ng/L Total Protein (6.5-8.0) g/dL Albumin (3.5-5.0) g/dL Lipase (8-78) U/L Urine Color Urine Appearance Urine pH (5.0-9.0) Ur Specific [place] (1.005-1.025) Urine Protein (Neg-Trace) mg/dL Urine Glucose (UA) (Negative) mg/dL Urine Ketones (Negative) mg/dL Urine Blood (Negative) Urine Nitrite (Negative) Ur Leukocyte Esterase (Negative) Urine RBC (0-2) /HPF Urine WBC (0-5) /HPF Ur Squamous Epith Cells (0-2) /HPF Urine Bacteria (None Seen) Hyaline Casts (0-2) /LPF Independent Interpretation I performed an independent interpretation of an: EKG and Plain X-Ray Interpretation: My interpretation patient's 12 EKG done at 06:22 hours is as follows: Atrial fibrillation with ventricular rate V2, wide complex QRS we is a prolonged QRS duration of 176 milliseconds with a prolonged QTC of 532 milliseconds, nonspecific interventricular conduction delay no ST segment elevation, no ST segment depression, Q-waves 2, 3, AVF the 3, inverted T-waves V1 through V2. My interpretation of the patient's one-view chest x-ray is as follows: Increased interstitial markings bilaterally Radiology Impression Discussion of test interpretation with radiology: I have reviewed the radiologist's reading. Radiologist Impression: XR chest 1V IMPRESSION: Low lung volumes. Bilateral lower lung field increased markings/patchy opacities. This may be chronic and/or technical. Developing infiltrates also a consideration. Correlation needed. Dictated By: Terrence Joe MD CT chest wo IV con IMPRESSION: * Severe pulmonary emphysema. * Chronic interstitial disease with traction bronchiectasis involving lower lobes. * A new area of mild patchy opacity in the inferior aspect of the right upper lobe is suspicious for pneumonia. No pleural effusion or lymphadenopathy. * A few pulmonary nodules are detected and remain stable compared to 05/27/2022. * Atherosclerotic disease of coronary arteries and thoracoabdominal aorta, status post coronary artery bypass graft surgery. * Incidentally noted is a hydropic appearance of the gallbladder and gallstones. However, no gallbladder wall thickening or pericholecystic inflammatory changes. No imaging evidence of cholecystitis. * T9 vertebral body compression fracture appears to be old. However, it is new since the prior chest CT from 05/27/2022. Dictated By: Wallace Leiva MD Independent Historian Clinical information obtained from an independent historian. History obtained from or confirmed by: Spouse External Record Review External record reviewed: Inpatient record Chronic Conditions Patient?s care impacted by: Other (COPD) Critical Care Time Critical Care Time Critical Care Time: Yes Total Critical Care Time: 80 Attestation: Critical Care: The patient was critically ill with a high probability of imminent or life threatening deterioration. I spent greater than 30 minutes of discontinuous time evaluating the patient,delivering critical care at the bedside, discussing and evaluating pertinent data with consultants. Critical care time does not include time spent performing separately billable procedures or teaching. Total time spent performing critical care was 80 minutes. Discharge Plan Discharge Clinical Impression: Pneumonia, Urinary tract infection, Compression fracture of T9 vertebra Patient Disposition: Admitted As Inpatient Interventions: Admission Worksheet (ED) Last Done: 09/12/23 15:18 Discharge Date/Time: 09/12/23 15:47
[2023-09-12] MEDS: Morphine Sulfate Immed Release 15 MG TABLET PO (03:44)
[2023-09-12] MEDS: Albuterol Sulfate 5 MG, Albuterol/Iprat 2.5/0.5MG 3 ML 3 ML INHALE (04:04)
--- NOTE | 2023-09-12 04:15 | PC.NURSE ---
pt biba from home, a&ox4, respirations even and unlabored. pt reports trying to get out of bed when he slipped and fell out of the bed. pt denies head strike and loc. pt reports being on blood thinners. pt reporting 10/10 back pain, denies pain elsewhere. pt on 2L nasal cannula baseline, reports increasing shortness of breath. pt medicated per mar, tolerated well with water.
--- NOTE | 2023-09-12 05:02 | PC.NURSE ---
at bedside, reporting pt took tramadol for the first time last night prior to fall. felt unsteady after. then fell. aware
--- NOTE | 2023-09-12 05:42 | ECG_ITS ---
Test Reason : SOB Blood Pressure : / mmHG Vent. Rate : 082 BPM Atrial Rate : 000 BPM P-R Int : 000 ms QRS Dur : 176 ms QT Int : 456 ms P-R-T Axes : 000 -85 058 degrees QTc Int : 532 ms Wide QRS rhythm Right bundle branch block Left anterior fascicular block Bifascicular block Cannot rule out Inferior infarct , age undetermined Abnormal ECG When compared with ECG of 27-MAY-2022 16:16, Wide QRS rhythm has replaced Sinus rhythm Referred By: Kai Clement Electronically Signed By:Dipak Sanchez
[2023-09-12] MEDS: Albuterol Sulfate 2.5 MG/0.5 ML VIAL.NEB 5 MG INHALE (06:17)
[2023-09-12 06:22] LABS: Venous Blood Gas Refer to POC result
[2023-09-12] MEDS: methylPREDNISolone Sod Succ 125 MG/2 ML VIAL IVPUSH (06:22)
[2023-09-12] MEDS: Morphine Sulfate 4 MG/ML CARTRIDGE IVPUSH (06:22)
[2023-09-12 06:23] LABS: MANUAL DIFF FLAG NO
[2023-09-12 06:24] LABS: Basophils Absolute Auto 0.1 X10*3/uL (0.0-0.2); Basophils Percent Auto 0.5 % (0-2); Eosinophils Absolute Auto 0.1 X10*3/uL (0.0-0.4); Eosinophils Percent Auto 0.5 % (0-4); Hemoglobin 11.8 g/dl (14.0-18.0); Imm Gran Abs Auto 0.06 X10*3/uL (0.00-0.03); Imm Gran Pct Auto 0.5 % (0.0-0.4); Lymphocytes Absolute Auto 0.8 X10*3/uL (1.2-4.9); Mean Corpuscular HGB Conc 33.7 g/dl (31.0-36.0); Mean Corpuscular Hemoglobin 29.7 pg (27.0-33.0); Mean Corpuscular Volume 88.2 fL (80.0-98.0); Mean Platelet Volume 8.7 fL (9.4-12.4); Monocytes Absolute Auto 0.9 X10*3/uL (0.1-1.2); Monocytes Percent Auto 8.2 % (2-11); Neutrophils Absolute Auto 9.2 x10*3/uL (2.0-8.3); Neutrophils Percent Auto 83.3 % (45-73); Platelet Count 195 X10*3/uL (160-400); Red Blood Count 3.97 X10*6/uL (4.60-5.80); Red Cell Distribution Width 16.7 % (11.0-16.0); White Blood Count 11.1 X10*3/uL (4.8-10.8)
[2023-09-12 06:34] LABS: Partial Thromboplastin Time 37.6 SEC (26.0-36.8)
[2023-09-12 06:37] LABS: Lactic Acid 1.7 mmol/L (0.5-2.0)
[2023-09-12 06:39] LABS: VBG HCO3 20 mmol/L (22-26); VBG pCO2 33 mmHg; VBG pO2 87 mmHg
[2023-09-12 06:42] LABS: Alanine Aminotransferase 22 U/L (0-40); Albumin Level 3.6 g/dL (3.5-5.0); Alkaline Phosphatase 105 U/L (39-117); Anion Gap 17 (12-20); Aspartate Amino Transferase 25 U/L (5-37); Bilirubin Total 0.6 mg/dL (0.0-1.0); Blood Urea Nitrogen 45 mg/dL (9-16); Calcium 9.2 mg/dL (8.4-10.2); Carbon Dioxide 19 mmol/L (22-29); Chloride 106 mmol/L (96-108); Creatinine Clr Calc Pharmacy 26.8; Estimated Glomerular Filt Rate 27; Glucose Random 114 mg/dL (60-115); Lipase 12 U/L (8-78); Potassium 4.7 mmol/L (3.3-5.1); Sodium 137 mmol/L (135-145); Total Protein 6.6 g/dL (6.5-8.0)
[2023-09-12 06:48] LABS: Troponin-I High Sensitivity 81.9 ng/L (<3.5-35.0)
[2023-09-12 06:59] LABS: Appearance Urine Turbid; Color Urine Yellow; Glucose Urine UA Negative (Negative); Leukocyte Esterase Urine Large (3+) (Negative); Nitrite Urine Negative (Negative); PH 5.5 (5.0-9.0); Specific Gravity - Urine 1.015 (1.005-1.025); UMIC TRIGGER UACC YES; Urine Blood Large (3+) (Negative); Urine Ketones Negative (Negative); Urine Protein 100 (2+) mg/dL (Neg-Trace)
[2023-09-12 07:04] LABS: Bacteria Urine 4+ (None Seen); Hyaline Casts Urine 0-2 /LPF (0-2); RBC Urine >20 /HPF (0-2); UACC Culture Trigger YES; WBC Urine >50 /HPF (0-5)
[2023-09-12] MEDS: cefTRIAXone sodium 1 GM in 0.9 % Sodium Chloride 50 ML IV (07:37)
[2023-09-12] MEDS: Azithromycin 500 MG in 0.9 % Sodium Chloride 250 ML 125 MG IV (07:40)
[2023-09-12] MEDS: Acetaminophen 325 MG TABLET 975 MG PO (07:40)
--- NOTE | 2023-09-12 08:56 | PHA.MEDREC ---
Addendum entered by Dyana Arellano RPh 09/12/23 09:01: Med Rec Reviewed. Patient had hand written list Original Note: Pharmacy Consult ? Medication Reconciliation Pharmacy has completed the medication reconciliation. Confirmed medications with list from .
[2023-09-12] MEDS: 0.9 % Sodium Chloride 500 ML IV (09:06)
[2023-09-12 09:34] LABS: Troponin-I High Sensitivity 72.8 ng/L (<3.5-35.0)
--- NOTE | 2023-09-12 10:42 | PM.IMHP ---
History of Present Illness Date of Service: 09/12/23 Chief Complaint: Dyspnea This is a 78-year-old male with pertinent history of congestive heart failure with reduced ejection fraction due to ischemic cardiomyopathy, history of nonsustained V-tach, coronary artery disease status post CABG in 2015, chronic hypoxic respiratory failure due to COPD on baseline 2 L supplemental oxygen with ambulation, LAMBERTO on CPAP, CKD stage 3, peripheral arterial disease, AAA without rupture, gastroesophageal reflux disease, mixed hyperlipidemia, history of DVT and PE on Eliquis, BPH who presents to the emergency department for evaluation of dyspnea. Patient states he felt weak yesterday causing him to slide on the floor. Did not hit his head. Patient states he has been having difficulty breathing with cough and wheezing that has been ongoing for the last 4-5 days. Also has been having dysuria with increased urinary frequency. Patient had a fall in the bathtub last week and he went to an urgent care where x-ray was done. Patient has been taking p.o. Tylenol and lidocaine without any relief. Recently patient's amlodipine was changed to hydralazine due to lower leg edema. No fever, chills, chest discomfort, palpitations, abdominal pain, changes in bowel habits. In the emergency department, patient was found to be febrile with temp 100.7 degrees and imaging with pneumonia. Patient was also found to be wheezing and initiated on IV steroids and DuoNebs. Review of Systems Constitutional: Constitutional: Reports lethargy, Reports malaise, Reports poor appetite and Reports weakness Cardiovascular: Cardiovascular: Reports dyspnea on exertion Respiratory: Respiratory: Reports cough, Reports dyspnea on exertion and Reports wheezing Gastrointestinal: Gastrointestinal: Reports no additional gastrointestinal complaints Genitourinary: Genitourinary: Reports dysuria and Reports urinary frequency Neurologic: Reports weakness Allergic/Immunologic: Allergic/Immunologic: Reports wheezing [facility] Medical History CHF (congestive heart failure) Exercise hypoxemia LAMBERTO on CPAP Pulmonary embolism Right leg DVT Gout BPH (benign prostatic hyperplasia) Obesity (BMI 30-39.9) GERD (gastroesophageal reflux disease) Hypercholesterolemia Chronic kidney disease (CKD) stage G3b/A1, moderately decreased glomerular filtration rate (GFR) between 30-44 mL/min/1.73 square meter and albuminuria creatinine ratio less than 30 mg/g Right renal mass History of stent insertion of renal artery Ischemic cardiomyopathy CAD (coronary artery disease) PVD (peripheral vascular disease) COPD (chronic obstructive pulmonary disease) Hypertension Family History Father Cancer Mother No problems noted. Brother Heart disease Sister Heart disease CVD (cardiovascular disease) Other Mental health disorder Substance use disorder Surgical History History of appendectomy S/P AAA repair S/P CABG x 3 Social History Household Members: Spouse and Children Housing: House Alcohol intake: former Patient Tobacco Use Status: Former Tobacco user Tobacco use type: Cigarette Cigarette Packs Per Day: 1 Smoked in Last 30 Days: No e-Cigarette/Vaping Use: Never Used Second Hand Smoke Exposure: No Use of substances other than those prescribed or required for medical reasons: No Advance Directives: Yes Advance Directives on File: Yes Advance Directives Date on File: 05/27/22 Do you have a plan to hurt others: No Plan service: Yes Current occupational status: retired Cognitive needs: No Hearing needs: No Vision needs: Yes Meds Allergies Allergy/AdvReac Type Severity Reaction Status Date / Time codeine [CODEINE] Allergy Unknown STOMACH Verified 09/12/23 03:32 UPSET Iodinated Contrast Media Allergy Anaphylaxis Verified 09/12/23 03:32 [Contrast Dye] oxycodone Allergy Anaphylaxis Verified 09/12/23 03:32 Home Medications ?Medication ?Instructions ?Recorded ?Confirmed ?Last Taken ?Type albuterol sulfate 90 mcg/actuation 2 puff inhalation Q6H PRN SOB 04/10/21 09/12/23 09/11/23 History aerosol inhaler mecobalamin (vitamin B12) 1,000 1,000 mcg PO DAILY 03/17/23 09/12/23 09/11/23 History mcg chewable tablet tramadol 50 mg tablet 50 mg PO BID PRN Severe Pain 09/12/23 09/12/23 09/11/23 History (Scale Score 7-10) Physical Exam Vital Signs and Narrative: Vital Signs: Last Vital Signs Temp 100.7 F H 09/12/23 06:34 Pulse 75 09/12/23 09:07 Resp 20 09/12/23 09:07 BP 96/33 L 09/12/23 09:07 Pulse Ox 92 09/12/23 09:07 O2 Del Method Nasal Cannula 09/12/23 09:07 O2 Flow Rate 4 09/12/23 09:07 Oxygen Flow Rate 2 09/12/23 03:30 BMI result Body Mass Index 34.6 Middle-aged male lying in bed in mild distress on supplemental oxygen Neck supple Regular rate and rhythm, S1-S2 heard Bilateral wheezing appreciated Abdomen soft nontender, no guarding, no rigidity Patient is awake, alert and oriented to self, place, time and person ; no focal motor deficit Psych: Normal mood Bilateral pedal edema Results Labs 09/12/23 06:16 09/12/23 06:16 Labs: Laboratory Results - last 24 hr 09/12/23 09/12/23 09/12/23 06:16 06:32 06:39 MCV 88.2 MCH 29.7 MCHC 33.7 RDW 16.7 H Plt Count 195 MPV 8.7 L Immature Gran % (Auto) 0.5 H Neut % (Auto) 83.3 H Lymph % (Auto) 7.0 L [place] % (Auto) 8.2 Eos % (Auto) 0.5 Baso % (Auto) 0.5 Lymph # (Auto) 0.8 L [place] # (Auto) 0.9 Eos # (Auto) 0.1 Baso # (Auto) 0.1 Abs Immat Gran (auto) 0.06 H Absolute Neuts (auto) 9.2 H Absolute Nucleated RBC 0.000 Nucleated RBC % (auto) 0.0 APTT 37.6 H VBG pH 7.40 VBG pCO2 33 VBG pO2 87 VBG HCO3 20 L VBG O2 Saturation 97.0 VBG Base Excess -3.0 Anion Gap 17 Estim Creat Clear Calc 26.8 Estimated GFR 27 Random Glucose 114 Lactic Acid 1.7 Calcium 9.2 Magnesium 2.0 Total Bilirubin 0.6 AST 25 ALT 22 Alkaline Phosphatase 105 Total Creatine Kinase 64 Troponin I High Sens 81.9 H D Total Protein 6.6 Albumin 3.6 Lipase 12 Urine Color Yellow Urine Appearance Turbid Urine pH 5.5 Ur Specific [place] 1.015 Urine Protein 100 (2+) H Urine Glucose (UA) Negative Urine Ketones Negative Urine Blood Large (3+) H Urine Nitrite Negative Ur Leukocyte Esterase Large (3+) H Urine RBC >20 H Urine WBC >50 H Ur Squamous Epith Cells 3-5 Urine Bacteria 4+ Hyaline Casts 0-2 09/12/23 09:09 MCV MCH MCHC RDW Plt Count MPV Immature Gran % (Auto) Neut % (Auto) Lymph % (Auto) [place] % (Auto) Eos % (Auto) Baso % (Auto) Lymph # (Auto) [place] # (Auto) Eos # (Auto) Baso # (Auto) Abs Immat Gran (auto) Absolute Neuts (auto) Absolute Nucleated RBC Nucleated RBC % (auto) APTT VBG pH VBG pCO2 VBG pO2 VBG HCO3 VBG O2 Saturation VBG Base Excess Anion Gap Estim Creat Clear Calc Estimated GFR Random Glucose Lactic Acid Calcium Magnesium Total Bilirubin AST ALT Alkaline Phosphatase Total Creatine Kinase Troponin I High Sens 72.8 H Total Protein Albumin Lipase Urine Color Urine Appearance Urine pH Ur Specific [place] Urine Protein Urine Glucose (UA) Urine Ketones Urine Blood Urine Nitrite Ur Leukocyte Esterase Urine RBC Urine WBC Ur Squamous Epith Cells Urine Bacteria Hyaline Casts Imaging Radiologist's Impressions: Impressions Chest X-Ray 09/12/23 03:48 IMPRESSION: Low lung volumes. Bilateral lower lung field increased markings/patchy opacities. This may be chronic and/or technical. Developing infiltrates also a consideration. Correlation needed. Chest CT 09/12/23 06:03 IMPRESSION: * Severe pulmonary emphysema. * Chronic interstitial disease with traction bronchiectasis involving lower lobes. * A new area of mild patchy opacity in the inferior aspect of the right upper lobe is suspicious for pneumonia. No pleural effusion or lymphadenopathy. * A few pulmonary nodules are detected and remain stable compared to 05/27/2022. * Atherosclerotic disease of coronary arteries and thoracoabdominal aorta, status post coronary artery bypass graft surgery. * Incidentally noted is a hydropic appearance of the gallbladder and gallstones. However, no gallbladder wall thickening or pericholecystic inflammatory changes. No imaging evidence of cholecystitis. * T9 vertebral body compression fracture appears to be old. However, it is new since the prior chest CT from 05/27/2022. Assessment and Plan (1) Pneumonia: Status: Acute (2) COPD exacerbation: Status: Acute (3) Urinary tract infection: Status: Acute (4) Compression fracture of T9 vertebra: Status: Acute Plan This is a 78-year-old male with pertinent history of congestive heart failure with reduced ejection fraction due to ischemic cardiomyopathy, history of nonsustained V-tach, coronary artery disease status post CABG in 2015, chronic hypoxic respiratory failure due to COPD on baseline 2 L supplemental oxygen with ambulation, LAMBERTO on CPAP, CKD stage 3, peripheral arterial disease, AAA without rupture, gastroesophageal reflux disease, mixed hyperlipidemia, history of DVT and PE on Eliquis, BPH who presents to the emergency department for evaluation of dyspnea. #. Acute on chronic hypoxemic respiratory failure due to pneumonia leading to COPD exacerbation in a patient with bronchiectasis: Will admit patient with supplemental oxygen. Initiating IV Levaquin and IV steroids. Scheduled and p.r.n. DuoNebs. Continue home inhaler. Obtaining sputum culture #. Acute UTI: On antibiotics as above #. Compression fracture of T9 vertebra due to mechanical fall last week: Initiating tramadol p.r.n. for analgesia. Consulting Physical therapy to evaluate and treat. May need outpatient MRI and kyphoplasty if conservative treatment fails #. History of nonsustained V-tach: On amiodarone #. History of PE and DVT: On Eliquis #. Gastroesophageal reflux disease: On PPI #. Coronary artery disease/mixed hyperlipidemia: On statin #. Peripheral arterial disease: On cilostazol #. Congestive heart failure with reduced ejection fraction: On furosemide, lisinopril and metoprolol #. CKD stage 3: Creatinine at baseline. #. Elevated troponin, likely type 2 in the setting of increased demand DVT prophylaxis: Eliquis Full code Admit as inpatient and will require two night minimum hospital stay for IV antibiotics, IV steroids (as above), which is not possible in a lesser acute setting. Quality Stroke Does the patient have a stroke diagnosis?: No VTE Prior VTE?: No VTE Risk Level:: Medical - moderate - high VTE Device Contraindication: Treatment Not Indicated VTE Drug Contraindication: N/A - Med Ordered
[2023-09-12] MEDS: Albuterol/Iprat 2.5/0.5MG 3 ML AMPUL.NEB INHALE ×3 (11:02→20:31)
[2023-09-12] MEDS: levoFLOXacin/D5W 750 MG/150 ML PIGGYBACK 100 MG IV (11:05)
[2023-09-12] MEDS: Furosemide 20 MG TABLET PO (13:00)
[2023-09-12] MEDS: lisinopriL 10 MG TABLET PO (13:00)
[2023-09-12] MEDS: Metoprolol Succinate ER 100 MG TAB.ER.24H PO (14:28)
[2023-09-12] MEDS: methylPREDNISolone Sod Succ 40 MG/ML VIAL IVPUSH (18:43)
[2023-09-12] MEDS: Apixaban 2.5 MG TABLET PO (21:43)
[2023-09-12] MEDS: cilostazoL 100 MG TABLET PO (21:43)
[2023-09-12] MEDS: 0.9 % Sodium Chloride Flush 3 ML SYRINGE IVFLUSH (21:48)
[2023-09-13] VITALS (12 sets, daily range): BP systolic 111–164; BP diastolic 55–72; PULSE 71–86; RESP 16–20; TEMP 36.1–37.1; O2SAT 89–94
--- NOTE | 2023-09-13 01:30 | PC.NURSE ---
Pt with increased wheezing after movement in bed. PRN breathing treatment given with good affect.
[2023-09-13] MEDS: Omeprazole 20 MG CAPSULE.DR PO (05:59)
[2023-09-13] MEDS: methylPREDNISolone Sod Succ 40 MG/ML VIAL IVPUSH ×2 (06:01→18:08)
[2023-09-13 07:17] LABS: Hemoglobin 11.3 g/dl (14.0-18.0); Mean Corpuscular HGB Conc 34.2 g/dl (31.0-36.0); Mean Corpuscular Volume 87.5 fL (80.0-98.0); Mean Platelet Volume 9.1 fL (9.4-12.4); Platelet Count 185 X10*3/uL (160-400); Red Blood Count 3.77 X10*6/uL (4.60-5.80); Red Cell Distribution Width 16.4 % (11.0-16.0); White Blood Count 10.5 X10*3/uL (4.8-10.8)
[2023-09-13 07:35] LABS: B Type Natriuretic Peptide 724 pg/mL (<100)
[2023-09-13 07:45] LABS: Anion Gap 12 (12-20); Blood Urea Nitrogen 49 mg/dL (9-16); Calcium 9.3 mg/dL (8.4-10.2); Carbon Dioxide 22 mmol/L (22-29); Chloride 106 mmol/L (96-108); Estimated Glomerular Filt Rate 30; Glucose Random 148 mg/dL (60-115); Potassium 4.3 mmol/L (3.3-5.1); Sodium 136 mmol/L (135-145)
[2023-09-13 07:49] LABS: Troponin-I High Sensitivity 44.3 ng/L (<3.5-35.0)
[2023-09-13] MEDS: Albuterol/Iprat 2.5/0.5MG 3 ML AMPUL.NEB INHALE ×5 (08:09→19:51)
[2023-09-13] MEDS: Apixaban 2.5 MG TABLET PO ×2 (08:44→21:27)
[2023-09-13] MEDS: 0.9 % Sodium Chloride Flush 3 ML SYRINGE IVFLUSH ×3 (08:44→21:28)
[2023-09-13] MEDS: Furosemide 20 MG TABLET PO (08:44)
[2023-09-13] MEDS: Cyanocobalamin (Vitamin B-12) 1,000 MCG TABLET 1000 MCG PO (08:44)
[2023-09-13] MEDS: Atorvastatin Calcium 80 MG TABLET PO (08:44)
[2023-09-13] MEDS: Metoprolol Succinate ER 100 MG TAB.ER.24H PO (08:44)
[2023-09-13] MEDS: Ascorbic Acid 500 MG TABLET PO (08:44)
[2023-09-13] MEDS: lisinopriL 10 MG TABLET PO (08:45)
[2023-09-13] MEDS: Amiodarone HCL 200 MG TABLET PO (08:45)
[2023-09-13] MEDS: cilostazoL 100 MG TABLET PO ×2 (08:45→21:27)
[2023-09-13] MEDS: Milk of Magnesia 30 ML ORAL.SUSP PO (08:53)
[2023-09-13 14:35] LABS: Appearance Urine Turbid; Color Urine Yellow; Glucose Urine UA Negative (Negative); Leukocyte Esterase Urine Large (3+) (Negative); Nitrite Urine Negative (Negative); PH 5.5 (5.0-9.0); Specific Gravity - Urine 1.015 (1.005-1.025); UMIC TRIGGER UACC YES; Urine Blood Large (3+) (Negative); Urine Ketones Negative (Negative); Urine Protein 100 (2+) mg/dL (Neg-Trace)
[2023-09-13 14:50] LABS: Bacteria Urine 2+ (None Seen); Hyaline Casts Urine 0-2 /LPF (0-2); RBC Urine 0-2 /HPF (0-2); Squamous Epithelial Cell Urine 0-2 /HPF (0-2); UACC Culture Trigger YES; WBC Urine >50 /HPF (0-5)
--- NOTE | 2023-09-13 15:45 | P.PNIM_ITS ---
Subjective Subjective Date of Service: 09/13/23 Interval History: No acute issues overnight. Essentially no improvement since admission Review of Systems Denies chest pain Admits to shortness of breath with minimal movement Denies nausea vomiting diarrhea Denies fever chills Physical Exam 2 Vital Signs: Vital Signs: Last Vital Signs Temp 97.1 F 09/13/23 15:19 Pulse 76 09/13/23 15:19 Resp 18 09/13/23 15:19 BP 111/55 L 09/13/23 15:19 Pulse Ox 93 09/13/23 15:19 O2 Del Method Nasal Cannula 09/13/23 15:19 O2 Flow Rate 3 09/13/23 15:19 Oxygen Flow Rate 2 09/12/23 03:30 BMI result Body Mass Index 34.6 Const: Other: Awake alert no acute distress Resp: Other: Diminished throughout with coarse lung sounds. Scant wheezes bilateral bases Cardio: Other: No S4; positive S1-S2; no S3 murmurs rubs or gallops GI: Other: Soft nontender nondistended normoactive bowel sounds Extrem: Other: No edema bilaterally Objective Data Active Medications Acetaminophen (Acetaminophen 325 Mg Tablet) 650 mg PO Q6H PRN PRN Reason: Pain, Mild (Pain Scale 1-3), fever or headache Albuterol/Ipratropium (Albuterol/Iprat 2.5/0.5mg 3 Ml Ampul.Neb) 3 ml INHALE RQ4H WHILE AWAKE [facility] Last Admin: 09/13/23 15:17 Dose: 3 ml Documented By: PATRICE Albuterol/Ipratropium (Albuterol/Iprat 2.5/0.5mg 3 Ml Ampul.Neb) 3 ml INHALE Q4H PRN PRN Reason: Wheezing Last Admin: 09/13/23 00:00 Dose: 3 ml Documented By: ZHANE Amiodarone HCl (Amiodarone Hcl 200 Mg Tablet) 200 mg PO DAILY [facility] Last Admin: 09/13/23 08:45 Dose: 200 mg Documented By: OMAR Apixaban (Apixaban 2.5 Mg Tablet) 2.5 mg PO BID [facility] Last Admin: 09/13/23 08:44 Dose: 2.5 mg Documented By: OMAR Ascorbic Acid (Ascorbic Acid 500 Mg Tablet) 500 mg PO DAILY [facility] Last Admin: 09/13/23 08:44 Dose: 500 mg Documented By: OMAR Atorvastatin Calcium (Atorvastatin Calcium 80 Mg Tablet) 80 mg PO DAILY [facility] Last Admin: 09/13/23 08:44 Dose: 80 mg Documented By: OMAR Calcium Carbonate (Calcium Carbonate 750 Mg Tab.Chew) 750 mg PO Q4H PRN PRN Reason: Heartburn Cilostazol (Cilostazol 100 Mg Tablet) 100 mg PO BID [facility] Last Admin: 09/13/23 08:45 Dose: 100 mg Documented By: OMAR Cyanocobalamin (Cyanocobalamin (Vitamin B-12) 1,000 Mcg Tablet) 1,000 mcg PO DAILY [facility] Last Admin: 09/13/23 08:44 Dose: 1,000 mcg Documented By: OMAR Fluticasone/Vilanterol (Fluticasone/Vilanterol 200/25 Blst.W.Dev) 1 puff INHALE RDAILY [facility] Last Admin: 09/13/23 08:23 Dose: Not Given Documented By: PATRICE Non-Admin Reason: Med Not Available Furosemide (Furosemide 20 Mg Tablet) 20 mg PO DAILY [facility]; Protocol Last Admin: 09/13/23 08:44 Dose: 20 mg Documented By: OMAR Levofloxacin (Levaquin) 750 mg in 150 mls @ 100 mls/hr IV Q48H [facility] Last Infusion: 09/12/23 12:42 Dose: Infused Documented By: JAMEEL Lisinopril (Lisinopril 10 Mg Tablet) 10 mg PO DAILY [facility]; Protocol Last Admin: 09/13/23 08:45 Dose: 10 mg Documented By: OMAR Magnesium Hydroxide (Milk Of Magnesia 30 Ml Oral.Susp) 30 ml PO DAILY PRN PRN Reason: Constipation Last Admin: 09/13/23 08:53 Dose: 30 ml Documented By: OMAR Melatonin (Melatonin 3 Mg Tablet) 6 mg PO BEDTIME PRN PRN Reason: Insomnia Methylprednisolone Sodium Succinate (Methylprednisolone Sod Succ 40 Mg/Ml Vial) 40 mg IVPUSH Q12H [facility] Last Admin: 09/13/23 06:01 Dose: 40 mg Documented By: ZHANE Metoprolol Succinate (Metoprolol Succinate Er 100 Mg Tab.Er.24h) 100 mg PO DAILY [facility]; Protocol Last Admin: 09/13/23 08:44 Dose: 100 mg Documented By: OMAR Omeprazole (Omeprazole 20 Mg Capsule.Dr) 20 mg PO DAILY@0630 [facility] Last Admin: 09/13/23 05:59 Dose: 20 mg Documented By: ZHANE Ondansetron HCl (Ondansetron Hcl 4 Mg/2 Ml Vial) 4 mg IVPUSH Q8H PRN PRN Reason: Nausea and Vomiting Sodium Chloride (0.9 % Sodium Chloride Flush 3 Ml Syringe) 3 ml IVFLUSH QSHIFT [facility] Last Admin: 09/13/23 08:44 Dose: 3 ml Documented By: OMAR Tramadol HCl (Tramadol Hcl 50 Mg Tablet) 50 mg PO Q6H PRN PRN Reason: Pain, Moderate(Pain Scale 4-6) Labs 09/13/23 06:30 09/13/23 06:23 Labs: Laboratory Results - last 24 hr 09/13/23 09/13/23 09/13/23 06:23 06:30 Unknown MCV 87.5 MCH 30.0 MCHC 34.2 RDW 16.4 H Plt Count 185 MPV 9.1 L Absolute Nucleated RBC 0.000 Nucleated RBC % (auto) 0.0 Anion Gap 12 Estim Creat Clear Calc 29.0 Estimated GFR 30 Random Glucose 148 H Calcium 9.3 Troponin I High Sens 44.3 H B-Natriuretic Peptide 724 H Urine Color Yellow Urine Appearance Turbid Urine pH 5.5 Ur Specific [place] 1.015 Urine Protein 100 (2+) H Urine Glucose (UA) Negative Urine Ketones Negative Urine Blood Large (3+) H Urine Nitrite Negative Ur Leukocyte Esterase Large (3+) H Urine RBC 0-2 Urine WBC >50 H Ur Squamous Epith Cells 0-2 Urine Bacteria 2+ Hyaline Casts 0-2 Microbiology Microbiology Results: Microbiology 09/13/23 Unknown Gram Stain - Final Sputum - Expectorated Sputum Culture - Final 09/12/23 Unknown Urine Culture - Final Urine clean catch - Clean Catch Midstream 09/12/23 06:16 Blood Culture - Preliminary Blood - Venous No growth after 24 hours. 09/12/23 06:16 Blood Culture - Preliminary Blood - Venous No growth after 24 hours. Assessment and Plan (1) Pneumonia: Status: Acute (2) Urinary tract infection: Status: Acute Plan This is a 78-year-old male with pertinent history of congestive heart failure with reduced ejection fraction due to ischemic cardiomyopathy, history of nonsustained V-tach, coronary artery disease status post CABG in 2015, chronic hypoxic respiratory failure due to COPD on baseline 2 L supplemental oxygen with ambulation, LAMBERTO on CPAP, CKD stage 3, peripheral arterial disease, AAA without rupture, gastroesophageal reflux disease, mixed hyperlipidemia, history of DVT and PE on Eliquis, BPH who presents to the emergency department for evaluation of dyspnea. 1.Acute on chronic hypoxemic respiratory failure due to pneumonia/COPD exacerbation -IV Levaquin to treat outpatient pneumonia -pulse dose steroids as ordered -aggressive DuoNeb therapy -titrate O2 to maintain sats greater than equal to 90% 2.Acute UTI -culture with greater than 100,000 mixed diane -continue Levaquin -repeat UA with culture 3. Compression fracture of T9 vertebra due to mechanical fall -tramadol p.r.n. -PT consultation for possible sniff placement 4.History of PE/DVT -Eliquis as ordered 5. HFpEF -stable and well compensated Eliquis Full code Requires ongoing hospitalization for IV antibiotics to treat pneumonia Quality Stroke Does the patient have a stroke diagnosis?: No VTE Prior VTE?: No VTE Risk Level:: Medical - moderate - high VTE Device Contraindication: Treatment Not Indicated VTE Drug Contraindication: N/A - Med Ordered
--- NOTE | 2023-09-13 16:18 | MHC.CM.PN ---
PT REPORTS HE LIVES WITH HIS AND SON HE SAYS HE HAS A CANE, WALKER, O2 AND CPAP FROM [facility], AND HIS JUST ORDERED A SHOWER CHAIR HE HAS NO SERVICES, HE SAYS [facility] KEEPS OFFERING THEM BUT HE DOES NOT NEED THEM PCP: [facility] COPY OF HCP REQUESTED IMM DELIVERED DCP: [facility]
[2023-09-13] MEDS: Acetaminophen 325 MG TABLET 650 MG PO (18:12)
[2023-09-13] MEDS: guaiFENesin 100 MG/5 ML LIQUID PO (21:27)
[2023-09-14] VITALS (11 sets, daily range): BP systolic 112–142; BP diastolic 58–90; PULSE 73–83; RESP 16–22; TEMP 36.1–37; O2SAT 90–94
[2023-09-14] MEDS: methylPREDNISolone Sod Succ 40 MG/ML VIAL IVPUSH (06:19)
[2023-09-14] MEDS: Milk of Magnesia 30 ML ORAL.SUSP PO (06:19)
[2023-09-14] MEDS: Omeprazole 20 MG CAPSULE.DR PO (06:19)
[2023-09-14 06:51] LABS: MANUAL DIFF FLAG NO
[2023-09-14 06:55] LABS: Basophils Percent Auto 0.1 % (0-2); Hematocrit 34.2 % (42.0-52.0); Hemoglobin 11.5 g/dl (14.0-18.0); Imm Gran Abs Auto 0.14 X10*3/uL (0.00-0.03); Imm Gran Pct Auto 0.9 % (0.0-0.4); Lymphocytes Absolute Auto 0.7 X10*3/uL (1.2-4.9); Lymphocytes Percent Auto 4.4 % (20-40); Mean Corpuscular HGB Conc 33.6 g/dl (31.0-36.0); Mean Corpuscular Hemoglobin 29.8 pg (27.0-33.0); Mean Corpuscular Volume 88.6 fL (80.0-98.0); Mean Platelet Volume 9.4 fL (9.4-12.4); Monocytes Absolute Auto 0.9 X10*3/uL (0.1-1.2); Monocytes Percent Auto 6.2 % (2-11); Neutrophils Absolute Auto 13.4 x10*3/uL (2.0-8.3); Neutrophils Percent Auto 88.4 % (45-73); Platelet Count 236 X10*3/uL (160-400); Red Blood Count 3.86 X10*6/uL (4.60-5.80); Red Cell Distribution Width 16.4 % (11.0-16.0); White Blood Count 15.1 X10*3/uL (4.8-10.8)
[2023-09-14 07:19] LABS: Alanine Aminotransferase 60 U/L (0-40); Albumin Level 3.4 g/dL (3.5-5.0); Alkaline Phosphatase 97 U/L (39-117); Anion Gap 14 (12-20); Aspartate Amino Transferase 64 U/L (5-37); Bilirubin Total 0.3 mg/dL (0.0-1.0); Blood Urea Nitrogen 66 mg/dL (9-16); Carbon Dioxide 20 mmol/L (22-29); Chloride 107 mmol/L (96-108); Creatinine Clr Calc Pharmacy 25.2; Estimated Glomerular Filt Rate 25; Glucose Fasting 131 mg/dL (60-99); Potassium 4.3 mmol/L (3.3-5.1); Sodium 137 mmol/L (135-145)
[2023-09-14] MEDS: Albuterol/Iprat 2.5/0.5MG 3 ML AMPUL.NEB INHALE ×4 (07:41→19:21)
[2023-09-14] MEDS: guaiFENesin 100 MG/5 ML LIQUID PO ×4 (08:35→20:02)
[2023-09-14] MEDS: Atorvastatin Calcium 80 MG TABLET PO (08:36)
[2023-09-14] MEDS: Amiodarone HCL 200 MG TABLET PO (08:36)
[2023-09-14] MEDS: Furosemide 20 MG TABLET PO (08:36)
[2023-09-14] MEDS: cilostazoL 100 MG TABLET PO ×2 (08:36→20:03)
[2023-09-14] MEDS: Apixaban 2.5 MG TABLET PO ×2 (08:36→20:03)
[2023-09-14] MEDS: Cyanocobalamin (Vitamin B-12) 1,000 MCG TABLET 1000 MCG PO (08:36)
[2023-09-14] MEDS: lisinopriL 10 MG TABLET PO (08:36)
[2023-09-14] MEDS: Ascorbic Acid 500 MG TABLET PO (08:36)
[2023-09-14] MEDS: Metoprolol Succinate ER 100 MG TAB.ER.24H PO (08:37)
[2023-09-14] MEDS: vancomycin/NS 2,000 MG/500 ML PLAST..BAG 250 MG IV (08:38)
[2023-09-14] MEDS: 0.9 % Sodium Chloride Flush 3 ML SYRINGE IVFLUSH ×2 (08:39→18:07)
--- NOTE | 2023-09-14 13:39 | HO.PM.IMPN ---
Subjective Subjective Date of Service: 09/14/23 Interval History: Minimal improvement since admission. Still with back pain with cough secondary compression fractures Review of Systems Denies chest pain Admits to shortness of breath with minimal movement Denies nausea vomiting diarrhea Denies fever chills Physical Exam Vital Signs: Vital Signs: Last Vital Signs Temp 97.9 F 09/14/23 11:50 Pulse 80 09/14/23 11:50 Resp 20 09/14/23 11:50 BP 131/60 09/14/23 11:50 Pulse Ox 94 09/14/23 11:50 O2 Del Method Nasal Cannula 09/14/23 11:50 O2 Flow Rate 2 09/14/23 11:50 Oxygen Flow Rate 2 09/12/23 03:30 BMI result Body Mass Index 34.6 Const: Other: Awake alert no acute distress Resp: Other: Diminished throughout with coarse lung sounds. Scant wheezes bilateral bases Cardio: Other: No S4; positive S1-S2; no S3 murmurs rubs or gallops GI: Other: Soft nontender nondistended normoactive bowel sounds Extrem: Other: No edema bilaterally Objective Data Active Medications Acetaminophen (Acetaminophen 325 Mg Tablet) 975 mg PO TID [facility] Albuterol/Ipratropium (Albuterol/Iprat 2.5/0.5mg 3 Ml Ampul.Neb) 3 ml INHALE RQ4H WHILE AWAKE [facility] Last Admin: 09/14/23 11:16 Dose: 3 ml Documented By: PATRICE Albuterol/Ipratropium (Albuterol/Iprat 2.5/0.5mg 3 Ml Ampul.Neb) 3 ml INHALE Q4H PRN PRN Reason: Wheezing Last Admin: 09/13/23 00:00 Dose: 3 ml Documented By: ZHANE Amiodarone HCl (Amiodarone Hcl 200 Mg Tablet) 200 mg PO DAILY [facility] Last Admin: 09/14/23 08:36 Dose: 200 mg Documented By: PRAVEENA Apixaban (Apixaban 2.5 Mg Tablet) 2.5 mg PO BID [facility] Last Admin: 09/14/23 08:36 Dose: 2.5 mg Documented By: PRAVEENA Ascorbic Acid (Ascorbic Acid 500 Mg Tablet) 500 mg PO DAILY [facility] Last Admin: 09/14/23 08:36 Dose: 500 mg Documented By: PRAVEENA Atorvastatin Calcium (Atorvastatin Calcium 80 Mg Tablet) 80 mg PO DAILY [facility] Last Admin: 09/14/23 08:36 Dose: 80 mg Documented By: PRAVEENA Calcium Carbonate (Calcium Carbonate 750 Mg Tab.Chew) 750 mg PO Q4H PRN PRN Reason: Heartburn Cilostazol (Cilostazol 100 Mg Tablet) 100 mg PO BID [facility] Last Admin: 09/14/23 08:36 Dose: 100 mg Documented By: PRAVEENA Cyanocobalamin (Cyanocobalamin (Vitamin B-12) 1,000 Mcg Tablet) 1,000 mcg PO DAILY [facility] Last Admin: 09/14/23 08:36 Dose: 1,000 mcg Documented By: PRAVEENA Fluticasone/Vilanterol (Fluticasone/Vilanterol 200/25 Blst.W.Dev) 1 puff INHALE RDAILY [facility] Last Admin: 09/14/23 07:44 Dose: Not Given Documented By: PATRICE Non-Admin Reason: Med Not Available Furosemide (Furosemide 20 Mg Tablet) 20 mg PO DAILY [facility]; Protocol Last Admin: 09/14/23 08:36 Dose: 20 mg Documented By: PRAVEENA Guaifenesin (Guaifenesin 100 Mg/5 Ml Liquid) 5 ml PO QID [facility] Last Admin: 09/14/23 08:35 Dose: 5 ml Documented By: PRAVEENA Vancomycin HCl 500 mg/ Sodium (Chloride) 110 mls @ 110 mls/hr IV Q24H [facility] Lisinopril (Lisinopril 10 Mg Tablet) 10 mg PO DAILY [facility]; Protocol Last Admin: 09/14/23 08:36 Dose: 10 mg Documented By: PRAVEENA Magnesium Hydroxide (Milk Of Magnesia 30 Ml Oral.Susp) 30 ml PO DAILY PRN PRN Reason: Constipation Last Admin: 09/14/23 06:19 Dose: 30 ml Documented By: HZANE Melatonin (Melatonin 3 Mg Tablet) 6 mg PO BEDTIME PRN PRN Reason: Insomnia Methylprednisolone Sodium Succinate (Methylprednisolone Sod Succ 125 Mg/2 Ml Vial) 60 mg IVPUSH Q6H [facility] Metoprolol Succinate (Metoprolol Succinate Er 100 Mg Tab.Er.24h) 100 mg PO DAILY [facility]; Protocol Last Admin: 09/14/23 08:37 Dose: 100 mg Documented By: PRAVEENA Omeprazole (Omeprazole 20 Mg Capsule.Dr) 20 mg PO DAILY@0630 [facility] Last Admin: 09/14/23 06:19 Dose: 20 mg Documented By: ZHANE Ondansetron HCl (Ondansetron Hcl 4 Mg/2 Ml Vial) 4 mg IVPUSH Q8H PRN PRN Reason: Nausea and Vomiting Pharmacy Consult (Consult Rx Vancomycin Dosing) 1 each MISCELLANE DAILY PRN PRN Reason: Consult order Sodium Chloride (0.9 % Sodium Chloride Flush 3 Ml Syringe) 3 ml IVFLUSH QSHIFT [facility] Last Admin: 09/14/23 08:39 Dose: 3 ml Documented By: PRAVEENA Tramadol HCl (Tramadol Hcl 50 Mg Tablet) 50 mg PO Q6H PRN PRN Reason: Pain, Moderate(Pain Scale 4-6) Labs 09/14/23 06:30 09/14/23 06:30 Labs: Laboratory Results - last 24 hr 09/13/23 09/14/23 Unknown 06:30 MCV 88.6 MCH 29.8 MCHC 33.6 RDW 16.4 H Plt Count 236 D MPV 9.4 Immature Gran % (Auto) 0.9 H Neut % (Auto) 88.4 H Lymph % (Auto) 4.4 L [place] % (Auto) 6.2 Eos % (Auto) 0.0 Baso % (Auto) 0.1 Lymph # (Auto) 0.7 L [place] # (Auto) 0.9 Eos # (Auto) 0.0 Baso # (Auto) 0.0 Abs Immat Gran (auto) 0.14 H Absolute Neuts (auto) 13.4 H Absolute Nucleated RBC 0.000 Nucleated RBC % (auto) 0.0 Anion Gap 14 Estim Creat Clear Calc 25.2 Estimated GFR 25 Fasting Glucose 131 H Calcium 9.0 Total Bilirubin 0.3 AST 64 H ALT 60 H Alkaline Phosphatase 97 Total Protein 6.0 L Albumin 3.4 L Urine Color Yellow Urine Appearance Turbid Urine pH 5.5 Ur Specific [place] 1.015 Urine Protein 100 (2+) H Urine Glucose (UA) Negative Urine Ketones Negative Urine Blood Large (3+) H Urine Nitrite Negative Ur Leukocyte Esterase Large (3+) H Urine RBC 0-2 Urine WBC >50 H Ur Squamous Epith Cells 0-2 Urine Bacteria 2+ Hyaline Casts 0-2 Microbiology Microbiology Results: Microbiology 09/12/23 06:16 Blood Culture - Preliminary Blood - Venous Prelim: GPR Gram Stain only 09/12/23 06:16 Blood Culture - Preliminary Blood - Venous Prelim: GPR Gram Stain only 09/13/23 Unknown Gram Stain - Final Sputum - Expectorated Sputum Culture - Final 09/12/23 Unknown Urine Culture - Final Urine clean catch - Clean Catch Midstream Assessment and Plan (1) Gram-positive cocci bacteremia: Status: Acute (2) Pneumonia: Status: Acute Plan This is a 78-year-old male with pertinent history of congestive heart failure with reduced ejection fraction due to ischemic cardiomyopathy, history of nonsustained V-tach, coronary artery disease status post CABG in 2014, chronic hypoxic respiratory failure due to COPD on baseline 2 L supplemental oxygen with ambulation, LAMBERTO on CPAP, CKD stage 3, peripheral arterial disease, AAA without rupture, gastroesophageal reflux disease, mixed hyperlipidemia, history of DVT and PE on Eliquis, BPH who presents to the emergency department for evaluation of dyspnea. 1. GPC bacteremia -switch to vancomycin renally dosed -repeat blood cultures in a.m. -id consult 2.Acute on chronic hypoxemic respiratory failure due to pneumonia/COPD exacerbation -increase pulse dose steroids to q.6 -add Zosyn to cover pneumonia with vancomycin -aggressive DuoNeb therapy -titrate O2 to maintain sats greater than equal to 90% 2.Acute UTI -culture with greater than 100,000 mixed diane -switch to Zosyn given above -repeat UA with culture 3. Compression fracture of T9 vertebra due to mechanical fall -Lidoderm patch -PT consultation for possible sniff placement 4.History of PE/DVT -Eliquis as ordered 5. HFpEF -stable and well compensated Eliquis Full code Requires ongoing hospitalization for IV antibiotics to treat pneumonia Quality Stroke Does the patient have a stroke diagnosis?: No VTE Prior VTE?: No VTE Risk Level:: Medical - moderate - high VTE Device Contraindication: Treatment Not Indicated VTE Drug Contraindication: N/A - Med Ordered
[2023-09-14] MEDS: Acetaminophen 325 MG TABLET 975 MG PO ×2 (14:22→20:02)
[2023-09-14] MEDS: Lidocaine 4 % Patch ADH..PATCH 1 PATCH TRANSDERMA (14:23)
[2023-09-14] MEDS: methylPREDNISolone Sod Succ 125 MG/2 ML VIAL 60 MG IVPUSH ×2 (14:23→18:07)
[2023-09-14 21:34] LABS: Vancomycin Random 24.7 mcg/mL (15-20)
[2023-09-15] VITALS (10 sets, daily range): BP systolic 105–151; BP diastolic 41–64; PULSE 63–83; RESP 16–20; TEMP 36.1–36.9; O2SAT 92–96
[2023-09-15] MEDS: methylPREDNISolone Sod Succ 125 MG/2 ML VIAL 60 MG IVPUSH ×4 (02:11→22:15)
[2023-09-15] MEDS: 0.9 % Sodium Chloride Flush 3 ML SYRINGE IVFLUSH ×4 (02:13→22:15)
[2023-09-15] MEDS: Albuterol/Iprat 2.5/0.5MG 3 ML AMPUL.NEB INHALE ×5 (02:28→19:38)
[2023-09-15] MEDS: Omeprazole 20 MG CAPSULE.DR PO (06:54)
[2023-09-15 07:12] LABS: Basophils Percent Auto 0.1 % (0-2); Hematocrit 33.4 % (42.0-52.0); Hemoglobin 11.4 g/dl (14.0-18.0); Imm Gran Abs Auto 0.19 X10*3/uL (0.00-0.03); Imm Gran Pct Auto 1.4 % (0.0-0.4); Lymphocytes Absolute Auto 0.5 X10*3/uL (1.2-4.9); Lymphocytes Percent Auto 3.6 % (20-40); MANUAL DIFF FLAG SCAN; Mean Corpuscular HGB Conc 34.1 g/dl (31.0-36.0); Mean Corpuscular Hemoglobin 29.8 pg (27.0-33.0); Mean Corpuscular Volume 87.4 fL (80.0-98.0); Monocytes Absolute Auto 0.6 X10*3/uL (0.1-1.2); Monocytes Percent Auto 4.7 % (2-11); Neutrophils Absolute Auto 12.1 x10*3/uL (2.0-8.3); Neutrophils Percent Auto 90.2 % (45-73); Platelet Count 247 X10*3/uL (160-400); Red Blood Count 3.82 X10*6/uL (4.60-5.80); Red Cell Distribution Width 16.3 % (11.0-16.0); SCAN SMEAR FLAG 1; White Blood Count 13.4 X10*3/uL (4.8-10.8)
[2023-09-15] MEDS: Fluticasone/Vilanterol 200/25 BLST.W.DEV 1 PUFF INHALE (07:17)
[2023-09-15 07:28] LABS: Alanine Aminotransferase 54 U/L (0-40); Albumin Level 3.3 g/dL (3.5-5.0); Alkaline Phosphatase 92 U/L (39-117); Anion Gap 15 (12-20); Aspartate Amino Transferase 45 U/L (5-37); Bilirubin Total 0.4 mg/dL (0.0-1.0); Blood Urea Nitrogen 76 mg/dL (9-16); Calcium 8.7 mg/dL (8.4-10.2); Carbon Dioxide 20 mmol/L (22-29); Chloride 106 mmol/L (96-108); Creatinine Clr Calc Pharmacy 24.5; Estimated Glomerular Filt Rate 25; Glucose Fasting 135 mg/dL (60-99); Potassium 4.4 mmol/L (3.3-5.1); Sodium 137 mmol/L (135-145); Total Protein 5.8 g/dL (6.5-8.0)
[2023-09-15] MEDS: Acetaminophen 325 MG TABLET 975 MG PO ×3 (08:12→22:13)
[2023-09-15] MEDS: guaiFENesin 100 MG/5 ML LIQUID PO ×2 (08:12→22:15)
[2023-09-15] MEDS: Ascorbic Acid 500 MG TABLET PO (08:12)
[2023-09-15] MEDS: Cyanocobalamin (Vitamin B-12) 1,000 MCG TABLET 1000 MCG PO (08:12)
[2023-09-15] MEDS: cilostazoL 100 MG TABLET PO ×2 (08:12→22:16)
[2023-09-15] MEDS: Lidocaine 4 % Patch ADH..PATCH 1 PATCH TRANSDERMA (08:12)
[2023-09-15] MEDS: Atorvastatin Calcium 80 MG TABLET PO (08:12)
[2023-09-15] MEDS: Metoprolol Succinate ER 100 MG TAB.ER.24H PO (08:13)
[2023-09-15] MEDS: Apixaban 2.5 MG TABLET PO ×2 (08:13→22:15)
[2023-09-15] MEDS: Amiodarone HCL 200 MG TABLET PO (08:13)
[2023-09-15] MEDS: Furosemide 20 MG TABLET PO (08:13)
[2023-09-15] MEDS: lisinopriL 10 MG TABLET PO (08:13)
[2023-09-15 09:37] LABS: SLIDE REVIEW VERIFIED
[2023-09-15 09:47] LABS: Vancomycin Random 17.9 mcg/mL (15-20)
--- NOTE | 2023-09-15 10:31 | HE.PHANOTE ---
RE: VANCO DOSING Random came back as 17.9. Due to patient's renal function trending to worsen, dose is changed to 500 mg q24h, starting @1100. Next random is due on 09/16/23 @0900.
[2023-09-15] MEDS: vancomycin HCL 500 MG in 0.9 % Sodium Chloride 100 ML 110 MG IV (10:54)
--- NOTE | 2023-09-15 12:45 | MHC.CM.PN ---
Addendum entered by Zahra Cornell 09/15/23 13:15: [facility] accepts pt. Original Note: Pt still requiring acute care for treatment of pneumonia with IV ABX. PT rec home PT services. CM met with pt to discuss this and he is in agreement with referral to [facility] that accept [facility]. referrals out.
--- NOTE | 2023-09-15 12:45 | HO.PM.IMPN ---
Subjective Subjective Date of Service: 09/15/23 Interval History: Breathing slowly improving; lidocaine patches improving back pain with cough. Marley catheter placed. . . No further hematuria Review of Systems Denies chest pain Admits to shortness of breath with minimal movement Denies nausea vomiting diarrhea Denies fever chills Physical Exam Vital Signs: Vital Signs: Last Vital Signs Temp 98.2 F 09/15/23 11:29 Pulse 67 09/15/23 11:29 Resp 16 09/15/23 11:29 BP 146/54 H 09/15/23 11:29 Pulse Ox 94 09/15/23 11:29 O2 Del Method Nasal Cannula 09/15/23 11:29 O2 Flow Rate 2 09/15/23 11:29 Oxygen Flow Rate 2 09/12/23 03:30 BMI result Body Mass Index 34.6 Const: Other: Awake alert no acute distress Resp: Other: Diminished throughout with coarse lung sounds. Scant wheezes bilateral bases Cardio: Other: No S4; positive S1-S2; no S3 murmurs rubs or gallops GI: Other: Soft nontender nondistended normoactive bowel sounds Extrem: Other: No edema bilaterally Objective Data Active Medications Acetaminophen (Acetaminophen 325 Mg Tablet) 975 mg PO TID [facility] Last Admin: 09/15/23 08:12 Dose: 975 mg Documented By: MINI Albuterol/Ipratropium (Albuterol/Iprat 2.5/0.5mg 3 Ml Ampul.Neb) 3 ml INHALE RQ4H WHILE AWAKE [facility] Last Admin: 09/15/23 11:24 Dose: 3 ml Documented By: DEVAN Albuterol/Ipratropium (Albuterol/Iprat 2.5/0.5mg 3 Ml Ampul.Neb) 3 ml INHALE Q4H PRN PRN Reason: Wheezing Last Admin: 09/13/23 00:00 Dose: 3 ml Documented By: ZHANE Amiodarone HCl (Amiodarone Hcl 200 Mg Tablet) 200 mg PO DAILY [facility] Last Admin: 09/15/23 08:13 Dose: 200 mg Documented By: MINI Apixaban (Apixaban 2.5 Mg Tablet) 2.5 mg PO BID [facility] Last Admin: 09/15/23 08:13 Dose: 2.5 mg Documented By: MINI Ascorbic Acid (Ascorbic Acid 500 Mg Tablet) 500 mg PO DAILY [facility] Last Admin: 09/15/23 08:12 Dose: 500 mg Documented By: MINI Atorvastatin Calcium (Atorvastatin Calcium 80 Mg Tablet) 80 mg PO DAILY [facility] Last Admin: 09/15/23 08:12 Dose: 80 mg Documented By: MINI Calcium Carbonate (Calcium Carbonate 750 Mg Tab.Chew) 750 mg PO Q4H PRN PRN Reason: Heartburn Cilostazol (Cilostazol 100 Mg Tablet) 100 mg PO BID [facility] Last Admin: 09/15/23 08:12 Dose: 100 mg Documented By: MINI Cyanocobalamin (Cyanocobalamin (Vitamin B-12) 1,000 Mcg Tablet) 1,000 mcg PO DAILY [facility] Last Admin: 09/15/23 08:12 Dose: 1,000 mcg Documented By: MINI Fluticasone/Vilanterol (Fluticasone/Vilanterol 200/25 Blst.W.Dev) 1 puff INHALE RDAILY [facility] Last Admin: 09/15/23 07:17 Dose: 1 puff Documented By: NIRMAL Furosemide (Furosemide 20 Mg Tablet) 20 mg PO DAILY [facility]; Protocol Last Admin: 09/15/23 08:13 Dose: 20 mg Documented By: MINI Guaifenesin (Guaifenesin 100 Mg/5 Ml Liquid) 5 ml PO QID [facility] Last Admin: 09/15/23 08:12 Dose: 5 ml Documented By: MINI Vancomycin HCl 500 mg/ Sodium (Chloride) 110 mls @ 110 mls/hr IV Q24H [facility] Last Infusion: 09/15/23 11:58 Dose: Infused Documented By: MINI Lidocaine (Lidocaine 4 % Patch Adh..Patch) 1 patch TRANSDERMA DAILY [facility]; Protocol Last Admin: 09/15/23 08:12 Dose: 1 patch Documented By: MINI Lisinopril (Lisinopril 10 Mg Tablet) 10 mg PO DAILY [facility]; Protocol Last Admin: 09/15/23 08:13 Dose: 10 mg Documented By: MINI Magnesium Hydroxide (Milk Of Magnesia 30 Ml Oral.Susp) 30 ml PO DAILY PRN PRN Reason: Constipation Last Admin: 09/14/23 06:19 Dose: 30 ml Documented By: ZHANE Melatonin (Melatonin 3 Mg Tablet) 6 mg PO BEDTIME PRN PRN Reason: Insomnia Methylprednisolone Sodium Succinate (Methylprednisolone Sod Succ 125 Mg/2 Ml Vial) 60 mg IVPUSH Q6H [facility] Last Admin: 09/15/23 06:54 Dose: 60 mg Documented By: JADE Metoprolol Succinate (Metoprolol Succinate Er 100 Mg Tab.Er.24h) 100 mg PO DAILY [facility]; Protocol Last Admin: 09/15/23 08:13 Dose: 100 mg Documented By: MINI Omeprazole (Omeprazole 20 Mg Capsule.Dr) 20 mg PO DAILY@0630 [facility] Last Admin: 09/15/23 06:54 Dose: 20 mg Documented By: JADE Ondansetron HCl (Ondansetron Hcl 4 Mg/2 Ml Vial) 4 mg IVPUSH Q8H PRN PRN Reason: Nausea and Vomiting Pharmacy Consult (Consult Rx Vancomycin Dosing) 1 each MISCELLANE DAILY PRN PRN Reason: Consult order Sodium Chloride (0.9 % Sodium Chloride Flush 3 Ml Syringe) 3 ml IVFLUSH QSHIFT [facility] Last Admin: 09/15/23 08:13 Dose: 3 ml Documented By: MINI Labs 09/15/23 06:35 09/15/23 06:35 Labs: Laboratory Results - last 24 hr 09/14/23 09/15/23 09/15/23 21:00 06:35 08:57 MCV 87.4 MCH 29.8 MCHC 34.1 RDW 16.3 H Plt Count 247 MPV 9.0 L Immature Gran % (Auto) 1.4 H Neut % (Auto) 90.2 H Lymph % (Auto) 3.6 L [place] % (Auto) 4.7 Eos % (Auto) 0.0 Baso % (Auto) 0.1 Lymph # (Auto) 0.5 L [place] # (Auto) 0.6 Eos # (Auto) 0.0 Baso # (Auto) 0.0 Abs Immat Gran (auto) 0.19 H Absolute Neuts (auto) 12.1 H Absolute Nucleated RBC 0.000 Nucleated RBC % (auto) 0.0 Smear Tech's Comments VERIFIED Anion Gap 15 Estim Creat Clear Calc 24.5 Estimated GFR 25 Fasting Glucose 135 H Calcium 8.7 Total Bilirubin 0.4 AST 45 H ALT 54 H Alkaline Phosphatase 92 Total Protein 5.8 L Albumin 3.3 L Random Vancomycin 24.7 H 17.9 Microbiology Microbiology Results: Microbiology 09/12/23 06:16 Blood Culture - Preliminary Blood - Venous Prelim: GPR Gram Stain only 09/12/23 06:16 Blood Culture - Preliminary Blood - Venous Prelim: GPR Gram Stain only Assessment and Plan (1) Gram-positive cocci bacteremia: Status: Acute (2) Pneumonia: Status: Acute Plan This is a 78-year-old male with pertinent history of congestive heart failure with reduced ejection fraction due to ischemic cardiomyopathy, history of nonsustained V-tach, coronary artery disease status post CABG in 2015, chronic hypoxic respiratory failure due to COPD on baseline 2 L supplemental oxygen with ambulation, LAMBERTO on CPAP, CKD stage 3, peripheral arterial disease, AAA without rupture, gastroesophageal reflux disease, mixed hyperlipidemia, history of DVT and PE on Eliquis, BPH who presents to the emergency department for evaluation of dyspnea. 1. GPC bacteremia -switch to vancomycin renally dosed(2) -repeat blood cultures in a.m. -id consult 2.Acute on chronic hypoxemic respiratory failure due to pneumonia/COPD exacerbation -increase pulse dose steroids to q.6 -add Zosyn to cover pneumonia with vancomycin -aggressive DuoNeb therapy -titrate O2 to maintain sats greater than equal to 90% 2.Acute UTI -culture with greater than 100,000 mixed diane -switch to Zosyn given above 3. Compression fracture of T9 vertebra due to mechanical fall -Lidoderm patch with good response -PT consultation for possible placement when appropriate 4.History of PE/DVT -Eliquis as ordered 5. HFpEF -stable and well compensated Eliquis Full code Requires ongoing hospitalization for IV antibiotics to treat pneumonia Quality Stroke Does the patient have a stroke diagnosis?: No VTE Prior VTE?: No VTE Risk Level:: Medical - moderate - high VTE Device Contraindication: Treatment Not Indicated VTE Drug Contraindication: N/A - Med Ordered
[2023-09-15] MEDS: Piperacillin Sodium/Tazobactam 4.5 GM in 0.9 % Sodium Chloride 100 ML IV ×2 (15:37→22:15)
[2023-09-16] VITALS (10 sets, daily range): BP systolic 114–131; BP diastolic 48–61; PULSE 62–76; RESP 16–22; TEMP 36.1–36.5; O2SAT 88–96; BMI 31.5
[2023-09-16] MEDS: methylPREDNISolone Sod Succ 125 MG/2 ML VIAL 60 MG IVPUSH ×4 (00:54→19:59)
[2023-09-16] MEDS: Omeprazole 20 MG CAPSULE.DR PO (05:37)
[2023-09-16] MEDS: Piperacillin Sodium/Tazobactam 4.5 GM in 0.9 % Sodium Chloride 100 ML IV ×3 (05:37→22:16)
[2023-09-16 06:53] LABS: Creatinine Clr Calc Pharmacy 21.2; Estimated Glomerular Filt Rate 22
[2023-09-16] MEDS: Albuterol/Iprat 2.5/0.5MG 3 ML AMPUL.NEB INHALE ×4 (07:30→19:34)
[2023-09-16] MEDS: Fluticasone/Vilanterol 200/25 BLST.W.DEV 1 PUFF INHALE (07:39)
[2023-09-16 09:16] LABS: Vancomycin Random 16.4 mcg/mL (15-20)
[2023-09-16] MEDS: Furosemide 20 MG TABLET PO (09:35)
[2023-09-16] MEDS: Amiodarone HCL 200 MG TABLET PO (09:35)
[2023-09-16] MEDS: lisinopriL 10 MG TABLET PO (09:35)
[2023-09-16] MEDS: Metoprolol Succinate ER 100 MG TAB.ER.24H PO (09:35)
[2023-09-16] MEDS: Apixaban 2.5 MG TABLET PO ×2 (09:35→22:16)
[2023-09-16] MEDS: Cyanocobalamin (Vitamin B-12) 1,000 MCG TABLET 1000 MCG PO (09:35)
[2023-09-16] MEDS: Atorvastatin Calcium 80 MG TABLET PO (09:35)
[2023-09-16] MEDS: Acetaminophen 325 MG TABLET 975 MG PO ×2 (09:35→22:15)
[2023-09-16] MEDS: guaiFENesin 100 MG/5 ML LIQUID PO ×4 (09:35→22:16)
[2023-09-16] MEDS: cilostazoL 100 MG TABLET PO ×2 (09:35→22:16)
[2023-09-16] MEDS: Ascorbic Acid 500 MG TABLET PO (09:35)
--- NOTE | 2023-09-16 09:35 | HE.PHANOTE ---
RE: VANCO DOSING Random came back as 16.4 (predicted to be 15.2). Because renal function is trending to worsen, decide to be conservative with dosing (continue with 500 mg q24h, predicted auc 412, trough 13.4). Next random is scheduled for 09/17/23 @0900.
[2023-09-16] MEDS: 0.9 % Sodium Chloride Flush 3 ML SYRINGE IVFLUSH ×3 (09:36→22:17)
[2023-09-16] MEDS: Lidocaine 4 % Patch ADH..PATCH 1 PATCH TRANSDERMA (09:37)
--- NOTE | 2023-09-16 13:20 | MHC.CM.PN ---
Addendum entered by Lashawn Rodriguez 09/16/23 13:22: ID consult pending. Original Note: EMR reviewed and per MD rounds, pt is not medically cleared for discharge due to ongoing management of pneumonia, and bacteremia with pt receiving IV antibiotics.
[2023-09-16] MEDS: vancomycin HCL 500 MG in 0.9 % Sodium Chloride 100 ML 110 MG IV (14:36)
--- NOTE | 2023-09-16 15:02 | PM.UROCN ---
History of Present Illness Consult details Consult date: 09/16/23 Narrative: 78-year-old male PMH of congestive heart failure with reduced ejection fraction due to ischemic cardiomyopathy, coronary artery disease status post CABG in 2014, chronic hypoxic respiratory failure due to COPD on baseline 2 L supplemental oxygen with ambulation, LAMBERTO on CPAP, CKD stage 3, peripheral arterial disease, AAA without rupture, gastroesophageal reflux disease, mixed hyperlipidemia, history of DVT and PE on Eliquis, who was admitted on 09/12/23 due to exacerbation of COPD with symptoms of dyspnea and generalized weakness. Also complained of dysuria with increased urinary frequency. Called to evalute due to urinary retention. The patient is followed by [facility], he has followed with Dr. Thornton for history of prostate cancer, treated with external beam radiation followed by short term hormone blockade. He is known to have incomplete bladder emptying. Patient declined catheterization including [facility] management in the past. Last seen in the office on 08/21/2023 and given a trial of bethanechol. Review of Systems Review of Systems: Yes all other systems are reviewed and are negative Constitutional: Constitutional: Reports no additional constitutional complaints Eyes: Eyes: Reports no additional eye complaints ENT: Reports system reviewed and no additional complaints, except as documented Cardiovascular: Cardiovascular: Reports no additional cardiovascular complaints Respiratory: Respiratory: Reports no additional respiratory complaints Gastrointestinal: Gastrointestinal: Reports no additional gastrointestinal complaints Genitourinary: Genitourinary: Reports as per HPI Musculoskeletal: Musculoskeletal: Reports no additional musculoskeletal complaints Integumentary/Breasts: Skin/Breast: Reports system reviewed and no additional complaints, except as docu Neurologic: Reports system reviewed and no additional complaints, except as documented Psychiatric: Psychiatric: Reports no additional psychiatric complaints Endocrine: Endocrine: Reports no additional endocrine complaints Hematologic/Lymphatic: Hematologic/Lymphatic: Reports no additional hematologic/lymphatic complaints Allergic/Immunologic: Allergic/Immunologic: Reports no additional allergic/immunologic complaints [facility] Past Medical History Medical History CHF (congestive heart failure) Exercise hypoxemia LAMBERTO on CPAP Pulmonary embolism Right leg DVT Gout BPH (benign prostatic hyperplasia) Obesity (BMI 30-39.9) GERD (gastroesophageal reflux disease) Hypercholesterolemia Chronic kidney disease (CKD) stage G3b/A1, moderately decreased glomerular filtration rate (GFR) between 30-44 mL/min/1.73 square meter and albuminuria creatinine ratio less than 30 mg/g Right renal mass History of stent insertion of renal artery Ischemic cardiomyopathy CAD (coronary artery disease) PVD (peripheral vascular disease) COPD (chronic obstructive pulmonary disease) Hypertension Family History Family History Father Cancer Mother No problems noted. Brother Heart disease Sister Heart disease CVD (cardiovascular disease) Other Mental health disorder Substance use disorder Surgical History Surgical History History of appendectomy S/P AAA repair S/P CABG x 3 Social History Social History Household Members: Spouse, Family and Children Housing: House Do you presently have visiting nurse or other home services: No Alcohol intake: former Patient Tobacco Use Status: Former Tobacco user Tobacco use type: Cigarette Cigarette Packs Per Day: 1 e-Cigarette/Vaping Use: Never Used Second Hand Smoke Exposure: No Advance Directives Date on File: 05/27/22 service: Yes Current occupational status: retired Cognitive needs: No Hearing needs: No Vision needs: Yes Meds Allergies Allergy/AdvReac Type Severity Reaction Status Date / Time codeine [CODEINE] Allergy Unknown STOMACH Verified 09/12/23 03:32 UPSET Iodinated Contrast Media Allergy Anaphylaxis Verified 09/12/23 03:32 [Contrast Dye] oxycodone Allergy Anaphylaxis Verified 09/12/23 03:32 Active Medications: Current Medications Acetaminophen (Acetaminophen 325 Mg Tablet) 975 mg PO TID [facility] Last Admin: 09/16/23 09:35 Dose: 975 mg Albuterol/Ipratropium (Albuterol/Iprat 2.5/0.5mg 3 Ml Ampul.Neb) 3 ml INHALE RQ4H WHILE AWAKE [facility] Last Admin: 09/16/23 11:15 Dose: 3 ml Albuterol/Ipratropium (Albuterol/Iprat 2.5/0.5mg 3 Ml Ampul.Neb) 3 ml INHALE Q4H PRN PRN Reason: Wheezing Last Admin: 09/13/23 00:00 Dose: 3 ml Amiodarone HCl (Amiodarone Hcl 200 Mg Tablet) 200 mg PO DAILY [facility] Last Admin: 09/16/23 09:35 Dose: 200 mg Apixaban (Apixaban 2.5 Mg Tablet) 2.5 mg PO BID [facility] Last Admin: 09/16/23 09:35 Dose: 2.5 mg Ascorbic Acid (Ascorbic Acid 500 Mg Tablet) 500 mg PO DAILY [facility] Last Admin: 09/16/23 09:35 Dose: 500 mg Atorvastatin Calcium (Atorvastatin Calcium 80 Mg Tablet) 80 mg PO DAILY [facility] Last Admin: 09/16/23 09:35 Dose: 80 mg Calcium Carbonate (Calcium Carbonate 750 Mg Tab.Chew) 750 mg PO Q4H PRN PRN Reason: Heartburn Cilostazol (Cilostazol 100 Mg Tablet) 100 mg PO BID [facility] Last Admin: 09/16/23 09:35 Dose: 100 mg Cyanocobalamin (Cyanocobalamin (Vitamin B-12) 1,000 Mcg Tablet) 1,000 mcg PO DAILY [facility] Last Admin: 09/16/23 09:35 Dose: 1,000 mcg Fluticasone/Vilanterol (Fluticasone/Vilanterol 200/25 Blst.W.Dev) 1 puff INHALE RDAILY [facility] Last Admin: 09/16/23 07:39 Dose: 1 puff Furosemide (Furosemide 20 Mg Tablet) 20 mg PO DAILY [facility]; Protocol Last Admin: 09/16/23 09:35 Dose: 20 mg Guaifenesin (Guaifenesin 100 Mg/5 Ml Liquid) 5 ml PO QID [facility] Last Admin: 09/16/23 14:35 Dose: 5 ml Vancomycin HCl 500 mg/ Sodium (Chloride) 110 mls @ 110 mls/hr IV Q24H [facility] Last Admin: 09/16/23 14:36 Dose: 110 mls/hr Piperacillin Sod/Tazobactam (Sod 4.5 gm/ Sodium Chloride) 100 mls @ 200 mls/hr IV Q8H [facility] Last Infusion: 09/16/23 06:12 Dose: Infused Lidocaine (Lidocaine 4 % Patch Adh..Patch) 1 patch TRANSDERMA DAILY [facility]; Protocol Last Admin: 09/16/23 09:37 Dose: 1 patch Lisinopril (Lisinopril 10 Mg Tablet) 10 mg PO DAILY [facility]; Protocol Last Admin: 09/16/23 09:35 Dose: 10 mg Magnesium Hydroxide (Milk Of Magnesia 30 Ml Oral.Susp) 30 ml PO DAILY PRN PRN Reason: Constipation Last Admin: 09/14/23 06:19 Dose: 30 ml Melatonin (Melatonin 3 Mg Tablet) 6 mg PO BEDTIME PRN PRN Reason: Insomnia Methylprednisolone Sodium Succinate (Methylprednisolone Sod Succ 125 Mg/2 Ml Vial) 60 mg IVPUSH Q6H [facility] Last Admin: 09/16/23 14:35 Dose: 60 mg Metoprolol Succinate (Metoprolol Succinate Er 100 Mg Tab.Er.24h) 100 mg PO DAILY [facility]; Protocol Last Admin: 09/16/23 09:35 Dose: 100 mg Omeprazole (Omeprazole 20 Mg Capsule.Dr) 20 mg PO DAILY@0630 [facility] Last Admin: 09/16/23 05:37 Dose: 20 mg Ondansetron HCl (Ondansetron Hcl 4 Mg/2 Ml Vial) 4 mg IVPUSH Q8H PRN PRN Reason: Nausea and Vomiting Pharmacy Consult (Consult Rx Vancomycin Dosing) 1 each MISCELLANE DAILY PRN PRN Reason: Consult order Sodium Chloride (0.9 % Sodium Chloride Flush 3 Ml Syringe) 3 ml IVFLUSH QSHIFT [facility] Last Admin: 09/16/23 09:36 Dose: 3 ml Home Medications ?Medication ?Instructions ?Recorded ?Confirmed ?Last Taken ?Type albuterol sulfate 90 mcg/actuation 2 puff inhalation Q6H PRN SOB 04/10/21 09/12/23 09/11/23 History aerosol inhaler mecobalamin (vitamin B12) 1,000 1,000 mcg PO DAILY 03/17/23 09/12/23 09/11/23 History mcg chewable tablet tramadol 50 mg tablet 50 mg PO BID PRN Severe Pain 09/12/23 09/12/23 09/11/23 History (Scale Score 7-10) Physical Exam Vital Signs: Vital Signs: Last Vital Signs Temp 97.4 F 09/16/23 11:31 Pulse 65 09/16/23 11:31 Resp 18 09/16/23 11:31 BP 130/49 L 09/16/23 11:31 Pulse Ox 93 09/16/23 11:31 O2 Del Method Nasal Cannula 09/16/23 11:31 O2 Flow Rate 3 09/16/23 11:31 Oxygen Flow Rate 2 09/12/23 03:30 BMI result Body Mass Index 31.5 Const: General: healthy appearing, no acute distress and well developed Orientation/consciousness: patient oriented x3 HEENT: Head: Yes normocephalic and Yes atraumatic Eyes: Conjunctivae: conjunctivae normal Neck: Neck: Yes normal visual inspection Chest: Chest palpation & inspection: normal inspection of the chest Resp: Effort & Inspection: normal respiratory effort Cardio: Rate: regular rate GI: Inspection: Yes normal to inspection Palpation (GI): Soft to palpation : Other: herring in place, blood tinged urine, no obvious clots Penis: normal penis Scrotum: scrotum normal Neuro: General: patient oriented x3 Psych: Appearance: grossly normal Affect: normal affect Results Labs 09/15/23 06:35 09/16/23 06:15 Labs: Abnormal lab results 09/16/23 Range/Units 06:15 Creatinine 2.79 H (0.5-1.4) mg/dL BMP 09/16/23 06:15 Creatinine 2.79 H Urine 09/12/23 09/13/23 Range/Units 06:39 Unknown Urine Color Yellow Yellow Urine Appearance Turbid Turbid Urine pH 5.5 5.5 (5.0-9.0) Ur Specific [place] 1.015 1.015 (1.005-1.025) Urine Protein 100 (2+) H 100 (2+) H (Neg-Trace) mg/dL Urine Glucose (UA) Negative Negative (Negative) mg/dL Imaging Additional studies: Date of Service: 03/04/23 EXAMINATION: CT ABDOMEN AND PELVIS WITHOUT CONTRAST CLINICAL INFORMATION: Abdominal aortic aneurysm. COMPARISON: CTA abdomen 12/26/2021. TECHNIQUE: Multidetector volumetric imaging was performed from the superior aspect of the liver through the pubic symphysis. Sagittal and coronal reformatted images were obtained on the technologist's workstation. This CT examination was performed using dose optimization techniques as appropriate, variously including the following: *Automated exposure control *Adjustment of mA and/or kV according to patient size (this includes techniques or standardized protocols for targeted exams where dose is matched to indication/reason for exam; i.e. extremities or head) *Use of iterative reconstruction technique DLP: 468 mGy-cm FINDINGS: LUNG BASES: Severe emphysema with subpleural fibrosis at the lung bases.. LIVER, GALLBLADDER, AND BILIARY TREE: The liver is normal in size, shape, and attenuation. No focal hepatic lesion or biliary ductal dilatation is present. Layering cholelithiasis without evidence of cholecystitis. PANCREAS: No discrete pancreatic mass. No pancreatic ductal dilatation. SPLEEN: Unremarkable. ADRENAL GLANDS: Unremarkable. KIDNEYS AND URETERS: 4.5 x 3.9 cm exophytic mass in the upper pole right kidney measures simple fluid density, but on previous imaging wasn't enhancing mass. I do not see the typical post ablation change around this lesion so it is unclear whether this is been treated. Similar 1.3 cm exophytic lesion from the lateral mid left kidney also measures simple fluid density 1 previously was enhancing. Clinical correlation is necessary. Renal vascular calcifications. No definite kidney stones. No hydroureteronephrosis. BLADDER: Markedly distended urinary bladder similar to the previous exam. GASTROINTESTINAL TRACT: The small and large bowel are normal in caliber. ABDOMINAL WALL: Bilateral fat-containing inguinal hernias. LYMPH NODES: No lymphadenopathy. VASCULAR: Aortobiiliac stent graft. Right renal artery stent. The excluded aneurysm sac is stable measuring a maximum of 3.6 x 2.8 cm compared to 3.6 x 2.9 cm. PELVIC VISCERA: Prostate fiducial markers and likely TURP defect. OSSEOUS STRUCTURES: Degenerative changes in the spine. IMPRESSION: Stable abdominal aortic aneurysm status post endovascular aortic repair. Nonspecific renal masses as above. On the current study these measure simple fluid density and on the prior study were enhancing. Recommend clinical correlation for any interval treatment. Would recommend ongoing surveillance depending on clinical circumstances. Assessment and Plan (1) Urinary tract infection: Status: Acute (2) History of prostate cancer: Status: Acute (3) Urinary retention: Status: Acute (4) Hematuria: Status: Acute Plan Currently on IV Abxs. herring in place. Brian follows with Dr. Thornton. Discharge with [facility] and outpatient urology fu. Procedures Date of Service Date of Service: 09/16/23
--- NOTE | 2023-09-16 15:15 | P.PNIM_ITS ---
Subjective Subjective Date of Service: 09/16/23 Interval History: No acute issues overnight. States breathing improving Review of Systems Denies chest pain Admits to shortness of breath with minimal movement Denies nausea vomiting diarrhea Denies fever chills Physical Exam 2 Vital Signs: Vital Signs: Last Vital Signs Temp 97.4 F 09/16/23 11:31 Pulse 62 09/16/23 15:14 Resp 20 09/16/23 15:14 BP 130/49 L 09/16/23 11:31 Pulse Ox 93 09/16/23 11:31 O2 Del Method Nasal Cannula 09/16/23 11:31 O2 Flow Rate 3 09/16/23 11:31 Oxygen Flow Rate 2 09/12/23 03:30 BMI result Body Mass Index 31.5 Const: Other: Awake alert no acute distress Resp: Other: Diminished throughout with coarse lung sounds. Scant wheezes bilateral bases Cardio: Other: No S4; positive S1-S2; no S3 murmurs rubs or gallops GI: Other: Soft nontender nondistended normoactive bowel sounds Extrem: Other: No edema bilaterally Objective Data Active Medications Acetaminophen (Acetaminophen 325 Mg Tablet) 975 mg PO TID [facility] Last Admin: 09/16/23 15:13 Dose: Not Given Documented By: SY Non-Admin Reason: Patient Refused Albuterol/Ipratropium (Albuterol/Iprat 2.5/0.5mg 3 Ml Ampul.Neb) 3 ml INHALE RQ4H WHILE AWAKE [facility] Last Admin: 09/16/23 15:12 Dose: 3 ml Documented By: DEVAN Albuterol/Ipratropium (Albuterol/Iprat 2.5/0.5mg 3 Ml Ampul.Neb) 3 ml INHALE Q4H PRN PRN Reason: Wheezing Last Admin: 09/13/23 00:00 Dose: 3 ml Documented By: ZHANE Amiodarone HCl (Amiodarone Hcl 200 Mg Tablet) 200 mg PO DAILY [facility] Last Admin: 09/16/23 09:35 Dose: 200 mg Documented By: SY Apixaban (Apixaban 2.5 Mg Tablet) 2.5 mg PO BID [facility] Last Admin: 09/16/23 09:35 Dose: 2.5 mg Documented By: SY Ascorbic Acid (Ascorbic Acid 500 Mg Tablet) 500 mg PO DAILY [facility] Last Admin: 09/16/23 09:35 Dose: 500 mg Documented By: SY Atorvastatin Calcium (Atorvastatin Calcium 80 Mg Tablet) 80 mg PO DAILY [facility] Last Admin: 09/16/23 09:35 Dose: 80 mg Documented By: SY Calcium Carbonate (Calcium Carbonate 750 Mg Tab.Chew) 750 mg PO Q4H PRN PRN Reason: Heartburn Cilostazol (Cilostazol 100 Mg Tablet) 100 mg PO BID [facility] Last Admin: 09/16/23 09:35 Dose: 100 mg Documented By: SY Cyanocobalamin (Cyanocobalamin (Vitamin B-12) 1,000 Mcg Tablet) 1,000 mcg PO DAILY [facility] Last Admin: 09/16/23 09:35 Dose: 1,000 mcg Documented By: SY Fluticasone/Vilanterol (Fluticasone/Vilanterol 200/25 Blst.W.Dev) 1 puff INHALE RDAILY [facility] Last Admin: 09/16/23 07:39 Dose: 1 puff Documented By: DEVAN Furosemide (Furosemide 20 Mg Tablet) 20 mg PO DAILY [facility]; Protocol Last Admin: 09/16/23 09:35 Dose: 20 mg Documented By: SY Guaifenesin (Guaifenesin 100 Mg/5 Ml Liquid) 5 ml PO QID [facility] Last Admin: 09/16/23 14:35 Dose: 5 ml Documented By: SY Vancomycin HCl 500 mg/ Sodium (Chloride) 110 mls @ 110 mls/hr IV Q24H [facility] Last Admin: 09/16/23 14:36 Dose: 110 mls/hr Documented By: SY Comments: dose given late due to no iv access Piperacillin Sod/Tazobactam (Sod 4.5 gm/ Sodium Chloride) 100 mls @ 200 mls/hr IV Q8H [facility] Last Infusion: 09/16/23 06:12 Dose: Infused Documented By: DEMETRICE Lidocaine (Lidocaine 4 % Patch Adh..Patch) 1 patch TRANSDERMA DAILY [facility]; Protocol Last Admin: 09/16/23 09:37 Dose: 1 patch Documented By: SY Lisinopril (Lisinopril 10 Mg Tablet) 10 mg PO DAILY [facility]; Protocol Last Admin: 09/16/23 09:35 Dose: 10 mg Documented By: SY Magnesium Hydroxide (Milk Of Magnesia 30 Ml Oral.Susp) 30 ml PO DAILY PRN PRN Reason: Constipation Last Admin: 09/14/23 06:19 Dose: 30 ml Documented By: ZHANE Melatonin (Melatonin 3 Mg Tablet) 6 mg PO BEDTIME PRN PRN Reason: Insomnia Methylprednisolone Sodium Succinate (Methylprednisolone Sod Succ 125 Mg/2 Ml Vial) 60 mg IVPUSH Q6H [facility] Last Admin: 09/16/23 14:35 Dose: 60 mg Documented By: SY Metoprolol Succinate (Metoprolol Succinate Er 100 Mg Tab.Er.24h) 100 mg PO DAILY [facility]; Protocol Last Admin: 09/16/23 09:35 Dose: 100 mg Documented By: SY Omeprazole (Omeprazole 20 Mg Capsule.Dr) 20 mg PO DAILY@0630 [facility] Last Admin: 09/16/23 05:37 Dose: 20 mg Documented By: DEMETRICE Ondansetron HCl (Ondansetron Hcl 4 Mg/2 Ml Vial) 4 mg IVPUSH Q8H PRN PRN Reason: Nausea and Vomiting Pharmacy Consult (Consult Rx Vancomycin Dosing) 1 each MISCELLANE DAILY PRN PRN Reason: Consult order Sodium Chloride (0.9 % Sodium Chloride Flush 3 Ml Syringe) 3 ml IVFLUSH QSHIFT [facility] Last Admin: 09/16/23 09:36 Dose: 3 ml Documented By: SY Labs 09/15/23 06:35 09/16/23 06:15 Labs: Laboratory Results - last 24 hr 09/16/23 09/16/23 06:15 08:47 Hold Purple Top SEE NOTE Estim Creat Clear Calc 21.2 Estimated GFR 22 Random Vancomycin 16.4 Microbiology Microbiology Results: Microbiology 09/13/23 14:10 Urine Culture - Final Urine clean catch - Clean Catch Midstream No growth. Assessment and Plan (1) Gram-positive cocci bacteremia: Status: Acute (2) Pneumonia: Status: Acute Plan This is a 78-year-old male with pertinent history of congestive heart failure with reduced ejection fraction due to ischemic cardiomyopathy, history of nonsustained V-tach, coronary artery disease status post CABG in 2014, chronic hypoxic respiratory failure due to COPD on baseline 2 L supplemental oxygen with ambulation, LAMBERTO on CPAP, CKD stage 3, peripheral arterial disease, AAA without rupture, gastroesophageal reflux disease, mixed hyperlipidemia, history of DVT and PE on Eliquis, BPH who presents to the emergency department for evaluation of dyspnea. 1. GPC bacteremia -switch to vancomycin renally dosed(3) -repeat blood cultures in a.m. -id consult pending 2.Acute on chronic hypoxemic respiratory failure due to pneumonia/COPD exacerbation -increase pulse dose steroids to q.6 -add Zosyn to cover pneumonia with vancomycin -aggressive DuoNeb therapy -titrate O2 to maintain sats greater than equal to 90% 2.Acute UTI -culture with greater than 100,000 mixed diane -Zosyn (2) 3. Compression fracture of T9 vertebra due to mechanical fall -Lidoderm patch with good response -PT consultation for possible placement when appropriate 4.History of PE/DVT -Eliquis as ordered 5. HFpEF -stable and well compensated Eliquis Full code Requires ongoing hospitalization for IV antibiotics to treat pneumonia Quality Stroke Does the patient have a stroke diagnosis?: No VTE Prior VTE?: No VTE Risk Level:: Medical - moderate - high VTE Device Contraindication: Treatment Not Indicated VTE Drug Contraindication: N/A - Med Ordered
[2023-09-17] VITALS (15 sets, daily range): BP systolic 92–140; BP diastolic 34–70; PULSE 66–85; RESP 16–20; TEMP 36–36.9; O2SAT 90–97; BMI 31.2
--- NOTE | 2023-09-17 00:22 | W.PM.IDCN ---
History of Present Illness Data of Consult Service Date: 09/16/23 Requesting physician: Lino Styles Primary Care Provider: Taylor Nuno MD HPI Reason for consult: actinomyces bacteremia He presents with weakness and fatigue for a day. He has fallen also within day. He had fallen several weeks ago. He has back pain as well ,10/10. He has no fever or chills. He has blood culture actinomyces meyeri. He has patchy opacity upper lobes lung. Review of Systems Review of Systems: Yes all other systems are reviewed and are negative [facility] Past Medical History Medical History (Updated 09/17/23 @ 16:59 by Flory Rosales MD) Actinomyces infection CHF (congestive heart failure) Exercise hypoxemia LAMBERTO on CPAP Pulmonary embolism Right leg DVT Gout BPH (benign prostatic hyperplasia) Obesity (BMI 30-39.9) GERD (gastroesophageal reflux disease) Hypercholesterolemia Chronic kidney disease (CKD) stage G3b/A1, moderately decreased glomerular filtration rate (GFR) between 30-44 mL/min/1.73 square meter and albuminuria creatinine ratio less than 30 mg/g Right renal mass History of stent insertion of renal artery Ischemic cardiomyopathy CAD (coronary artery disease) PVD (peripheral vascular disease) COPD (chronic obstructive pulmonary disease) Hypertension Family History Family History Father Cancer Mother No problems noted. Brother Heart disease Sister Heart disease CVD (cardiovascular disease) Other Mental health disorder Substance use disorder Family history: reviewed and not pertinent Surgical History Surgical History History of appendectomy S/P AAA repair S/P CABG x 3 Social History Social History Household Members: Spouse, Family and Children Housing: House Do you presently have visiting nurse or other home services: No Alcohol intake: former Patient Tobacco Use Status: Former Tobacco user Tobacco use type: Cigarette Cigarette Packs Per Day: 1 e-Cigarette/Vaping Use: Never Used Second Hand Smoke Exposure: No Advance Directives Date on File: 05/27/22 service: Yes Current occupational status: retired Cognitive needs: No Hearing needs: No Vision needs: Yes Meds Allergies Allergy/AdvReac Type Severity Reaction Status Date / Time codeine [CODEINE] Allergy Unknown STOMACH Verified 09/12/23 03:32 UPSET Iodinated Contrast Media Allergy Anaphylaxis Verified 09/12/23 03:32 [Contrast Dye] oxycodone Allergy Anaphylaxis Verified 09/12/23 03:32 Active Medications: Current Medications Acetaminophen (Acetaminophen 325 Mg Tablet) 975 mg PO TID [facility] Last Admin: 09/16/23 22:15 Dose: 975 mg Albuterol/Ipratropium (Albuterol/Iprat 2.5/0.5mg 3 Ml Ampul.Neb) 3 ml INHALE RQ4H WHILE AWAKE [facility] Last Admin: 09/16/23 19:34 Dose: 3 ml Albuterol/Ipratropium (Albuterol/Iprat 2.5/0.5mg 3 Ml Ampul.Neb) 3 ml INHALE Q4H PRN PRN Reason: Wheezing Last Admin: 09/13/23 00:00 Dose: 3 ml Amiodarone HCl (Amiodarone Hcl 200 Mg Tablet) 200 mg PO DAILY [facility] Last Admin: 09/16/23 09:35 Dose: 200 mg Apixaban (Apixaban 2.5 Mg Tablet) 2.5 mg PO BID [facility] Last Admin: 09/16/23 22:16 Dose: 2.5 mg Ascorbic Acid (Ascorbic Acid 500 Mg Tablet) 500 mg PO DAILY [facility] Last Admin: 09/16/23 09:35 Dose: 500 mg Atorvastatin Calcium (Atorvastatin Calcium 80 Mg Tablet) 80 mg PO DAILY [facility] Last Admin: 09/16/23 09:35 Dose: 80 mg Calcium Carbonate (Calcium Carbonate 750 Mg Tab.Chew) 750 mg PO Q4H PRN PRN Reason: Heartburn Cilostazol (Cilostazol 100 Mg Tablet) 100 mg PO BID [facility] Last Admin: 09/16/23 22:16 Dose: 100 mg Cyanocobalamin (Cyanocobalamin (Vitamin B-12) 1,000 Mcg Tablet) 1,000 mcg PO DAILY [facility] Last Admin: 09/16/23 09:35 Dose: 1,000 mcg Fluticasone/Vilanterol (Fluticasone/Vilanterol 200/25 Blst.W.Dev) 1 puff INHALE RDAILY [facility] Last Admin: 09/16/23 07:39 Dose: 1 puff Furosemide (Furosemide 20 Mg Tablet) 20 mg PO DAILY [facility]; Protocol Last Admin: 09/16/23 09:35 Dose: 20 mg Guaifenesin (Guaifenesin 100 Mg/5 Ml Liquid) 5 ml PO QID [facility] Last Admin: 09/16/23 22:16 Dose: 5 ml Vancomycin HCl 500 mg/ Sodium (Chloride) 110 mls @ 110 mls/hr IV Q24H [facility] Last Infusion: 09/16/23 16:13 Dose: Infused Piperacillin Sod/Tazobactam (Sod 4.5 gm/ Sodium Chloride) 100 mls @ 200 mls/hr IV Q8H [facility] Last Admin: 09/16/23 22:16 Dose: 200 mls/hr Lidocaine (Lidocaine 4 % Patch Adh..Patch) 1 patch TRANSDERMA DAILY [facility]; Protocol Last Admin: 09/16/23 09:37 Dose: 1 patch Lisinopril (Lisinopril 10 Mg Tablet) 10 mg PO DAILY [facility]; Protocol Last Admin: 09/16/23 09:35 Dose: 10 mg Magnesium Hydroxide (Milk Of Magnesia 30 Ml Oral.Susp) 30 ml PO DAILY PRN PRN Reason: Constipation Last Admin: 09/14/23 06:19 Dose: 30 ml Melatonin (Melatonin 3 Mg Tablet) 6 mg PO BEDTIME PRN PRN Reason: Insomnia Methylprednisolone Sodium Succinate (Methylprednisolone Sod Succ 125 Mg/2 Ml Vial) 60 mg IVPUSH Q6H [facility] Last Admin: 09/16/23 19:59 Dose: 60 mg Metoprolol Succinate (Metoprolol Succinate Er 100 Mg Tab.Er.24h) 100 mg PO DAILY [facility]; Protocol Last Admin: 09/16/23 09:35 Dose: 100 mg Omeprazole (Omeprazole 20 Mg Capsule.Dr) 20 mg PO DAILY@0630 [facility] Last Admin: 09/16/23 05:37 Dose: 20 mg Ondansetron HCl (Ondansetron Hcl 4 Mg/2 Ml Vial) 4 mg IVPUSH Q8H PRN PRN Reason: Nausea and Vomiting Pharmacy Consult (Consult Rx Vancomycin Dosing) 1 each MISCELLANE DAILY PRN PRN Reason: Consult order Sodium Chloride (0.9 % Sodium Chloride Flush 3 Ml Syringe) 3 ml IVFLUSH QSHIFT [facility] Last Admin: 09/16/23 22:17 Dose: 3 ml Home Medications ?Medication ?Instructions ?Recorded ?Confirmed ?Last Taken ?Type albuterol sulfate 90 mcg/actuation 2 puff inhalation Q6H PRN SOB 04/10/21 09/12/23 09/11/23 History aerosol inhaler mecobalamin (vitamin B12) 1,000 1,000 mcg PO DAILY 03/17/23 09/12/23 09/11/23 History mcg chewable tablet tramadol 50 mg tablet 50 mg PO BID PRN Severe Pain 09/12/23 09/12/23 09/11/23 History (Scale Score 7-10) Physical Exam Vital Signs: Vital Signs: Last Vital Signs Temp 97.6 F 09/16/23 20:00 Pulse 72 09/16/23 20:00 Resp 16 09/16/23 20:00 BP 131/48 L 09/16/23 20:00 Pulse Ox 93 09/16/23 20:00 O2 Del Method Nasal Cannula 09/16/23 20:00 O2 Flow Rate 2 09/16/23 20:00 Oxygen Flow Rate 2 09/12/23 03:30 BMI result Body Mass Index 31.5 Const: General: cooperative HEENT: Head: Yes normal to inspection Face and sinus: Yes normal facial exam Mouth: Normal oral and palatal mucosa present Teeth and gingiva: dentition normal Eyes: General: appearance normal, both eyes and all related structures Pupils: Equal, round and reactive pupils present Resp: Effort & Inspection: normal respiratory effort Cardio: Rate: regular rate Rhythm: regular rhythm GI: Palpation (GI): Soft to palpation and nontender : General: Yes no CVA tenderness Back/Spine/Pelvis: Back: no CVA tenderness Skin: General skin exam: no rashes or lesions noted Neuro: General: moves all extremities Cranial nerves: Yes Equal, round and reactive pupils present Extrem: General: Yes normal to inspection Psych: Appearance: grossly normal Results Labs 09/17/23 06:11 09/17/23 06:11 Labs: BMP 09/16/23 06:15 Creatinine 2.79 H Microbiology Microbiology Results: Microbiology 09/12/23 06:16 Blood - Venous Blood Culture - Final Actinomyces meyeri 09/12/23 06:16 Blood - Venous Blood Culture - Final Actinomyces meyeri 09/13/23 14:10 Urine clean catch - Clean Catch Midstream Urine Culture - Final No growth. 09/13/23 Unknown Sputum - Expectorated Gram Stain - Final 09/13/23 Unknown Sputum - Expectorated Sputum Culture - Final 09/12/23 Unknown Urine clean catch - Clean Catch Midstream Urine Culture - Final Assessment and Plan (1) Gram-positive cocci bacteremia: Status: Acute (2) Actinomyces infection: Status: Acute This is probable lung source. Bacteremia is unusual. There doesnt seem to be any specific back source on CT Plan Can switch to IV Ertapenem for four weeks and then po Amoxicillin 500 mg tid for two to three months.
[2023-09-17] MEDS: methylPREDNISolone Sod Succ 125 MG/2 ML VIAL 60 MG IVPUSH ×2 (02:40→08:35)
[2023-09-17] MEDS: Piperacillin Sodium/Tazobactam 4.5 GM in 0.9 % Sodium Chloride 100 ML IV (05:31)
[2023-09-17] MEDS: Omeprazole 20 MG CAPSULE.DR PO (05:32)
[2023-09-17 06:36] LABS: MANUAL DIFF FLAG NO
[2023-09-17 06:41] LABS: Basophils Percent Auto 0.1 % (0-2); Hematocrit 32.8 % (42.0-52.0); Hemoglobin 11.2 g/dl (14.0-18.0); Imm Gran Abs Auto 0.41 X10*3/uL (0.00-0.03); Imm Gran Pct Auto 2.6 % (0.0-0.4); Lymphocytes Absolute Auto 0.6 X10*3/uL (1.2-4.9); Lymphocytes Percent Auto 3.9 % (20-40); Mean Corpuscular HGB Conc 34.1 g/dl (31.0-36.0); Mean Corpuscular Hemoglobin 29.8 pg (27.0-33.0); Mean Corpuscular Volume 87.2 fL (80.0-98.0); Monocytes Percent Auto 6.4 % (2-11); Neutrophils Absolute Auto 13.9 x10*3/uL (2.0-8.3); Platelet Count 235 X10*3/uL (160-400); Red Blood Count 3.76 X10*6/uL (4.60-5.80); Red Cell Distribution Width 16.1 % (11.0-16.0)
[2023-09-17 06:59] LABS: Alanine Aminotransferase 43 U/L (0-40); Albumin Level 3.1 g/dL (3.5-5.0); Alkaline Phosphatase 78 U/L (39-117); Anion Gap 16 (12-20); Aspartate Amino Transferase 30 U/L (5-37); Bilirubin Total 0.5 mg/dL (0.0-1.0); Blood Urea Nitrogen 96 mg/dL (9-16); Calcium 8.5 mg/dL (8.4-10.2); Carbon Dioxide 17 mmol/L (22-29); Chloride 109 mmol/L (96-108); Creatinine Clr Calc Pharmacy 20.8; Estimated Glomerular Filt Rate 22; Glucose Fasting 133 mg/dL (60-99); Sodium 138 mmol/L (135-145); Total Protein 5.4 g/dL (6.5-8.0)
[2023-09-17] MEDS: Fluticasone/Vilanterol 200/25 BLST.W.DEV 1 PUFF INHALE (07:33)
[2023-09-17] MEDS: Albuterol/Iprat 2.5/0.5MG 3 ML AMPUL.NEB INHALE ×3 (07:34→18:47)
[2023-09-17] MEDS: cefTRIAXone sodium 1 GM in 0.9 % Sodium Chloride 50 ML IV (08:37)
[2023-09-17] MEDS: 0.9 % Sodium Chloride Flush 3 ML SYRINGE IVFLUSH ×2 (08:37→16:00)
[2023-09-17] MEDS: Amiodarone HCL 200 MG TABLET PO (08:37)
[2023-09-17] MEDS: cilostazoL 100 MG TABLET PO ×2 (08:37→22:31)
[2023-09-17] MEDS: Apixaban 2.5 MG TABLET PO ×2 (08:37→22:31)
[2023-09-17] MEDS: guaiFENesin 100 MG/5 ML LIQUID PO ×4 (08:37→22:43)
[2023-09-17] MEDS: lisinopriL 10 MG TABLET PO (08:37)
[2023-09-17] MEDS: Atorvastatin Calcium 80 MG TABLET PO (08:37)
[2023-09-17] MEDS: Ascorbic Acid 500 MG TABLET PO (08:38)
[2023-09-17] MEDS: Cyanocobalamin (Vitamin B-12) 1,000 MCG TABLET 1000 MCG PO (08:38)
[2023-09-17] MEDS: Acetaminophen 325 MG TABLET 975 MG PO ×3 (08:38→22:31)
[2023-09-17] MEDS: Metoprolol Succinate ER 100 MG TAB.ER.24H PO (08:38)
[2023-09-17] MEDS: Furosemide 20 MG TABLET PO (08:38)
[2023-09-17] MEDS: Lidocaine 4 % Patch ADH..PATCH 1 PATCH TRANSDERMA (08:39)
[2023-09-17 09:41] LABS: Vancomycin Random 17.5 mcg/mL (15-20)
[2023-09-17] MEDS: 0.9 % Sodium Chloride 1,000 ML 100 ML IVCONT (11:55)
--- NOTE | 2023-09-17 13:17 | MHC.CM.PN ---
EMR reviewed and per MD rounds, pt is not medically cleared for discharge due tp ongoing management of pneumonia, requiring IV antibiotics. This CM met with pt to discuss discharge plans and he is not willing to go to [facility] (per PT rec), pt would like to go home with new VNA services at discharge. Pt did not have a preference in VNA agency, and could not remember the name of the VNA agency he had in the past, VNA referrals placed via [facility], [facility] able to accept pt.
--- NOTE | 2023-09-17 13:23 | MHC.CM.PN ---
EMR reviewed and per MD rounds, pt is not medically cleared for discharge due tp ongoing management of pneumonia, requiring IV antibiotics. This CM met with pt to discuss discharge plans and he is not willing to go to [facility] (per PT rec), pt would like to go home with new VNA services at discharge. Pt did not have a preference in VNA agency, and could not remember the name of the VNA agency he had in the past, VNA referrals placed via [facility], [facility] able to accept pt.
--- NOTE | 2023-09-17 13:49 | HO.PM.IMPN ---
Subjective Subjective Date of Service: 09/17/23 Interval History: Episodic diarrhea this a.m. with relative hypotension. Responded to volume Review of Systems Denies chest pain Admits to shortness of breath with minimal movement Denies nausea vomiting diarrhea Denies fever chills Physical Exam Vital Signs: Vital Signs: Last Vital Signs Temp 97.5 F 09/17/23 11:53 Pulse 66 09/17/23 11:53 Resp 20 09/17/23 11:53 BP 96/44 L 09/17/23 13:00 Pulse Ox 95 09/17/23 11:53 O2 Del Method Nasal Cannula 09/17/23 11:53 O2 Flow Rate 3 09/17/23 11:53 Oxygen Flow Rate 2 09/12/23 03:30 BMI result Body Mass Index 31.2 Const: Other: Awake alert no acute distress Resp: Other: Diminished throughout with coarse lung sounds. Scant wheezes bilateral bases Cardio: Other: No S4; positive S1-S2; no S3 murmurs rubs or gallops GI: Other: Soft nontender nondistended normoactive bowel sounds Extrem: Other: No edema bilaterally Objective Data Active Medications Acetaminophen (Acetaminophen 325 Mg Tablet) 975 mg PO TID [facility] Last Admin: 09/17/23 08:38 Dose: 975 mg Documented By: MAYCO Albuterol/Ipratropium (Albuterol/Iprat 2.5/0.5mg 3 Ml Ampul.Neb) 3 ml INHALE RQ4H WHILE AWAKE [facility] Last Admin: 09/17/23 11:15 Dose: Not Given Documented By: MCKENZIE Non-Admin Reason: Patient Asleep Albuterol/Ipratropium (Albuterol/Iprat 2.5/0.5mg 3 Ml Ampul.Neb) 3 ml INHALE Q4H PRN PRN Reason: Wheezing Last Admin: 09/13/23 00:00 Dose: 3 ml Documented By: ZHANE Amiodarone HCl (Amiodarone Hcl 200 Mg Tablet) 200 mg PO DAILY [facility] Last Admin: 09/17/23 08:37 Dose: 200 mg Documented By: MAYCO Apixaban (Apixaban 2.5 Mg Tablet) 2.5 mg PO BID [facility] Last Admin: 09/17/23 08:37 Dose: 2.5 mg Documented By: MAYCO Ascorbic Acid (Ascorbic Acid 500 Mg Tablet) 500 mg PO DAILY [facility] Last Admin: 09/17/23 08:38 Dose: 500 mg Documented By: MAYCO Atorvastatin Calcium (Atorvastatin Calcium 80 Mg Tablet) 80 mg PO DAILY [facility] Last Admin: 09/17/23 08:37 Dose: 80 mg Documented By: MAYCO Calcium Carbonate (Calcium Carbonate 750 Mg Tab.Chew) 750 mg PO Q4H PRN PRN Reason: Heartburn Cilostazol (Cilostazol 100 Mg Tablet) 100 mg PO BID [facility] Last Admin: 09/17/23 08:37 Dose: 100 mg Documented By: MAYCO Cyanocobalamin (Cyanocobalamin (Vitamin B-12) 1,000 Mcg Tablet) 1,000 mcg PO DAILY [facility] Last Admin: 09/17/23 08:38 Dose: 1,000 mcg Documented By: MAYCO Fluticasone/Vilanterol (Fluticasone/Vilanterol 200/25 Blst.W.Dev) 1 puff INHALE RDAILY [facility] Last Admin: 09/17/23 07:33 Dose: 1 puff Documented By: MCKENZIE Furosemide (Furosemide 20 Mg Tablet) 20 mg PO DAILY [facility]; Protocol Last Admin: 09/17/23 08:38 Dose: 20 mg Documented By: MAYCO Guaifenesin (Guaifenesin 100 Mg/5 Ml Liquid) 5 ml PO QID [facility] Last Admin: 09/17/23 12:55 Dose: 5 ml Documented By: MAYCO Ceftriaxone Sodium 1 gm/ (Sodium Chloride) 50 mls @ 100 mls/hr IV Q24H [facility] Last Infusion: 09/17/23 10:46 Dose: Infused Documented By: MAYCO Sodium Chloride (Ns) 1,000 mls @ 100 mls/hr IVCONT .Q10H [facility] Last Admin: 09/17/23 11:55 Dose: 100 mls/hr Documented By: MAYCO Lidocaine (Lidocaine 4 % Patch Adh..Patch) 1 patch TRANSDERMA DAILY [facility]; Protocol Last Admin: 09/17/23 08:39 Dose: 1 patch Documented By: MAYCO Lisinopril (Lisinopril 10 Mg Tablet) 10 mg PO DAILY [facility]; Protocol Last Admin: 09/17/23 08:37 Dose: 10 mg Documented By: MAYCO Magnesium Hydroxide (Milk Of Magnesia 30 Ml Oral.Susp) 30 ml PO DAILY PRN PRN Reason: Constipation Last Admin: 09/14/23 06:19 Dose: 30 ml Documented By: ZHANE Melatonin (Melatonin 3 Mg Tablet) 6 mg PO BEDTIME PRN PRN Reason: Insomnia Methylprednisolone Sodium Succinate (Methylprednisolone Sod Succ 125 Mg/2 Ml Vial) 60 mg IVPUSH Q6H [facility] Last Admin: 09/17/23 08:35 Dose: 60 mg Documented By: MAYCO Metoprolol Succinate (Metoprolol Succinate Er 100 Mg Tab.Er.24h) 100 mg PO DAILY [facility]; Protocol Last Admin: 09/17/23 08:38 Dose: 100 mg Documented By: MAYCO Omeprazole (Omeprazole 20 Mg Capsule.Dr) 20 mg PO DAILY@0630 [facility] Last Admin: 09/17/23 05:32 Dose: 20 mg Documented By: DMITRY Ondansetron HCl (Ondansetron Hcl 4 Mg/2 Ml Vial) 4 mg IVPUSH Q8H PRN PRN Reason: Nausea and Vomiting Sodium Chloride (0.9 % Sodium Chloride Flush 3 Ml Syringe) 3 ml IVFLUSH QSHIFT [facility] Last Admin: 09/17/23 08:37 Dose: 3 ml Documented By: MAYCO Labs 09/17/23 06:11 09/17/23 06:11 Labs: Laboratory Results - last 24 hr 09/17/23 09/17/23 06:11 09:01 MCV 87.2 MCH 29.8 MCHC 34.1 RDW 16.1 H Plt Count 235 MPV 9.0 L Immature Gran % (Auto) 2.6 H Neut % (Auto) 87.0 H Lymph % (Auto) 3.9 L [place] % (Auto) 6.4 Eos % (Auto) 0.0 Baso % (Auto) 0.1 Lymph # (Auto) 0.6 L [place] # (Auto) 1.0 Eos # (Auto) 0.0 Baso # (Auto) 0.0 Abs Immat Gran (auto) 0.41 H Absolute Neuts (auto) 13.9 H Absolute Nucleated RBC 0.000 Nucleated RBC % (auto) 0.0 Anion Gap 16 Estim Creat Clear Calc 20.8 Estimated GFR 22 Fasting Glucose 133 H Calcium 8.5 Total Bilirubin 0.5 AST 30 ALT 43 H Alkaline Phosphatase 78 Total Protein 5.4 L Albumin 3.1 L Random Vancomycin 17.5 Microbiology Microbiology Results: Microbiology 09/16/23 06:15 Blood Culture - Preliminary Blood - Venous No growth after 24 hours. 09/16/23 06:15 Blood Culture - Preliminary Blood - Venous No growth after 24 hours. 09/12/23 06:16 Blood Culture - Final Blood - Venous Actinomyces meyeri 09/12/23 06:16 Blood Culture - Final Blood - Venous Actinomyces meyeri Assessment and Plan (1) Gram-positive cocci bacteremia: Status: Acute Plan This is a 78-year-old male with pertinent history of congestive heart failure with reduced ejection fraction due to ischemic cardiomyopathy, history of nonsustained V-tach, coronary artery disease status post CABG in 2014, chronic hypoxic respiratory failure due to COPD on baseline 2 L supplemental oxygen with ambulation, LAMBERTO on CPAP, CKD stage 3, peripheral arterial disease, AAA without rupture, gastroesophageal reflux disease, mixed hyperlipidemia, history of DVT and PE on Eliquis, BPH who presents to the emergency department for evaluation of dyspnea. 1. Actinomyces bacteremia -switch to ceftriaxone (2) -appreciate ID consult -will discuss duration with Infectious Disease 2.Acute on chronic hypoxemic respiratory failure due to pneumonia/COPD exacerbation -increase pulse dose steroids to q.6 -add Zosyn to cover pneumonia with vancomycin -aggressive DuoNeb therapy -titrate O2 to maintain sats greater than equal to 90% 2.Acute UTI -culture with greater than 100,000 mixed diane -Zosyn (2) 3. Compression fracture of T9 vertebra due to mechanical fall -Lidoderm patch with good response -PT consultation for possible placement when appropriate 4.History of PE/DVT -Eliquis as ordered 5. HFpEF -stable and well compensated Eliquis Full code Requires ongoing hospitalization for IV antibiotics to treat pneumonia Quality Stroke Does the patient have a stroke diagnosis?: No VTE Prior VTE?: No VTE Risk Level:: Medical - moderate - high VTE Device Contraindication: Treatment Not Indicated VTE Drug Contraindication: N/A - Med Ordered
--- NOTE | 2023-09-17 18:07 | PM.EVENT ---
Event Note Date of Service: 09/17/23 Event Note: pt with copious diarrhea starting this morning per rn. gi panel and cdiff pcr ordered Time Spent With Patient Time: Total time managing care of this patient today ____ minutes.
[2023-09-17 19:38] LABS: B Type Natriuretic Peptide 107 pg/mL (<100)
[2023-09-17] MEDS: methylPREDNISolone Sod Succ 40 MG/ML VIAL IVPUSH (22:31)
[2023-09-18] VITALS (32 sets, daily range): BP systolic 78–189; BP diastolic 35–150; PULSE 69–94; RESP 12–28; TEMP 36.1–37.2; O2SAT 88–100; BMI 31.3
--- NOTE | 2023-09-18 | ECG_ITS ---
Test Reason : svt Blood Pressure : / mmHG Vent. Rate : 119 BPM Atrial Rate : 119 BPM P-R Int : 134 ms QRS Dur : 166 ms QT Int : 416 ms P-R-T Axes : 000 -55 126 degrees QTc Int : 585 ms Ventricular tachycardia (ventricular or supraventricular with aberration) Abnormal ECG When compared with ECG of 18-SEP-2023 12:40, Ventricular tachycardia (ventricular or supraventricular with aberration) is now Present Referred By: Cornelia Lucio Electronically Signed By:ERICA VALADEZ MD
[2023-09-18] MEDS: Omeprazole 20 MG CAPSULE.DR PO (06:09)
[2023-09-18 06:42] LABS: MANUAL DIFF FLAG NO
[2023-09-18 06:56] LABS: Basophils Percent Auto 0.2 % (0-2); Eosinophils Absolute Auto 0.1 X10*3/uL (0.0-0.4); Eosinophils Percent Auto 0.3 % (0-4); Hematocrit 28.9 % (42.0-52.0); Hemoglobin 9.9 g/dl (14.0-18.0); Imm Gran Abs Auto 0.34 X10*3/uL (0.00-0.03); Lymphocytes Absolute Auto 0.4 X10*3/uL (1.2-4.9); Lymphocytes Percent Auto 2.4 % (20-40); Mean Corpuscular HGB Conc 34.3 g/dl (31.0-36.0); Mean Corpuscular Hemoglobin 29.9 pg (27.0-33.0); Mean Corpuscular Volume 87.3 fL (80.0-98.0); Mean Platelet Volume 9.3 fL (9.4-12.4); Monocytes Absolute Auto 1.2 X10*3/uL (0.1-1.2); Monocytes Percent Auto 6.9 % (2-11); Neutrophils Absolute Auto 15.2 x10*3/uL (2.0-8.3); Neutrophils Percent Auto 88.2 % (45-73); Platelet Count 220 X10*3/uL (160-400); Red Blood Count 3.31 X10*6/uL (4.60-5.80); Red Cell Distribution Width 16.3 % (11.0-16.0); White Blood Count 17.2 X10*3/uL (4.8-10.8)
[2023-09-18 07:08] LABS: Alanine Aminotransferase 37 U/L (0-40); Albumin Level 2.9 g/dL (3.5-5.0); Alkaline Phosphatase 75 U/L (39-117); Anion Gap 17 (12-20); Aspartate Amino Transferase 29 U/L (5-37); Bilirubin Total 0.4 mg/dL (0.0-1.0); Blood Urea Nitrogen 111 mg/dL (9-16); Calcium 8.2 mg/dL (8.4-10.2); Carbon Dioxide 17 mmol/L (22-29); Chloride 110 mmol/L (96-108); Estimated Glomerular Filt Rate 17; Glucose Fasting 133 mg/dL (60-99); Potassium 3.7 mmol/L (3.3-5.1); Sodium 140 mmol/L (135-145); Total Protein 4.9 g/dL (6.5-8.0)
[2023-09-18] MEDS: Fluticasone/Vilanterol 200/25 BLST.W.DEV 1 PUFF INHALE (08:03)
[2023-09-18] MEDS: Albuterol/Iprat 2.5/0.5MG 3 ML AMPUL.NEB INHALE ×6 (08:04→20:48)
[2023-09-18] MEDS: Lidocaine 4 % Patch ADH..PATCH 1 PATCH TRANSDERMA (08:41)
[2023-09-18] MEDS: methylPREDNISolone Sod Succ 40 MG/ML VIAL IVPUSH ×2 (08:42→19:32)
[2023-09-18] MEDS: Acetaminophen 325 MG TABLET 975 MG PO (08:42)
[2023-09-18] MEDS: cefTRIAXone sodium 1 GM in 0.9 % Sodium Chloride 50 ML IV (08:42)
[2023-09-18] MEDS: guaiFENesin 100 MG/5 ML LIQUID PO ×3 (08:42→18:05)
[2023-09-18] MEDS: cilostazoL 100 MG TABLET PO (08:44)
[2023-09-18] MEDS: Amiodarone HCL 200 MG TABLET PO (08:44)
[2023-09-18] MEDS: Apixaban 2.5 MG TABLET PO (08:44)
[2023-09-18] MEDS: 0.9 % Sodium Chloride Flush 3 ML SYRINGE IVFLUSH ×2 (08:44→22:32)
[2023-09-18] MEDS: Cyanocobalamin (Vitamin B-12) 1,000 MCG TABLET 1000 MCG PO (08:44)
[2023-09-18] MEDS: Metoprolol Succinate ER 100 MG TAB.ER.24H PO (08:44)
[2023-09-18] MEDS: Atorvastatin Calcium 80 MG TABLET PO (08:44)
[2023-09-18] MEDS: Ascorbic Acid 500 MG TABLET PO (08:44)
[2023-09-18 09:46] LABS: CDiff Gene PCR NEGATIVE (Negative)
[2023-09-18 11:40] LABS: Adenovirus F 40/41 Not Detected (Not Detect.); Astrovirus Not Detected (Not Detect.); Campylobacter Not Detected (Not Detect.); Cryptosporidium Not Detected (Not Detect.); Cyclospora cayetanensis Not Detected (Not Detect.); E. coli EAEC Not Detected (Not Detect.); E. coli EPEC Not Detected (Not Detect.); E. coli ETEC Not Detected (Not Detect.); E. coli STEC Not Detected (Not Detect.); Entamoeba histolytica Not Detected (Not Detect.); Giardia lamblia Not Detected (Not Detect.); Norovirus GI/GII Not Detected (Not Detect.); Plesiomonas shigelloides Not Detected (Not Detect.); Rotavirus A Not Detected (Not Detect.); Salmonella Not Detected (Not Detect.); Sapovirus Not Detected (Not Detect.); Shigella sp./EIEC Not Detected (Not Detect.); Vibrio Not Detected (Not Detect.); Vibrio Cholerae Not Detected (Not Detect.); Yersinia enterocolitica Not Detected (Not Detect.)
[2023-09-18] MEDS: Magnesium Sulfate/H2O 2 GM/50 ML PIGGYBACK IV (11:41)
[2023-09-18] MEDS: Potassium Chloride Packet 20 MEQ PACKET PO (11:50)
[2023-09-18 11:53] LABS: Magnesium 2.7 mg/dL (1.6-2.6)
--- NOTE | 2023-09-18 12:36 | ECG_ITS ---
Test Reason : svt Blood Pressure : / mmHG Vent. Rate : 119 BPM Atrial Rate : 119 BPM P-R Int : 114 ms QRS Dur : 186 ms QT Int : 428 ms P-R-T Axes : 105 -55 125 degrees QTc Int : 602 ms Poor data quality, interpretation may be adversely affected Sinus tachycardia Left axis deviation Left bundle branch block Abnormal ECG When compared with ECG of 12-SEP-2023 06:02, Sinus rhythm has replaced Wide QRS rhythm Referred By: Cornelia Lucio Electronically Signed By:
[2023-09-18] MEDS: LORazepam 2 MG/ML VIAL IVPUSH (12:53)
[2023-09-18] MEDS: Midazolam HCl/PF 2 MG/2 ML VIAL IVPUSH ×2 (12:59→13:00)
[2023-09-18] MEDS: HYDROmorphone HCl 1 MG/ML SYRINGE IVPUSH (12:59)
--- NOTE | 2023-09-18 13:00 | CA_ITS ---
Transthoracic Echocardiogram Patient (Last, First, Middle): Brian Urena M Gender: Male Date of : 1945 Age: 78 Procedure Date: 09/18/2023 Procedure Type: Transthoracic Echocardiogram Location: ICU Height: 165. cm Weight: 85. kg BSA: 1.92 m2 Heart Rate: 82 bpm BP: 114 / 46 mmHg Retail Marketing Manager: FESTUS Referring MD: Cornelia CINTRON Customer Account Manager: Manas Brennan MD Symptoms: NSVT Study Quality: Fair w/Cotrast ECG Rhythm: Sinus Conclusions: - 1. [id number] LV systolic dysfunction with LVEF of 40-45% with underlying regional wall motion abnormality consistent with ischemic cardiomyopathy with grade 1 diastolic dysfunction 2. Mildly calcific aortic valve with mild aortic regurgitation 3. Moderately reduced RV systolic function 4. RV systolic pressure and right atrial pressures were not able to be assessed on this study Findings Procedure Information Contrast agent, definity, is being given per protocol without apparent complications. The quality of the study was technically difficult. The study quality is limited by patients body habitus and lung artifact. Left Ventricle Normal left ventricular cavity size. There is mildly increased left ventricular wall thickness. The left ventricular systolic function is mild to moderately decreased. The visually estimated ejection fraction is between 40-45%. Spectral Doppler is indicative of an impaired relaxation filling pattern. E/E prime ratio is <8, consistent with normal filling pressures. Evidence suggests grade I (mild) diastolic dysfunction. There is moderate septal asymmetric hypertrophy. Wall Motion Rest Echo Findings The mid inferolateral segment is hypokinetic. The mid inferior, basal inferoseptal, and basal inferolateral segments are akinetic. The basal inferior segment is dyskinetic. All other scored wall segments showed normal motion. Right Ventricle Mildly increased right ventricular cavity size. There is moderately decreased right ventricular systolic function. Atria The left atrium is mildly dilated. Interatrial shunt cannot be excluded. The right atrium is mildly dilated. Aortic Valve The aortic valve was not well visualized. There is mild calcification of the aortic valve. There is no aortic valve stenosis. There is mild aortic valve regurgitation. Mitral Valve The mitral valve was not well visualized. There is trace mitral valve regurgitation. There is no mitral valve stenosis. Pulmonic Valve The pulmonic valve was not well visualized. Tricuspid Valve The tricuspid valve was not well visualized. Tricuspid regurgitation envelope is inadequate for calculation of right ventricular systolic pressure. Indeterminate right atrial pressure. Venous The inferior vena cava is moderately dilated. Pericardium/Pleural The pericardium was not well visualized. Prior Study Comparison No significant change compared to prior study dated: 07/20/2021. Measurements 2D Linear Measurements IVSd: 1.67 0.6-0.9/0.6-1.0 cm LVIDd: 5.60 3.9-5.3/4.2-5.9 cm LVIDd Index: 2.92 2.4-3.2/2.2-3.1 cm/m2 LVIDs: 4.46 2.0-3.6 cm LVPWd: 0.77 0.7-1.1 cm LA Diam: 4.60 2.7-3.8/3.0-4.0 cm LAIDs Index: 2.40 1.5-2.3 cm/m2 LV Mass: 357.66 67-162/88-224 g LV Mass Index: 186.28 43-95/49-115 g/m2 LVOT Diam: 2.20 3.0+(-)1.3 cm 2D Systolic Function EF 4C: 46.40 >55% EF 2C: 38.70 >55% EF BiP: 44.30 >55% Mitral Valve MV Pk E: 0.53 MV PK A: 0.88 MV Decel Time: 166.00 E/A: 0.60 E'Lateral: 11.90 E'Medial: 7.72 E/E' Med: 6.80 E/E' Lat: 4.40 PHT: 49.00 MVA PHT: 4.49 Decel Hood: 3.17 Aortic Valve AoV Pk Iglesia: 1.69 AoV Pk Grad: 11.00 JERAD: 2.70 LVOT LVOT Pk Iglesia: 1.30 LVOT Mn Iglesia: 0.85 LVOT VTI: 0.19 LVOT Pk Grad: 7.00 LVOT Mn Grad: 4.00 LVOT Diam: 2.20 LVOT Area: 3.80 Diastolic Function MV Pk E: 0.53 MV Pk A: 0.88 E/A: 0.60 E'Medial: 7.72 E/E' Med: 6.80 E' Laterial: 11.90 E/E' Lat: 4.40 Right Ventricle TAPSE (mm): 12.20 TVS' Iglesia: 8.70 Tricuspid Valve TR Pk Iglesia: 3.18 TR Pk Grad: 40.00 Great Vessels Aorta Sinus of Valsalva: 3.30 2.0-3.5 cm Ao Asc: 3.60 2.1-3.4 cm Pulmonary Valve PV Pk Iglesia: 1.25 Peak PV Grad: 6.00 Updated in Other Vendor System with Status of Final Manas Brennan MD electronically signed on 09/18/2023 4:30:01 PM with status of Final
[2023-09-18] MEDS: Norepinephrine Bitartrate/D5W 8 MG/250 ML PLAST..BAG 80.06 MG IV (13:13)
[2023-09-18] MEDS: Amiodarone HCL 900 MG in 0.9 % Sodium Chloride 500 ML 34.53 MG IVCONT (13:14)
--- NOTE | 2023-09-18 13:54 | PC.NURSE ---
ECONOMICS DEPARTMENT CHAIR called on patient for sustained SVT at 12:45. Patient alert and oriented X4 denying any pain/discomfort. HCP and manufactured buildings supervisor arrived at bedside. Additional EKG obtained, IV amiodorone, ativan, versed, and dilaudid administered intravenously. Cardioversion performed at bedside and amiodarone and Levo drips begun. patient transferred to ICU for further monitoring
--- NOTE | 2023-09-18 13:57 | P.PNIM_ITS ---
Subjective Subjective Date of Service: 09/18/23 Interval History: Seen and examined this morning Follow-up for bacteremia, COPD Still reporting some shortness of breath as well as bilateral edema Awake, alert, in no acute distress around 11:30 noted to have multiple runs of NSVT - patient remained asymptomatic. Magnesium and potassium given empirically, echocardiogram ordered, Cardiology consult placed At 12:30 nurse reported sustained ventricular tachycardia. Blood pressure repeated in in the 80s. cardiology alerted, Rapid response called, ICU alerted. both cardiology and ICU attending at bedside. patient sedated and cardioverted and subsequently transferred to the ICU Cardiovascular Cardiovascular: Denies chest pain and Reports dyspnea Respiratory Respiratory: Reports dyspnea Physical Exam 2 Vital Signs: Vital Signs: Last Vital Signs Temp 97.0 F 09/18/23 11:39 Pulse 84 09/18/23 11:47 Resp 20 09/18/23 11:47 BP 105/49 L 09/18/23 11:39 Pulse Ox 94 09/18/23 11:39 O2 Del Method Nasal Cannula 09/18/23 11:39 O2 Flow Rate 3 09/18/23 11:39 Oxygen Flow Rate 2 09/12/23 03:30 BMI result Body Mass Index 31.3 Resp: Effort & Inspection: no respiratory distress and no use of accessory muscles GI: Inspection: No distended Palpation (GI): Soft to palpation and nontender Neuro: General: moves all extremities and CN's II-XI intact bilaterally Extrem: Other: b/l leg edema right greater then left; mild upper extremity edema Objective Data Active Medications Acetaminophen (Acetaminophen 325 Mg Tablet) 975 mg PO TID [facility] Last Admin: 09/18/23 08:42 Dose: 975 mg Documented By: MAYCO Albuterol/Ipratropium (Albuterol/Iprat 2.5/0.5mg 3 Ml Ampul.Neb) 3 ml INHALE RQ4H WHILE AWAKE [facility] Last Admin: 09/18/23 11:41 Dose: 3 ml Documented By: MAYCO Albuterol/Ipratropium (Albuterol/Iprat 2.5/0.5mg 3 Ml Ampul.Neb) 3 ml INHALE Q4H PRN PRN Reason: Wheezing Last Admin: 09/13/23 00:00 Dose: 3 ml Documented By: ZHANE Amiodarone HCl (Amiodarone Hcl 200 Mg Tablet) 200 mg PO DAILY [facility] Last Admin: 09/18/23 08:44 Dose: 200 mg Documented By: MAYCO Apixaban (Apixaban 2.5 Mg Tablet) 2.5 mg PO BID [facility] Last Admin: 09/18/23 08:44 Dose: 2.5 mg Documented By: MAYCO Ascorbic Acid (Ascorbic Acid 500 Mg Tablet) 500 mg PO DAILY [facility] Last Admin: 09/18/23 08:44 Dose: 500 mg Documented By: MAYCO Atorvastatin Calcium (Atorvastatin Calcium 80 Mg Tablet) 80 mg PO DAILY [facility] Last Admin: 09/18/23 08:44 Dose: 80 mg Documented By: MAYCO Calcium Carbonate (Calcium Carbonate 750 Mg Tab.Chew) 750 mg PO Q4H PRN PRN Reason: Heartburn Cilostazol (Cilostazol 100 Mg Tablet) 100 mg PO BID [facility] Last Admin: 09/18/23 08:44 Dose: 100 mg Documented By: MAYCO Cyanocobalamin (Cyanocobalamin (Vitamin B-12) 1,000 Mcg Tablet) 1,000 mcg PO DAILY [facility] Last Admin: 09/18/23 08:44 Dose: 1,000 mcg Documented By: MAYCO Fluticasone/Vilanterol (Fluticasone/Vilanterol 200/25 Blst.W.Dev) 1 puff INHALE RDAILY [facility] Last Admin: 09/18/23 08:03 Dose: 1 puff Documented By: MCKENZIE Furosemide (Furosemide 20 Mg Tablet) 20 mg PO DAILY [facility]; Protocol Last Admin: 09/17/23 08:38 Dose: 20 mg Documented By: MAYCO Guaifenesin (Guaifenesin 100 Mg/5 Ml Liquid) 5 ml PO QID [facility] Last Admin: 09/18/23 12:22 Dose: 5 ml Documented By: MAYCO Ceftriaxone Sodium 1 gm/ (Sodium Chloride) 50 mls @ 100 mls/hr IV Q24H [facility] Last Infusion: 09/18/23 10:14 Dose: Infused Documented By: MAYCO Amiodarone HCl 900 mg/ Sodium (Chloride) 518 mls @ 34.533 mls/hr IVCONT .Q15H1M [facility]; Protocol Lidocaine (Lidocaine 4 % Patch Adh..Patch) 1 patch TRANSDERMA DAILY [facility]; Protocol Last Admin: 09/18/23 08:41 Dose: 1 patch Documented By: MAYCO Lisinopril (Lisinopril 10 Mg Tablet) 10 mg PO DAILY [facility]; Protocol Last Admin: 09/17/23 08:37 Dose: 10 mg Documented By: MAYCO Magnesium Hydroxide (Milk Of Magnesia 30 Ml Oral.Susp) 30 ml PO DAILY PRN PRN Reason: Constipation Last Admin: 09/14/23 06:19 Dose: 30 ml Documented By: ZHANE Melatonin (Melatonin 3 Mg Tablet) 6 mg PO BEDTIME PRN PRN Reason: Insomnia Methylprednisolone Sodium Succinate (Methylprednisolone Sod Succ 40 Mg/Ml Vial) 40 mg IVPUSH Q12H [facility] Last Admin: 09/18/23 08:42 Dose: 40 mg Documented By: MAYCO Metoprolol Succinate (Metoprolol Succinate Er 100 Mg Tab.Er.24h) 100 mg PO DAILY [facility]; Protocol Last Admin: 09/18/23 08:44 Dose: 100 mg Documented By: MAYCO Omeprazole (Omeprazole 20 Mg Capsule.Dr) 20 mg PO DAILY@0630 [facility] Last Admin: 09/18/23 06:09 Dose: 20 mg Documented By: KIM Ondansetron HCl (Ondansetron Hcl 4 Mg/2 Ml Vial) 4 mg IVPUSH Q8H PRN PRN Reason: Nausea and Vomiting Sodium Chloride (0.9 % Sodium Chloride Flush 3 Ml Syringe) 3 ml IVFLUSH QSHIFT [facility] Last Admin: 09/18/23 08:44 Dose: 3 ml Documented By: MAYCO Labs 09/18/23 06:32 09/18/23 06:32 Labs: Laboratory Results - last 24 hr 09/17/23 09/18/23 09/18/23 19:01 06:32 08:30 MCV 87.3 MCH 29.9 MCHC 34.3 RDW 16.3 H Plt Count 220 MPV 9.3 L Immature Gran % (Auto) 2.0 H Neut % (Auto) 88.2 H Lymph % (Auto) 2.4 L Young % (Auto) 6.9 Eos % (Auto) 0.3 Baso % (Auto) 0.2 Lymph # (Auto) 0.4 L Young # (Auto) 1.2 Eos # (Auto) 0.1 Baso # (Auto) 0.0 Abs Immat Gran (auto) 0.34 H Absolute Neuts (auto) 15.2 H Absolute Nucleated RBC 0.000 Nucleated RBC % (auto) 0.0 Anion Gap 17 Estim Creat Clear Calc 17.0 Estimated GFR 17 Fasting Glucose 133 H Calcium 8.2 L Magnesium 2.7 H Total Bilirubin 0.4 AST 29 ALT 37 Alkaline Phosphatase 75 Total Creatine Kinase 245 H B-Natriuretic Peptide 107 H Total Protein 4.9 L Albumin 2.9 L Stl C. cayetanensis PCR Not Detected Stool Rotavirus A PCR Not Detected Stl Adenov F 40/41 PCR Not Detected Stool Astrovirus (PCR) Not Detected Stool Campylobacter PCR Not Detected Stool Cryptosporidium PCR Not Detected Stl Sh Tox Pr E STEC PCR Not Detected Stool E coli O157 PCR Not applicable Stl Enterotoxigenic E PCR Not Detected Stool EPEC (PCR) Not Detected Stool EAEC (PCR) Not Detected Stl E. histolytica PCR Not Detected Stool Giardia Lamblia PCR Not Detected Stl P. shigelloides PCR Not Detected Stool Salmonella PCR Not Detected Stool Sapovirus (PCR) Not Detected Stl Shigella/EIEC PCR Not Detected St Y.enterocolitica PCR Not Detected Stool Vibrio (PCR) Not Detected Stl Vibrio cholerae PCR Not Detected Stl Norovirus GI/GII PCR Not Detected C. difficile Tox B Gene NEGATIVE Microbiology Microbiology Results: Microbiology 09/16/23 06:15 Blood Culture - Preliminary Blood - Venous No growth after 48 hours. 09/16/23 06:15 Blood Culture - Preliminary Blood - Venous No growth after 48 hours. Assessment and Plan (1) Actinomyces infection: Status: Acute (2) Urinary retention: Status: Acute (3) Sustained ventricular tachycardia: Status: Acute Plan This is a 78-year-old male with pertinent history of congestive heart failure with reduced ejection fraction due to ischemic cardiomyopathy, history of nonsustained V-tach, coronary artery disease status post CABG in 2014, chronic hypoxic respiratory failure due to COPD on baseline 2 L supplemental oxygen with ambulation, LAMBERTO on CPAP, CKD stage 3, peripheral arterial disease, AAA without rupture, gastroesophageal reflux disease, mixed hyperlipidemia, history of DVT and PE on Eliquis, BPH who presents to the emergency department for evaluation of dyspnea. ventricular tachycardia Initially in NSVT, then sustained ventricular tachycardia requiring cardioversion on the floor, amiodarone drip and subsequent transferred to the ICU for further care on po amiodorone for history on ventricular arrhythmia Actinomyces bacteremia Treated with ceftriaxone, seen by ID, recommend 4 weeks of IV ertapenem (meropenem inpatient) and then p.o. amoxicillin 500 mg t.i.d. for 2-3 months Acute on chronic hypoxemic respiratory failure due to pneumonia/COPD exacerbation on 2L o2 at baseline on steroids, breathing treatments and empiric antibiotics Acute UTI culture with greater than 100,000 mixed diane on antibiotics as above EUSEBIO on CKD3 Renal function worsening Received IV fluid, began having peripheral edema and fluid stopped Nephrology consult, recommended diuresis with IV Lasix but never started in light of above events HFrEF ef of 40-45% lasix on hold for EUSEBIO Compression fracture of T9 vertebra due to mechanical fall Lidoderm patch with good response PT consultation for possible placement when appropriate History of PE/DVT Eliquis as ordered PAD on cilostazol Eliquis Full code transfer to ICU for further care Quality Stroke Does the patient have a stroke diagnosis?: No VTE Prior VTE?: No VTE Risk Level:: Medical - moderate - high VTE Device Contraindication: Treatment Not Indicated VTE Drug Contraindication: N/A - Med Ordered
[2023-09-18] MEDS: Furosemide 100 MG/10 ML VIAL IVPUSH ×2 (14:20→21:34)
[2023-09-18 15:27] LABS: VBG HCO3 15 mmol/L (22-26); VBG pCO2 29 mmHg; VBG pO2 42 mmHg
[2023-09-18 16:19] LABS: Alanine Aminotransferase 40 U/L (0-40); Albumin Level 2.9 g/dL (3.5-5.0); Alkaline Phosphatase 78 U/L (39-117); Anion Gap 19 (12-20); Aspartate Amino Transferase 31 U/L (5-37); Bilirubin Total 0.4 mg/dL (0.0-1.0); Blood Urea Nitrogen 124 mg/dL (9-16); Calcium 8.2 mg/dL (8.4-10.2); Carbon Dioxide 15 mmol/L (22-29); Chloride 110 mmol/L (96-108); Creatinine Clr Calc Pharmacy 17.4; Estimated Glomerular Filt Rate 18; Glucose Random 198 mg/dL (60-115); Magnesium 2.7 mg/dL (1.6-2.6); Phosphorus 5.7 mg/dL (2.7-4.5); Potassium 3.7 mmol/L (3.3-5.1); Sodium 140 mmol/L (135-145); Total Protein 4.9 g/dL (6.5-8.0)
--- NOTE | 2023-09-18 16:34 | P.CONCA_ITS ---
History of Present Illness History of Present Illness Date of Service: 09/18/23 Requesting physician: Cornelia Lucio Consult reason: other (Sustained ventricular tachycardia) Chief complaint: dyspnea Narrative: I was consulted to see Brian in cardiology consultation today and I ended up providing acute care while he was having sustained ventricular tachycardia and/or rapid response was called on him. Patient is well known to me with prior history of CAD with redo coronary artery bypass grafting 2014 for increasing symptoms of shortness of breath and undergoing coronary artery bypass grafting at that time with improvement in his LV ejection fraction however with persistent LV systolic dysfunction which has remained stable with LVEF of 40-45% with inferior scar, as well as his symptoms however over the last several years he has been gradually declining with progressive chronic kidney disease, prostate cancer, COPD requiring oxygen at home, peripheral vascular disease with diffuse atherosclerotic disease with labile blood pressure difficult to manage, nonsustained ventricular tachycardia on amiodarone therapy to maintain and suppress arrhythmias. Patient has been gradually declining came to the hospital this time with difficulty in breathing with cough and wheezing and then increased urinary frequency and dysuria and then he fell in his bathtub and brought him to the emergency room. In the emergency room he was noted to be febrile and imaging suggestive of pneumonia and was started on IV steroids and DuoNebs. Subsequently developed Actinomyces bacteremia, currently being treated under ID guidance with ceftriaxone. Patient was on the floor and initially he was having episodes of nonsustained ventricular tachycardia and I was called for consultation. However patient quickly deteriorated and the sustained wide complex tachycardia and run consistent with ventricular tachycardia which is confirmed by 12 lead EKG and subsequently patient started having low blood pressure dropping his blood pressure getting more short of breath. Patient was then seen by a rapid response team with multiple providers including dry mop maker at bedside. They were poor IV access and subsequently interosseous line in the right humeral head was made. Patient subsequently underwent a synchronized cardioversion with return of his rhythm to what appeared to be junctional/sinus rhythm although P-waves are difficult to assess on the 12 lead EKG post. Patient denied any chest pain but was significantly short of breath and remained persistently hypotensive after the procedure and was subsequently started on vasopressors and moved to intensive care unit in critical condition. During the episode of sustained wide complex tachycardia/ventricular tachycardia patient was alert and oriented even though his blood pressure is on the lower side. Review of Systems 2 Constitutional: Constitutional: Reports fever(s) and Reports weakness Eyes: Eyes: Reports no additional eye complaints Cardiovascular: Cardiovascular: Denies chest pain, Reports rapid heart rate, Denies lightheadedness, Denies Loss of Consciousness and Reports dyspnea Respiratory: Respiratory: Reports cough, Reports dyspnea and Reports wheezing Gastrointestinal: Gastrointestinal: Reports no additional gastrointestinal complaints Genitourinary: Genitourinary: Reports urinary frequency Musculoskeletal: Musculoskeletal: Reports no additional musculoskeletal complaints Neurologic: Reports weakness Endocrine: Endocrine: Reports no additional endocrine complaints Allergic/Immunologic: Allergic/Immunologic: Reports wheezing PMF Past Medical History Medical History Actinomyces infection CHF (congestive heart failure) Exercise hypoxemia LAMBERTO on CPAP Pulmonary embolism Right leg DVT Gout BPH (benign prostatic hyperplasia) Obesity (BMI 30-39.9) GERD (gastroesophageal reflux disease) Hypercholesterolemia Chronic kidney disease (CKD) stage G3b/A1, moderately decreased glomerular filtration rate (GFR) between 30-44 mL/min/1.73 square meter and albuminuria creatinine ratio less than 30 mg/g Right renal mass History of stent insertion of renal artery Ischemic cardiomyopathy CAD (coronary artery disease) PVD (peripheral vascular disease) COPD (chronic obstructive pulmonary disease) Hypertension Family History Family History Father Cancer Mother No problems noted. Brother Heart disease Sister Heart disease CVD (cardiovascular disease) Other Mental health disorder Substance use disorder Family history: reviewed and not pertinent Surgical History Surgical History History of appendectomy S/P AAA repair S/P CABG x 3 Social History Social History Household Members: Spouse, Family and Children Housing: House Do you presently have visiting nurse or other home services: No Alcohol intake: former Patient Tobacco Use Status: Former Tobacco user Tobacco use type: Cigarette Cigarette Packs Per Day: 1 Smoked in Last 30 Days: No e-Cigarette/Vaping Use: Never Used Second Hand Smoke Exposure: No Use of substances other than those prescribed or required for medical reasons: No Currently Displaying Signs/Symptoms of Drug Intoxication Withdrawal: No Have you been hit, kicked, punched, or otherwise hurt by someone within the past year? If so, by whom?: No Do you feel safe in your current relationship?: Yes Is there a partner from a previous relationship who is making you feel unsafe now?: No Are you made to feel afraid or neglected: No Advance Directives: Yes Advance Directives on File: Yes Advance Directives Date on File: 05/27/22 Do you have a plan to hurt others: No Plan Recently lost weight without trying: No service: Yes Current occupational status: retired Cognitive needs: No Hearing needs: No Vision needs: Yes Meds Allergies Allergy/AdvReac Type Severity Reaction Status Date / Time codeine [CODEINE] Allergy Unknown STOMACH Verified 09/12/23 03:32 UPSET Iodinated Contrast Media Allergy Anaphylaxis Verified 09/12/23 03:32 [Contrast Dye] oxycodone Allergy Anaphylaxis Verified 09/12/23 03:32 Active Medications: Current Medications Acetaminophen (Acetaminophen 325 Mg Tablet) 975 mg PO TID REPLACED BY [facility] Last Admin: 09/18/23 15:12 Dose: Not Given Albuterol/Ipratropium (Albuterol/Iprat 2.5/0.5mg 3 Ml Ampul.Neb) 3 ml INHALE RQ4H WHILE AWAKE REPLACED BY [facility] Last Admin: 09/18/23 15:16 Dose: 3 ml Albuterol/Ipratropium (Albuterol/Iprat 2.5/0.5mg 3 Ml Ampul.Neb) 3 ml INHALE Q4H PRN PRN Reason: Wheezing Last Admin: 09/18/23 14:01 Dose: 3 ml Amiodarone HCl (Amiodarone Hcl 200 Mg Tablet) 200 mg PO DAILY REPLACED BY [facility] Last Admin: 09/18/23 08:44 Dose: 200 mg Apixaban (Apixaban 2.5 Mg Tablet) 2.5 mg PO BID REPLACED BY [facility] Last Admin: 09/18/23 08:44 Dose: 2.5 mg Ascorbic Acid (Ascorbic Acid 500 Mg Tablet) 500 mg PO DAILY REPLACED BY [facility] Last Admin: 09/18/23 08:44 Dose: 500 mg Atorvastatin Calcium (Atorvastatin Calcium 80 Mg Tablet) 80 mg PO DAILY REPLACED BY [facility] Last Admin: 09/18/23 08:44 Dose: 80 mg Calcium Carbonate (Calcium Carbonate 750 Mg Tab.Chew) 750 mg PO Q4H PRN PRN Reason: Heartburn Cilostazol (Cilostazol 100 Mg Tablet) 100 mg PO BID REPLACED BY [facility] Last Admin: 09/18/23 08:44 Dose: 100 mg Cyanocobalamin (Cyanocobalamin (Vitamin B-12) 1,000 Mcg Tablet) 1,000 mcg PO DAILY REPLACED BY [facility] Last Admin: 09/18/23 08:44 Dose: 1,000 mcg Fluticasone/Vilanterol (Fluticasone/Vilanterol 200/25 Blst.W.Dev) 1 puff INHALE RDAILY REPLACED BY [facility] Last Admin: 09/18/23 08:03 Dose: 1 puff Furosemide (Furosemide 20 Mg Tablet) 20 mg PO DAILY REPLACED BY [facility]; Protocol Last Admin: 09/17/23 08:38 Dose: 20 mg Guaifenesin (Guaifenesin 100 Mg/5 Ml Liquid) 5 ml PO QID REPLACED BY [facility] Last Admin: 09/18/23 12:22 Dose: 5 ml Ceftriaxone Sodium 1 gm/ (Sodium Chloride) 50 mls @ 100 mls/hr IV Q24H REPLACED BY [facility] Last Infusion: 09/18/23 10:14 Dose: Infused Amiodarone HCl 900 mg/ Sodium (Chloride) 518 mls @ 34.533 mls/hr IVCONT .Q15H1M REPLACED BY [facility]; Protocol Last Admin: 09/18/23 13:14 Dose: 1 mg/min, 34.53 mls/hr Norepinephrine Bitartrate (Levophed) 8 mg in 250 mls @ 0 mls/hr IV .Q0M EDWARD; Protocol Last Titration: 09/18/23 13:45 Dose: 0.1 mcg/kg/min, 16.01 mls/hr Lidocaine (Lidocaine 4 % Patch Adh..Patch) 1 patch TRANSDERMA DAILY REPLACED BY [facility]; Protocol Last Admin: 09/18/23 08:41 Dose: 1 patch Lisinopril (Lisinopril 10 Mg Tablet) 10 mg PO DAILY REPLACED BY [facility]; Protocol Last Admin: 09/17/23 08:37 Dose: 10 mg Magnesium Hydroxide (Milk Of Magnesia 30 Ml Oral.Susp) 30 ml PO DAILY PRN PRN Reason: Constipation Last Admin: 09/14/23 06:19 Dose: 30 ml Melatonin (Melatonin 3 Mg Tablet) 6 mg PO BEDTIME PRN PRN Reason: Insomnia Methylprednisolone Sodium Succinate (Methylprednisolone Sod Succ 40 Mg/Ml Vial) 40 mg IVPUSH Q12H REPLACED BY [facility] Last Admin: 09/18/23 08:42 Dose: 40 mg Metoprolol Succinate (Metoprolol Succinate Er 100 Mg Tab.Er.24h) 100 mg PO DAILY REPLACED BY [facility]; Protocol Last Admin: 09/18/23 08:44 Dose: 100 mg Omeprazole (Omeprazole 20 Mg Capsule.Dr) 20 mg PO DAILY@0630 REPLACED BY [facility] Last Admin: 09/18/23 06:09 Dose: 20 mg Ondansetron HCl (Ondansetron Hcl 4 Mg/2 Ml Vial) 4 mg IVPUSH Q8H PRN PRN Reason: Nausea and Vomiting Sodium Chloride (0.9 % Sodium Chloride Flush 3 Ml Syringe) 3 ml IVFLUSH QSHIFT REPLACED BY [facility] Last Admin: 09/18/23 08:44 Dose: 3 ml Home Medications ?Medication ?Instructions ?Recorded ?Confirmed ?Last Taken ?Type albuterol sulfate 90 mcg/actuation 2 puff inhalation Q6H PRN SOB 04/10/21 09/12/23 09/11/23 History aerosol inhaler mecobalamin (vitamin B12) 1,000 1,000 mcg PO DAILY 03/17/23 09/12/23 09/11/23 History mcg chewable tablet tramadol 50 mg tablet 50 mg PO BID PRN Severe Pain 09/12/23 09/12/23 09/11/23 History (Scale Score 7-10) Physical Exam 2 Vital Signs: Vital Signs: Last Vital Signs Temp 97.2 F 09/18/23 16:00 Pulse 81 09/18/23 16:00 Resp 18 09/18/23 16:00 BP 110/37 L 09/18/23 16:00 Pulse Ox 94 09/18/23 16:00 O2 Del Method BiPAP 09/18/23 16:00 O2 Flow Rate 3 09/18/23 11:39 FiO2 50 09/18/23 16:00 Oxygen Flow Rate 2 09/12/23 03:30 BMI result Body Mass Index 31.3 Const: General: acute distress respiratory and ill appearing Nutritional Appearance: obese Orientation/consciousness: patient oriented x3 HEENT: Head: Yes normocephalic and Yes atraumatic Neck: Neck: Yes trachea midline and Yes supple Resp: Effort & Inspection: tachypneic Auscultation: wheezes Cardio: Rate: regular rate Rhythm: regular rhythm Heart sounds: S1 normal heart sound present, S2 normal heart sound present, no click, no gallops, no murmurs and no rubs Skin: General skin exam: ecchymosis Neuro: General: patient oriented x3 Extrem: General: Yes no clubbing, cyanosis or edema Objective Labs and Meds 09/18/23 06:32 09/18/23 15:55 Lab results: Laboratory Results - last 24 hr 09/17/23 09/18/23 09/18/23 19:01 06:32 08:30 WBC 17.2 H RBC 3.31 L Hgb 9.9 L Hct 28.9 L MCV 87.3 MCH 29.9 MCHC 34.3 RDW 16.3 H Plt Count 220 MPV 9.3 L Immature Gran % (Auto) 2.0 H Neut % (Auto) 88.2 H Lymph % (Auto) 2.4 L [place]ergus % (Auto) 6.9 Eos % (Auto) 0.3 Baso % (Auto) 0.2 Lymph # (Auto) 0.4 L [place] # (Auto) 1.2 Eos # (Auto) 0.1 Baso # (Auto) 0.0 Abs Immat Gran (auto) 0.34 H Absolute Neuts (auto) 15.2 H Absolute Nucleated RBC 0.000 Nucleated RBC % (auto) 0.0 VBG pH VBG pCO2 VBG pO2 VBG HCO3 VBG O2 Saturation VBG Base Excess Sodium 140 Potassium 3.7 Chloride 110 H Carbon Dioxide 17 L Anion Gap 17 BUN 111 H Creatinine 3.48 H Estim Creat Clear Calc 17.0 Estimated GFR 17 Random Glucose Fasting Glucose 133 H Calcium 8.2 L Phosphorus Magnesium 2.7 H Total Bilirubin 0.4 AST 29 ALT 37 Alkaline Phosphatase 75 Total Creatine Kinase 245 H B-Natriuretic Peptide 107 H Total Protein 4.9 L Albumin 2.9 L Stl C. cayetanensis PCR Not Detected Stool Rotavirus A PCR Not Detected Stl Adenov F 40/41 PCR Not Detected Stool Astrovirus (PCR) Not Detected Stool Campylobacter PCR Not Detected Stool Cryptosporidium PCR Not Detected Stl Sh Tox Pr E STEC PCR Not Detected Stool E coli O157 PCR Not applicable Stl Enterotoxigenic E PCR Not Detected Stool EPEC (PCR) Not Detected Stool EAEC (PCR) Not Detected Stl E. histolytica PCR Not Detected Stool Giardia Lamblia PCR Not Detected Stl P. shigelloides PCR Not Detected Stool Salmonella PCR Not Detected Stool Sapovirus (PCR) Not Detected Stl Shigella/EIEC PCR Not Detected St Y.enterocolitica PCR Not Detected Stool Vibrio (PCR) Not Detected Stl Vibrio cholerae PCR Not Detected Stl Norovirus GI/GII PCR Not Detected C. difficile Tox B Gene NEGATIVE 09/18/23 09/18/23 15:18 15:55 WBC RBC Hgb Hct MCV MCH MCHC RDW Plt Count MPV Immature Gran % (Auto) Neut % (Auto) Lymph % (Auto) [place] % (Auto) Eos % (Auto) Baso % (Auto) Lymph # (Auto) [place] # (Auto) Eos # (Auto) Baso # (Auto) Abs Immat Gran (auto) Absolute Neuts (auto) Absolute Nucleated RBC Nucleated RBC % (auto) VBG pH 7.30 L VBG pCO2 29 VBG pO2 42 VBG HCO3 15 L VBG O2 Saturation 69.0 VBG Base Excess -10.0 Sodium 140 Potassium 3.7 Chloride 110 H Carbon Dioxide 15 L Anion Gap 19 BUN 124 H Creatinine 3.40 H Estim Creat Clear Calc 17.4 Estimated GFR 18 Random Glucose 198 H Fasting Glucose Calcium 8.2 L Phosphorus 5.7 H Magnesium 2.7 H Total Bilirubin 0.4 AST 31 ALT 40 Alkaline Phosphatase 78 Total Creatine Kinase B-Natriuretic Peptide Total Protein 4.9 L Albumin 2.9 L Stl C. cayetanensis PCR Stool Rotavirus A PCR Stl Adenov F 40/41 PCR Stool Astrovirus (PCR) Stool Campylobacter PCR Stool Cryptosporidium PCR Stl Sh Tox Pr E STEC PCR Stool E coli O157 PCR Stl Enterotoxigenic E PCR Stool EPEC (PCR) Stool EAEC (PCR) Stl E. histolytica PCR Stool Giardia Lamblia PCR Stl P. shigelloides PCR Stool Salmonella PCR Stool Sapovirus (PCR) Stl Shigella/EIEC PCR St Y.enterocolitica PCR Stool Vibrio (PCR) Stl Vibrio cholerae PCR Stl Norovirus GI/GII PCR C. difficile Tox B Gene Conclusions: - 1. [id number] LV systolic dysfunction with LVEF of 40-45% with underlying regional wall motion abnormality consistent with ischemic cardiomyopathy with grade 1 diastolic dysfunction 2. Mildly calcific aortic valve with mild aortic regurgitation 3. Moderately reduced RV systolic function 4. RV systolic pressure and right atrial pressures were not able to be assessed on this study Imaging Radiologist's impression: Impressions Chest X-Ray 09/17/23 18:49 IMPRESSION: Chronic appearing and postoperative changes. Persistent linear airspace opacifications with improved aeration at the left base when compared to 09/12/2023. Chest X-Ray 09/18/23 13:54 IMPRESSION: No pneumothorax or other significant change after the right IJ line placement. Assessment and Plan (1) Sustained ventricular tachycardia: Status: Acute Patient developed sustained ventricular tachycardia most likely due to acute medical illness although there are no obvious electrolyte abnormalities noted. He became hemodynamically unstable as well as increase respiratory breathing work and had to undergo urgent/emergent denies cardioversion with achieving normal rhythm. He is at risk for recurrent ventricular tachycardia given his inferior scar and has had prior nonsustained VT and is on amiodarone to maintain that on oral basis. Will continue IV amiodarone for now for 1 day and transition to oral amiodarone starting tomorrow if he remains stable. If he continues to have recurrent ventricular tachycardia episode may add IV lidocaine to control his cardiac arrhythmias and may eventually need to be switch to oral mexiletine therapy as well. Overall high risk for recurrent ventricular arrhythmias. Continue to check electrolytes regularly and maintain potassium above 4 and magnesium above 2. Continue metoprolol therapy as an anti ischemic therapy as well. Continue treat underlying acute medical illness. Overall prognosis is guarded. (2) Hypotension: Status: Acute Patient developed hypotension which is expected after sustained ventricular tachycardia but could be also related to his underlying medical illness. Patient has been shifted to ICU and is currently on Levophed therapy to maintain blood pressure. At this point time continue to closely monitor his blood pressure in the intensive care unit and continue Levophed therapy and supportive therapy. Continue treat his sepsis/infection aggressively. Clinically does not appear to be in overt heart failure and his left ventricular filling pressures on echocardiogram appear to be stable. However his IVC was somewhat distended and would avoid significant fluid resuscitation at this point time. Continue supportive care with vasopressors. (3) Ischemic cardiomyopathy: Status: Acute Ischemic cardiomyopathy with [id number] LV systolic dysfunction without overt heart failure based on echocardiographic finding although right atrial pressures appear to be slightly elevated based on distended IVC although this was difficult to evaluate on this study. I would avoid significant fluid resuscitation at this point time. Continue vasopressor therapy. Once blood pressure stabilizes will resume his metoprolol as well as lisinopril therapy. (4) CAD (coronary artery disease): Qualifiers: Coronary Disease-Associated Artery/Lesion type: [place] artery [place] vs. transplanted heart: [place] heart Associated angina: without angina Q ualified Code(s): I25.10 - Atherosclerotic heart disease of [place] coronary artery without angina pectoris Status: Acute CAD with prior inferior scar and redo coronary artery bypass grafting with progressive and significant atherosclerotic disease. Continue aspirin therapy. Continue high-intensity statin therapy. Will continue to follow with you. About critical care time of 1 hour was spent in managing this patient's care. Procedures Date of Service Date of Service: 09/18/23
--- NOTE | 2023-09-18 17:15 | PM.CNNEP ---
History of Present Illness Reason for Consult Consult date: 09/18/23 Reason for consult: EUSEBIO Chief Complaint Chief complaint: dyspnea History of Present Illness Narrative: 78-year-old male with CKD ( sees Dr Coronado) ischemic cardiomyopathy, history of nonsustained V-tach, coronary artery disease status post CABG in 2015, chronic hypoxic respiratory failure due to COPD on baseline 2 L supplemental oxygen with ambulation, LAMBERTO on CPAP, peripheral arterial disease, AAA without rupture, gastroesophageal reflux disease, mixed hyperlipidemia, history of DVT and PE on Eliquis, BPH presented to the emergency department for evaluation of dyspnea. Was found to have Actinomyces bacteremia. Was getting treated with ceftriaxone, seen by ID, recommend 4 weeks of IV ertapenem (meropenem inpatient) and then p.o. amoxicillin 500 mg t.i.d. for 2-3 months. His renal function started getting worsened. Very hypervolemic. Received IV fluid during hospital stay but began having peripheral edema and fluid stopped. He developed sustained ventricular tachycardia. Systolic blood pressure was in the 80s. patient sedated and cardioverted and subsequently transferred to the ICU . Nephrology has been consulted to assist in his clinical care during his current hospital stay Review of Systems Review of Systems Yes Unobtainable due to mental condition PMFSH Past Medical History Medical History Actinomyces infection CHF (congestive heart failure) Exercise hypoxemia LAMBERTO on CPAP Pulmonary embolism Right leg DVT Gout BPH (benign prostatic hyperplasia) Obesity (BMI 30-39.9) GERD (gastroesophageal reflux disease) Hypercholesterolemia Chronic kidney disease (CKD) stage G3b/A1, moderately decreased glomerular filtration rate (GFR) between 30-44 mL/min/1.73 square meter and albuminuria creatinine ratio less than 30 mg/g Right renal mass History of stent insertion of renal artery Ischemic cardiomyopathy CAD (coronary artery disease) PVD (peripheral vascular disease) COPD (chronic obstructive pulmonary disease) Hypertension Family History Family History Father Cancer Mother No problems noted. Brother Heart disease Sister Heart disease CVD (cardiovascular disease) Other Mental health disorder Substance use disorder Family history: reviewed and not pertinent Surgical History Surgical History History of appendectomy S/P AAA repair S/P CABG x 3 Social History Social History Household Members: Spouse, Family and Children Housing: House Do you presently have visiting nurse or other home services: No Alcohol intake: former Patient Tobacco Use Status: Former Tobacco user Tobacco use type: Cigarette Cigarette Packs Per Day: 1 Smoked in Last 30 Days: No e-Cigarette/Vaping Use: Never Used Second Hand Smoke Exposure: No Use of substances other than those prescribed or required for medical reasons: No Currently Displaying Signs/Symptoms of Drug Intoxication Withdrawal: No Have you been hit, kicked, punched, or otherwise hurt by someone within the past year? If so, by whom?: No Do you feel safe in your current relationship?: Yes Is there a partner from a previous relationship who is making you feel unsafe now?: No Are you made to feel afraid or neglected: No Advance Directives: Yes Advance Directives on File: Yes Advance Directives Date on File: 05/27/22 Do you have a plan to hurt others: No Plan Recently lost weight without trying: No service: Yes Current occupational status: retired Cognitive needs: No Hearing needs: No Vision needs: Yes Meds Allergies Allergy/AdvReac Type Severity Reaction Status Date / Time codeine [CODEINE] Allergy Unknown STOMACH Verified 09/12/23 03:32 UPSET Iodinated Contrast Media Allergy Anaphylaxis Verified 09/12/23 03:32 [Contrast Dye] oxycodone Allergy Anaphylaxis Verified 09/12/23 03:32 Active Medications: Current Medications Acetaminophen (Acetaminophen 325 Mg Tablet) 975 mg PO TID [facility] Last Admin: 09/18/23 15:12 Dose: Not Given Albuterol/Ipratropium (Albuterol/Iprat 2.5/0.5mg 3 Ml Ampul.Neb) 3 ml INHALE RQ4H WHILE AWAKE [facility] Last Admin: 09/18/23 15:16 Dose: 3 ml Albuterol/Ipratropium (Albuterol/Iprat 2.5/0.5mg 3 Ml Ampul.Neb) 3 ml INHALE Q4H PRN PRN Reason: Wheezing Last Admin: 09/18/23 14:01 Dose: 3 ml Amiodarone HCl (Amiodarone Hcl 200 Mg Tablet) 200 mg PO DAILY [facility] Last Admin: 09/18/23 08:44 Dose: 200 mg Apixaban (Apixaban 2.5 Mg Tablet) 2.5 mg PO BID [facility] Last Admin: 09/18/23 08:44 Dose: 2.5 mg Ascorbic Acid (Ascorbic Acid 500 Mg Tablet) 500 mg PO DAILY [facility] Last Admin: 09/18/23 08:44 Dose: 500 mg Atorvastatin Calcium (Atorvastatin Calcium 80 Mg Tablet) 80 mg PO DAILY [facility] Last Admin: 09/18/23 08:44 Dose: 80 mg Calcium Carbonate (Calcium Carbonate 750 Mg Tab.Chew) 750 mg PO Q4H PRN PRN Reason: Heartburn Cilostazol (Cilostazol 100 Mg Tablet) 100 mg PO BID [facility] Last Admin: 09/18/23 08:44 Dose: 100 mg Cyanocobalamin (Cyanocobalamin (Vitamin B-12) 1,000 Mcg Tablet) 1,000 mcg PO DAILY [facility] Last Admin: 09/18/23 08:44 Dose: 1,000 mcg Fluticasone/Vilanterol (Fluticasone/Vilanterol 200/25 Blst.W.Dev) 1 puff INHALE RDAILY [facility] Last Admin: 09/18/23 08:03 Dose: 1 puff Furosemide (Furosemide 20 Mg Tablet) 20 mg PO DAILY [facility]; Protocol Last Admin: 09/17/23 08:38 Dose: 20 mg Guaifenesin (Guaifenesin 100 Mg/5 Ml Liquid) 5 ml PO QID [facility] Last Admin: 09/18/23 12:22 Dose: 5 ml Ceftriaxone Sodium 1 gm/ (Sodium Chloride) 50 mls @ 100 mls/hr IV Q24H [facility] Last Infusion: 09/18/23 10:14 Dose: Infused Amiodarone HCl 900 mg/ Sodium (Chloride) 518 mls @ 34.533 mls/hr IVCONT .Q15H1M [facility]; Protocol Last Admin: 09/18/23 13:14 Dose: 1 mg/min, 34.53 mls/hr Norepinephrine Bitartrate (Levophed) 8 mg in 250 mls @ 0 mls/hr IV .Q0M [facility]; Protocol Last Titration: 09/18/23 13:45 Dose: 0.1 mcg/kg/min, 16.01 mls/hr Lidocaine (Lidocaine 4 % Patch Adh..Patch) 1 patch TRANSDERMA DAILY [facility]; Protocol Last Admin: 09/18/23 08:41 Dose: 1 patch Lisinopril (Lisinopril 10 Mg Tablet) 10 mg PO DAILY [facility]; Protocol Last Admin: 09/17/23 08:37 Dose: 10 mg Magnesium Hydroxide (Milk Of Magnesia 30 Ml Oral.Susp) 30 ml PO DAILY PRN PRN Reason: Constipation Last Admin: 09/14/23 06:19 Dose: 30 ml Melatonin (Melatonin 3 Mg Tablet) 6 mg PO BEDTIME PRN PRN Reason: Insomnia Methylprednisolone Sodium Succinate (Methylprednisolone Sod Succ 40 Mg/Ml Vial) 40 mg IVPUSH Q12H [facility] Last Admin: 09/18/23 08:42 Dose: 40 mg Metoprolol Succinate (Metoprolol Succinate Er 100 Mg Tab.Er.24h) 100 mg PO DAILY [facility]; Protocol Last Admin: 09/18/23 08:44 Dose: 100 mg Omeprazole (Omeprazole 20 Mg Capsule.Dr) 20 mg PO DAILY@0630 [facility] Last Admin: 09/18/23 06:09 Dose: 20 mg Ondansetron HCl (Ondansetron Hcl 4 Mg/2 Ml Vial) 4 mg IVPUSH Q8H PRN PRN Reason: Nausea and Vomiting Sodium Chloride (0.9 % Sodium Chloride Flush 3 Ml Syringe) 3 ml IVFLUSH QSHIFT [facility] Last Admin: 09/18/23 08:44 Dose: 3 ml Home Medications ?Medication ?Instructions ?Recorded ?Confirmed ?Last Taken ?Type albuterol sulfate 90 mcg/actuation 2 puff inhalation Q6H PRN SOB 04/10/21 09/12/23 09/11/23 History aerosol inhaler mecobalamin (vitamin B12) 1,000 1,000 mcg PO DAILY 03/17/23 09/12/23 09/11/23 History mcg chewable tablet tramadol 50 mg tablet 50 mg PO BID PRN Severe Pain 09/12/23 09/12/23 09/11/23 History (Scale Score 7-10) Physical Exam Vital Signs: Last Vital Signs Temp 97.2 F 09/18/23 16:00 Pulse 76 09/18/23 16:55 Resp 17 09/18/23 16:55 BP 115/35 L 09/18/23 16:55 Pulse Ox 94 09/18/23 16:55 O2 Del Method BiPAP 09/18/23 16:55 O2 Flow Rate 3 09/18/23 11:39 FiO2 50 09/18/23 16:55 Oxygen Flow Rate 2 09/12/23 03:30 BMI result Body Mass Index 31.3 Const General: no acute distress HEENT Head: Yes normocephalic Resp Auscultation: diminished lung sounds Cardio Rate: regular rate GI Palpation (GI): Soft to palpation Neuro General: moves all extremities Extrem General: Yes edema Results Lab Results 09/18/23 06:32 09/18/23 15:55 Lab results: Chemistry 09/16/23 09/17/23 09/18/23 06:15 06:11 06:32 Sodium 138 140 Potassium 4.0 3.7 Carbon Dioxide 17 L 17 L BUN 96 H 111 H Creatinine 2.79 H 2.84 H 3.48 H Calcium 8.5 8.2 L Phosphorus 09/18/23 15:55 Sodium 140 Potassium 3.7 Carbon Dioxide 15 L BUN 124 H Creatinine 3.40 H Calcium 8.2 L Phosphorus 5.7 H Hematology 09/17/23 09/18/23 06:11 06:32 WBC 16.0 H 17.2 H Hgb 11.2 L 9.9 L Plt Count 235 220 Assessment and Plan (1) EUSEBIO (acute kidney injury): Status: Acute Plan EUSEBIO due to tubular injury Has advanced CKD at baseline Hypervolemic; Needs diuresis GN/AIN unlikely Shall order C3/C4/Ur Eos / UA if serum creatinine worsens No indication for HD at this point- but may need it Labs AM; Shall closely F/U Procedures Date of Service Date of Service: 09/18/23
--- NOTE | 2023-09-18 18:13 | P.CONCC_ITS ---
History of Present Illness Data of Consult Service Date: 09/18/23 Primary Care Provider: Taylor Nuno MD [facility] Reason for consult: Ventricular tachyarrhythmias 78-year-old gentleman with multiple comorbidities not limited to congestive heart failure with reduced ejection fraction due to ischemic cardiomyopathy, history of nonsustained V-tach, coronary artery disease status post CABG in 2014, chronic hypoxic respiratory failure due to COPD on baseline 2 L supplemental oxygen with ambulation, LAMBERTO on CPAP, CKD stage 3, peripheral arterial disease, AAA without rupture, gastroesophageal reflux disease, mixed hyperlipidemia, history of DVT and PE on Eliquis, BPH Was admitted to the hospital on 09/12/2023 with complaints of shortness of breath for about 4-5 days. Workup was significant for Actinomyces bacteremia possibly originating from a lung source. This morning patient had multiple episodes of nonsustained ventricular tachycardia eventually turning into symptomatic ventricular tachycardia with hypotension so a rapid response was called. Patient was treated with amiodarone bolus, reverted back after defibrillation. However patient has significant increase in work of breathing and is also in cardiogenic shock needing vasopressor support so is admitted to medical ICU Review of Systems 2 Constitutional: Constitutional: Denies body ache(s) and Denies chills Eyes: Eyes: Denies exophthalmos and Denies change in vision ENT: Reports Normal hearing present and Denies bleeding gums Cardiovascular: Cardiovascular: Denies Abdominal Cramping after Meds, Reports Abdominal Distension, Denies cool extremities and Reports dyspnea Respiratory: Respiratory: Reports change in phlegm color, Reports chest congestion, Reports cough and Reports dyspnea Gastrointestinal: Gastrointestinal: Denies abdominal pain, Denies belching and Denies melena Genitourinary: Genitourinary: Denies hematospermia and Denies hematuria Musculoskeletal: Musculoskeletal: Denies abnormal gait and Reports back pain Integumentary/Breasts: Skin/Breast: Denies bleeding lesions and Denies breast swelling Neurologic: Reports Normal hearing present, Denies abnormal gait and Denies behavioral changes Psychiatric: Psychiatric: Denies behavioral changes and Denies change in appetite PMFSH Past Medical History Medical History Actinomyces infection CHF (congestive heart failure) Exercise hypoxemia LAMBERTO on CPAP Pulmonary embolism Right leg DVT Gout BPH (benign prostatic hyperplasia) Obesity (BMI 30-39.9) GERD (gastroesophageal reflux disease) Hypercholesterolemia Chronic kidney disease (CKD) stage G3b/A1, moderately decreased glomerular filtration rate (GFR) between 30-44 mL/min/1.73 square meter and albuminuria creatinine ratio less than 30 mg/g Right renal mass History of stent insertion of renal artery Ischemic cardiomyopathy CAD (coronary artery disease) PVD (peripheral vascular disease) COPD (chronic obstructive pulmonary disease) Hypertension Family History Family History Father Cancer Mother No problems noted. Brother Heart disease Sister Heart disease CVD (cardiovascular disease) Other Mental health disorder Substance use disorder Family history: reviewed and not pertinent Surgical History Surgical History History of appendectomy S/P AAA repair S/P CABG x 3 Social History Social History Household Members: Spouse, Family and Children Housing: House Do you presently have visiting nurse or other home services: No Alcohol intake: former Patient Tobacco Use Status: Former Tobacco user Tobacco use type: Cigarette Cigarette Packs Per Day: 1 Smoked in Last 30 Days: No e-Cigarette/Vaping Use: Never Used Second Hand Smoke Exposure: No Use of substances other than those prescribed or required for medical reasons: No Currently Displaying Signs/Symptoms of Drug Intoxication Withdrawal: No Have you been hit, kicked, punched, or otherwise hurt by someone within the past year? If so, by whom?: No Do you feel safe in your current relationship?: Yes Is there a partner from a previous relationship who is making you feel unsafe now?: No Are you made to feel afraid or neglected: No Advance Directives: Yes Advance Directives on File: Yes Advance Directives Date on File: 05/27/22 Do you have a plan to hurt others: No Plan Recently lost weight without trying: No service: Yes Current occupational status: retired Cognitive needs: No Hearing needs: No Vision needs: Yes Meds Allergies Allergy/AdvReac Type Severity Reaction Status Date / Time codeine [CODEINE] Allergy Unknown STOMACH Verified 09/12/23 03:32 UPSET Iodinated Contrast Media Allergy Anaphylaxis Verified 09/12/23 03:32 [Contrast Dye] oxycodone Allergy Anaphylaxis Verified 09/12/23 03:32 Active Medications: Current Medications Acetaminophen (Acetaminophen 325 Mg Tablet) 975 mg PO TID [facility] Last Admin: 09/18/23 15:12 Dose: Not Given Albuterol/Ipratropium (Albuterol/Iprat 2.5/0.5mg 3 Ml Ampul.Neb) 3 ml INHALE RQ4H WHILE AWAKE [facility] Last Admin: 09/18/23 15:16 Dose: 3 ml Albuterol/Ipratropium (Albuterol/Iprat 2.5/0.5mg 3 Ml Ampul.Neb) 3 ml INHALE Q4H PRN PRN Reason: Wheezing Last Admin: 09/18/23 17:47 Dose: 3 ml Amiodarone HCl (Amiodarone Hcl 200 Mg Tablet) 200 mg PO DAILY [facility] Last Admin: 09/18/23 08:44 Dose: 200 mg Apixaban (Apixaban 2.5 Mg Tablet) 2.5 mg PO BID [facility] Last Admin: 09/18/23 08:44 Dose: 2.5 mg Ascorbic Acid (Ascorbic Acid 500 Mg Tablet) 500 mg PO DAILY [facility] Last Admin: 09/18/23 08:44 Dose: 500 mg Atorvastatin Calcium (Atorvastatin Calcium 80 Mg Tablet) 80 mg PO DAILY [facility] Last Admin: 09/18/23 08:44 Dose: 80 mg Calcium Carbonate (Calcium Carbonate 750 Mg Tab.Chew) 750 mg PO Q4H PRN PRN Reason: Heartburn Cilostazol (Cilostazol 100 Mg Tablet) 100 mg PO BID [facility] Last Admin: 09/18/23 08:44 Dose: 100 mg Cyanocobalamin (Cyanocobalamin (Vitamin B-12) 1,000 Mcg Tablet) 1,000 mcg PO DAILY [facility] Last Admin: 09/18/23 08:44 Dose: 1,000 mcg Fluticasone/Vilanterol (Fluticasone/Vilanterol 200/25 Blst.W.Dev) 1 puff INHALE RDAILY [facility] Last Admin: 09/18/23 08:03 Dose: 1 puff Furosemide (Furosemide 20 Mg Tablet) 20 mg PO DAILY [facility]; Protocol Last Admin: 09/17/23 08:38 Dose: 20 mg Guaifenesin (Guaifenesin 100 Mg/5 Ml Liquid) 5 ml PO QID [facility] Last Admin: 09/18/23 18:05 Dose: 5 ml Amiodarone HCl 900 mg/ Sodium (Chloride) 518 mls @ 34.533 mls/hr IVCONT .Q15H1M [facility]; Protocol Last Admin: 09/18/23 13:14 Dose: 1 mg/min, 34.53 mls/hr Norepinephrine Bitartrate (Levophed) 8 mg in 250 mls @ 0 mls/hr IV .Q0M [facility]; Protocol Last Titration: 09/18/23 13:45 Dose: 0.1 mcg/kg/min, 16.01 mls/hr Meropenem 500 mg/ Sodium (Chloride) 50 mls @ 100 mls/hr IV Q8H [facility] Lidocaine (Lidocaine 4 % Patch Adh..Patch) 1 patch TRANSDERMA DAILY [facility]; Protocol Last Admin: 09/18/23 08:41 Dose: 1 patch Lisinopril (Lisinopril 10 Mg Tablet) 10 mg PO DAILY [facility]; Protocol Last Admin: 09/17/23 08:37 Dose: 10 mg Magnesium Hydroxide (Milk Of Magnesia 30 Ml Oral.Susp) 30 ml PO DAILY PRN PRN Reason: Constipation Last Admin: 09/14/23 06:19 Dose: 30 ml Melatonin (Melatonin 3 Mg Tablet) 6 mg PO BEDTIME PRN PRN Reason: Insomnia Methylprednisolone Sodium Succinate (Methylprednisolone Sod Succ 40 Mg/Ml Vial) 40 mg IVPUSH Q12H [facility] Last Admin: 09/18/23 08:42 Dose: 40 mg Metoprolol Succinate (Metoprolol Succinate Er 100 Mg Tab.Er.24h) 100 mg PO DAILY [facility]; Protocol Last Admin: 09/18/23 08:44 Dose: 100 mg Omeprazole (Omeprazole 20 Mg Capsule.Dr) 20 mg PO DAILY@0630 [facility] Last Admin: 09/18/23 06:09 Dose: 20 mg Ondansetron HCl (Ondansetron Hcl 4 Mg/2 Ml Vial) 4 mg IVPUSH Q8H PRN PRN Reason: Nausea and Vomiting Sodium Chloride (0.9 % Sodium Chloride Flush 3 Ml Syringe) 3 ml IVFLUSH QSHIFT [facility] Last Admin: 09/18/23 17:40 Dose: Not Given Home Medications ?Medication ?Instructions ?Recorded ?Confirmed ?Last Taken ?Type albuterol sulfate 90 mcg/actuation 2 puff inhalation Q6H PRN SOB 04/10/21 09/12/23 09/11/23 History aerosol inhaler mecobalamin (vitamin B12) 1,000 1,000 mcg PO DAILY 03/17/23 09/12/23 09/11/23 History mcg chewable tablet tramadol 50 mg tablet 50 mg PO BID PRN Severe Pain 09/12/23 09/12/23 09/11/23 History (Scale Score 7-10) Physical Exam 2 Vital Signs: Vital Signs: Last Vital Signs Temp 97.2 F 09/18/23 16:00 Pulse 80 09/18/23 18:00 Resp 16 09/18/23 18:00 BP 122/35 L 09/18/23 18:00 Pulse Ox 94 09/18/23 18:00 O2 Del Method Oxymask 09/18/23 18:00 O2 Flow Rate 6 09/18/23 18:00 FiO2 50 09/18/23 16:55 Oxygen Flow Rate 2 09/12/23 03:30 BMI result Body Mass Index 31.3 General: acute distress, ill appearing and tired appearing Nutritional Appearance: well nourished and overweight Eyes: appearance normal, both eyes and all related structures; Alignment and Position: alignment normal and position normal Neck: No lymphadenopathy, no thyromegaly Resp: bilateral air entry equal, significant bilateral wheezes heard, abdominal breathing present Cardio: Regular rate, regular rhythm; Heart sounds: S1 normal heart sound present and S2 normal heart sound present, edema present GI: soft, nontender, no guarding, no hepatosplenomegaly : bladder normal to inspection, bladder normal to palpation, no renal angle tenderness Skin: no rashes or lesions noted and elasticity normal Neuro: oriented to person, oriented to place, oriented to time and moves all extremities Neuro: Cranial nerves: Yes Normal hearing present Results Labs 09/18/23 06:32 09/18/23 15:55 Labs: Short CBC 09/18/23 Range/Units 06:32 WBC 17.2 H (4.8-10.8) X10*3/uL Hgb 9.9 L (14.0-18.0) g/dl Hct 28.9 L (42.0-52.0) % Plt Count 220 (160-400) X10*3/uL BMP 09/18/23 09/18/23 06:32 15:55 Sodium 140 140 Potassium 3.7 3.7 Chloride 110 H 110 H Carbon Dioxide 17 L 15 L BUN 111 H 124 H Creatinine 3.48 H 3.40 H Calcium 8.2 L 8.2 L Cardiac Enzymes 09/17/23 Range/Units 19:01 Total Creatine Kinase 245 H (38-174) U/L Liver Function 09/18/23 09/18/23 Range/Units 06:32 15:55 Total Bilirubin 0.4 0.4 (0.0-1.0) mg/dL AST 29 31 (5-37) U/L ALT 37 40 (0-40) U/L Alkaline Phosphatase 75 78 (39-117) U/L Albumin 2.9 L 2.9 L (3.5-5.0) g/dL Microbiology Microbiology Results: Microbiology 09/16/23 06:15 Blood - Venous Blood Culture - Preliminary No growth after 48 hours. 09/16/23 06:15 Blood - Venous Blood Culture - Preliminary No growth after 48 hours. 09/12/23 06:16 Blood - Venous Blood Culture - Final Actinomyces meyeri 09/12/23 06:16 Blood - Venous Blood Culture - Final Actinomyces meyeri 09/13/23 14:10 Urine clean catch - Clean Catch Midstream Urine Culture - Final No growth. 09/13/23 Unknown Sputum - Expectorated Gram Stain - Final 09/13/23 Unknown Sputum - Expectorated Sputum Culture - Final 09/12/23 Unknown Urine clean catch - Clean Catch Midstream Urine Culture - Final Assessment and Plan (1) EUSEBIO (acute kidney injury): Status: Acute (2) Sustained ventricular tachycardia: Status: Acute (3) Acute and chronic respiratory failure: Status: Acute (4) Cardiogenic shock: Status: Acute (5) Pneumonia: Status: Acute Plan 78-year-old gentleman with multiple comorbidities not limited to congestive heart failure with reduced ejection fraction due to ischemic cardiomyopathy, history of nonsustained V-tach, coronary artery disease status post CABG in 2014, chronic hypoxic respiratory failure due to COPD on baseline 2 L supplemental oxygen with ambulation, LAMBERTO on CPAP, CKD stage 3, peripheral arterial disease, AAA without rupture, gastroesophageal reflux disease, mixed hyperlipidemia, history of DVT and PE on Eliquis, BPH Was admitted to the hospital on 09/12/2023 with complaints of shortness of breath for about 4-5 days. Workup was significant for Actinomyces bacteremia possibly originating from a lung source. This morning patient had multiple episodes of nonsustained ventricular tachycardia eventually turning into symptomatic ventricular tachycardia with hypotension so a rapid response was called. Patient was treated with amiodarone bolus, reverted back after defibrillation. However patient has significant increase in work of breathing and is also in cardiogenic shock needing vasopressor support so is admitted to medical ICU Ventricular tachycardia: Secondary to underlying ischemic cardiomyopathy Reverted back after defibrillation, received amiodarone bolus, currently on continuous amiodarone drip We will restart beta-blockers when he tolerates Keep potassium above 4, magnesium above 2 Cardiogenic shock: Secondary to ventricular tachycardia, ischemic cardiomyopathy Currently on Levophed support, titrate to keep the map above 65 mm Hg Repeat echo done today showed EF of 40-45% which is similar to previous echoes, RV dysfunction We will hold metoprolol succinate and lisinopril in view of shock Acute on chronic hypoxemic respiratory failure: Acute respiratory failure possibly secondary to pulmonary edema from tachy arrhythmias Bedside ultrasound showed diffuse B-lines in all anterior and lateral lung casanova suggestive of pulmonary edema Given increased work of breathing patient is placed on BiPAP support, continue BiPAP support for today We will treat the patient with IV Lasix 100 mg b.i.d. today we will closely monitoring renal function Has underlying chronic lung disease with COPD requiring home oxygen Continue [id number] DuoNebs, Solu-Medrol 40 mg Also has underlying obstructive sleep apnea on home CPAP at night Acute on chronic kidney disease: Patient has underlying CKD, acute worsening of renal functions secondary to cardiorenal syndrome We will continue diuresis of the patient as he has diffuse B-lines in the lungs and dilated RV and dilated IVC is; we will closely monitor the renal functions Closely monitor I's and O's Infectious disease: Has actinomycin tests bacteremia possibly thought to be from lung source Continue meropenem as per ID recommendation. Infectious Disease recommended patient to be on 4 weeks of ertapenem followed by Augmentin GI: Can continue oral feeds if the patient remains off of BiPAP significantly Prophylaxis: Heparin, pantoprazole Patients acute worsening in the symptoms including the shock and respiratory failure needing an NIPPV is cardiogenic and from pulmonary edema. This is not related to sepsis or infectious origin. Total critical care time spent is about 60 60 minutes on managing patient's tachyarrhythmias, stabilizing the patient during the episodes of arrhythmias, managing shock, vasopressor titration, bedside ultrasound and bedside echo, managing patient's worsening in respiratory status with an NIPPV at this time is excluding any procedural time. Total time managing care of this patient today: 60 minutes.
--- NOTE | 2023-09-18 18:41 | W.PM.CCHP ---
Procedures Date of Service Date of Service: 09/18/23 Central Line Placement Right IJ: Consent for Procedure: Emergent-no informed consent obtained Time out performed: Yes Sterile Technique Used: Yes Patient placed on monitor/pulse ox: Yes MD prep: mask, gown and gloves Central line prep: Chlorhexidine scrub Local anesthesia used: lidocaine 1% Ultrasound used for placement: Yes Central line lumen inserted: triple Post procedure: sutured in place, good blood return and all ports aspirated, flushed, capped Post procedure x-ray: tip of catheter in good position Patient tolerated procedure: well Complications: none
--- NOTE | 2023-09-18 19:26 | PC.NURSE ---
Assumed care of patient after his arrival to ICU approximately at 1320 after DECAL TRANSFERRER was called on telemetry.MD and RT at bedside. playground monitor setup, levophed gtt titrated per MAY. Central Line Placed by MD. Pt placed on Bipap, IV lasix and updraft given per MD order.?
--- NOTE | 2023-09-18 19:31 | HO.SKINPHOTO ---
Location: left heel Category:PI Location: right heel
[2023-09-18 19:44] LABS: Venous Blood Gas Refer to POC result
[2023-09-18 21:46] LABS: Basophils Absolute Auto 0.1 X10*3/uL (0.0-0.2); Basophils Percent Auto 0.2 % (0-2); Hematocrit 28.1 % (42.0-52.0); Hemoglobin 9.4 g/dl (14.0-18.0); Imm Gran Abs Auto 0.79 X10*3/uL (0.00-0.03); Imm Gran Pct Auto 2.9 % (0.0-0.4); Lymphocytes Absolute Auto 0.3 X10*3/uL (1.2-4.9); MANUAL DIFF FLAG SCAN; Mean Corpuscular HGB Conc 33.5 g/dl (31.0-36.0); Mean Corpuscular Hemoglobin 28.9 pg (27.0-33.0); Mean Corpuscular Volume 86.5 fL (80.0-98.0); Mean Platelet Volume 9.4 fL (9.4-12.4); Monocytes Absolute Auto 2.3 X10*3/uL (0.1-1.2); Monocytes Percent Auto 8.3 % (2-11); NRBC Pct Auto 0.1 /100WBC (0.0-0.2); Neutrophils Absolute Auto 23.7 x10*3/uL (2.0-8.3); Neutrophils Percent Auto 87.6 % (45-73); Platelet Count 263 X10*3/uL (160-400); Red Blood Count 3.25 X10*6/uL (4.60-5.80); Red Cell Distribution Width 16.4 % (11.0-16.0); SCAN SMEAR FLAG 1; White Blood Count 27.1 X10*3/uL (4.8-10.8)
[2023-09-18 22:09] LABS: SLIDE REVIEW VERIFIED
[2023-09-18 22:11] LABS: Alanine Aminotransferase 38 U/L (0-40); Albumin Level 2.9 g/dL (3.5-5.0); Alkaline Phosphatase 75 U/L (39-117); Anion Gap 17 (12-20); Aspartate Amino Transferase 33 U/L (5-37); Bilirubin Total 0.5 mg/dL (0.0-1.0); Blood Urea Nitrogen 117 mg/dL (9-16); Calcium 8.4 mg/dL (8.4-10.2); Carbon Dioxide 17 mmol/L (22-29); Chloride 110 mmol/L (96-108); Creatinine Clr Calc Pharmacy 16.8; Estimated Glomerular Filt Rate 17; Glucose Random 172 mg/dL (60-115); Potassium 3.5 mmol/L (3.3-5.1); Sodium 140 mmol/L (135-145)
[2023-09-19] VITALS (38 sets, daily range): BP systolic 86–145; BP diastolic 33–63; PULSE 65–91; RESP 11–24; TEMP 36.4–36.6; O2SAT 85–95; BMI 34.6
[2023-09-19] MEDS: Norepinephrine Bitartrate/D5W 8 MG/250 ML PLAST..BAG 12.81 MG IV (02:35)
[2023-09-19 05:21] LABS: Basophils Percent Auto 0.1 % (0-2); Hematocrit 28.1 % (42.0-52.0); Hemoglobin 9.5 g/dl (14.0-18.0); Imm Gran Abs Auto 0.72 X10*3/uL (0.00-0.03); Imm Gran Pct Auto 3.2 % (0.0-0.4); Lymphocytes Absolute Auto 0.4 X10*3/uL (1.2-4.9); Lymphocytes Percent Auto 1.7 % (20-40); MANUAL DIFF FLAG SCAN; Mean Corpuscular HGB Conc 33.8 g/dl (31.0-36.0); Mean Corpuscular Volume 88.6 fL (80.0-98.0); Mean Platelet Volume 9.5 fL (9.4-12.4); Monocytes Absolute Auto 1.6 X10*3/uL (0.1-1.2); Monocytes Percent Auto 7.1 % (2-11); Neutrophils Absolute Auto 19.7 x10*3/uL (2.0-8.3); Neutrophils Percent Auto 87.9 % (45-73); Platelet Count 226 X10*3/uL (160-400); Red Blood Count 3.17 X10*6/uL (4.60-5.80); Red Cell Distribution Width 16.5 % (11.0-16.0); SCAN SMEAR FLAG 1; White Blood Count 22.4 X10*3/uL (4.8-10.8)
[2023-09-19 05:52] LABS: Creatinine Clr Calc Pharmacy 16.4; Estimated Glomerular Filt Rate 16; Potassium 3.6 mmol/L (3.3-5.1)
[2023-09-19 05:53] LABS: Anion Gap 17 (12-20); Bilirubin Total 0.5 mg/dL (0.0-1.0); Blood Urea Nitrogen 124 mg/dL (9-16); Calcium 8.3 mg/dL (8.4-10.2); Carbon Dioxide 14 mmol/L (22-29); Chloride 113 mmol/L (96-108); Glucose Fasting 162 mg/dL (60-99); Sodium 140 mmol/L (135-145)
[2023-09-19 05:54] LABS: Alanine Aminotransferase 37 U/L (0-40); Albumin Level 2.8 g/dL (3.5-5.0); Alkaline Phosphatase 69 U/L (39-117); Aspartate Amino Transferase 28 U/L (5-37); Total Protein 4.8 g/dL (6.5-8.0)
[2023-09-19 06:09] LABS: VBG Base Excess -5.2 mmol/L; VBG HCO3 17 mmol/L (22-26); VBG pCO2 23 mmHg; VBG pH 7.46 (7.32-7.43); VBG pO2 66 mmHg
[2023-09-19] MEDS: Amiodarone HCL 900 MG in 0.9 % Sodium Chloride 500 ML 17.27 MG IVCONT (06:25)
[2023-09-19] MEDS: Albuterol/Iprat 2.5/0.5MG 3 ML AMPUL.NEB INHALE ×2 (07:46→11:32)
[2023-09-19 08:19] LABS: Venous Blood Gas Refer to POC result
[2023-09-19] MEDS: guaiFENesin 100 MG/5 ML LIQUID PO ×3 (08:30→21:18)
[2023-09-19] MEDS: methylPREDNISolone Sod Succ 40 MG/ML VIAL IVPUSH ×2 (08:30→20:23)
[2023-09-19] MEDS: Apixaban 2.5 MG TABLET PO ×2 (08:31→21:18)
[2023-09-19] MEDS: Cyanocobalamin (Vitamin B-12) 1,000 MCG TABLET 1000 MCG PO (08:31)
[2023-09-19] MEDS: cilostazoL 100 MG TABLET PO ×2 (08:31→21:18)
[2023-09-19] MEDS: Ascorbic Acid 500 MG TABLET PO (08:31)
[2023-09-19] MEDS: Atorvastatin Calcium 80 MG TABLET PO (08:31)
[2023-09-19] MEDS: 0.9 % Sodium Chloride Flush 3 ML SYRINGE IVFLUSH ×2 (08:32→16:07)
--- NOTE | 2023-09-19 09:18 | PM.CCPN ---
Subjective Subjective Date of Service: 09/19/23 Critical Care Time (minutes): 35 Comment: Blood pressure is more better, he was off of vasopressor in the morning. But as the day progressed he became hypotensive needed to restart Levophed support She tolerated being off of BiPAP support several hours during the but had worsening shortness for which he had to be back on BiPAP in the afternoon Good urine output with the Lasix, creatinine slightly worsening Physical Exam Vital Signs: Vital Signs: Last Vital Signs Temp 97.5 F 09/19/23 05:00 Pulse 77 09/19/23 09:02 Resp 17 09/19/23 09:00 BP 89/41 L 09/19/23 09:02 Pulse Ox 89 L 09/19/23 09:00 O2 Del Method Oxymask 09/19/23 09:00 O2 Flow Rate 6 09/19/23 09:00 FiO2 30 09/19/23 06:00 Oxygen Flow Rate 15 09/18/23 19:18 BMI result Body Mass Index 34.6 General: acute distress, ill appearing and tired appearing Nutritional Appearance: well nourished and overweight Eyes: appearance normal, both eyes and all related structures; Alignment and Position: alignment normal and position normal Neck: No lymphadenopathy, no thyromegaly Resp: bilateral air entry equal, occasional added sounds present mostly in the lung bases Cardio: Regular rate, regular rhythm; Heart sounds: S1 normal heart sound present and S2 normal heart sound present, edema present but better than yesterday GI: soft, nontender, no guarding, no hepatosplenomegaly : bladder normal to inspection, bladder normal to palpation, no renal angle tenderness Skin: no rashes or lesions noted and elasticity normal Neuro: oriented to person, oriented to place, oriented to time and moves all extremities Objective Data Labs 09/19/23 05:05 09/19/23 05:05 Labs: Laboratory Results - last 24 hr 09/18/23 09/18/23 09/18/23 06:32 08:30 15:18 WBC RBC Hgb Hct MCV MCH MCHC RDW Plt Count MPV Immature Gran % (Auto) Neut % (Auto) Lymph % (Auto) Dougherty % (Auto) Eos % (Auto) Baso % (Auto) Lymph # (Auto) Dougherty # (Auto) Eos # (Auto) Baso # (Auto) Abs Immat Gran (auto) Absolute Neuts (auto) Absolute Nucleated RBC Nucleated RBC % (auto) Smear Tech's Comments VBG pH 7.30 L VBG pCO2 29 VBG pO2 42 VBG HCO3 15 L VBG O2 Saturation 69.0 VBG Base Excess -10.0 Sodium Potassium Chloride Carbon Dioxide Anion Gap BUN Creatinine Estim Creat Clear Calc Estimated GFR Random Glucose Fasting Glucose Calcium Phosphorus Magnesium 2.7 H Total Bilirubin AST ALT Alkaline Phosphatase Total Protein Albumin Stl C. cayetanensis PCR Not Detected Stool Rotavirus A PCR Not Detected Stl Adenov F 40/41 PCR Not Detected Stool Astrovirus (PCR) Not Detected Stool Campylobacter PCR Not Detected Stool Cryptosporidium PCR Not Detected Stl Sh Tox Pr E STEC PCR Not Detected Stool E coli O157 PCR Not applicable Stl Enterotoxigenic E PCR Not Detected Stool EPEC (PCR) Not Detected Stool EAEC (PCR) Not Detected Stl E. histolytica PCR Not Detected Stool Giardia Lamblia PCR Not Detected Stl P. shigelloides PCR Not Detected Stool Salmonella PCR Not Detected Stool Sapovirus (PCR) Not Detected Stl Shigella/EIEC PCR Not Detected St Y.enterocolitica PCR Not Detected Stool Vibrio (PCR) Not Detected Stl Vibrio cholerae PCR Not Detected Stl Norovirus GI/GII PCR Not Detected C. difficile Tox B Gene NEGATIVE 09/18/23 09/18/23 09/19/23 15:55 21:37 05:05 WBC 27.1 H 22.4 H RBC 3.25 L Hgb 9.4 L Hct 28.1 L MCV 86.5 MCH 28.9 MCHC 33.5 RDW 16.4 H Plt Count 263 MPV 9.4 Immature Gran % (Auto) 2.9 H Neut % (Auto) 87.6 H Lymph % (Auto) 1.0 L Dougherty % (Auto) 8.3 Eos % (Auto) 0.0 Baso % (Auto) 0.2 Lymph # (Auto) 0.3 L Dougherty # (Auto) 2.3 H Eos # (Auto) 0.0 Baso # (Auto) 0.1 Abs Immat Gran (auto) 0.79 H Absolute Neuts (auto) 23.7 H Absolute Nucleated RBC 0.020 H Nucleated RBC % (auto) 0.1 Smear Tech's Comments VERIFIED VBG pH VBG pCO2 VBG pO2 VBG HCO3 VBG O2 Saturation VBG Base Excess Sodium 140 140 Potassium 3.7 3.5 Chloride 110 H 110 H Carbon Dioxide 15 L 17 L Anion Gap 19 17 BUN 124 H 117 H Creatinine 3.40 H 3.52 H Estim Creat Clear Calc 17.4 16.8 Estimated GFR 18 17 Random Glucose 198 H 172 H Fasting Glucose Calcium 8.2 L 8.4 Phosphorus 5.7 H Magnesium 2.7 H Total Bilirubin 0.4 0.5 AST 31 33 ALT 40 38 Alkaline Phosphatase 78 75 Total Protein 4.9 L 5.0 L Albumin 2.9 L 2.9 L Stl C. cayetanensis PCR Stool Rotavirus A PCR Stl Adenov F 40/ PCR Stool Astrovirus (PCR) Stool Campylobacter PCR Stool Cryptosporidium PCR Stl Sh Tox Pr E STEC PCR Stool E coli O157 PCR Stl Enterotoxigenic E PCR Stool EPEC (PCR) Stool EAEC (PCR) Stl E. histolytica PCR Stool Giardia Lamblia PCR Stl P. shigelloides PCR Stool Salmonella PCR Stool Sapovirus (PCR) Stl Shigella/EIEC PCR St Y.enterocolitica PCR Stool Vibrio (PCR) Stl Vibrio cholerae PCR Stl Norovirus GI/GII PCR C. difficile Tox B Gene 09/19/23 09/19/23 09/19/23 05:05 05:05 05:05 WBC Cancelled RBC 3.17 L Cancelled Hgb 9.5 L Cancelled Hct 28.1 L MCV MCH MCHC RDW Plt Count MPV Immature Gran % (Auto) Neut % (Auto) Lymph % (Auto) Dougherty % (Auto) Eos % (Auto) Baso % (Auto) Lymph # (Auto) Dougherty # (Auto) Eos # (Auto) Baso # (Auto) Abs Immat Gran (auto) Absolute Neuts (auto) Absolute Nucleated RBC Nucleated RBC % (auto) Smear Tech's Comments VBG pH VBG pCO2 VBG pO2 VBG HCO3 VBG O2 Saturation VBG Base Excess Sodium Potassium Chloride Carbon Dioxide Anion Gap BUN Creatinine Estim Creat Clear Calc Estimated GFR Random Glucose Fasting Glucose Calcium Phosphorus Magnesium Total Bilirubin AST ALT Alkaline Phosphatase Total Protein Albumin Stl C. cayetanensis PCR Stool Rotavirus A PCR Stl Adenov F 40/41 PCR Stool Astrovirus (PCR) Stool Campylobacter PCR Stool Cryptosporidium PCR Stl Sh Tox Pr E STEC PCR Stool E coli O157 PCR Stl Enterotoxigenic E PCR Stool EPEC (PCR) Stool EAEC (PCR) Stl E. histolytica PCR Stool Giardia Lamblia PCR Stl P. shigelloides PCR Stool Salmonella PCR Stool Sapovirus (PCR) Stl Shigella/EIEC PCR St Y.enterocolitica PCR Stool Vibrio (PCR) Stl Vibrio cholerae PCR Stl Norovirus GI/GII PCR C. difficile Tox B Gene 09/19/23 09/19/23 09/19/23 05:05 05:05 05:05 WBC RBC Hgb Hct Cancelled MCV 88.6 Cancelled MCH 30.0 Cancelled MCHC 33.8 RDW Plt Count MPV Immature Gran % (Auto) Neut % (Auto) Lymph % (Auto) Dougherty % (Auto) Eos % (Auto) Baso % (Auto) Lymph # (Auto) Dougherty # (Auto) Eos # (Auto) Baso # (Auto) Abs Immat Gran (auto) Absolute Neuts (auto) Absolute Nucleated RBC Nucleated RBC % (auto) Smear Tech's Comments VBG pH VBG pCO2 VBG pO2 VBG HCO3 VBG O2 Saturation VBG Base Excess Sodium Potassium Chloride Carbon Dioxide Anion Gap BUN Creatinine Estim Creat Clear Calc Estimated GFR Random Glucose Fasting Glucose Calcium Phosphorus Magnesium Total Bilirubin AST ALT Alkaline Phosphatase Total Protein Albumin Stl C. cayetanensis PCR Stool Rotavirus A PCR Stl Adenov F 40/41 PCR Stool Astrovirus (PCR) Stool Campylobacter PCR Stool Cryptosporidium PCR Stl Sh Tox Pr E STEC PCR Stool E coli O157 PCR Stl Enterotoxigenic E PCR Stool EPEC (PCR) Stool EAEC (PCR) Stl E. histolytica PCR Stool Giardia Lamblia PCR Stl P. shigelloides PCR Stool Salmonella PCR Stool Sapovirus (PCR) Stl Shigella/EIEC PCR St Y.enterocolitica PCR Stool Vibrio (PCR) Stl Vibrio cholerae PCR Stl Norovirus GI/GII PCR C. difficile Tox B Gene 09/19/23 09/19/23 09/19/23 05:05 05:05 05:05 WBC RBC Hgb Hct MCV MCH MCHC Cancelled RDW 16.5 H Cancelled Plt Count 226 Cancelled MPV 9.5 Immature Gran % (Auto) Neut % (Auto) Lymph % (Auto) Dougherty % (Auto) Eos % (Auto) Baso % (Auto) Lymph # (Auto) Dougherty # (Auto) Eos # (Auto) Baso # (Auto) Abs Immat Gran (auto) Absolute Neuts (auto) Absolute Nucleated RBC Nucleated RBC % (auto) Smear Tech's Comments VBG pH VBG pCO2 VBG pO2 VBG HCO3 VBG O2 Saturation VBG Base Excess Sodium Potassium Chloride Carbon Dioxide Anion Gap BUN Creatinine Estim Creat Clear Calc Estimated GFR Random Glucose Fasting Glucose Calcium Phosphorus Magnesium Total Bilirubin AST ALT Alkaline Phosphatase Total Protein Albumin Stl C. cayetanensis PCR Stool Rotavirus A PCR Stl Adenov F 40/41 PCR Stool Astrovirus (PCR) Stool Campylobacter PCR Stool Cryptosporidium PCR Stl Sh Tox Pr E STEC PCR Stool E coli O157 PCR Stl Enterotoxigenic E PCR Stool EPEC (PCR) Stool EAEC (PCR) Stl E. histolytica PCR Stool Giardia Lamblia PCR Stl P. shigelloides PCR Stool Salmonella PCR Stool Sapovirus (PCR) Stl Shigella/EIEC PCR St Y.enterocolitica PCR Stool Vibrio (PCR) Stl Vibrio cholerae PCR Stl Norovirus GI/GII PCR C. difficile Tox B Gene 09/19/23 09/19/23 09/19/23 05:05 05:05 05:05 WBC RBC Hgb Hct MCV MCH MCHC RDW Plt Count MPV Cancelled Immature Gran % (Auto) 3.2 H Neut % (Auto) 87.9 H Lymph % (Auto) 1.7 L Dougherty % (Auto) 7.1 Eos % (Auto) 0.0 Baso % (Auto) 0.1 Lymph # (Auto) 0.4 L Dougherty # (Auto) 1.6 H Eos # (Auto) 0.0 Baso # (Auto) 0.0 Abs Immat Gran (auto) 0.72 H Absolute Neuts (auto) 19.7 H Absolute Nucleated RBC 0.000 Cancelled Nucleated RBC % (auto) 0.0 Cancelled Smear Tech's Comments VBG pH VBG pCO2 VBG pO2 VBG HCO3 VBG O2 Saturation VBG Base Excess Sodium 140 Potassium 3.6 Chloride 113 H Carbon Dioxide 14 L Anion Gap 17 BUN 124 H Creatinine 3.60 H Estim Creat Clear Calc 16.4 Estimated GFR 16 Random Glucose Fasting Glucose 162 H Calcium 8.3 L Phosphorus Magnesium Total Bilirubin 0.5 AST 28 ALT 37 Alkaline Phosphatase 69 Total Protein 4.8 L Albumin 2.8 L Stl C. cayetanensis PCR Stool Rotavirus A PCR Stl Adenov F 40/41 PCR Stool Astrovirus (PCR) Stool Campylobacter PCR Stool Cryptosporidium PCR Stl Sh Tox Pr E STEC PCR Stool E coli O157 PCR Stl Enterotoxigenic E PCR Stool EPEC (PCR) Stool EAEC (PCR) Stl E. histolytica PCR Stool Giardia Lamblia PCR Stl P. shigelloides PCR Stool Salmonella PCR Stool Sapovirus (PCR) Stl Shigella/EIEC PCR St Y.enterocolitica PCR Stool Vibrio (PCR) Stl Vibrio cholerae PCR Stl Norovirus GI/GII PCR C. difficile Tox B Gene 09/19/23 05:15 WBC RBC Hgb Hct MCV MCH MCHC RDW Plt Count MPV Immature Gran % (Auto) Neut % (Auto) Lymph % (Auto) Dougherty % (Auto) Eos % (Auto) Baso % (Auto) Lymph # (Auto) Dougherty # (Auto) Eos # (Auto) Baso # (Auto) Abs Immat Gran (auto) Absolute Neuts (auto) Absolute Nucleated RBC Nucleated RBC % (auto) Smear Tech's Comments VBG pH 7.46 H VBG pCO2 23 VBG pO2 66 VBG HCO3 17 L VBG O2 Saturation 94.0 VBG Base Excess -5.2 Sodium Potassium Chloride Carbon Dioxide Anion Gap BUN Creatinine Estim Creat Clear Calc Estimated GFR Random Glucose Fasting Glucose Calcium Phosphorus Magnesium Total Bilirubin AST ALT Alkaline Phosphatase Total Protein Albumin Stl C. cayetanensis PCR Stool Rotavirus A PCR Stl Adenov F 40 PCR Stool Astrovirus (PCR) Stool Campylobacter PCR Stool Cryptosporidium PCR Stl Sh Tox Pr E STEC PCR Stool E coli O157 PCR Stl Enterotoxigenic E PCR Stool EPEC (PCR) Stool EAEC (PCR) Stl E. histolytica PCR Stool Giardia Lamblia PCR Stl P. shigelloides PCR Stool Salmonella PCR Stool Sapovirus (PCR) Stl Shigella/EIEC PCR St Y.enterocolitica PCR Stool Vibrio (PCR) Stl Vibrio cholerae PCR Stl Norovirus GI/GII PCR C. difficile Tox B Gene Microbiology Microbiology Results: Microbiology 09/16/23 06:15 Blood - Venous Blood Culture - Preliminary No growth after 48 hours. 09/16/23 06:15 Blood - Venous Blood Culture - Preliminary No growth after 48 hours. 09/12/23 06:16 Blood - Venous Blood Culture - Final Actinomyces meyeri 09/12/23 06:16 Blood - Venous Blood Culture - Final Actinomyces meyeri 09/13/23 14:10 Urine clean catch - Clean Catch Midstream Urine Culture - Final No growth. 09/13/23 Unknown Sputum - Expectorated Gram Stain - Final 09/13/23 Unknown Sputum - Expectorated Sputum Culture - Final 09/12/23 Unknown Urine clean catch - Clean Catch Midstream Urine Culture - Final Progress Note: A&P Assessment and plan (1) Cardiogenic shock: Status: Acute (2) Acute and chronic respiratory failure: Status: Acute (3) EUSEBIO (acute kidney injury): Status: Acute (4) Sustained ventricular tachycardia: Status: Acute (5) Actinomyces infection: Status: Acute (6) Hematuria: Status: Acute (7) History of prostate cancer: Status: Acute Plan 78-year-old gentleman with multiple comorbidities not limited to congestive heart failure with reduced ejection fraction due to ischemic cardiomyopathy, history of nonsustained V-tach, coronary artery disease status post CABG in 2014, chronic hypoxic respiratory failure due to COPD on baseline 2 L supplemental oxygen with ambulation, LAMBERTO on CPAP, CKD stage 3, peripheral arterial disease, AAA without rupture, gastroesophageal reflux disease, mixed hyperlipidemia, history of DVT and PE on Eliquis, BPH Was admitted to the hospital on 09/12/2023 with complaints of shortness of breath for about 4-5 days. Workup was significant for Actinomyces bacteremia possibly originating from a lung source. This morning patient had multiple episodes of nonsustained ventricular tachycardia eventually turning into symptomatic ventricular tachycardia with hypotension so a rapid response was called. Patient was treated with amiodarone bolus, reverted back after defibrillation. However patient has significant increase in work of breathing and is also in cardiogenic shock needing vasopressor support so is admitted to medical ICU Ventricular tachycardia: Secondary to underlying ischemic cardiomyopathy Reverted back after defibrillation, received amiodarone bolus, on continuous amiodarone drip this morning which was switched to p.o. amiodarone loading dose 400 mg b.i.d. to a total of 10 g. We will restart beta-blockers during the day if the blood pressures are better Keep potassium above 4, magnesium above 2 Cardiogenic shock: Secondary to ventricular tachycardia, ischemic cardiomyopathy tapering Levophed support, titrate to keep the map above 65 mm Hg Repeat echo showed EF of 40-45% which is similar to previous echoes, RV dysfunction metoprolol succinate held due to hypotension and lisinopril in view of EUSEBIO Acute on chronic hypoxemic respiratory failure: Acute respiratory failure possibly secondary to pulmonary edema from tachy arrhythmias Bedside ultrasound showed diffuse B-lines in all anterior and lateral lung casanova suggestive of pulmonary edema Patient's breathing was better this morning when he was off of BiPAP but in the afternoon he had to be placed back on BiPAP due to increase in respiratory efforts Lasix 100 mg b.i.d. is changed to continuous Lasix drip for better diuresis Has underlying chronic lung disease with COPD requiring home oxygen Continue [id number] DuoNebs, Solu-Medrol 40 mg Also has underlying obstructive sleep apnea on home CPAP at night Acute on chronic kidney disease: Patient has underlying CKD, acute worsening of renal functions secondary to cardiorenal syndrome and possibly an ATN from the cardiac event yesterday leading to impaired perfusion Creatinine increased to 3.4, we will continue to closely monitor We will continue diuresis of the patient as he has diffuse B-lines in the lungs and dilated RV and dilated IVC is; we will closely monitor the renal functions Closely monitor I's and O's Infectious disease: Has actinomycin tests bacteremia possibly thought to be from lung source Continue meropenem as per ID recommendation. Infectious Disease recommended patient to be on 4 weeks of ertapenem followed by Augmentin GI: Can continue oral feeds if the patient remains off of BiPAP Prophylaxis: Heparin, omeprazole Quality Stroke Does the patient have a stroke diagnosis?: No VTE Prior VTE?: No VTE Risk Level:: Medical - moderate - high VTE Device Contraindication: Treatment Not Indicated VTE Drug Contraindication: N/A - Med Ordered
--- NOTE | 2023-09-19 11:32 | PM.PNCARD ---
Subjective Subjective Date of Service: 09/19/23 Principal diagnosis: VT, CHF Interval history: Echo from yesterday did not show any significant change compared to prior echo and left atrial filling pressures appeared normal. Although continued to have shortness of breath continues hypoxemia. Has received high dose of Lasix since yesterday has diuresed. Compared to yesterday his respiratory status improved. Blood pressures improved and is not had any further cardiac arrhythmias. Currently his Levophed has been tapered. Review of Systems Constitutional: Reports no additional constitutional complaints Cardiovascular: Denies chest pain, Reports lightheadedness, Denies palpitations and Reports dyspnea Respiratory: Reports dyspnea Gastrointestinal: Reports no additional gastrointestinal complaints Musculoskeletal: Reports no additional musculoskeletal complaints Endocrine: Denies palpitations Physical Exam Vital Signs: Last Vital Signs Temp 97.5 F 09/19/23 05:00 Pulse 74 09/19/23 11:00 Resp 20 09/19/23 11:00 BP 128/38 L 09/19/23 11:00 Pulse Ox 90 L 09/19/23 11:00 O2 Del Method Oxymask 09/19/23 11:00 O2 Flow Rate 6 09/19/23 11:00 FiO2 30 09/19/23 06:00 Oxygen Flow Rate 15 09/18/23 19:18 BMI result Body Mass Index 34.6 Const General: cooperative, alert, awake and acute distress mild and respiratory Orientation/consciousness: patient oriented x3 Neck Neck: Yes no JVD Resp Effort & Inspection: normal respiratory effort Auscultation: crackles Cardio Jugular venous distension: JVD Rate: regular rate Rhythm: regular rhythm Heart sounds: S1 normal heart sound present and S2 normal heart sound present GI Auscultation: normal bowel sounds Skin General skin exam: no rashes or lesions noted and ecchymosis Neuro General: patient oriented x3 and no focal motor deficits Extrem General: No clubbing, No cyanosis and Yes edema Objective Labs and Meds 09/19/23 05:05 09/19/23 05:05 Lab results: Laboratory Results - last 24 hr 09/18/23 09/18/23 09/18/23 06:32 08:30 15:18 WBC RBC Hgb Hct MCV MCH MCHC RDW Plt Count MPV Immature Gran % (Auto) Neut % (Auto) Lymph % (Auto) [place] % (Auto) Eos % (Auto) Baso % (Auto) Lymph # (Auto) [place] # (Auto) Eos # (Auto) Baso # (Auto) Abs Immat Gran (auto) Absolute Neuts (auto) Absolute Nucleated RBC Nucleated RBC % (auto) Smear Tech's Comments VBG pH 7.30 L VBG pCO2 29 VBG pO2 42 VBG HCO3 15 L VBG O2 Saturation 69.0 VBG Base Excess -10.0 Sodium Potassium Chloride Carbon Dioxide Anion Gap BUN Creatinine Estim Creat Clear Calc Estimated GFR Random Glucose Fasting Glucose Calcium Phosphorus Magnesium 2.7 H Total Bilirubin AST ALT Alkaline Phosphatase Total Protein Albumin Stl C. cayetanensis PCR Not Detected Stool Rotavirus A PCR Not Detected Stl Adenov F 40/41 PCR Not Detected Stool Astrovirus (PCR) Not Detected Stool Campylobacter PCR Not Detected Stool Cryptosporidium PCR Not Detected Stl Sh Tox Pr E STEC PCR Not Detected Stool E coli O157 PCR Not applicable Stl Enterotoxigenic E PCR Not Detected Stool EPEC (PCR) Not Detected Stool EAEC (PCR) Not Detected Stl E. histolytica PCR Not Detected Stool Giardia Lamblia PCR Not Detected Stl P. shigelloides PCR Not Detected Stool Salmonella PCR Not Detected Stool Sapovirus (PCR) Not Detected Stl Shigella/EIEC PCR Not Detected St Y.enterocolitica PCR Not Detected Stool Vibrio (PCR) Not Detected Stl Vibrio cholerae PCR Not Detected Stl Norovirus GI/GII PCR Not Detected 09/18/23 09/18/23 09/19/23 15:55 21:37 05:05 WBC 27.1 H 22.4 H RBC 3.25 L Hgb 9.4 L Hct 28.1 L MCV 86.5 MCH 28.9 MCHC 33.5 RDW 16.4 H Plt Count 263 MPV 9.4 Immature Gran % (Auto) 2.9 H Neut % (Auto) 87.6 H Lymph % (Auto) 1.0 L [place] % (Auto) 8.3 Eos % (Auto) 0.0 Baso % (Auto) 0.2 Lymph # (Auto) 0.3 L [place] # (Auto) 2.3 H Eos # (Auto) 0.0 Baso # (Auto) 0.1 Abs Immat Gran (auto) 0.79 H Absolute Neuts (auto) 23.7 H Absolute Nucleated RBC 0.020 H Nucleated RBC % (auto) 0.1 Smear Tech's Comments VERIFIED VBG pH VBG pCO2 VBG pO2 VBG HCO3 VBG O2 Saturation VBG Base Excess Sodium 140 140 Potassium 3.7 3.5 Chloride 110 H 110 H Carbon Dioxide 15 L 17 L Anion Gap 19 17 BUN 124 H 117 H Creatinine 3.40 H 3.52 H Estim Creat Clear Calc 17.4 16.8 Estimated GFR 18 17 Random Glucose 198 H 172 H Fasting Glucose Calcium 8.2 L 8.4 Phosphorus 5.7 H Magnesium 2.7 H Total Bilirubin 0.4 0.5 AST 31 33 ALT 40 38 Alkaline Phosphatase 78 75 Total Protein 4.9 L 5.0 L Albumin 2.9 L 2.9 L Stl C. cayetanensis PCR Stool Rotavirus A PCR Stl Adenov F 40/ PCR Stool Astrovirus (PCR) Stool Campylobacter PCR Stool Cryptosporidium PCR Stl Sh Tox Pr E STEC PCR Stool E coli O157 PCR Stl Enterotoxigenic E PCR Stool EPEC (PCR) Stool EAEC (PCR) Stl E. histolytica PCR Stool Giardia Lamblia PCR Stl P. shigelloides PCR Stool Salmonella PCR Stool Sapovirus (PCR) Stl Shigella/EIEC PCR St Y.enterocolitica PCR Stool Vibrio (PCR) Stl Vibrio cholerae PCR Stl Norovirus GI/GII PCR 09/19/23 09/19/23 09/19/23 05:05 05:05 05:05 WBC Cancelled RBC 3.17 L Cancelled Hgb 9.5 L Cancelled Hct 28.1 L MCV MCH MCHC RDW Plt Count MPV Immature Gran % (Auto) Neut % (Auto) Lymph % (Auto) [place] % (Auto) Eos % (Auto) Baso % (Auto) Lymph # (Auto) [place] # (Auto) Eos # (Auto) Baso # (Auto) Abs Immat Gran (auto) Absolute Neuts (auto) Absolute Nucleated RBC Nucleated RBC % (auto) Smear Tech's Comments VBG pH VBG pCO2 VBG pO2 VBG HCO3 VBG O2 Saturation VBG Base Excess Sodium Potassium Chloride Carbon Dioxide Anion Gap BUN Creatinine Estim Creat Clear Calc Estimated GFR Random Glucose Fasting Glucose Calcium Phosphorus Magnesium Total Bilirubin AST ALT Alkaline Phosphatase Total Protein Albumin Stl C. cayetanensis PCR Stool Rotavirus A PCR Stl Adenov F 40/41 PCR Stool Astrovirus (PCR) Stool Campylobacter PCR Stool Cryptosporidium PCR Stl Sh Tox Pr E STEC PCR Stool E coli O157 PCR Stl Enterotoxigenic E PCR Stool EPEC (PCR) Stool EAEC (PCR) Stl E. histolytica PCR Stool Giardia Lamblia PCR Stl P. shigelloides PCR Stool Salmonella PCR Stool Sapovirus (PCR) Stl Shigella/EIEC PCR St Y.enterocolitica PCR Stool Vibrio (PCR) Stl Vibrio cholerae PCR Stl Norovirus GI/GII PCR 09/19/23 09/19/23 09/19/23 05:05 05:05 05:05 WBC RBC Hgb Hct Cancelled MCV 88.6 Cancelled MCH 30.0 Cancelled MCHC 33.8 RDW Plt Count MPV Immature Gran % (Auto) Neut % (Auto) Lymph % (Auto) [place] % (Auto) Eos % (Auto) Baso % (Auto) Lymph # (Auto) [place] # (Auto) Eos # (Auto) Baso # (Auto) Abs Immat Gran (auto) Absolute Neuts (auto) Absolute Nucleated RBC Nucleated RBC % (auto) Smear Tech's Comments VBG pH VBG pCO2 VBG pO2 VBG HCO3 VBG O2 Saturation VBG Base Excess Sodium Potassium Chloride Carbon Dioxide Anion Gap BUN Creatinine Estim Creat Clear Calc Estimated GFR Random Glucose Fasting Glucose Calcium Phosphorus Magnesium Total Bilirubin AST ALT Alkaline Phosphatase Total Protein Albumin Stl C. cayetanensis PCR Stool Rotavirus A PCR Stl Adenov F 40/41 PCR Stool Astrovirus (PCR) Stool Campylobacter PCR Stool Cryptosporidium PCR Stl Sh Tox Pr E STEC PCR Stool E coli O157 PCR Stl Enterotoxigenic E PCR Stool EPEC (PCR) Stool EAEC (PCR) Stl E. histolytica PCR Stool Giardia Lamblia PCR Stl P. shigelloides PCR Stool Salmonella PCR Stool Sapovirus (PCR) Stl Shigella/EIEC PCR St Y.enterocolitica PCR Stool Vibrio (PCR) Stl Vibrio cholerae PCR Stl Norovirus GI/GII PCR 09/19/23 09/19/23 09/19/23 05:05 05:05 05:05 WBC RBC Hgb Hct MCV MCH MCHC Cancelled RDW 16.5 H Cancelled Plt Count 226 Cancelled MPV 9.5 Immature Gran % (Auto) Neut % (Auto) Lymph % (Auto) [place] % (Auto) Eos % (Auto) Baso % (Auto) Lymph # (Auto) [place] # (Auto) Eos # (Auto) Baso # (Auto) Abs Immat Gran (auto) Absolute Neuts (auto) Absolute Nucleated RBC Nucleated RBC % (auto) Smear Tech's Comments VBG pH VBG pCO2 VBG pO2 VBG HCO3 VBG O2 Saturation VBG Base Excess Sodium Potassium Chloride Carbon Dioxide Anion Gap BUN Creatinine Estim Creat Clear Calc Estimated GFR Random Glucose Fasting Glucose Calcium Phosphorus Magnesium Total Bilirubin AST ALT Alkaline Phosphatase Total Protein Albumin Stl C. cayetanensis PCR Stool Rotavirus A PCR Stl Adenov F PCR Stool Astrovirus (PCR) Stool Campylobacter PCR Stool Cryptosporidium PCR Stl Sh Tox Pr E STEC PCR Stool E coli O157 PCR Stl Enterotoxigenic E PCR Stool EPEC (PCR) Stool EAEC (PCR) Stl E. histolytica PCR Stool Giardia Lamblia PCR Stl P. shigelloides PCR Stool Salmonella PCR Stool Sapovirus (PCR) Stl Shigella/EIEC PCR St Y.enterocolitica PCR Stool Vibrio (PCR) Stl Vibrio cholerae PCR Stl Norovirus GI/GII PCR 09/19/23 09/19/23 09/19/23 05:05 05:05 05:05 WBC RBC Hgb Hct MCV MCH MCHC RDW Plt Count MPV Cancelled Immature Gran % (Auto) 3.2 H Neut % (Auto) 87.9 H Lymph % (Auto) 1.7 L [place] % (Auto) 7.1 Eos % (Auto) 0.0 Baso % (Auto) 0.1 Lymph # (Auto) 0.4 L [place] # (Auto) 1.6 H Eos # (Auto) 0.0 Baso # (Auto) 0.0 Abs Immat Gran (auto) 0.72 H Absolute Neuts (auto) 19.7 H Absolute Nucleated RBC 0.000 Cancelled Nucleated RBC % (auto) 0.0 Cancelled Smear Tech's Comments VBG pH VBG pCO2 VBG pO2 VBG HCO3 VBG O2 Saturation VBG Base Excess Sodium 140 Potassium 3.6 Chloride 113 H Carbon Dioxide 14 L Anion Gap 17 BUN 124 H Creatinine 3.60 H Estim Creat Clear Calc 16.4 Estimated GFR 16 Random Glucose Fasting Glucose 162 H Calcium 8.3 L Phosphorus Magnesium Total Bilirubin 0.5 AST 28 ALT 37 Alkaline Phosphatase 69 Total Protein 4.8 L Albumin 2.8 L Stl C. cayetanensis PCR Stool Rotavirus A PCR Stl Adenov F 40 PCR Stool Astrovirus (PCR) Stool Campylobacter PCR Stool Cryptosporidium PCR Stl Sh Tox Pr E STEC PCR Stool E coli O157 PCR Stl Enterotoxigenic E PCR Stool EPEC (PCR) Stool EAEC (PCR) Stl E. histolytica PCR Stool Giardia Lamblia PCR Stl P. shigelloides PCR Stool Salmonella PCR Stool Sapovirus (PCR) Stl Shigella/EIEC PCR St Y.enterocolitica PCR Stool Vibrio (PCR) Stl Vibrio cholerae PCR Stl Norovirus GI/GII PCR 09/19/23 05:15 WBC RBC Hgb Hct MCV MCH MCHC RDW Plt Count MPV Immature Gran % (Auto) Neut % (Auto) Lymph % (Auto) [place] % (Auto) Eos % (Auto) Baso % (Auto) Lymph # (Auto) [place] # (Auto) Eos # (Auto) Baso # (Auto) Abs Immat Gran (auto) Absolute Neuts (auto) Absolute Nucleated RBC Nucleated RBC % (auto) Smear Tech's Comments VBG pH 7.46 H VBG pCO2 23 VBG pO2 66 VBG HCO3 17 L VBG O2 Saturation 94.0 VBG Base Excess -5.2 Sodium Potassium Chloride Carbon Dioxide Anion Gap BUN Creatinine Estim Creat Clear Calc Estimated GFR Random Glucose Fasting Glucose Calcium Phosphorus Magnesium Total Bilirubin AST ALT Alkaline Phosphatase Total Protein Albumin Stl C. cayetanensis PCR Stool Rotavirus A PCR Stl Adenov F PCR Stool Astrovirus (PCR) Stool Campylobacter PCR Stool Cryptosporidium PCR Stl Sh Tox Pr E STEC PCR Stool E coli O157 PCR Stl Enterotoxigenic E PCR Stool EPEC (PCR) Stool EAEC (PCR) Stl E. histolytica PCR Stool Giardia Lamblia PCR Stl P. shigelloides PCR Stool Salmonella PCR Stool Sapovirus (PCR) Stl Shigella/EIEC PCR St Y.enterocolitica PCR Stool Vibrio (PCR) Stl Vibrio cholerae PCR Stl Norovirus GI/GII PCR Imaging Radiologist's impression: Impressions Chest X-Ray 09/18/23 13:54 IMPRESSION: No pneumothorax or other significant change after the right IJ line placement. Progress Note: A&P Assessment and plan (1) Sustained ventricular tachycardia: Status: Acute Assessment and Plan: Sustained ventricular tachycardia as today status post cardioversion. Currently on amiodarone drip which can be transition to p.o. amiodarone loading 400 mg b.i.d. for 1 week. He is on chronic amiodarone at 200 mg daily. If blood pressure improves can resume his metoprolol can start with low-dose 12.5 mg q.6 hours later today once he is off vasopressors for few hours. Overall prognosis guarded. If he continues to have ventricular arrhythmias may consider adding mexiletine to his regimen for control of the same. Appears to be scar based VT based on his prior CAD and inferior scar with [id number] LV systolic dysfunction. (2) Acute and chronic respiratory failure: Status: Acute Assessment and Plan: Patient with persistent hypoxemic respiratory failure requiring oxygen therapy. Will continue diurese although renal function has worsened probably related to hypoperfusion injury. Currently on vasopressor therapy which is being taper. Hold off on any vasodilators therapy as of now unless his blood pressure remained stable may start him on hydralazine Isordil combination start him on metoprolol therapy. Strict intake and output chart needs to be pursued. His shortness of breath also could be from deconditioning as well as poor respiratory effort as well as underlying COPD. Continue to treat the same. Continue supportive care. Will follow with you Time Spent With Patient Time: Total time managing care of this patient today ____ minutes. Progress Note: Quality Stroke Does the patient have a stroke diagnosis?: No Procedures Date of Service Date of Service: 09/19/23
--- NOTE | 2023-09-19 13:45 | MHC.CM.PN ---
Patient remains in ICU. Off Bipap. Currently on oxymask at 7LNC. Possible transfer out of ICU later today. Continue to monitor for d/c needs.
[2023-09-19] MEDS: Furosemide 200 MG in 0.9 % Sodium Chloride 80 ML 7.5 MG IVCONT (16:13)
--- NOTE | 2023-09-19 18:28 | PM.PNNEP ---
Subjective Subjective Date of Service: 09/19/23 Principal diagnosis: VT, CHF Interval history: Seen and examined this morning. Events noted. All recent data reviewed; D/W ICU MD Physical Exam Vital Signs: Vital Signs: Last Vital Signs Temp 97.5 F 09/19/23 05:00 Pulse 80 09/19/23 18:00 Resp 20 09/19/23 18:00 BP 117/46 L 09/19/23 18:00 Pulse Ox 90 L 09/19/23 18:00 O2 Del Method BiPAP 09/19/23 18:00 O2 Flow Rate 6 09/19/23 14:00 FiO2 30 09/19/23 18:00 Oxygen Flow Rate 15 09/18/23 19:18 BMI result Body Mass Index 34.6 Const: General: no acute distress Eyes: EOM: EOMs intact bilaterally Resp: Auscultation: diminished lung sounds Cardio: Rate: regular rate GI: Palpation (GI): Soft to palpation Neuro: General: moves all extremities Objective Data Labs 09/19/23 05:05 09/19/23 05:05 Labs: Laboratory Results - last 24 hr 09/18/23 09/19/23 09/19/23 21:37 05:05 05:05 WBC 27.1 H 22.4 H Cancelled RBC 3.25 L 3.17 L Hgb 9.4 L Hct 28.1 L MCV 86.5 MCH 28.9 MCHC 33.5 RDW 16.4 H Plt Count 263 MPV 9.4 Immature Gran % (Auto) 2.9 H Neut % (Auto) 87.6 H Lymph % (Auto) 1.0 L [place] % (Auto) 8.3 Eos % (Auto) 0.0 Baso % (Auto) 0.2 Lymph # (Auto) 0.3 L [place] # (Auto) 2.3 H Eos # (Auto) 0.0 Baso # (Auto) 0.1 Abs Immat Gran (auto) 0.79 H Absolute Neuts (auto) 23.7 H Absolute Nucleated RBC 0.020 H Nucleated RBC % (auto) 0.1 Smear Tech's Comments VERIFIED VBG pH VBG pCO2 VBG pO2 VBG HCO3 VBG O2 Saturation VBG Base Excess Sodium 140 Potassium 3.5 Chloride 110 H Carbon Dioxide 17 L Anion Gap 17 BUN 117 H Creatinine 3.52 H Estim Creat Clear Calc 16.8 Estimated GFR 17 Random Glucose 172 H Fasting Glucose Calcium 8.4 Total Bilirubin 0.5 AST 33 ALT 38 Alkaline Phosphatase 75 Total Protein 5.0 L Albumin 2.9 L 09/19/23 09/19/23 09/19/23 05:05 05:05 05:05 WBC RBC Cancelled Hgb 9.5 L Cancelled Hct 28.1 L Cancelled MCV 88.6 MCH MCHC RDW Plt Count MPV Immature Gran % (Auto) Neut % (Auto) Lymph % (Auto) [place] % (Auto) Eos % (Auto) Baso % (Auto) Lymph # (Auto) [place] # (Auto) Eos # (Auto) Baso # (Auto) Abs Immat Gran (auto) Absolute Neuts (auto) Absolute Nucleated RBC Nucleated RBC % (auto) Smear Tech's Comments VBG pH VBG pCO2 VBG pO2 VBG HCO3 VBG O2 Saturation VBG Base Excess Sodium Potassium Chloride Carbon Dioxide Anion Gap BUN Creatinine Estim Creat Clear Calc Estimated GFR Random Glucose Fasting Glucose Calcium Total Bilirubin AST ALT Alkaline Phosphatase Total Protein Albumin 09/19/23 09/19/23 09/19/23 05:05 05:05 05:05 WBC RBC Hgb Hct MCV Cancelled MCH 30.0 Cancelled MCHC 33.8 Cancelled RDW 16.5 H Plt Count MPV Immature Gran % (Auto) Neut % (Auto) Lymph % (Auto) [place] % (Auto) Eos % (Auto) Baso % (Auto) Lymph # (Auto) [place] # (Auto) Eos # (Auto) Baso # (Auto) Abs Immat Gran (auto) Absolute Neuts (auto) Absolute Nucleated RBC Nucleated RBC % (auto) Smear Tech's Comments VBG pH VBG pCO2 VBG pO2 VBG HCO3 VBG O2 Saturation VBG Base Excess Sodium Potassium Chloride Carbon Dioxide Anion Gap BUN Creatinine Estim Creat Clear Calc Estimated GFR Random Glucose Fasting Glucose Calcium Total Bilirubin AST ALT Alkaline Phosphatase Total Protein Albumin 09/19/23 09/19/23 09/19/23 05:05 05:05 05:05 WBC RBC Hgb Hct MCV MCH MCHC RDW Cancelled Plt Count 226 Cancelled MPV 9.5 Cancelled Immature Gran % (Auto) 3.2 H Neut % (Auto) 87.9 H Lymph % (Auto) 1.7 L [place] % (Auto) 7.1 Eos % (Auto) 0.0 Baso % (Auto) 0.1 Lymph # (Auto) 0.4 L [place] # (Auto) 1.6 H Eos # (Auto) 0.0 Baso # (Auto) 0.0 Abs Immat Gran (auto) 0.72 H Absolute Neuts (auto) 19.7 H Absolute Nucleated RBC 0.000 Nucleated RBC % (auto) Smear Tech's Comments VBG pH VBG pCO2 VBG pO2 VBG HCO3 VBG O2 Saturation VBG Base Excess Sodium Potassium Chloride Carbon Dioxide Anion Gap BUN Creatinine Estim Creat Clear Calc Estimated GFR Random Glucose Fasting Glucose Calcium Total Bilirubin AST ALT Alkaline Phosphatase Total Protein Albumin 09/19/23 09/19/23 09/19/23 05:05 05:05 05:15 WBC RBC Hgb Hct MCV MCH MCHC RDW Plt Count MPV Immature Gran % (Auto) Neut % (Auto) Lymph % (Auto) [place] % (Auto) Eos % (Auto) Baso % (Auto) Lymph # (Auto) [place] # (Auto) Eos # (Auto) Baso # (Auto) Abs Immat Gran (auto) Absolute Neuts (auto) Absolute Nucleated RBC Cancelled Nucleated RBC % (auto) 0.0 Cancelled Smear Tech's Comments VBG pH 7.46 H VBG pCO2 23 VBG pO2 66 VBG HCO3 17 L VBG O2 Saturation 94.0 VBG Base Excess -5.2 Sodium 140 Potassium 3.6 Chloride 113 H Carbon Dioxide 14 L Anion Gap 17 BUN 124 H Creatinine 3.60 H Estim Creat Clear Calc 16.4 Estimated GFR 16 Random Glucose Fasting Glucose 162 H Calcium 8.3 L Total Bilirubin 0.5 AST 28 ALT 37 Alkaline Phosphatase 69 Total Protein 4.8 L Albumin 2.8 L Microbiology Microbiology Results: Microbiology 09/16/23 06:15 Blood - Venous Blood Culture - Preliminary No growth after 48 hours. 09/16/23 06:15 Blood - Venous Blood Culture - Preliminary No growth after 48 hours. 09/12/23 06:16 Blood - Venous Blood Culture - Final Actinomyces meyeri 09/12/23 06:16 Blood - Venous Blood Culture - Final Actinomyces meyeri 09/13/23 14:10 Urine clean catch - Clean Catch Midstream Urine Culture - Final No growth. 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
[2023-09-20] VITALS (47 sets, daily range): BP systolic 70–140; BP diastolic 32–65; PULSE 85–109; RESP 15–29; TEMP 36.3–36.9; O2SAT 88–98; BMI 34.8
--- NOTE | 2023-09-20 | ECG_ITS ---
Test Reason : arrythmia Blood Pressure : / mmHG Vent. Rate : 103 BPM Atrial Rate : 000 BPM P-R Int : 000 ms QRS Dur : 160 ms QT Int : 450 ms P-R-T Axes : 000 -63 060 degrees QTc Int : 589 ms Normal sinus rhythm with runs of Atrial tachycardia Left axis deviation Right bundle branch block Minimal voltage criteria for LVH, may be normal variant ( R in aVL ) Abnormal ECG When compared with ECG of 18-SEP-2023 13:04, Atrial tachycardia is now present Criteria for Anterior infarct are no longer Present Criteria for Anterolateral infarct are no longer Present Referred By: Scott Locke Electronically Signed By:ERICA VALADEZ MD
[2023-09-20] MEDS: Furosemide 200 MG in 0.9 % Sodium Chloride 80 ML 7.5 MG IVCONT (02:29)
[2023-09-20 05:01] LABS: VBG Base Excess -0.3 mmol/L; VBG HCO3 21 mmol/L (22-26); VBG pCO2 26 mmHg; VBG pH 7.52 (7.32-7.43); VBG pO2 65 mmHg
[2023-09-20 05:02] LABS: Basophils Percent Auto 0.2 % (0-2); Hematocrit 26.8 % (42.0-52.0); Hemoglobin 9.5 g/dl (14.0-18.0); Imm Gran Abs Auto 0.44 X10*3/uL (0.00-0.03); Imm Gran Pct Auto 2.1 % (0.0-0.4); Lymphocytes Absolute Auto 0.3 X10*3/uL (1.2-4.9); Lymphocytes Percent Auto 1.4 % (20-40); MANUAL DIFF FLAG SCAN; Mean Corpuscular HGB Conc 35.4 g/dl (31.0-36.0); Mean Corpuscular Hemoglobin 29.9 pg (27.0-33.0); Mean Corpuscular Volume 84.3 fL (80.0-98.0); Mean Platelet Volume 9.3 fL (9.4-12.4); Monocytes Absolute Auto 1.3 X10*3/uL (0.1-1.2); Monocytes Percent Auto 6.1 % (2-11); Neutrophils Absolute Auto 19.2 x10*3/uL (2.0-8.3); Neutrophils Percent Auto 90.2 % (45-73); Platelet Count 197 X10*3/uL (160-400); Red Blood Count 3.18 X10*6/uL (4.60-5.80); Red Cell Distribution Width 16.5 % (11.0-16.0); SCAN SMEAR FLAG 1; White Blood Count 21.3 X10*3/uL (4.8-10.8)
[2023-09-20 05:07] LABS: Venous Blood Gas Refer to POC result
[2023-09-20 05:19] LABS: Alanine Aminotransferase 36 U/L (0-40); Alkaline Phosphatase 70 U/L (39-117); Anion Gap 18 (12-20); Aspartate Amino Transferase 28 U/L (5-37); Bilirubin Total 0.7 mg/dL (0.0-1.0); Blood Urea Nitrogen 121 mg/dL (9-16); Calcium 8.8 mg/dL (8.4-10.2); Carbon Dioxide 19 mmol/L (22-29); Chloride 113 mmol/L (96-108); Creatinine Clr Calc Pharmacy 18.9; Estimated Glomerular Filt Rate 18; Glucose Fasting 149 mg/dL (60-99); Potassium 3.4 mmol/L (3.3-5.1); Sodium 147 mmol/L (135-145); Total Protein 5.2 g/dL (6.5-8.0)
[2023-09-20 05:26] LABS: SLIDE REVIEW VERIFIED
[2023-09-20] MEDS: 0.9 % Sodium Chloride Flush 3 ML SYRINGE IVFLUSH ×2 (08:08→16:45)
[2023-09-20] MEDS: guaiFENesin 100 MG/5 ML LIQUID PO ×3 (08:08→20:11)
[2023-09-20] MEDS: methylPREDNISolone Sod Succ 40 MG/ML VIAL IVPUSH ×2 (08:08→20:11)
[2023-09-20] MEDS: Apixaban 2.5 MG TABLET PO ×2 (08:09→20:11)
[2023-09-20] MEDS: Atorvastatin Calcium 80 MG TABLET PO (08:09)
[2023-09-20] MEDS: cilostazoL 100 MG TABLET PO ×2 (08:09→20:11)
[2023-09-20] MEDS: Cyanocobalamin (Vitamin B-12) 1,000 MCG TABLET 1000 MCG PO (08:09)
[2023-09-20] MEDS: Ascorbic Acid 500 MG TABLET PO (08:10)
--- NOTE | 2023-09-20 08:46 | PC.RT ---
Pt transitioned to hfnc per MD, nurse aware. Pt olivia well.
[2023-09-20] MEDS: Acetaminophen 325 MG TABLET 975 MG PO ×3 (09:46→20:12)
[2023-09-20] MEDS: HYDROmorphone HCl 0.5 MG/0.5 ML SYRINGE IVPUSH (11:00)
[2023-09-20] MEDS: Amiodarone HCL 900 MG in 0.9 % Sodium Chloride 500 ML 34.53 MG IVCONT (11:00)
[2023-09-20] MEDS: Norepinephrine Bitartrate/D5W 8 MG/250 ML PLAST..BAG 8.01 MG IV (11:25)
[2023-09-20] MEDS: Fluticasone/Vilanterol 200/25 BLST.W.DEV 1 PUFF INHALE (11:26)
[2023-09-20] MEDS: Albuterol Sulfate 2.5 MG, Albuterol/Iprat 2.5/0.5MG 3 ML 3 ML INHALE (11:26)
[2023-09-20 11:41] LABS: Anion Gap 21 (12-20); Blood Urea Nitrogen 121 mg/dL (9-16); Calcium 8.4 mg/dL (8.4-10.2); Carbon Dioxide 14 mmol/L (22-29); Chloride 115 mmol/L (96-108); Creatinine Clr Calc Pharmacy 18.8; Estimated Glomerular Filt Rate 18; Glucose Random 180 mg/dL (60-115); Potassium 4.4 mmol/L (3.3-5.1); Sodium 146 mmol/L (135-145)
[2023-09-20] MEDS: AMIODARONE HCL IV (11:50)
[2023-09-20] MEDS: DEXTROSE 5% IV (11:50)
[2023-09-20] MEDS: Midazolam HCl/PF 2 MG/2 ML VIAL 4 MG IVPUSH (11:54)
[2023-09-20] MEDS: Lidocaine HCl/PF 100 MG/5 ML SYRINGE 50 MG IV (11:54)
[2023-09-20] MEDS: Lidocaine HCl/D5W 2 GM/250 ML IV.SOLN IVCONT (11:54)
--- NOTE | 2023-09-20 13:34 | PM.PNCARD ---
Subjective Subjective Date of Service: 09/20/23 Principal diagnosis: VT, CHF Interval history: When I saw the patient earlier in the morning he was having some ventricular arrhythmias. He had not received his last night's amiodarone dose. Having other forms of supraventricular tachycardia with underlying sinus rhythm with increased PVC burden. Blood pressures remained somewhat stable. Has diuresed well over the last 2 days. However continues to be short of breath. Oxygenation improved. Blood pressures improved off Levophed therapy. However after I saw him, patient went into sustained ventricular tachycardia had to be cardioverted again. Now started on lidocaine drip. Review of Systems Review of Systems Yes Unobtainable due to mental status Physical Exam Vital Signs: Last Vital Signs Temp 97.5 F 09/20/23 12:00 Pulse 104 H 09/20/23 12:00 Resp 25 H 09/20/23 12:00 BP 100/65 09/20/23 12:00 Pulse Ox 92 09/20/23 12:00 O2 Del Method High Flow Nasal Cannula 09/20/23 12:00 O2 Flow Rate 45 09/20/23 12:00 FiO2 100 09/20/23 12:00 Oxygen Flow Rate 15 09/18/23 19:18 BMI result Body Mass Index 34.8 Const General: cooperative, alert, awake and acute distress mild and respiratory Orientation/consciousness: patient oriented x3 Neck Neck: Yes no JVD Resp Effort & Inspection: normal respiratory effort Auscultation: wheezes and diminished lung sounds Cardio Jugular venous distension: JVD Rate: regular rate Rhythm: abnormal rhythm with ectopic beats Heart sounds: S1 normal heart sound present and S2 normal heart sound present GI Auscultation: normal bowel sounds Skin General skin exam: no rashes or lesions noted and ecchymosis Neuro General: patient oriented x3 and no focal motor deficits Extrem General: No clubbing, No cyanosis and Yes edema Objective Labs and Meds 09/20/23 04:54 09/20/23 11:11 Lab results: Laboratory Results - last 24 hr 09/20/23 09/20/23 09/20/23 04:50 04:54 11:11 WBC 21.3 H RBC 3.18 L Hgb 9.5 L Hct 26.8 L MCV 84.3 MCH 29.9 MCHC 35.4 RDW 16.5 H Plt Count 197 MPV 9.3 L Immature Gran % (Auto) 2.1 H Neut % (Auto) 90.2 H Lymph % (Auto) 1.4 L [place] % (Auto) 6.1 Eos % (Auto) 0.0 Baso % (Auto) 0.2 Lymph # (Auto) 0.3 L [place] # (Auto) 1.3 H Eos # (Auto) 0.0 Baso # (Auto) 0.0 Abs Immat Gran (auto) 0.44 H Absolute Neuts (auto) 19.2 H Absolute Nucleated RBC 0.000 Nucleated RBC % (auto) 0.0 Smear Tech's Comments VERIFIED VBG pH 7.52 H VBG pCO2 26 VBG pO2 65 VBG HCO3 21 L VBG O2 Saturation 93.0 VBG Base Excess -0.3 Sodium 147 H 146 H Potassium 3.4 4.4 D Chloride 113 H 115 H Carbon Dioxide 19 L 14 L Anion Gap 18 21 H BUN 121 H 121 H Creatinine 3.28 H 3.31 H Estim Creat Clear Calc 18.9 18.8 Estimated GFR 18 18 Random Glucose 180 H Fasting Glucose 149 H Calcium 8.8 D 8.4 Total Bilirubin 0.7 AST 28 ALT 36 Alkaline Phosphatase 70 Total Protein 5.2 L Albumin 3.0 L Imaging Radiologist's impression: Impressions Chest X-Ray 09/20/23 11:00 IMPRESSION: 1. Similar to slightly increased patchy and reticular opacities in the lower lung casanova that could indicate a superimposed infectious/inflammatory process within a background of severe emphysema. Short-term follow-up chest radiograph is recommended. 2. Severe emphysema. 3. No pleural effusion or pneumothorax. Progress Note: A&P Assessment and plan (1) Sustained ventricular tachycardia: Status: Acute Assessment and Plan: Recurrent sustained ventricular tachycardia in a patient with inferior scar most likely induced by his acute medical condition. Agree with lidocaine use. Continue amiodarone drip as well. Would switch him once remains controlled with ventricular arrhythmias with p.o. amiodarone and mexiletine. Continue to manage electrolytes. Continue manage his underlying (2) Acute and chronic respiratory failure: Status: Acute Assessment and Plan: Acute respiratory failure in patient with advanced COPD as well as also heart failure although has been diuresed well. Switching to low-dose of diuretics. Continue supportive care. Continue treatment for his COPD exacerbation and bronchodilators therapy. Overall prognosis remains guarded. Time Spent With Patient Time: Total time managing care of this patient today ____ minutes. Progress Note: Quality Stroke Does the patient have a stroke diagnosis?: No Procedures Date of Service Date of Service: 09/20/23
[2023-09-20 14:12] LABS: Troponin-I High Sensitivity 165.4 ng/L (<3.5-35.0)
--- NOTE | 2023-09-20 14:12 | MHC.CM.PN ---
Pt continues care in ICU: Code called earlier today d/t abnormal cardiac activity and bradycardia. Pt on Levo gtt. Condition guarded. Family in and have spoke w/. MICHAEL to follow
--- NOTE | 2023-09-20 14:23 | P.PNCC_ITS ---
Subjective Subjective Date of Service: 09/20/23 Critical Care Time (minutes): 55 Comment: Continues to be critically ill Had an episode of symptomatic sustained VT with hypotension this morning for which a code was called, patient was treated with 4 mg of Versed followed by defibrillation, 150 mg of amiodarone bolus was given, amiodarone drip was continued, lidocaine bolus was given and lidocaine drip was continued. Patient reverted back to his previous rhythm but remains hypotensive currently on Levophed support. An emergent arterial line and central line was placed for more closer monitoring and better access as he has three continous drips now Physical Exam 2 Vital Signs: Vital Signs: Last Vital Signs Temp 97.5 F 09/20/23 12:00 Pulse 100 09/20/23 14:00 Resp 20 09/20/23 14:00 BP 116/55 L 09/20/23 14:00 Pulse Ox 94 09/20/23 14:00 O2 Del Method High Flow Nasal C annula 09/20/23 14:00 O2 Flow Rate 45 09/20/23 14:00 FiO2 100 09/20/23 14:00 Oxygen Flow Rate 15 09/18/23 19:18 BMI result Body Mass Index 34.8 General: acute distress, ill appearing and tired appearing Nutritional Appearance: well nourished and overweight Eyes: appearance normal, both eyes and all related structures; Alignment and Position: alignment normal and position normal Neck: No lymphadenopathy, no thyromegaly Resp: bilateral air entry equal, occasional added sounds present in bilateral lung bases Cardio: Regular rate, regular rhythm; Heart sounds: S1 normal heart sound present and S2 normal heart sound present, edema is better than before GI: soft, nontender, no guarding, no hepatosplenomegaly : bladder normal to inspection, bladder normal to palpation, no renal angle tenderness Skin: no rashes or lesions noted and elasticity normal Neuro: oriented to person, oriented to place, oriented to time and moves all extremities Objective Data Labs 09/20/23 04:54 09/20/23 11:11 Labs: Laboratory Results - last 24 hr 09/20/23 09/20/23 09/20/23 04:50 04:54 11:11 WBC 21.3 H RBC 3.18 L Hgb 9.5 L Hct 26.8 L MCV 84.3 MCH 29.9 MCHC 35.4 RDW 16.5 H Plt Count 197 MPV 9.3 L Immature Gran % (Auto) 2.1 H Neut % (Auto) 90.2 H Lymph % (Auto) 1.4 L [place] % (Auto) 6.1 Eos % (Auto) 0.0 Baso % (Auto) 0.2 Lymph # (Auto) 0.3 L [place] # (Auto) 1.3 H Eos # (Auto) 0.0 Baso # (Auto) 0.0 Abs Immat Gran (auto) 0.44 H Absolute Neuts (auto) 19.2 H Absolute Nucleated RBC 0.000 Nucleated RBC % (auto) 0.0 Smear Tech's Comments VERIFIED VBG pH 7.52 H VBG pCO2 26 VBG pO2 65 VBG HCO3 21 L VBG O2 Saturation 93.0 VBG Base Excess -0.3 Sodium 147 H 146 H Potassium 3.4 4.4 D Chloride 113 H 115 H Carbon Dioxide 19 L 14 L Anion Gap 18 21 H BUN 121 H 121 H Creatinine 3.28 H 3.31 H Estim Creat Clear Calc 18.9 18.8 Estimated GFR 18 18 Random Glucose 180 H Fasting Glucose 149 H Calcium 8.8 D 8.4 Total Bilirubin 0.7 AST 28 ALT 36 Alkaline Phosphatase 70 Troponin I High Sens Total Protein 5.2 L Albumin 3.0 L 09/20/23 13:36 WBC RBC Hgb Hct MCV MCH MCHC RDW Plt Count MPV Immature Gran % (Auto) Neut % (Auto) Lymph % (Auto) [place] % (Auto) Eos % (Auto) Baso % (Auto) Lymph # (Auto) [place] # (Auto) Eos # (Auto) Baso # (Auto) Abs Immat Gran (auto) Absolute Neuts (auto) Absolute Nucleated RBC Nucleated RBC % (auto) Smear Tech's Comments VBG pH VBG pCO2 VBG pO2 VBG HCO3 VBG O2 Saturation VBG Base Excess Sodium Potassium Chloride Carbon Dioxide Anion Gap BUN Creatinine Estim Creat Clear Calc Estimated GFR Random Glucose Fasting Glucose Calcium Total Bilirubin AST ALT Alkaline Phosphatase Troponin I High Sens 165.4 H* D Total Protein Albumin Microbiology Microbiology Results: Microbiology 09/16/23 06:15 Blood - Venous Blood Culture - Preliminary No growth after 48 hours. 09/16/23 06:15 Blood - Venous Blood Culture - Preliminary No growth after 48 hours. 09/12/23 06:16 Blood - Venous Blood Culture - Final Actinomyces etelvinai 09/12/23 06:16 Blood - Venous Blood Culture - Final Actinomyces etelvinai 09/13/23 14:10 Urine clean catch - Clean Catch Midstream Urine Culture - Final No growth. 09/13/23 Unknown Sputum - Expectorated Gram Stain - Final 09/13/23 Unknown Sputum - Expectorated Sputum Culture - Final 09/12/23 Unknown Urine clean catch - Clean Catch Midstream Urine Culture - Final Progress Note: A&P Assessment and plan (1) Cardiogenic shock: Status: Acute (2) Acute and chronic respiratory failure: Status: Acute (3) EUSEBIO (acute kidney injury): Status: Acute (4) Sustained ventricular tachycardia: Status: Acute (5) Actinomyces infection: Status: Acute (6) Hematuria: Status: Acute Plan 78-year-old gentleman with multiple comorbidities not limited to congestive heart failure with reduced ejection fraction due to ischemic cardiomyopathy, history of nonsustained V-tach, coronary artery disease status post CABG in 2014, chronic hypoxic respiratory failure due to COPD on baseline 2 L supplemental oxygen with ambulation, LAMBERTO on CPAP, CKD stage 3, peripheral arterial disease, AAA without rupture, gastroesophageal reflux disease, mixed hyperlipidemia, history of DVT and PE on Eliquis, BPH Was admitted to the hospital on 09/12/2023 with complaints of shortness of breath for about 4-5 days. Workup was significant for Actinomyces bacteremia possibly originating from a lung source. He had multiple episodes of nonsustained ventricular tachycardia eventually turning into symptomatic ventricular tachycardia with hypotension so a rapid response was called. Patient was treated with amiodarone bolus, reverted back after defibrillation. However patient has significant increase in work of breathing needing BIPAP and is also in cardiogenic shock needing vasopressor support so is admitted to medical ICU Ventricular tachycardia: Secondary to underlying ischemic cardiomyopathy Another episode of symptomatic ventricular tachycardia with hypotension this morning, he was reverted back after defibrillation, received 50 mg of lidocaine followed by lidocaine drip, 150 mg of amiodarone bolus. Continue amiodarone drip. Keep potassium above 4, magnesium above 2 Trend troponins Cardiogenic shock: Secondary to ventricular tachycardia, ischemic cardiomyopathy tapering Levophed support, titrate to keep the map above 65 mm Hg Repeat echo showed EF of 40-45% which is similar to previous echoes, RV dysfunction metoprolol succinate held due to hypotension and lisinopril in view of EUSEBIO Bedside echo showed LV systolic function similar to previous, RV normal in size, IVC collapsing Acute on chronic hypoxemic respiratory failure: Acute respiratory failure possibly secondary to pulmonary edema from tachy arrhythmias Bedside ultrasound showed diffuse B-lines in all anterior and lateral lung casanova suggestive of pulmonary edema versus bilateral pneumonia, these B-lines have improved when compared to the previous ultrasounds He is on OptiFlow for breathing during the day, we will do BiPAP during the night We will decrease the Lasix drip from 15 milligrams/hour to 10 milligrams/hour Has underlying chronic lung disease with COPD requiring home oxygen Continue [id number] DuoNebs, Solu-Medrol 40 mg Also has underlying obstructive sleep apnea on home CPAP at night Acute on chronic kidney disease: Patient has underlying CKD, acute worsening of renal functions secondary to cardiorenal syndrome and possibly an ATN from the cardiac event yesterday leading to impaired perfusion Creatinine decreased to 3.1 today, it might go up again tomorrow due to the events today We will continue diuresis of the patient as he has diffuse B-lines in the lungs and dilated RV and dilated IVC is; we will closely monitor the renal functions Closely monitor I's and O's Infectious disease: Has actinomycin tests bacteremia possibly thought to be from lung source Continue meropenem as per ID recommendation. Infectious Disease recommended patient to be on 4 weeks of ertapenem followed by Augmentin GI: Can continue oral feeds if the patient remains off of BiPAP Prophylaxis: Heparin, omeprazole Critical care time spent is about 55 minutes on managing the episodes of symptomatic sustained ventricular tachycardia with Gisela code situation needing multiple administration of medications to revert tachycardia, defibrillation, management of hypotension, close respiratory status monitoring, bedside ultrasound and bedside echo at this time is excluding any procedural time that was spent on placing central and arterial lines Quality Stroke Does the patient have a stroke diagnosis?: No VTE Prior VTE?: No VTE Risk Level:: Medical - moderate - high VTE Device Contraindication: Treatment Not Indicated VTE Drug Contraindication: N/A - Med Ordered
--- NOTE | 2023-09-20 15:43 | W.PM.CCHP ---
Procedures Date of Service Date of Service: 09/20/23 Arterial Line Consent: Emergent-no informed consent obtained Sterile Technique Used: Yes Time out performed: Yes Size (Gauge): 16 Technique used: modified Seldinger technique Post-Procedure: line sutured into place Patient tolerated procedure: well Complications: none Site: right and femoral Central Line Placement Left IJ: Consent for Procedure: Emergent-no informed consent obtained Time out performed: Yes Sterile Technique Used: Yes MD prep: mask and gown Central line prep: Povidone-Iodine 1% and Chlorhexidine scrub Local anesthesia used: lidocaine 1% Ultrasound used for placement: Yes Central line lumen inserted: triple Post procedure: sutured in place, good blood return, all ports aspirated, flushed, capped and sterile dressing applied Post procedure x-ray: tip of catheter in good position Patient tolerated procedure: well Complications: none
--- NOTE | 2023-09-20 16:26 | PC.NURSE ---
Addendum entered by Sriram Kessler RN 09/20/23 18:23: Per pharmacy, they currently do not have an option for 150mg amio ivp. Pharmacist altered current order to accommodate. Original Note: At approx 1040, patient was noted to have increased ectopy. EKGs revealed pt was alternating between afib rvr and st with bbb. Md was notified. At approx 1150, pt was noted to be in sustained v-tach. [employer] O[employer] Patcher, nursing supervisor electric, rt, ED LB Knight, AUDITOR/QUALITY Angel, and this fiction and nonfiction writer prose at bedside. Amio bolus and versed given IVP per MAY. Pt was cardioverted at 1154. EKG performed directly afterwards showed pt was now in SR with a BBB and wide QRS. MD ordered lidocaine IVP and subsequent lidocaine drip, both given per MAY. Pt was noted to be hypotensive and staff had difficulty acquiring good blood pressure readings. At 1203, a manual BP of 78/32 was read. MD ordered levophed drip to be increased above protocol. See MAR for details. At 1225, pt was still hypotensive. MD decided to place a central line and an a-line for hemodynamic monitoring. During this sequence of events, patient remained alert and oriented. Pt continues in SR with occasional sinus arrythmia and BBB.
[2023-09-20] MEDS: Albuterol/Iprat 2.5/0.5MG 3 ML AMPUL.NEB INHALE (20:06)
[2023-09-20] MEDS: Norepinephrine Bitartrate/D5W 8 MG/250 ML PLAST..BAG 30.42 MG IV (20:39)
[2023-09-20] MEDS: Furosemide 200 MG in 0.9 % Sodium Chloride 80 ML IVCONT (21:57)
[2023-09-21] VITALS (43 sets, daily range): BP systolic 107–133; BP diastolic 48–62; PULSE 83–100; RESP 17–24; TEMP 36.3–36.9; O2SAT 88–98; BMI 31.9
[2023-09-21] MEDS: Albuterol/Iprat 2.5/0.5MG 3 ML AMPUL.NEB INHALE ×3 (01:16→14:25)
[2023-09-21] MEDS: Lidocaine HCl/D5W 2 GM/250 ML IV.SOLN IVCONT ×2 (02:10→18:15)
[2023-09-21] MEDS: Norepinephrine Bitartrate/D5W 8 MG/250 ML PLAST..BAG 27.22 MG IV (04:45)
[2023-09-21 04:49] LABS: VBG HCO3 21 mmol/L (22-26); VBG pCO2 21 mmHg; VBG pO2 49 mmHg
[2023-09-21 05:03] LABS: Basophils Percent Auto 0.1 % (0-2); Hematocrit 26.4 % (42.0-52.0); Hemoglobin 9.2 g/dl (14.0-18.0); Lymphocytes Absolute Auto 0.3 X10*3/uL (1.2-4.9); MANUAL DIFF FLAG SCAN; Mean Corpuscular HGB Conc 34.8 g/dl (31.0-36.0); Mean Corpuscular Hemoglobin 29.3 pg (27.0-33.0); Mean Corpuscular Volume 84.1 fL (80.0-98.0); Monocytes Percent Auto 7.3 % (2-11); NRBC Pct Auto 0.1 /100WBC (0.0-0.2); Neutrophils Absolute Auto 23.8 x10*3/uL (2.0-8.3); Neutrophils Percent Auto 88.6 % (45-73); Platelet Count 230 X10*3/uL (160-400); Red Blood Count 3.14 X10*6/uL (4.60-5.80); Red Cell Distribution Width 16.6 % (11.0-16.0); SCAN SMEAR FLAG 1; White Blood Count 26.8 X10*3/uL (4.8-10.8)
[2023-09-21 05:20] LABS: SLIDE REVIEW VERIFIED
[2023-09-21 05:21] LABS: Alanine Aminotransferase 36 U/L (0-40); Alkaline Phosphatase 76 U/L (39-117); Anion Gap 18 (12-20); Aspartate Amino Transferase 35 U/L (5-37); Bilirubin Total 0.8 mg/dL (0.0-1.0); Blood Urea Nitrogen 119 mg/dL (9-16); Calcium 8.7 mg/dL (8.4-10.2); Carbon Dioxide 20 mmol/L (22-29); Chloride 107 mmol/L (96-108); Creatinine Clr Calc Pharmacy 19.6; Estimated Glomerular Filt Rate 19; Glucose Random 194 mg/dL (60-115); Sodium 142 mmol/L (135-145); Total Protein 5.3 g/dL (6.5-8.0); Venous Blood Gas Refer to POC result
[2023-09-21] MEDS: Potassium Chloride/H20 40 MEQ/100 ML PIGGYBACK 100 MEQ IV (05:40)
[2023-09-21] MEDS: Omeprazole 20 MG CAPSULE.DR PO (05:46)
[2023-09-21 07:37] LABS: Magnesium 2.6 mg/dL (1.6-2.6); Phosphorus 4.3 mg/dL (2.7-4.5)
[2023-09-21] MEDS: Fluticasone/Vilanterol 200/25 BLST.W.DEV 1 PUFF INHALE (07:46)
[2023-09-21] MEDS: methylPREDNISolone Sod Succ 40 MG/ML VIAL IVPUSH ×2 (09:05→20:39)
[2023-09-21] MEDS: 0.9 % Sodium Chloride Flush 3 ML SYRINGE IVFLUSH ×3 (09:05→23:52)
[2023-09-21] MEDS: Ascorbic Acid 500 MG TABLET PO (09:06)
[2023-09-21] MEDS: Apixaban 2.5 MG TABLET PO ×2 (09:06→20:40)
[2023-09-21] MEDS: Atorvastatin Calcium 80 MG TABLET PO (09:06)
[2023-09-21] MEDS: cilostazoL 100 MG TABLET PO ×2 (09:06→20:40)
[2023-09-21] MEDS: Cyanocobalamin (Vitamin B-12) 1,000 MCG TABLET 1000 MCG PO (09:06)
[2023-09-21] MEDS: Acetaminophen 325 MG TABLET 975 MG PO ×3 (09:07→20:40)
[2023-09-21] MEDS: Amiodarone HCL 900 MG in 0.9 % Sodium Chloride 500 ML 17.27 MG IVCONT (10:18)
--- NOTE | 2023-09-21 12:27 | P.PNCA_ITS ---
Subjective Subjective Date of Service: 09/21/23 Principal diagnosis: VT, CHF Interval history: Patient still having lot of respiratory distress. No longer having ventricular arrhythmias on dual antiarrhythmic drug therapy at this point time. Hemodynamically stable. Appears tired. Patient is quite emotional and says he does not want to undergo another cardioversion. Review of Systems Constitutional: Reports fatigue, Reports poor appetite and Reports weakness Cardiovascular: Denies chest pain, Denies lightheadedness, Denies Loss of Consciousness, Denies palpitations and Reports dyspnea on exertion Respiratory: Reports dyspnea on exertion and Reports wheezing Gastrointestinal: Reports other (Mouth so) Reports weakness Endocrine: Reports fatigue and Denies palpitations Allergic/Immunologic: Reports wheezing Physical Exam Vital Signs: Last Vital Signs Temp 97.3 F 09/21/23 07:00 Pulse 92 09/21/23 12:00 Resp 21 H 09/21/23 12:00 BP 118/48 L 09/21/23 12:00 Pulse Ox 91 L 09/21/23 12:00 O2 Del Method High Flow Nasal Cannula 09/21/23 12:00 O2 Flow Rate 45 09/21/23 12:00 FiO2 80 09/21/23 12:00 Oxygen Flow Rate 15 09/18/23 19:18 BMI result Body Mass Index 31.9 Objective Labs and Meds 09/21/23 04:43 09/21/23 04:43 Lab results: Laboratory Results - last 24 hr 09/20/23 09/20/23 09/21/23 13:36 20:00 04:39 WBC RBC Hgb Hct MCV MCH MCHC RDW Plt Count MPV Immature Gran % (Auto) Neut % (Auto) Lymph % (Auto) [place] % (Auto) Eos % (Auto) Baso % (Auto) Lymph # (Auto) [place] # (Auto) Eos # (Auto) Baso # (Auto) Abs Immat Gran (auto) Absolute Neuts (auto) Absolute Nucleated RBC Nucleated RBC % (auto) Smear Tech's Comments VBG pH 7.60 H* VBG pCO2 21 VBG pO2 49 VBG HCO3 21 L VBG O2 Saturation 85.0 VBG Base Excess 1.0 Sodium Potassium Chloride Carbon Dioxide Anion Gap BUN Creatinine Estim Creat Clear Calc Estimated GFR Random Glucose Calcium Phosphorus Magnesium Total Bilirubin AST ALT Alkaline Phosphatase Troponin I High Sens 165.4 H* D 205.0 H* Total Protein Albumin 09/21/23 09/21/23 04:43 07:18 WBC 26.8 H RBC 3.14 L Hgb 9.2 L Hct 26.4 L MCV 84.1 MCH 29.3 MCHC 34.8 RDW 16.6 H Plt Count 230 MPV 10.0 Immature Gran % (Auto) 3.0 H Neut % (Auto) 88.6 H Lymph % (Auto) 1.0 L [place] % (Auto) 7.3 Eos % (Auto) 0.0 Baso % (Auto) 0.1 Lymph # (Auto) 0.3 L [place] # (Auto) 2.0 H Eos # (Auto) 0.0 Baso # (Auto) 0.0 Abs Immat Gran (auto) 0.80 H Absolute Neuts (auto) 23.8 H Absolute Nucleated RBC 0.040 H Nucleated RBC % (auto) 0.1 Smear Tech's Comments VERIFIED VBG pH VBG pCO2 VBG pO2 VBG HCO3 VBG O2 Saturation VBG Base Excess Sodium 142 Potassium 3.0 L D Chloride 107 Carbon Dioxide 20 L Anion Gap 18 BUN 119 H Creatinine 3.17 H Estim Creat Clear Calc 19.6 Estimated GFR 19 Random Glucose 194 H Calcium 8.7 Phosphorus 4.3 Magnesium 2.6 Total Bilirubin 0.8 AST 35 ALT 36 Alkaline Phosphatase 76 Troponin I High Sens Total Protein 5.3 L Albumin 3.0 L Imaging Radiologist's impression: Impressions Chest X-Ray 09/20/23 14:46 IMPRESSION: 1. Left-sided central venous catheter with the tip in the region of the left brachiocephalic vein. 2. Patchy bibasilar airspace opacities, unchanged. Progress Note: A&P Assessment and plan (1) Sustained ventricular tachycardia: Status: Acute Assessment and Plan: Sustained ventricular tachycardia in this elderly gentleman with ischemic cardiomyopathy with inferior scar. Question was brought up about ICD placement. Current time ICD is not an answer for him as he continues to have acute medical illness that promote cardiac arrhythmias in him. He is currently suppressed on dual antiarrhythmic drug therapy. He is currently in critical condition and ICD is not going to prevent him from getting shocks. Continue amiodarone and would load him with 400 mg b.i.d. for 1 week followed by 200 mg daily. Also switch to mexiletine 150 mg b.i.d.. Continue full disclosure cardiac monitoring. Continue to aggressively treat his underlying medical condition which is promoting his cardiac arrhythmias at this point in time. His cardiac substrate has not significantly changed. Once he is medically stabilized and an outpatient will need to have a discussion as to further management plan given on his long-term prognosis at that point in time. (2) Acute and chronic respiratory failure: Status: Acute Assessment and Plan: Patient with significantly poor respiratory function at this point time. Continues to struggle and require high flow oxygen therapy. Question respiratory muscle weakness with underlying pulmonary parenchymal disease. Clinically his flu says seems to have improved significantly. Continue supportive care. Continue current diuretic regimen. Overall prognosis is guarded. Will sign of the case. Thank you for allowing me to partake in his care Time Spent With Patient Time: Total time managing care of this patient today ____ minutes. Progress Note: Quality Stroke Does the patient have a stroke diagnosis?: No Procedures Date of Service Date of Service: 09/21/23 Arterial Line Size (Gauge): 16
--- NOTE | 2023-09-21 13:34 | P.PNCC_ITS ---
Subjective Subjective Date of Service: 09/21/23 Critical Care Time (minutes): 35 Comment: Further episodes of V-tach overnight Currently on amiodarone and lidocaine drip On Lasix drip for diuresis, fluid balance net-900 in the past 24 hours Creatinine trending down to 3.1 Physical Exam 2 Vital Signs: Vital Signs: Last Vital Signs Temp 97.3 F 09/21/23 07:00 Pulse 87 09/21/23 13:00 Resp 20 09/21/23 13:00 BP 121/50 L 09/21/23 13:00 Pulse Ox 94 09/21/23 13:00 O2 Del Method High Flow Nasal C annula 09/21/23 13:00 O2 Flow Rate 45 09/21/23 13:00 FiO2 80 09/21/23 13:00 Oxygen Flow Rate 15 09/18/23 19:18 BMI result Body Mass Index 31.9 General: Patient in acute distress, ill appearing and tired appearing Nutritional Appearance: well nourished and overweight Eyes: appearance normal, both eyes and all related structures; Alignment and Position: alignment normal and position normal Neck: No lymphadenopathy, no thyromegaly Resp: bilateral air entry equal, occasional added sounds present bilaterally Cardio: Regular rate, regular rhythm; Heart sounds: S1 normal heart sound present and S2 normal heart sound present GI: soft, nontender, no guarding, no hepatosplenomegaly : bladder normal to inspection, bladder normal to palpation, no renal angle tenderness Skin: no rashes or lesions noted and elasticity normal Neuro: oriented to person, oriented to place, oriented to time and moves all extremities Objective Data Labs 09/21/23 04:43 09/21/23 04:43 Labs: Laboratory Results - last 24 hr 09/20/23 09/20/23 09/21/23 13:36 20:00 04:39 WBC RBC Hgb Hct MCV MCH MCHC RDW Plt Count MPV Immature Gran % (Auto) Neut % (Auto) Lymph % (Auto) [place] % (Auto) Eos % (Auto) Baso % (Auto) Lymph # (Auto) [place] # (Auto) Eos # (Auto) Baso # (Auto) Abs Immat Gran (auto) Absolute Neuts (auto) Absolute Nucleated RBC Nucleated RBC % (auto) Smear Tech's Comments VBG pH 7.60 H* VBG pCO2 21 VBG pO2 49 VBG HCO3 21 L VBG O2 Saturation 85.0 VBG Base Excess 1.0 Sodium Potassium Chloride Carbon Dioxide Anion Gap BUN Creatinine Estim Creat Clear Calc Estimated GFR Random Glucose Calcium Phosphorus Magnesium Total Bilirubin AST ALT Alkaline Phosphatase Troponin I High Sens 165.4 H* D 205.0 H* Total Protein Albumin 09/21/23 09/21/23 04:43 07:18 WBC 26.8 H RBC 3.14 L Hgb 9.2 L Hct 26.4 L MCV 84.1 MCH 29.3 MCHC 34.8 RDW 16.6 H Plt Count 230 MPV 10.0 Immature Gran % (Auto) 3.0 H Neut % (Auto) 88.6 H Lymph % (Auto) 1.0 L [place] % (Auto) 7.3 Eos % (Auto) 0.0 Baso % (Auto) 0.1 Lymph # (Auto) 0.3 L [place] # (Auto) 2.0 H Eos # (Auto) 0.0 Baso # (Auto) 0.0 Abs Immat Gran (auto) 0.80 H Absolute Neuts (auto) 23.8 H Absolute Nucleated RBC 0.040 H Nucleated RBC % (auto) 0.1 Smear Tech's Comments VERIFIED VBG pH VBG pCO2 VBG pO2 VBG HCO3 VBG O2 Saturation VBG Base Excess Sodium 142 Potassium 3.0 L D Chloride 107 Carbon Dioxide 20 L Anion Gap 18 BUN 119 H Creatinine 3.17 H Estim Creat Clear Calc 19.6 Estimated GFR 19 Random Glucose 194 H Calcium 8.7 Phosphorus 4.3 Magnesium 2.6 Total Bilirubin 0.8 AST 35 ALT 36 Alkaline Phosphatase 76 Troponin I High Sens Total Protein 5.3 L Albumin 3.0 L Microbiology Microbiology Results: Microbiology 09/16/23 06:15 Blood - Venous Blood Culture - Final No growth after 5 days. 09/16/23 06:15 Blood - Venous Blood Culture - Final No growth after 5 days. 09/12/23 06:16 Blood - Venous Blood Culture - Final Actinomyces meyeri 09/12/23 06:16 Blood - Venous Blood Culture - Final Actinomyces meyeri 09/13/23 14:10 Urine clean catch - Clean Catch Midstream Urine Culture - Final No growth. 09/13/23 Unknown Sputum - Expectorated Gram Stain - Final 09/13/23 Unknown Sputum - Expectorated Sputum Culture - Final 09/12/23 Unknown Urine clean catch - Clean Catch Midstream Urine Culture - Final Progress Note: A&P Assessment and plan (1) Cardiogenic shock: Status: Acute (2) Acute and chronic respiratory failure: Status: Acute (3) EUSEBIO (acute kidney injury): Status: Acute (4) Hypotension: Status: Acute (5) Sustained ventricular tachycardia: Status: Acute (6) Actinomyces infection: Status: Acute (7) Hematuria: Status: Acute Plan 78-year-old gentleman with multiple comorbidities not limited to congestive heart failure with reduced ejection fraction due to ischemic cardiomyopathy, history of nonsustained V-tach, coronary artery disease status post CABG in 2014, chronic hypoxic respiratory failure due to COPD on baseline 2 L supplemental oxygen with ambulation, LAMBERTO on CPAP, CKD stage 3, peripheral arterial disease, AAA without rupture, gastroesophageal reflux disease, mixed hyperlipidemia, history of DVT and PE on Eliquis, BPH Was admitted to the hospital on 09/12/2023 with complaints of shortness of breath for about 4-5 days. Workup was significant for Actinomyces bacteremia possibly originating from a lung source. He had multiple episodes of nonsustained ventricular tachycardia eventually turning into symptomatic ventricular tachycardia with hypotension so a rapid response was called on 09/18/2023. Patient was treated with amiodarone bolus, reverted back after defibrillation. He had another episode of V-tach leading to hypotension on 09/20/2023. He is on Levophed for vasopressor requirement as needed, on nighttime BiPAP as he has underlying obstructive sleep apnea. Overall on chart his numbers looks better but he is more ill-appearing and more tired. Ventricular tachycardia: Secondary to underlying ischemic cardiomyopathy Two episodes of ventricular tachycardia needing defibrillation on 09/20/2023 and 09/18/2023 received 50 mg of lidocaine followed by lidocaine drip, 150 mg of amiodarone bolus. Currently on amiodarone drip and lidocaine drip. We will start him on oral amiodarone 400 mg b.i.d., once he gets the nighttime dose of amiodarone we will turn off the drip. We will add oral mexiletine. Cardiology upon that he would be evaluated for ICD placement once his acute conditions are resolved Keep potassium above 4, magnesium above 2 Cardiogenic shock: Secondary to ventricular tachycardia, ischemic cardiomyopathy tapering Levophed support, titrate to keep the map above 65 mm Hg Repeat echo showed EF of 40-45% which is similar to previous echoes, RV dysfunction metoprolol succinate held due to hypotension and lisinopril in view of EUSEBIO Bedside echo showed LV systolic function similar to previous, RV normal in size, IVC collapsing Acute on chronic hypoxemic respiratory failure: Acute respiratory failure possibly secondary to pulmonary edema from tachy arrhythmias Bedside ultrasound showed diffuse B-lines in all anterior and lateral lung casanova suggestive of pulmonary edema versus bilateral pneumonia, these B-lines have improved when compared to the previous ultrasounds He is on OptiFlow for breathing during the day, we will do BiPAP during the night On Lasix drip 7.5 milligrams/hour, can change to 100 mg b.i.d. from tomorrow Has underlying chronic lung disease with COPD requiring home oxygen Continue [id number] DuoNebs, Solu-Medrol 40 mg Also has underlying obstructive sleep apnea on home CPAP at night Acute on chronic kidney disease: Patient has underlying CKD, acute worsening of renal functions secondary to cardiorenal syndrome and possibly an ATN from the cardiac event yesterday leading to impaired perfusion Creatinine stable, good urine output. Net fluid balance almost 4 L negative in the past 3 days since he is admitted to ICU We will continue diuresis of the patient as he has diffuse B-lines in the lungs and dilated RV and dilated IVC is; we will closely monitor the renal functions Closely monitor I's and O's Infectious disease: Has actinomycin tests bacteremia possibly thought to be from lung source Continue meropenem as per ID recommendation. Infectious Disease recommended patient to be on 4 weeks of ertapenem followed by Augmentin GI: Can continue oral feeds if the patient remains off of BiPAP Prophylaxis: Heparin, omeprazole Quality Stroke Does the patient have a stroke diagnosis?: No VTE Prior VTE?: No VTE Risk Level:: Medical - moderate - high VTE Device Contraindication: Treatment Not Indicated VTE Drug Contraindication: N/A - Med Ordered
[2023-09-21] MEDS: Norepinephrine Bitartrate/D5W 8 MG/250 ML PLAST..BAG 24.02 MG IV (14:25)
--- NOTE | 2023-09-21 14:48 | MHC.CM.PN ---
Pt had a rapid response on 09/19 and required A line placement and pressor agents. Pt now on Lasix gtt. Condition very guarded: d/c plans deferred until pt's condition improves
[2023-09-21] MEDS: Throat Spray, Medicated 177 ML BOTTLE 1 SPRAY MUCOUS MEM ×2 (15:59→20:45)
[2023-09-21] MEDS: Furosemide 200 MG in 0.9 % Sodium Chloride 80 ML IVCONT (16:01)
[2023-09-21] MEDS: ondansetron HCL 4 MG/2 ML VIAL IVPUSH (17:20)
[2023-09-21] MEDS: guaiFENesin 100 MG/5 ML LIQUID PO (20:39)
[2023-09-21] MEDS: Amiodarone HCL 200 MG TABLET 400 MG PO (20:40)
[2023-09-21] MEDS: levalbuterol HCL 3.75 MG, Ipratropium Bromide 0.5 MG INHALE ×2 (20:53→23:56)
[2023-09-21] MEDS: Lidocaine 4 % Patch ADH..PATCH 1 PATCH TRANSDERMA (23:51)
[2023-09-22] VITALS (51 sets, daily range): BP systolic 102–140; BP diastolic 45–65; PULSE 81–103; RESP 15–24; TEMP 36.9–37.3; O2SAT 87–100; BMI 31.7
--- NOTE | 2023-09-22 | ECG_ITS ---
Test Reason : code Blood Pressure : / mmHG Vent. Rate : 108 BPM Atrial Rate : 000 BPM P-R Int : 000 ms QRS Dur : 180 ms QT Int : 482 ms P-R-T Axes : 000 -86 062 degrees QTc Int : 645 ms Undetermined rhythm Left axis deviation Right bundle branch block Septal infarct , age undetermined Possible Lateral infarct , age undetermined Inferior infarct , age undetermined Abnormal ECG No significant changes when compared with the previous EKG of same day Referred By: Denisse Tena Electronically Signed By:LOAN MATOS
[2023-09-22] MEDS: Norepinephrine Bitartrate/D5W 8 MG/250 ML PLAST..BAG 24.02 MG IV (00:38)
[2023-09-22] MEDS: Melatonin 3 MG TABLET 6 MG PO (02:27)
[2023-09-22 04:10] LABS: Basophils Percent Auto 0.1 % (0-2); Hematocrit 26.5 % (42.0-52.0); Hemoglobin 9.2 g/dl (14.0-18.0); Imm Gran Abs Auto 0.66 X10*3/uL (0.00-0.03); Imm Gran Pct Auto 2.4 % (0.0-0.4); Lymphocytes Absolute Auto 0.2 X10*3/uL (1.2-4.9); Lymphocytes Percent Auto 0.8 % (20-40); MANUAL DIFF FLAG SCAN; Mean Corpuscular HGB Conc 34.7 g/dl (31.0-36.0); Mean Corpuscular Hemoglobin 29.3 pg (27.0-33.0); Mean Corpuscular Volume 84.4 fL (80.0-98.0); Mean Platelet Volume 10.2 fL (9.4-12.4); Monocytes Absolute Auto 1.7 X10*3/uL (0.1-1.2); Monocytes Percent Auto 6.1 % (2-11); NRBC Pct Auto 0.1 /100WBC (0.0-0.2); Neutrophils Absolute Auto 25.2 x10*3/uL (2.0-8.3); Neutrophils Percent Auto 90.6 % (45-73); Platelet Count 207 X10*3/uL (160-400); Red Blood Count 3.14 X10*6/uL (4.60-5.80); Red Cell Distribution Width 16.8 % (11.0-16.0); SCAN SMEAR FLAG 1; White Blood Count 27.8 X10*3/uL (4.8-10.8)
[2023-09-22 04:10] LABS: Venous Blood Gas Refer to POC result
[2023-09-22 04:12] LABS: VBG Base Excess 1.5 mmol/L; VBG HCO3 25 mmol/L (22-26); VBG pCO2 35 mmHg; VBG pH 7.45 (7.32-7.43); VBG pO2 56 mmHg
[2023-09-22 04:25] LABS: Alanine Aminotransferase 36 U/L (0-40); Albumin Level 2.9 g/dL (3.5-5.0); Alkaline Phosphatase 76 U/L (39-117); Anion Gap 19 (12-20); Aspartate Amino Transferase 37 U/L (5-37); Bilirubin Total 0.9 mg/dL (0.0-1.0); Blood Urea Nitrogen 106 mg/dL (9-16); Calcium 8.6 mg/dL (8.4-10.2); Carbon Dioxide 21 mmol/L (22-29); Chloride 105 mmol/L (96-108); Creatinine Clr Calc Pharmacy 20.8; Estimated Glomerular Filt Rate 21; Glucose Random 155 mg/dL (60-115); Magnesium 2.5 mg/dL (1.6-2.6); Phosphorus 4.9 mg/dL (2.7-4.5); Potassium 3.1 mmol/L (3.3-5.1); Sodium 142 mmol/L (135-145); Total Protein 5.2 g/dL (6.5-8.0)
[2023-09-22 04:28] LABS: SLIDE REVIEW VERIFIED
[2023-09-22] MEDS: levalbuterol HCL 3.75 MG, Ipratropium Bromide 0.5 MG INHALE ×2 (04:30→07:26)
[2023-09-22 05:26] LABS: ABG Base Excess 1.5 mmol/L; ABG HCO3 23 mmol/L (22-26); ABG pCO2 28 mmHg (32-45); ABG pH 7.52 (7.35-7.45); ABG pO2 79 mmHg (83-108)
[2023-09-22] MEDS: Potassium Chloride Packet 20 MEQ PACKET 40 MEQ PO (05:28)
[2023-09-22] MEDS: Potassium Chloride/H20 40 MEQ/100 ML PIGGYBACK 100 MEQ IV (05:29)
[2023-09-22] MEDS: Omeprazole 20 MG CAPSULE.DR PO (05:29)
[2023-09-22 06:13] LABS: ABG Refer to POC result
[2023-09-22] MEDS: Fluticasone/Vilanterol 200/25 BLST.W.DEV 1 PUFF INHALE (07:27)
--- NOTE | 2023-09-22 07:46 | P.PNCC_ITS ---
Subjective Subjective Date of Service: 09/22/23 Critical Care Time (minutes): 90 Physical Exam 2 Vital Signs: Vital Signs: Last Vital Signs Temp 98.2 F 09/21/23 23:00 Pulse 94 09/22/23 07:27 Resp 17 09/22/23 07:27 BP 124/56 L 09/22/23 07:10 Pulse Ox 100 09/22/23 07:00 O2 Del Method High Flow Nasal C annula 09/22/23 07:00 O2 Flow Rate 45 09/22/23 07:00 FiO2 100 09/22/23 07:00 Oxygen Flow Rate 15 09/18/23 19:18 BMI result Body Mass Index 31.7 Const: General: cooperative, healthy appearing, comfortable, no acute distress, well developed, alert, awake and Physically active O rientation/consciousness: patient oriented x3 HEENT: Head: Yes normal to inspection, Yes normocephalic and Yes atraumatic Eyes: General: appearance normal, both eyes and all related structures Neck: Neck: Yes normal visual inspection, Yes full ROM, Yes trachea midline and Yes supple Chest: Chest palpation & inspection: normal inspection of the chest Resp: Other: some appreciable rhonchi, rales anterior lung casanova; no appreciable wheezing Cardio: Rate: tachycardic Rhythm: abnormal rhythm Skin: General skin exam: no rashes or lesions noted Neuro: General: patient oriented x3, tone normal, moves all extremities and no focal motor deficits Extrem: Other: 2+ pitting edema to bilateral shins General: Yes normal to inspection, Yes full ROM and Yes capillary refill normal Psych: Appearance: grossly normal Objective Data Labs 09/22/23 04:04 09/22/23 04:04 Labs: Laboratory Results - last 24 hr 09/22/23 09/22/23 04:04 05:17 WBC 27.8 H RBC 3.14 L Hgb 9.2 L Hct 26.5 L MCV 84.4 MCH 29.3 MCHC 34.7 RDW 16.8 H Plt Count 207 MPV 10.2 Immature Gran % (Auto) 2.4 H Neut % (Auto) 90.6 H Lymph % (Auto) 0.8 L Wilkin % (Auto) 6.1 Eos % (Auto) 0.0 Baso % (Auto) 0.1 Lymph # (Auto) 0.2 L Wilkin # (Auto) 1.7 H Eos # (Auto) 0.0 Baso # (Auto) 0.0 Abs Immat Gran (auto) 0.66 H Absolute Neuts (auto) 25.2 H Absolute Nucleated RBC 0.030 H Nucleated RBC % (auto) 0.1 Smear Tech's Comments VERIFIED O2 Saturation 96.0 ABG pH at Pt Temp 7.52 H ABG pCO2 at Pt Temp 28 L ABG pO2 at Pt Temp 79 L ABG HCO3 23 ABG Base Excess (Actual) 1.5 VBG pH 7.45 H VBG pCO2 35 VBG pO2 56 VBG HCO3 25 VBG O2 Saturation 86.0 VBG Base Excess 1.5 Sodium 142 Potassium 3.1 L Chloride 105 Carbon Dioxide 21 L Anion Gap 19 BUN 106 H Creatinine 2.86 H Estim Creat Clear Calc 20.8 Estimated GFR 21 Random Glucose 155 H Calcium 8.6 Phosphorus 4.9 H Magnesium 2.5 Total Bilirubin 0.9 AST 37 ALT 36 Alkaline Phosphatase 76 Total Protein 5.2 L Albumin 2.9 L Microbiology Microbiology Results: Microbiology 09/16/23 06:15 Blood - Venous Blood Culture - Final No growth after 5 days. 09/16/23 06:15 Blood - Venous Blood Culture - Final No growth after 5 days. 09/12/23 06:16 Blood - Venous Blood Culture - Final Actinomyces meyeri 09/12/23 06:16 Blood - Venous Blood Culture - Final Actinomyces meyeri 09/13/23 14:10 Urine clean catch - Clean Catch Midstream Urine Culture - Final No growth. 09/13/23 Unknown Sputum - Expectorated Gram Stain - Final 09/13/23 Unknown Sputum - Expectorated Sputum Culture - Final 09/12/23 Unknown Urine clean catch - Clean Catch Midstream Urine Culture - Final Progress Note: A&P Assessment and plan (1) Sustained ventricular tachycardia: Status: Acute (2) Cardiogenic shock: Status: Acute (3) Acute and chronic respiratory failure: Status: Acute (4) Acute on chronic renal insufficiency: Status: Acute (5) Actinomyces infection: Status: Acute (6) COPD (chronic obstructive pulmonary disease): Status: Acute (7) LAMBERTO (obstructive sleep apnea): Status: Acute Plan Patient is a 78 Y M w/ extensive cardiovascular disease including coronary artery disease s/p CABG, c/b congestive heart failure, non-sustained ventricular tachycardia, abdominal aortic aneurysm, COPD on 2 L NC, LAMBERTO on CPAP, and prior pulmonary embolism on apixaban, initially presenting to emergency department on 09/11 w/ dyspnea, 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, admitted medicine; hospital course c/b multiple episodes of non-sustained ventricular tachycardia c/b hypotension, necessitating defibrillation, inotropes, and vasopressors N: CV: extensive; multiple episode of ventricular tachycardia; currently on amiodarone gtt, lidocaine gtt; appreciate cardiology recommendations R: acute on chronic hypoxic respiratory failure, likely d/t volume overload, pneumonia; on HFNC; wean as tolerated; COPD, LAMBERTO on CPAP PM GI: cardiac diet as tolerated : acute on chronic renal insufficiency, likely pre-renal, c/b volume overload; furosemide gtt; to monitor electrolytes very closely H: no acute issues ID: actinomyces bacteremia; meropenem; appreciate ID recommendations E: to monitor hypo-/hyper-glycemia Quality Stroke Does the patient have a stroke diagnosis?: No VTE Prior VTE?: No VTE Risk Level:: Medical - moderate - high VTE Device Contraindication: Treatment Not Indicated VTE Drug Contraindication: N/A - Med Ordered
[2023-09-22] MEDS: Throat Spray, Medicated 177 ML BOTTLE 1 SPRAY MUCOUS MEM ×2 (08:03→10:15)
[2023-09-22] MEDS: methylPREDNISolone Sod Succ 40 MG/ML VIAL IVPUSH (08:22)
[2023-09-22] MEDS: Albumin Human 25 % 50 ML 100 ML IV (08:23)
[2023-09-22] MEDS: 0.9 % Sodium Chloride Flush 3 ML SYRINGE IVFLUSH ×3 (08:30→20:42)
[2023-09-22] MEDS: Apixaban 2.5 MG TABLET PO ×2 (08:31→20:26)
[2023-09-22] MEDS: cilostazoL 100 MG TABLET PO (08:31)
[2023-09-22] MEDS: Atorvastatin Calcium 80 MG TABLET PO (08:31)
[2023-09-22] MEDS: Amiodarone HCL 200 MG TABLET 400 MG PO ×2 (08:31→20:25)
[2023-09-22] MEDS: Vasopressin 20 UNIT/100 ML INFUS..BTL 12 UNIT IVCONT ×3 (09:57→21:33)
[2023-09-22] MEDS: Norepinephrine Bitartrate/D5W 8 MG/250 ML PLAST..BAG 20.82 MG IV (10:15)
--- NOTE | 2023-09-22 10:37 | MHC.CLN ---
PT WITH INCREASED NUTRITION RISK R/T PRESSURE INJURY PO INTAKE VARIABLE DIET RX: CARDIAC-APPROPRIATE RECOMMEND ADDING ENSURE CLEAR TID TO PROMOTE WOUND HEALING SUPP TO PROVIDE 720KCALS, 24G PROTEIN MONITOR PO INTAKE AND ENCOURAGE SUPPLEMENTS SEE ALSO FULL CLINICAL NUTRITION ASSESSMENT
--- NOTE | 2023-09-22 11:38 | PHA.PROG ---
Admission Date/Time: September 12, 2023 10:40 Indication: Other Weight in k.3 kg Adjusted body weight in Kg: [place] body weight in Kg: Obesity Dosing Indication % IBW: Serum Creatinine - Last 168 Hours 09/16/23 09/17/23 09/18/23 06:15 06:11 06:32 Creatinine 2.79 H 2.84 H 3.48 H 09/18/23 09/18/23 09/19/23 15:55 21:37 05:05 Creatinine 3.40 H 3.52 H 3.60 H 09/20/23 09/20/23 09/21/23 04:54 11:11 04:43 Creatinine 3.28 H 3.31 H 3.17 H 09/22/23 04:04 Creatinine 2.86 H Estimated CrCl and GFR - Last 168 Hours 09/16/23 09/17/23 09/18/23 06:15 06:11 06:32 Estim Creat Clear Calc 21.2 20.8 17.0 Estimated GFR 22 22 17 09/18/23 09/18/23 09/19/23 15:55 21:37 05:05 Estim Creat Clear Calc 17.4 16.8 16.4 Estimated GFR 18 17 16 09/20/23 09/20/23 09/21/23 04:54 11:11 04:43 Estim Creat Clear Calc 18.9 18.8 19.6 Estimated GFR 18 18 19 09/22/23 04:04 Estim Creat Clear Calc 20.8 Estimated GFR 21 Vancomycin Loading Dose: 2000mg once Current Vancomycin Dosing Regimen: 500mg q24H Vancomycin Monitoring using AUC goal of 400 - 600 range with trough as surrogate marker: Date and Time for next Vancomycin Level to be drawn: 09/24/23 @1000 Pharmacist Comments on Vancomycin Plan: Pt recently on Vanc, last dose on 09/14. Will re-load with 2g and continue same regimen as renal function has recovered to a similar level. Projected AUC is a bit low at 387 but the trough should be between 12.6 and 16 based on previous dosing an Insight projections. May need adjusting to 750mg q24 if renal function continues to recover. Vancomycin dosing will take advantage of [employer]ight[employer] as a clinical decision support tool that uses Bayesian modeling to calculate individual patient's pharmacokinetic parameters and forecast the patient's drug concentration time course with the target goal AUC 24 range of 400 - 600 mg/L/hr.
--- NOTE | 2023-09-22 12:26 | W.MHC.ACPN ---
Advanced Care Planning Note Advanced Care Planning Note Discussed with: patient and family member(s) Time spent (in minutes): 45 Narrative: I introduced myself to Mrs. Urena this AM via phone. Mrs. Urena stated she plans to come to the hospital. I met Mrs. Urena at Mr. Urena's bedside. I offered a summary of my understanding of Mr. Urena's ED, hospital, and ICU course. I offered clarifications as well. Mrs. Urena expressed that she is overwhelmed with information arriving from myself, and prior attendings. I offered my apologies for overwhelming her and offered to not offer updates if she prefers, in particular considering Mr. Urena is able to make decisions regarding his care at this point in time. Mr. Urena expressed understanding of his clinical course and guarded prognosis. Mr. Urena stated he would not want a breathing tube and to be placed on the ventilator. Mrs. Urena stated that she and Mr. Urena's family will be supportive of whatever his decisions are regarding his care, but also encouraged Mr. Urena to not make a rash decision at this point in time. I encouraged Mr. and Mrs. Urena to discuss his philosophy of care, as there may be a time when Mr. Urena is unable to speak for himself, and therefore rely on his . Problems Discussed (1) Sustained ventricular tachycardia: (2) Cardiogenic shock: (3) Acute and chronic respiratory failure: (4) Acute on chronic renal insufficiency: (5) Actinomyces infection: (6) COPD (chronic obstructive pulmonary disease): (7) LAMBERTO (obstructive sleep apnea):
[2023-09-22] MEDS: vancomycin/NS 2,000 MG/500 ML PLAST..BAG 250 MG IV (12:28)
--- NOTE | 2023-09-22 14:30 | ECG_ITS ---
Test Reason : arrythmia Blood Pressure : / mmHG Vent. Rate : 100 BPM Atrial Rate : 100 BPM P-R Int : 254 ms QRS Dur : 144 ms QT Int : 358 ms P-R-T Axes : 000 -66 085 degrees QTc Int : 461 ms Possibly Sinus rhythm with 1st degree A-V block with Fusion complexes Right bundle branch block Left anterior fascicular block Bifascicular block Left ventricular hypertrophy with repolarization abnormality ( R in aVL ) Abnormal ECG When compared to the previous EKG of 20 september 2023, possibly rhythm change Referred By: Denisse Tena Electronically Signed By:LOAN MATOS
[2023-09-22] MEDS: Furosemide 200 MG in 0.9 % Sodium Chloride 80 ML IVCONT (14:44)
--- NOTE | 2023-09-22 15:36 | MHC.CM.PN ---
PER MD ROUNDS AND EMR REVIEW, PT IS ON HI FLOW 02 AND CONTINUES TO REQUIRE PRESSOR SUPPORT. CM WILL CONTINUE TO FOLLOW FOR ANY CHANGE TO PLAN. PT COMPLETED A NEW HCP SPOUSE WAS UNABLE TO LOCATE.
[2023-09-22] MEDS: Acetaminophen 325 MG TABLET 975 MG PO (16:07)
[2023-09-22 18:38] LABS: Basophils Percent Auto 0.1 % (0-2); Hematocrit 24.1 % (42.0-52.0); Hemoglobin 8.7 g/dl (14.0-18.0); Imm Gran Abs Auto 0.79 X10*3/uL (0.00-0.03); Imm Gran Pct Auto 3.3 % (0.0-0.4); Lymphocytes Absolute Auto 0.3 X10*3/uL (1.2-4.9); Lymphocytes Percent Auto 1.1 % (20-40); MANUAL DIFF FLAG SCAN; Mean Corpuscular HGB Conc 36.1 g/dl (31.0-36.0); Mean Corpuscular Hemoglobin 31.2 pg (27.0-33.0); Mean Corpuscular Volume 86.4 fL (80.0-98.0); Monocytes Absolute Auto 1.8 X10*3/uL (0.1-1.2); Monocytes Percent Auto 7.3 % (2-11); NRBC Pct Auto 0.1 /100WBC (0.0-0.2); Neutrophils Absolute Auto 21.2 x10*3/uL (2.0-8.3); Neutrophils Percent Auto 88.2 % (45-73); Platelet Count 172 X10*3/uL (160-400); Red Blood Count 2.79 X10*6/uL (4.60-5.80); Red Cell Distribution Width 16.8 % (11.0-16.0); SCAN SMEAR FLAG 1
[2023-09-22 18:57] LABS: Anion Gap 16 (12-20); Blood Urea Nitrogen 102 mg/dL (9-16); Calcium 7.1 mg/dL (8.4-10.2); Carbon Dioxide 20 mmol/L (22-29); Chloride 110 mmol/L (96-108); Creatinine Clr Calc Pharmacy 21.4; Estimated Glomerular Filt Rate 22; Glucose Random 167 mg/dL (60-115); Magnesium 2.2 mg/dL (1.6-2.6); Phosphorus 4.5 mg/dL (2.7-4.5); Potassium 4.8 mmol/L (3.3-5.1); Sodium 141 mmol/L (135-145)
[2023-09-22 18:59] LABS: SLIDE REVIEW VERIFIED
[2023-09-22 19:58] LABS: Albumin Level 1.6 g/dL (3.5-5.0)
[2023-09-22] MEDS: Albumin Human 25 % 100 ML IV ×3 (20:29→23:29)
[2023-09-23] VITALS (39 sets, daily range): BP systolic 66–134; BP diastolic 46–63; PULSE 75–156; RESP 9–85; TEMP 36.4–37.3; O2SAT 84–99; BMI 30.7
[2023-09-23] MEDS: Acetaminophen 325 MG TABLET 975 MG PO ×2 (00:50→09:43)
[2023-09-23 02:48] LABS: Anion Gap 16 (12-20); Blood Urea Nitrogen 95 mg/dL (9-16); Carbon Dioxide 27 mmol/L (22-29); Chloride 105 mmol/L (96-108); Creatinine Clr Calc Pharmacy 22.8; Estimated Glomerular Filt Rate 24; Glucose Random 111 mg/dL (60-115); Potassium 3.3 mmol/L (3.3-5.1); Sodium 145 mmol/L (135-145)
[2023-09-23] MEDS: Potassium Chloride/H20 40 MEQ/100 ML PIGGYBACK 50 MEQ IV (03:07)
--- NOTE | 2023-09-23 03:44 | PC.NURSE ---
Addendum entered by Asher Fuller RN 09/23/23 06:33: 0545 MONITOR SHOWED V.TACH HR 158-160...PATIENT AWAKE..DENIED SYMPTOMS BUT BP DECREASED TO 68-73/44-46..COLOR WEBB..ICU MULTICULTURAL MANAGER AT BEDSIDE...PACER/DEFIBRILATOR PADS PLACED...LIDOCAINE 75MG IV GIVEN PER ICU MULTICULTURAL MANAGER....LIDOCAINE DRIP STARTED 2 MG/MIN...REPEAT LIDOCAINE 75MG IV BOLUS GIVEN...PATIENT STATED WOULD ACCEPT 3RD CARDIOVERSION WHEN QUESTIONED BY MULTICULTURAL MANAGER...PRE-MEDICATED WITH FENTANYL 50 MCG IV AND VERSED 2MG IV WITH RESTFUL EFFECT..CARDIOVERTED 120 JOULES WITH RETURN TO NSR RBBB/1ST-DEGREE AV-BLOCK HR 84-92....SAO2 83-84% POST CARDIOVERSION..SOMNOLENT..NARCAN 1MG IV GIVEN...AWAKE AFTER NARCAN AND IMPROVED SAO2... CALLED BY ICU MULTICULTURAL MANAGER AND CURRENTLY AT BEDSIDE.. Original Note: CARE ASSUMED 7PM..PATIENT ALERT..ORIENTED X3..SPEECH CLEAR..HI-SHAUNNA O2 CANNULA FIO2 85% AND 50 L/M FLOW..RESPIRATIONS EASY AT REST...WEBER WITH MINIMAL EXERTION...LEVOPHED 0.07 MCG/KG/MIN AND VASOPRESSIN 0.04 UNITS/MIN AT SHIFT CHANGE...LASIX DRIP 10 MG/HR...ABARCA DRAINING CLEAR YELLOW URINE...PER REPORT ABARCA PREVIOUSLY PLACED FOR URINARY RETENTION AND MD ORDER NOT TO REMOVE ABARCA CATHETER...HS LABS REVIEWED BY ICU MULTICULTURAL MANAGER....ALBUMEN 25 GRAMS X2 BOTTLES GIVEN OVER 2 HOURS FOLLOWED BY ALBUMEN 25GRAMS Q6H X4 BOTTLES....VASOPRESSOR THERAPY REVIEWED WITH ICU MULTICULTURAL MANAGER...VASOPRESSIN DRIP WEANED OFF OVER 3 HOURS FROM 10PM TO 1AM...BP REMAINS STABLE..PO AMIODARONE AND MEXILITENE PO PER MAY...NSR..RBBB...1ST-DEGREE AV-BLOCK HR 80'S-90'S...RARE PVC'S...1AM ISOLATED 3.8 SECOND PAUSE NOTED AND REVIEWED BY ICU MULTICULTURAL MANAGER....KCL 40 MEQ IV INFUSING OVER 2 HOURS FOR K=3.3....TYLENOL GIVEN FOR ACHY LEGS AND BACK . DOZING AFTER TYLENOL...ARMS REMAIN EDEMATOUS AND WEEPING SEROUS FLUID...PATIENT REPORTS LEG EDEMA MARKEDLY IMPROVED SINCE ADMISSION....
[2023-09-23 05:12] LABS: Basophils Percent Auto 0.1 % (0-2); Hematocrit 22.2 % (42.0-52.0); Hemoglobin 7.8 g/dl (14.0-18.0); Imm Gran Abs Auto 0.56 X10*3/uL (0.00-0.03); Imm Gran Pct Auto 2.3 % (0.0-0.4); Lymphocytes Absolute Auto 0.3 X10*3/uL (1.2-4.9); Lymphocytes Percent Auto 1.4 % (20-40); MANUAL DIFF FLAG SCAN; Mean Corpuscular HGB Conc 35.1 g/dl (31.0-36.0); Mean Corpuscular Hemoglobin 30.2 pg (27.0-33.0); Mean Platelet Volume 10.4 fL (9.4-12.4); Monocytes Absolute Auto 1.8 X10*3/uL (0.1-1.2); Monocytes Percent Auto 7.4 % (2-11); NRBC Pct Auto 0.1 /100WBC (0.0-0.2); Neutrophils Absolute Auto 21.5 x10*3/uL (2.0-8.3); Neutrophils Percent Auto 88.8 % (45-73); Platelet Count 152 X10*3/uL (160-400); Red Blood Count 2.58 X10*6/uL (4.60-5.80); Red Cell Distribution Width 16.8 % (11.0-16.0); SCAN SMEAR FLAG 1; White Blood Count 24.2 X10*3/uL (4.8-10.8)
[2023-09-23] MEDS: Albumin Human 25 % 100 ML IV (05:17)
[2023-09-23] MEDS: Norepinephrine Bitartrate/D5W 8 MG/250 ML PLAST..BAG 11.21 MG IV ×2 (05:25→19:23)
[2023-09-23 05:27] LABS: Albumin Level 3.9 g/dL (3.5-5.0); Anion Gap 17 (12-20); Blood Urea Nitrogen 92 mg/dL (9-16); Calcium 9.1 mg/dL (8.4-10.2); Carbon Dioxide 27 mmol/L (22-29); Chloride 105 mmol/L (96-108); Estimated Glomerular Filt Rate 24; Glucose Random 100 mg/dL (60-115); Magnesium 2.4 mg/dL (1.6-2.6); Potassium 3.8 mmol/L (3.3-5.1); Sodium 145 mmol/L (135-145)
[2023-09-23] MEDS: Omeprazole 20 MG CAPSULE.DR PO (05:30)
[2023-09-23 05:31] LABS: SLIDE REVIEW VERIFIED
[2023-09-23] MEDS: Lidocaine HCl/D5W 2 GM/250 ML IV.SOLN IVCONT ×2 (06:00→19:17)
[2023-09-23] MEDS: fentaNYL citrate/PF 100 MCG/2 ML VIAL 50 MCG IVPUSH (06:05)
[2023-09-23] MEDS: Midazolam HCl/PF 2 MG/2 ML VIAL IVPUSH (06:05)
[2023-09-23] MEDS: Naloxone HCl 2 MG/2 ML SYRINGE 1 MG IVPUSH (06:10)
--- NOTE | 2023-09-23 06:24 | PM.CCN ---
Critical Care Event Note Summary Date of Service: 09/23/23 Code activated: No Narrative: This case had a high probability of a clinically significant, sudden, or life threatening deterioration of this patient's condition which required my full and direct attention, intervention and personal management. Critical Care Time (minutes): 45 Comment: This morning the patient went into sustained ventricular tachycardia with hypotension. He denied any SOB, CP, dizziness, nausea or other symptom. Resp therapy, nursing diversified crops supervisor, END FINDER TWISTING DEPARTMENT's and myself were present, therefor a rapid response was not called. Treatment plan was discussed with the pt. He stated that he did not want a tube down his throat if he stopped breathing, but was okay with CPR. Patient was treated with Lidocaine bolus and placed on a lidocaine drip. He did not immediately respond and remained hypotensive. He was premedicated with fentanyl and versed and 1 shock, 120j, was delivered. The patient reverted back to sinus rhythm after defibrillation. He was unresponsive with declining O2 sat. He was bagged with 100% O2 and was given narcan with good response. The patient was alert oriented and aware of circumstances and treatment. Pt's Moriah was informed of the situation and is en route to the hospital.
--- NOTE | 2023-09-23 07:00 | W.MHC.ACPN ---
Advanced Care Planning Note Advanced Care Planning Note Discussed with: patient and family member(s) Time spent (in minutes): 30 Narrative: The patient went into sustained Vtach requiring defibrillation. The treatment plan was discussed with Mr. Urena who expressed understanding of his clinical course and guarded prognosis. When asked, he stated several times that he would not want a breathing tube and to be placed on the ventilator. The DNI request was witnessed by 2 RN's (Bry Tran, Melinda Tran). The pt was asked again when his arrived at the bedside and he reiterated his choice to not have a breathing tube. He stated several times that he did not want to be shocked again but is undecided about CPR. Mrs. Urena would like to revisit the issue if defibrillation becomes necessary again. The mechanics and likely effects of CPR such as broken ribs were explained. He asked that we notify his son and the family would discuss it further when he arrived. Problems Discussed (1) Sustained ventricular tachycardia: (2) Cardiogenic shock: (3) Acute and chronic respiratory failure: (4) Acute on chronic renal insufficiency: (5) Actinomyces infection: (6) COPD (chronic obstructive pulmonary disease): (7) LAMBERTO (obstructive sleep apnea):
--- NOTE | 2023-09-23 07:26 | HE.PHANOTE ---
Re: Herrerao Poor renal function, but showing improvement. Continue current dose of 500mg q24h.
--- NOTE | 2023-09-23 08:00 | P.PNCC_ITS ---
Subjective Subjective Date of Service: 09/23/23 Interval History: episode of sustained ventricular tachycardia c/b hypotension; patient given fentanyl/midazolam and synchronized cardioverted into sinus rhythm; patient's urgently called; after discussion with patient and patient's , patient stated he would like to change his code status to DNR/DNI; patient's son made aware of events as well Critical Care Time (minutes): 60 Physical Exam 2 Vital Signs: Vital Signs: Last Vital Signs Temp 99.0 F 09/23/23 04:00 Pulse 84 09/23/23 07:00 Resp 19 09/23/23 07:39 BP 115/58 L 09/23/23 07:00 Pulse Ox 97 09/23/23 07:00 O2 Del Method High Flow Nasal C annula 09/23/23 07:00 O2 Flow Rate 50 09/23/23 07:00 FiO2 100 09/23/23 07:00 Oxygen Flow Rate 15 09/18/23 19:18 BMI result Body Mass Index 30.7 Const: General: cooperative, healthy appearing, comfortable, no acute distress, well developed, alert, awake and Physically active O rientation/consciousness: patient oriented x3 HEENT: Head: Yes normal to inspection, Yes normocephalic and Yes atraumatic Eyes: General: appearance normal, both eyes and all related structures Neck: Neck: Yes normal visual inspection, Yes full ROM, Yes trachea midline and Yes supple Chest: Chest palpation & inspection: normal inspection of the chest Resp: Other: some appreciable rales, rhonchi; no appreciable wheezing Cardio: Rate: regular rate Rhythm: regular rhythm GI: Inspection: Yes normal to inspection, No Abdominal wall edema and No distended Palpation (GI): Soft to palpation, not firm, nontender, no guarding and not rigid Skin: General skin exam: no rashes or lesions noted Neuro: General: patient oriented x3, tone normal, moves all extremities and no focal motor deficits Extrem: Other: appreciable 2+ pitting edema to bilateral shins General: Yes normal to inspection, Yes full ROM and Yes capillary refill normal Psych: Appearance: grossly normal Objective Data Labs 09/23/23 04:55 09/23/23 04:55 Labs: Laboratory Results - last 24 hr 09/22/23 09/23/23 09/23/23 18:25 02:03 04:55 WBC 24.0 H 24.2 H RBC 2.79 L 2.58 L Hgb 8.7 L 7.8 L Hct 24.1 L 22.2 L MCV 86.4 86.0 MCH 31.2 30.2 MCHC 36.1 H 35.1 RDW 16.8 H 16.8 H Plt Count 172 152 L MPV 11.0 10.4 Immature Gran % (Auto) 3.3 H 2.3 H Neut % (Auto) 88.2 H 88.8 H Lymph % (Auto) 1.1 L 1.4 L Harper % (Auto) 7.3 7.4 Eos % (Auto) 0.0 0.0 Baso % (Auto) 0.1 0.1 Lymph # (Auto) 0.3 L 0.3 L Harper # (Auto) 1.8 H 1.8 H Eos # (Auto) 0.0 0.0 Baso # (Auto) 0.0 0.0 Abs Immat Gran (auto) 0.79 H 0.56 H Absolute Neuts (auto) 21.2 H 21.5 H Absolute Nucleated RBC 0.030 H 0.030 H Nucleated RBC % (auto) 0.1 0.1 Smear Tech's Comments VERIFIED VERIFIED Sodium 141 145 145 Potassium 4.8 D 3.3 D 3.8 Chloride 110 H 105 105 Carbon Dioxide 20 L 27 27 Anion Gap 16 16 17 BUN 102 H 95 H 92 H Creatinine 2.77 H 2.60 H 2.55 H Estim Creat Clear Calc 21.4 22.8 23.0 Estimated GFR 22 24 24 Random Glucose 167 H 111 100 Lactic Acid 2.0 Calcium 7.1 L D 9.0 D 9.1 Phosphorus 4.5 4.0 Magnesium 2.2 2.4 Albumin 1.6 L 3.9 Microbiology Microbiology Results: Microbiology 09/16/23 06:15 Blood - Venous Blood Culture - Final No growth after 5 days. 09/16/23 06:15 Blood - Venous Blood Culture - Final No growth after 5 days. 09/12/23 06:16 Blood - Venous Blood Culture - Final Actinomyces meyeri 09/12/23 06:16 Blood - Venous Blood Culture - Final Actinomyces meyeri 09/13/23 14:10 Urine clean catch - Clean Catch Midstream Urine Culture - Final No growth. 09/13/23 Unknown Sputum - Expectorated Gram Stain - Final 09/13/23 Unknown Sputum - Expectorated Sputum Culture - Final 09/12/23 Unknown Urine clean catch - Clean Catch Midstream Urine Culture - Final Progress Note: A&P Assessment and plan (1) Cardiogenic shock: Status: Acute (2) Sustained ventricular tachycardia: Status: Acute (3) Acute and chronic respiratory failure: Status: Acute (4) Acute on chronic renal insufficiency: Status: Acute (5) Actinomyces infection: Status: Acute (6) LAMBERTO (obstructive sleep apnea): Status: Acute (7) COPD (chronic obstructive pulmonary disease): Status: Acute Plan Patient is a 78 Y M w/ extensive cardiovascular disease including coronary artery disease s/p CABG, c/b congestive heart failure, non-sustained ventricular tachycardia, abdominal aortic aneurysm, COPD on 2 L NC, LAMBERTO on CPAP, and prior pulmonary embolism on apixaban, initially presenting to emergency department on 09/11 w/ dyspnea, 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, admitted medicine; hospital course c/b multiple episodes of non-sustained ventricular tachycardia c/b hypotension, necessitating defibrillation, inotropes, and vasopressors N: no acute issues CV: extensive; multiple episode of ventricular tachycardia; currently on amiodarone PO, mexiletine PO, lidocaine gtt; appreciate cardiology recommendations R: acute on chronic hypoxic respiratory failure, likely d/t volume overload, pneumonia; on HFNC; wean as tolerated; COPD, LAMBERTO on CPAP PM GI: cardiac diet as tolerated : acute on chronic renal insufficiency, likely pre-renal, c/b volume overload; furosemide gtt; to monitor electrolytes very closely H: no acute issues ID: actinomyces bacteremia; meropenem; appreciate ID recommendations E: to monitor hypo-/hyper-glycemia Quality Stroke Does the patient have a stroke diagnosis?: No VTE Prior VTE?: No VTE Risk Level:: Medical - moderate - high VTE Device Contraindication: Treatment Not Indicated VTE Drug Contraindication: N/A - Med Ordered
[2023-09-23] MEDS: 0.9 % Sodium Chloride Flush 3 ML SYRINGE IVFLUSH ×3 (09:44→23:51)
[2023-09-23] MEDS: Apixaban 2.5 MG TABLET PO ×2 (09:47→20:08)
[2023-09-23] MEDS: Atorvastatin Calcium 80 MG TABLET PO (09:47)
[2023-09-23] MEDS: Amiodarone HCL 200 MG TABLET 400 MG PO ×2 (09:48→20:07)
[2023-09-23] MEDS: Lidocaine 4 % Patch ADH..PATCH 2 PATCH TRANSDERMA (09:54)
[2023-09-23] MEDS: methylPREDNISolone Sod Succ 40 MG/ML VIAL 60 MG IVPUSH (09:54)
[2023-09-23] MEDS: Furosemide 200 MG in 0.9 % Sodium Chloride 80 ML IVCONT ×2 (10:00→20:06)
[2023-09-23] MEDS: LORazepam 2 MG/ML VIAL 0.25 MG IVPUSH ×2 (11:06→16:25)
[2023-09-23] MEDS: vancomycin HCL 500 MG in 0.9 % Sodium Chloride 100 ML 110 MG IV (11:10)
--- NOTE | 2023-09-23 14:21 | MHC.CM.PN ---
Pt continues in ICU and is s/p cardioversion this am. Pt requested his code status change to DNR/DNI. He also completed a new HCP naming his as his agent. Pt's prognosis is very guarded - d/c planning pended until clinical improvement is made and his disposition is better determined.
[2023-09-23 18:38] LABS: Anion Gap 17 (12-20); Blood Urea Nitrogen 86 mg/dL (9-16); Calcium 9.3 mg/dL (8.4-10.2); Carbon Dioxide 27 mmol/L (22-29); Chloride 102 mmol/L (96-108); Creatinine Clr Calc Pharmacy 24.1; Estimated Glomerular Filt Rate 26; Glucose Random 121 mg/dL (60-115); Magnesium 2.4 mg/dL (1.6-2.6); Phosphorus 4.2 mg/dL (2.7-4.5); Potassium 3.7 mmol/L (3.3-5.1); Sodium 142 mmol/L (135-145)
[2023-09-23] MEDS: ondansetron HCL 4 MG/2 ML VIAL IVPUSH (23:51)
[2023-09-24] VITALS (41 sets, daily range): BP systolic 92–142; BP diastolic 43–74; PULSE 76–93; RESP 12–29; TEMP 36–36.7; O2SAT 92–99; BMI 29.9
[2023-09-24] MEDS: LORazepam 2 MG/ML VIAL 0.25 MG IVPUSH (03:04)
[2023-09-24 05:13] LABS: Basophils Percent Auto 0.1 % (0-2); Hematocrit 24.4 % (42.0-52.0); Hemoglobin 8.5 g/dl (14.0-18.0); Imm Gran Pct Auto 2.2 % (0.0-0.4); Lymphocytes Absolute Auto 0.4 X10*3/uL (1.2-4.9); Lymphocytes Percent Auto 1.8 % (20-40); MANUAL DIFF FLAG SCAN; Mean Corpuscular HGB Conc 34.8 g/dl (31.0-36.0); Mean Corpuscular Hemoglobin 29.9 pg (27.0-33.0); Mean Corpuscular Volume 85.9 fL (80.0-98.0); Mean Platelet Volume 11.2 fL (9.4-12.4); Monocytes Absolute Auto 1.5 X10*3/uL (0.1-1.2); Monocytes Percent Auto 6.7 % (2-11); NRBC Pct Auto 0.1 /100WBC (0.0-0.2); Neutrophils Percent Auto 89.2 % (45-73); Platelet Count 156 X10*3/uL (160-400); Red Blood Count 2.84 X10*6/uL (4.60-5.80); Red Cell Distribution Width 16.3 % (11.0-16.0); SCAN SMEAR FLAG 1; White Blood Count 22.5 X10*3/uL (4.8-10.8)
[2023-09-24 05:32] LABS: SLIDE REVIEW VERIFIED
[2023-09-24] MEDS: Omeprazole 20 MG CAPSULE.DR PO (05:32)
[2023-09-24 05:34] LABS: Albumin Level 3.8 g/dL (3.5-5.0); Anion Gap 16 (12-20); Blood Urea Nitrogen 86 mg/dL (9-16); Calcium 9.5 mg/dL (8.4-10.2); Carbon Dioxide 32 mmol/L (22-29); Chloride 99 mmol/L (96-108); Creatinine Clr Calc Pharmacy 24.2; Estimated Glomerular Filt Rate 26; Glucose Random 76 mg/dL (60-115); Magnesium 2.4 mg/dL (1.6-2.6); Phosphorus 4.1 mg/dL (2.7-4.5); Potassium 3.2 mmol/L (3.3-5.1); Sodium 144 mmol/L (135-145)
[2023-09-24] MEDS: Potassium Chloride/H20 40 MEQ/100 ML PIGGYBACK 50 MEQ IV (06:17)
--- NOTE | 2023-09-24 08:27 | PM.CCPN ---
Subjective Subjective Date of Service: 09/24/23 Interval History: no significant overnight events; ongoing goals of care discussions with patient and family at bedside Critical Care Time (minutes): 60 Physical Exam Vital Signs: Vital Signs: Last Vital Signs Temp 97.6 F 09/24/23 08:00 Pulse 81 09/24/23 08:00 Resp 15 09/24/23 08:00 BP 120/61 09/24/23 08:00 Pulse Ox 97 09/24/23 08:00 O2 Del Method High Flow Nasal C annula 09/24/23 08:00 O2 Flow Rate 50 09/24/23 08:00 FiO2 100 09/24/23 08:00 Oxygen Flow Rate 15 09/18/23 19:18 BMI result Body Mass Index 29.9 Const: General: cooperative, no acute distress, well developed, alert, awake and Physically active Orientation/consciousness: patient oriented x3 HEENT: Head: Yes normal to inspection, Yes normocephalic and Yes atraumatic Eyes: General: appearance normal, both eyes and all related structures Neck: Neck: Yes normal visual inspection, Yes full ROM, Yes no meningeal signs, Yes trachea midline and Yes supple Chest: Chest palpation & inspection: normal inspection of the chest Resp: Other: some appreciable rhonchi, rales; no appreciable wheezing Cardio: Rate: regular rate Rhythm: regular rhythm GI: Inspection: Yes normal to inspection, No Abdominal wall edema and No distended Palpation (GI): Soft to palpation, not firm, nontender, no guarding and not rigid Skin: General skin exam: no rashes or lesions noted Neuro: General: patient oriented x3, tone normal, moves all extremities, no meningeal signs and no focal motor deficits Extrem: Other: 2+ pitting edema to bilateral shins General: Yes normal to inspection, Yes full ROM and Yes capillary refill normal Psych: Other: appreciable apathy Objective Data Labs 09/24/23 05:02 09/24/23 05:02 Labs: Laboratory Results - last 24 hr 09/23/23 09/24/23 18:17 05:02 WBC 22.5 H RBC 2.84 L Hgb 8.5 L Hct 24.4 L MCV 85.9 MCH 29.9 MCHC 34.8 RDW 16.3 H Plt Count 156 L MPV 11.2 Immature Gran % (Auto) 2.2 H Neut % (Auto) 89.2 H Lymph % (Auto) 1.8 L [place] % (Auto) 6.7 Eos % (Auto) 0.0 Baso % (Auto) 0.1 Lymph # (Auto) 0.4 L [place] # (Auto) 1.5 H Eos # (Auto) 0.0 Baso # (Auto) 0.0 Abs Immat Gran (auto) 0.50 H Absolute Neuts (auto) 20.0 H Absolute Nucleated RBC 0.030 H Nucleated RBC % (auto) 0.1 Smear Tech's Comments VERIFIED Sodium 142 144 Potassium 3.7 3.2 L Chloride 102 99 Carbon Dioxide 27 32 H Anion Gap 17 16 BUN 86 H 86 H Creatinine 2.43 H 2.39 H Estim Creat Clear Calc 24.1 24.2 Estimated GFR 26 26 Random Glucose 121 H 76 Calcium 9.3 9.5 Phosphorus 4.2 4.1 Magnesium 2.4 2.4 Albumin 3.8 Blood Type O Positive Antibody Screen NEGATIVE Microbiology Microbiology Results: Microbiology 09/16/23 06:15 Blood - Venous Blood Culture - Final No growth after 5 days. 09/16/23 06:15 Blood - Venous Blood Culture - Final No growth after 5 days. 09/12/23 06:16 Blood - Venous Blood Culture - Final Actinomyces meyeri 09/12/23 06:16 Blood - Venous Blood Culture - Final Actinomyces meyeri 09/13/23 14:10 Urine clean catch - Clean Catch Midstream Urine Culture - Final No growth. 09/13/23 Unknown Sputum - Expectorated Gram Stain - Final 09/13/23 Unknown Sputum - Expectorated Sputum Culture - Final 09/12/23 Unknown Urine clean catch - Clean Catch Midstream Urine Culture - Final Progress Note: A&P Assessment and plan (1) Cardiogenic shock: Status: Acute (2) Sustained ventricular tachycardia: Status: Acute (3) Acute and chronic respiratory failure: Status: Acute (4) Acute on chronic renal insufficiency: Status: Acute (5) Actinomyces infection: Status: Acute (6) LAMBERTO (obstructive sleep apnea): Status: Acute (7) COPD (chronic obstructive pulmonary disease): Status: Acute Plan Patient is a 78 Y M w/ extensive cardiovascular disease including coronary artery disease s/p CABG, c/b congestive heart failure, non-sustained ventricular tachycardia, abdominal aortic aneurysm, COPD on 2 L NC, LAMBERTO on CPAP, and prior pulmonary embolism on apixaban, initially presenting to emergency department on 09/11 w/ dyspnea, 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, admitted medicine; hospital course c/b multiple episodes of non-sustained ventricular tachycardia c/b hypotension, necessitating defibrillation, inotropes, and vasopressors N: endorses back, lower extremity discomfort; multi-modal pain management CV: extensive; multiple episode of ventricular tachycardia; currently on amiodarone PO, mexiletine PO, lidocaine gtt; appreciate cardiology recommendations R: acute on chronic hypoxic respiratory failure, likely d/t volume overload, pneumonia; on HFNC; wean as tolerated; COPD, LAMBERTO on CPAP PM GI: cardiac diet as tolerated : acute on chronic renal insufficiency, likely pre-renal, c/b volume overload; furosemide gtt; to monitor electrolytes very closely H: no acute issues ID: actinomyces bacteremia; meropenem; appreciate ID recommendations E: to monitor hypo-/hyper-glycemia S: ongoing goals of care discussion w/ patient, family Quality Stroke Does the patient have a stroke diagnosis?: No VTE Prior VTE?: No VTE Risk Level:: Medical - moderate - high VTE Device Contraindication: Treatment Not Indicated VTE Drug Contraindication: N/A - Med Ordered
[2023-09-24] MEDS: ondansetron HCL 4 MG/2 ML VIAL IVPUSH (08:59)
[2023-09-24] MEDS: methylPREDNISolone Sod Succ 40 MG/ML VIAL 60 MG IVPUSH (09:00)
[2023-09-24] MEDS: 0.9 % Sodium Chloride Flush 3 ML SYRINGE IVFLUSH ×2 (09:01→15:51)
--- NOTE | 2023-09-24 09:45 | MHC.CLN ---
F/U PT WITH INCREASED NUTRITION RISK R/T PRESSURE INJURY PO INTAKE POOR CONSUMING 25% X 1 MEAL DIET RX: CARDIAC-APPROPRIATE PT RECEIVING ENSURE CLEAR TID TO PROMOTE WOUND HEALING SUPP TO PROVIDE 720KCALS, 24G PROTEIN (SUPPLEMENT IS RENAL FRIENDLY) MONITOR PO INTAKE AND ENCOURAGE SUPPLEMENTS
[2023-09-24] MEDS: Atorvastatin Calcium 80 MG TABLET PO (10:15)
[2023-09-24] MEDS: Apixaban 2.5 MG TABLET PO ×2 (10:15→20:15)
[2023-09-24] MEDS: Amiodarone HCL 200 MG TABLET 400 MG PO ×2 (10:15→17:02)
[2023-09-24] MEDS: hydrOXYzine HCL 10 MG TABLET PO (10:15)
[2023-09-24] MEDS: Lidocaine 4 % Patch ADH..PATCH 2 PATCH TRANSDERMA (10:16)
[2023-09-24 10:23] LABS: Vancomycin Random 21.3 mcg/mL (15-20)
--- NOTE | 2023-09-24 10:37 | HE.PHANOTE ---
Re Vanc Trough today resulted at 21.3 at 1001 despite improving renal function. Will pend next dose and re-order a random at 2100 for pulse dosing.
--- NOTE | 2023-09-24 13:58 | P.PNNP_ITS ---
Subjective Subjective Date of Service: 09/24/23 Principal diagnosis: VT, CHF Interval history: no significant overnight events; ongoing goals of care discussions Physical Exam 2 Vital Signs: Vital Signs: Last Vital Signs Temp 98.1 F 09/24/23 12:00 Pulse 84 09/24/23 13:00 Resp 25 H 09/24/23 13:00 BP 121/61 09/24/23 13:00 Pulse Ox 98 09/24/23 13:00 O2 Del Method High Flow Nasal C annula 09/24/23 13:00 O2 Flow Rate 50 09/24/23 13:00 FiO2 100 09/24/23 13:00 Oxygen Flow Rate 15 09/18/23 19:18 BMI result Body Mass Index 29.9 Const: General: no acute distress Eyes: EOM: EOMs intact bilaterally Resp: Auscultation: diminished lung sounds Cardio: Rate: regular rate GI: Palpation (GI): Soft to palpation Neuro: General: moves all extremities Objective Data Labs 09/24/23 05:02 09/24/23 05:02 Labs: Laboratory Results - last 24 hr 09/23/23 09/24/23 09/24/23 18:17 05:02 10:01 WBC 22.5 H RBC 2.84 L Hgb 8.5 L Hct 24.4 L MCV 85.9 MCH 29.9 MCHC 34.8 RDW 16.3 H Plt Count 156 L MPV 11.2 Immature Gran % (Auto) 2.2 H Neut % (Auto) 89.2 H Lymph % (Auto) 1.8 L [place] % (Auto) 6.7 Eos % (Auto) 0.0 Baso % (Auto) 0.1 Lymph # (Auto) 0.4 L [place] # (Auto) 1.5 H Eos # (Auto) 0.0 Baso # (Auto) 0.0 Abs Immat Gran (auto) 0.50 H Absolute Neuts (auto) 20.0 H Absolute Nucleated RBC 0.030 H Nucleated RBC % (auto) 0.1 Smear Tech's Comments VERIFIED Sodium 142 144 Potassium 3.7 3.2 L Chloride 102 99 Carbon Dioxide 27 32 H Anion Gap 17 16 BUN 86 H 86 H Creatinine 2.43 H 2.39 H Estim Creat Clear Calc 24.1 24.2 Estimated GFR 26 26 Random Glucose 121 H 76 Calcium 9.3 9.5 Phosphorus 4.2 4.1 Magnesium 2.4 2.4 Albumin 3.8 Random Vancomycin 21.3 H Blood Type O Positive Antibody Screen NEGATIVE Microbiology Microbiology Results: Microbiology 09/16/23 06:15 Blood - Venous Blood Culture - Final No growth after 5 days. 09/16/23 06:15 Blood - Venous Blood Culture - Final No growth after 5 days. 09/12/23 06:16 Blood - Venous Blood Culture - Final Actinomyces meyeri 09/12/23 06:16 Blood - Venous Blood Culture - Final Actinomyces meyeri 09/13/23 14:10 Urine clean catch - Clean Catch Midstream Urine Culture - Final No growth. 09/13/23 Unknown Sputum - Expectorated Gram Stain - Final 09/13/23 Unknown Sputum - Expectorated Sputum Culture - Final 09/12/23 Unknown Urine clean catch - Clean Catch Midstream Urine Culture - Final Procedures Date of Service Date of Service: 09/24/23 Arterial Line Size (Gauge): 16 Assessment & Plan Assessment and plan (1) EUSEBIO (acute kidney injury): Status: Acute Plan EUSEBIO due to tubular injury Has advanced CKD at baseline No obs uropathy GN/AIN unlikely;UO OK No indication for HD Labs AM; Shall closely F/U Progress Note: Quality Stroke Does the patient have a stroke diagnosis?: No
[2023-09-24] MEDS: Furosemide 200 MG in 0.9 % Sodium Chloride 80 ML IVCONT (15:50)
[2023-09-24] MEDS: Acetaminophen 325 MG TABLET 975 MG PO (17:03)
[2023-09-24 18:10] LABS: Anion Gap 18 (12-20); Blood Urea Nitrogen 86 mg/dL (9-16); Calcium 8.9 mg/dL (8.4-10.2); Carbon Dioxide 31 mmol/L (22-29); Chloride 100 mmol/L (96-108); Estimated Glomerular Filt Rate 27; Glucose Random 152 mg/dL (60-115); Magnesium 2.4 mg/dL (1.6-2.6); Phosphorus 3.8 mg/dL (2.7-4.5); Potassium 3.5 mmol/L (3.3-5.1); Sodium 145 mmol/L (135-145)
[2023-09-24 21:49] LABS: Vancomycin Random 18.4 mcg/mL (15-20)
[2023-09-25] VITALS (33 sets, daily range): BP systolic 100–148; BP diastolic 51–65; PULSE 74–90; RESP 14–23; TEMP 36.5–37.3; O2SAT 91–99; BMI 30.3
[2023-09-25] MEDS: 0.9 % Sodium Chloride Flush 3 ML SYRINGE IVFLUSH ×3 (00:10→15:18)
[2023-09-25] MEDS: Amiodarone HCL 200 MG TABLET 400 MG PO ×3 (01:17→18:05)
[2023-09-25] MEDS: Morphine Sulfate 2 MG/ML CARTRIDGE 0.5 MG IVPUSH ×3 (05:12→21:04)
[2023-09-25 05:19] LABS: Basophils Percent Auto 0.2 % (0-2); Hematocrit 28.4 % (42.0-52.0); Hemoglobin 9.6 g/dl (14.0-18.0); Imm Gran Abs Auto 0.41 X10*3/uL (0.00-0.03); Imm Gran Pct Auto 1.7 % (0.0-0.4); Lymphocytes Absolute Auto 0.5 X10*3/uL (1.2-4.9); Lymphocytes Percent Auto 2.1 % (20-40); MANUAL DIFF FLAG SCAN; Mean Corpuscular HGB Conc 33.8 g/dl (31.0-36.0); Mean Corpuscular Hemoglobin 29.7 pg (27.0-33.0); Mean Corpuscular Volume 87.9 fL (80.0-98.0); Mean Platelet Volume 11.7 fL (9.4-12.4); Monocytes Absolute Auto 1.3 X10*3/uL (0.1-1.2); Monocytes Percent Auto 5.2 % (2-11); NRBC Pct Auto 0.1 /100WBC (0.0-0.2); Neutrophils Absolute Auto 21.7 x10*3/uL (2.0-8.3); Neutrophils Percent Auto 90.8 % (45-73); Platelet Count 140 X10*3/uL (160-400); Red Blood Count 3.23 X10*6/uL (4.60-5.80); Red Cell Distribution Width 16.3 % (11.0-16.0); SCAN SMEAR FLAG 1; White Blood Count 23.9 X10*3/uL (4.8-10.8)
[2023-09-25 05:33] LABS: Anion Gap 16 (12-20); Blood Urea Nitrogen 90 mg/dL (9-16); Calcium 9.3 mg/dL (8.4-10.2); Carbon Dioxide 33 mmol/L (22-29); Chloride 101 mmol/L (96-108); Creatinine Clr Calc Pharmacy 24.5; Estimated Glomerular Filt Rate 27; Glucose Random 86 mg/dL (60-115); Magnesium 2.3 mg/dL (1.6-2.6); Phosphorus 4.1 mg/dL (2.7-4.5); Potassium 3.2 mmol/L (3.3-5.1); Sodium 147 mmol/L (135-145)
[2023-09-25 05:36] LABS: SLIDE REVIEW VERIFIED
[2023-09-25] MEDS: Potassium Chloride/H20 40 MEQ/100 ML PIGGYBACK 50 MEQ IV (06:03)
[2023-09-25] MEDS: Omeprazole 20 MG CAPSULE.DR PO (06:04)
[2023-09-25] MEDS: methylPREDNISolone Sod Succ 40 MG/ML VIAL 60 MG IVPUSH (08:08)
[2023-09-25] MEDS: Apixaban 2.5 MG TABLET PO ×2 (08:09→20:57)
[2023-09-25] MEDS: Atorvastatin Calcium 80 MG TABLET PO (08:09)
--- NOTE | 2023-09-25 08:21 | PM.CCPN ---
Subjective Subjective Date of Service: 09/25/23 Interval History: no significant overnight events; ongoing goals of care discussions Critical Care Time (minutes): 60 Physical Exam Vital Signs: Vital Signs: Last Vital Signs Temp 98.5 F 09/25/23 08:00 Pulse 87 09/25/23 08:00 Resp 21 H 09/25/23 08:00 BP 118/56 L 09/25/23 08:00 Pulse Ox 94 09/25/23 08:00 O2 Del Method High Flow Nasal C annula 09/25/23 08:00 O2 Flow Rate 50 09/25/23 08:00 FiO2 95 09/25/23 08:00 Oxygen Flow Rate 15 09/18/23 19:18 BMI result Body Mass Index 30.3 Const: General: cooperative, healthy appearing, comfortable, no acute distress, well developed, alert, awake and Physically active Orientation/consciousness: oriented to person HEENT: Head: Yes normal to inspection, Yes normocephalic and Yes atraumatic Eyes: General: appearance normal, both eyes and all related structures Neck: Neck: Yes normal visual inspection, Yes full ROM, Yes no meningeal signs, Yes trachea midline and Yes supple Chest: Chest palpation & inspection: normal inspection of the chest Resp: Other: some appreciable rhonchi, rales; no appreciable wheezing Effort & Inspection: normal respiratory effort Cardio: Rate: regular rate Rhythm: regular rhythm GI: Inspection: Yes normal to inspection, No Abdominal wall edema and No distended Palpation (GI): Soft to palpation, not firm, nontender, no guarding and not rigid : Male General Exam: Yes normal external exam Skin: General skin exam: no rashes or lesions noted Neuro: General: oriented to person, tone normal, moves all extremities, no meningeal signs and no focal motor deficits Extrem: Other: appreciable 2+ pitting edema to bilateral shins General: Yes normal to inspection, Yes full ROM and Yes capillary refill normal Psych: Appearance: grossly normal Objective Data Labs 09/25/23 05:05 09/25/23 05:05 Labs: Laboratory Results - last 24 hr 09/24/23 09/24/23 09/24/23 10:01 17:49 20:58 WBC RBC Hgb Hct MCV MCH MCHC RDW Plt Count MPV Immature Gran % (Auto) Neut % (Auto) Lymph % (Auto) [place] % (Auto) Eos % (Auto) Baso % (Auto) Lymph # (Auto) [place] # (Auto) Eos # (Auto) Baso # (Auto) Abs Immat Gran (auto) Absolute Neuts (auto) Absolute Nucleated RBC Nucleated RBC % (auto) Smear Tech's Comments Sodium 145 Potassium 3.5 Chloride 100 Carbon Dioxide 31 H Anion Gap 18 BUN 86 H Creatinine 2.31 H Estim Creat Clear Calc 25.0 Estimated GFR 27 Random Glucose 152 H Calcium 8.9 D Phosphorus 3.8 Magnesium 2.4 Random Vancomycin 21.3 H 18.4 09/25/23 05:05 WBC 23.9 H RBC 3.23 L Hgb 9.6 L Hct 28.4 L MCV 87.9 MCH 29.7 MCHC 33.8 RDW 16.3 H Plt Count 140 L MPV 11.7 Immature Gran % (Auto) 1.7 H Neut % (Auto) 90.8 H Lymph % (Auto) 2.1 L [place] % (Auto) 5.2 Eos % (Auto) 0.0 Baso % (Auto) 0.2 Lymph # (Auto) 0.5 L [place] # (Auto) 1.3 H Eos # (Auto) 0.0 Baso # (Auto) 0.0 Abs Immat Gran (auto) 0.41 H Absolute Neuts (auto) 21.7 H Absolute Nucleated RBC 0.020 H Nucleated RBC % (auto) 0.1 Smear Tech's Comments VERIFIED Sodium 147 H Potassium 3.2 L Chloride 101 Carbon Dioxide 33 H Anion Gap 16 BUN 90 H Creatinine 2.36 H Estim Creat Clear Calc 24.5 Estimated GFR 27 Random Glucose 86 Calcium 9.3 Phosphorus 4.1 Magnesium 2.3 Random Vancomycin Microbiology Microbiology Results: Microbiology 09/16/23 06:15 Blood - Venous Blood Culture - Final No growth after 5 days. 09/16/23 06:15 Blood - Venous Blood Culture - Final No growth after 5 days. 09/12/23 06:16 Blood - Venous Blood Culture - Final Actinomyces meyeri 09/12/23 06:16 Blood - Venous Blood Culture - Final Actinomyces meyeri 09/13/23 14:10 Urine clean catch - Clean Catch Midstream Urine Culture - Final No growth. 09/13/23 Unknown Sputum - Expectorated Gram Stain - Final 09/13/23 Unknown Sputum - Expectorated Sputum Culture - Final 09/12/23 Unknown Urine clean catch - Clean Catch Midstream Urine Culture - Final Progress Note: A&P Assessment and plan (1) Sustained ventricular tachycardia: Status: Acute (2) Cardiogenic shock: Status: Acute (3) Acute and chronic respiratory failure: Status: Acute (4) Acute on chronic renal insufficiency: Status: Acute (5) COPD (chronic obstructive pulmonary disease): Status: Acute (6) LAMBERTO (obstructive sleep apnea): Status: Acute Plan Patient is a 78 Y M w/ extensive cardiovascular disease including coronary artery disease s/p CABG, c/b congestive heart failure, non-sustained ventricular tachycardia, abdominal aortic aneurysm, COPD on 2 L NC, LAMBERTO on CPAP, and prior pulmonary embolism on apixaban, initially presenting to emergency department on 09/11 w/ dyspnea, 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, admitted medicine; hospital course c/b multiple episodes of non-sustained ventricular tachycardia c/b hypotension, necessitating defibrillation, inotropes, and vasopressors N: endorses throat, back, lower extremity discomfort; multi-modal pain management CV: extensive; multiple episode of ventricular tachycardia; currently on amiodarone PO, mexiletine PO; of 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, 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 R: acute on chronic hypoxic respiratory failure, likely d/t volume overload, pneumonia; on HFNC; wean as tolerated; COPD, LAMBERTO, not desiring PN CPAP GI: cardiac diet as tolerated, though endorses anorexia : acute on chronic renal insufficiency, likely pre-renal, c/b volume overload; furosemide gtt; to monitor electrolytes very closely H: no acute issues ID: actinomyces bacteremia; meropenem; appreciate ID recommendations E: to monitor hypo-/hyper-glycemia S: ongoing goals of care discussion w/ patient, family Quality Stroke Does the patient have a stroke diagnosis?: No VTE Prior VTE?: No VTE Risk Level:: Medical - moderate - high VTE Device Contraindication: Treatment Not Indicated VTE Drug Contraindication: N/A - Med Ordered
[2023-09-25 09:30] LABS: Vancomycin Random 16.9 mcg/mL (15-20)
--- NOTE | 2023-09-25 09:31 | MHC.CM.PN ---
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 D/C plan remains undetermined pending clinical stability. CM to follow
--- NOTE | 2023-09-25 10:11 | P.PNNP_ITS ---
Subjective Subjective Date of Service: 09/25/23 Principal diagnosis: VT, CHF Interval history: Family at bedside Physical Exam 2 Vital Signs: Vital Signs: Last Vital Signs Temp 98.5 F 09/25/23 08:00 Pulse 88 09/25/23 09:45 Resp 15 09/25/23 09:00 BP 106/54 L 09/25/23 09:45 Pulse Ox 94 09/25/23 09:00 O2 Del Method High Flow Nasal C annula 09/25/23 09:00 O2 Flow Rate 40 09/25/23 09:00 FiO2 100 09/25/23 09:00 Oxygen Flow Rate 15 09/18/23 19:18 BMI result Body Mass Index 30.3 Objective Data Labs 09/25/23 05:05 09/25/23 05:05 Labs: Laboratory Results - last 24 hr 09/24/23 09/24/23 09/24/23 10:01 17:49 20:58 WBC RBC Hgb Hct MCV MCH MCHC RDW Plt Count MPV Immature Gran % (Auto) Neut % (Auto) Lymph % (Auto) [place] % (Auto) Eos % (Auto) Baso % (Auto) Lymph # (Auto) [place] # (Auto) Eos # (Auto) Baso # (Auto) Abs Immat Gran (auto) Absolute Neuts (auto) Absolute Nucleated RBC Nucleated RBC % (auto) Smear Tech's Comments Sodium 145 Potassium 3.5 Chloride 100 Carbon Dioxide 31 H Anion Gap 18 BUN 86 H Creatinine 2.31 H Estim Creat Clear Calc 25.0 Estimated GFR 27 Random Glucose 152 H Calcium 8.9 D Phosphorus 3.8 Magnesium 2.4 Hold Yellow Top Random Vancomycin 21.3 H 18.4 09/25/23 09/25/23 09/25/23 05:05 08:53 09:13 WBC 23.9 H RBC 3.23 L Hgb 9.6 L Hct 28.4 L MCV 87.9 MCH 29.7 MCHC 33.8 RDW 16.3 H Plt Count 140 L MPV 11.7 Immature Gran % (Auto) 1.7 H Neut % (Auto) 90.8 H Lymph % (Auto) 2.1 L [place] % (Auto) 5.2 Eos % (Auto) 0.0 Baso % (Auto) 0.2 Lymph # (Auto) 0.5 L [place] # (Auto) 1.3 H Eos # (Auto) 0.0 Baso # (Auto) 0.0 Abs Immat Gran (auto) 0.41 H Absolute Neuts (auto) 21.7 H Absolute Nucleated RBC 0.020 H Nucleated RBC % (auto) 0.1 Smear Tech's Comments VERIFIED Sodium 147 H Potassium 3.2 L Chloride 101 Carbon Dioxide 33 H Anion Gap 16 BUN 90 H Creatinine 2.36 H Estim Creat Clear Calc 24.5 Estimated GFR 27 Random Glucose 86 Calcium 9.3 Phosphorus 4.1 Magnesium 2.3 Hold Yellow Top See Note Random Vancomycin 16.9 Microbiology Microbiology Results: Microbiology 09/16/23 06:15 Blood - Venous Blood Culture - Final No growth after 5 days. 09/16/23 06:15 Blood - Venous Blood Culture - Final No growth after 5 days. 09/12/23 06:16 Blood - Venous Blood Culture - Final Actinomyces meyeri 09/12/23 06:16 Blood - Venous Blood Culture - Final Actinomyces meyeri 09/13/23 14:10 Urine clean catch - Clean Catch Midstream Urine Culture - Final No growth. 09/13/23 Unknown Sputum - Expectorated Gram Stain - Final 09/13/23 Unknown Sputum - Expectorated Sputum Culture - Final 09/12/23 Unknown Urine clean catch - Clean Catch Midstream Urine Culture - Final Procedures Date of Service Date of Service: 09/25/23 Arterial Line Size (Gauge): 16 Assessment & Plan Assessment and plan (1) EUSEBIO (acute kidney injury): Status: Acute Plan EUSEBIO due to tubular injury Has advanced CKD at baseline No obs uropathy GN/AIN unlikely;UO OK No indication for HD Shall follow as needed Time Spent With Patient Time: Total time managing care of this patient today ____ minutes. Progress Note: Quality Stroke Does the patient have a stroke diagnosis?: No
[2023-09-25] MEDS: Throat Lozenge, Medicated LOZENGE 1 LOZENGE MUCOUS MEM ×2 (10:20→15:18)
[2023-09-25] MEDS: Furosemide 200 MG in 0.9 % Sodium Chloride 80 ML IVCONT (10:48)
[2023-09-25] MEDS: vancomycin HCL 500 MG in 0.9 % Sodium Chloride 100 ML 110 MG IV (18:02)
[2023-09-25 18:40] LABS: Anion Gap 17 (12-20); Blood Urea Nitrogen 100 mg/dL (9-16); Calcium 9.1 mg/dL (8.4-10.2); Carbon Dioxide 33 mmol/L (22-29); Chloride 102 mmol/L (96-108); Creatinine Clr Calc Pharmacy 23.7; Estimated Glomerular Filt Rate 25; Glucose Random 137 mg/dL (60-115); Magnesium 2.3 mg/dL (1.6-2.6); Phosphorus 3.8 mg/dL (2.7-4.5); Potassium 3.7 mmol/L (3.3-5.1); Sodium 148 mmol/L (135-145)
[2023-09-26] VITALS (18 sets, daily range): BP systolic 98–145; BP diastolic 43–65; PULSE 74–84; RESP 12–26; TEMP 35.9–36.6; O2SAT 92–98; BMI 28.6
[2023-09-26] MEDS: Amiodarone HCL 200 MG TABLET 400 MG PO (00:03)
[2023-09-26] MEDS: Furosemide 200 MG in 0.9 % Sodium Chloride 80 ML IVCONT (00:09)
[2023-09-26] MEDS: 0.9 % Sodium Chloride Flush 3 ML SYRINGE IVFLUSH ×2 (00:09→08:44)
[2023-09-26] MEDS: Morphine Sulfate 2 MG/ML CARTRIDGE 0.5 MG IVPUSH (02:04)
[2023-09-26 04:36] LABS: Basophils Absolute Auto 0.1 X10*3/uL (0.0-0.2); Basophils Percent Auto 0.2 % (0-2); Hemoglobin 10.2 g/dl (14.0-18.0); Imm Gran Abs Auto 0.43 X10*3/uL (0.00-0.03); Imm Gran Pct Auto 1.5 % (0.0-0.4); Lymphocytes Absolute Auto 0.6 X10*3/uL (1.2-4.9); Lymphocytes Percent Auto 2.1 % (20-40); MANUAL DIFF FLAG SCAN; Mean Corpuscular Hemoglobin 30.1 pg (27.0-33.0); Mean Corpuscular Volume 88.5 fL (80.0-98.0); Mean Platelet Volume 11.3 fL (9.4-12.4); Monocytes Absolute Auto 1.2 X10*3/uL (0.1-1.2); Monocytes Percent Auto 4.2 % (2-11); Neutrophils Absolute Auto 25.6 x10*3/uL (2.0-8.3); Platelet Count 115 X10*3/uL (160-400); Red Blood Count 3.39 X10*6/uL (4.60-5.80); Red Cell Distribution Width 16.5 % (11.0-16.0); SCAN SMEAR FLAG 1; White Blood Count 27.8 X10*3/uL (4.8-10.8)
[2023-09-26 04:52] LABS: Anion Gap 20 (12-20); Blood Urea Nitrogen 102 mg/dL (9-16); Calcium 9.3 mg/dL (8.4-10.2); Carbon Dioxide 33 mmol/L (22-29); Chloride 100 mmol/L (96-108); Creatinine Clr Calc Pharmacy 23.6; Estimated Glomerular Filt Rate 26; Glucose Random 83 mg/dL (60-115); Magnesium 2.4 mg/dL (1.6-2.6); Phosphorus 4.5 mg/dL (2.7-4.5); Potassium 3.4 mmol/L (3.3-5.1); Sodium 150 mmol/L (135-145)
[2023-09-26 04:55] LABS: SLIDE REVIEW VERIFIED
[2023-09-26] MEDS: Omeprazole 20 MG CAPSULE.DR PO (05:33)
[2023-09-26] MEDS: Acetaminophen 325 MG TABLET 975 MG PO (07:54)
[2023-09-26] MEDS: Throat Lozenge, Medicated LOZENGE 1 LOZENGE MUCOUS MEM (07:54)
--- NOTE | 2023-09-26 08:04 | P.PNCC_ITS ---
Subjective Subjective Date of Service: 09/26/23 Interval History: no significant overnight events; patient and family expressed possible transition to comfort-focused care in AM Critical Care Time (minutes): 60 Physical Exam 2 Vital Signs: Vital Signs: Last Vital Signs Temp 97.8 F 09/26/23 04:00 Pulse 83 09/26/23 07:00 Resp 18 09/26/23 07:24 BP 133/58 L 09/26/23 07:00 Pulse Ox 95 09/26/23 07:00 O2 Del Method High Flow Nasal C annula 09/26/23 07:00 O2 Flow Rate 40 09/26/23 07:00 FiO2 100 09/26/23 07:00 Oxygen Flow Rate 15 09/18/23 19:18 BMI result Body Mass Index 28.6 Const: General: cooperative, healthy appearing, comfortable, no acute distress, well developed, alert, awake and Physically active O rientation/consciousness: patient oriented x3 HEENT: Head: Yes normal to inspection, Yes normocephalic and Yes atraumatic Eyes: General: appearance normal, both eyes and all related structures Neck: Neck: Yes normal visual inspection, Yes full ROM, Yes no meningeal signs, Yes trachea midline and Yes supple Chest: Chest palpation & inspection: normal inspection of the chest Resp: Other: some appreciable rhonchi, rales; no appreciable wheezing Effort & Inspection: normal respiratory effort Cardio: Rate: regular rate Rhythm: regular rhythm GI: Inspection: Yes normal to inspection, No Abdominal wall edema and No distended Palpation (GI): Soft to palpation, not firm, nontender, no guarding and not rigid Skin: General skin exam: no rashes or lesions noted Neuro: General: patient oriented x3, tone normal, moves all extremities, no meningeal signs and no focal motor deficits Extrem: Other: 2+ pitting edema to bilateral shins General: Yes normal to inspection, Yes full ROM and Yes capillary refill normal Psych: Appearance: grossly normal Objective Data Labs 09/26/23 04:30 09/26/23 04:30 Labs: Laboratory Results - last 24 hr 09/25/23 09/25/23 09/25/23 08:53 09:13 18:11 WBC RBC Hgb Hct MCV MCH MCHC RDW Plt Count MPV Immature Gran % (Auto) Neut % (Auto) Lymph % (Auto) [place] % (Auto) Eos % (Auto) Baso % (Auto) Lymph # (Auto) [place] # (Auto) Eos # (Auto) Baso # (Auto) Abs Immat Gran (auto) Absolute Neuts (auto) Absolute Nucleated RBC Nucleated RBC % (auto) Smear Tech's Comments Sodium 148 H Potassium 3.7 Chloride 102 Carbon Dioxide 33 H Anion Gap 17 BUN 100 H Creatinine 2.46 H Estim Creat Clear Calc 23.7 Estimated GFR 25 Random Glucose 137 H Calcium 9.1 Phosphorus 3.8 Magnesium 2.3 Hold Yellow Top See Note Random Vancomycin 16.9 09/26/23 04:30 WBC 27.8 H RBC 3.39 L Hgb 10.2 L Hct 30.0 L MCV 88.5 MCH 30.1 MCHC 34.0 RDW 16.5 H Plt Count 115 L MPV 11.3 Immature Gran % (Auto) 1.5 H Neut % (Auto) 92.0 H Lymph % (Auto) 2.1 L [place] % (Auto) 4.2 Eos % (Auto) 0.0 Baso % (Auto) 0.2 Lymph # (Auto) 0.6 L [place] # (Auto) 1.2 Eos # (Auto) 0.0 Baso # (Auto) 0.1 Abs Immat Gran (auto) 0.43 H Absolute Neuts (auto) 25.6 H Absolute Nucleated RBC 0.000 Nucleated RBC % (auto) 0.0 Smear Tech's Comments VERIFIED Sodium 150 H Potassium 3.4 Chloride 100 Carbon Dioxide 33 H Anion Gap 20 BUN 102 H Creatinine 2.40 H Estim Creat Clear Calc 23.6 Estimated GFR 26 Random Glucose 83 Calcium 9.3 Phosphorus 4.5 Magnesium 2.4 Hold Yellow Top Random Vancomycin Microbiology Microbiology Results: Microbiology 09/16/23 06:15 Blood - Venous Blood Culture - Final No growth after 5 days. 09/16/23 06:15 Blood - Venous Blood Culture - Final No growth after 5 days. 09/12/23 06:16 Blood - Venous Blood Culture - Final Actinomyces meyeri 09/12/23 06:16 Blood - Venous Blood Culture - Final Actinomyces meyeri 09/13/23 14:10 Urine clean catch - Clean Catch Midstream Urine Culture - Final No growth. 09/13/23 Unknown Sputum - Expectorated Gram Stain - Final 09/13/23 Unknown Sputum - Expectorated Sputum Culture - Final 09/12/23 Unknown Urine clean catch - Clean Catch Midstream Urine Culture - Final Progress Note: A&P Assessment and plan (1) Cardiogenic shock: Status: Acute (2) Sustained ventricular tachycardia: Status: Acute (3) Acute and chronic respiratory failure: Status: Acute (4) Acute on chronic renal insufficiency: Status: Acute (5) COPD (chronic obstructive pulmonary disease): Status: Acute (6) LAMBERTO (obstructive sleep apnea): Status: Acute (7) Actinomyces infection: Status: Acute Plan Patient is a 78 Y M w/ extensive cardiovascular disease including coronary artery disease s/p CABG, c/b congestive heart failure, non-sustained ventricular tachycardia, abdominal aortic aneurysm, COPD on 2 L NC, LAMBERTO on CPAP, and prior pulmonary embolism on apixaban, initially presenting to emergency department on 09/11 w/ dyspnea, 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
--- NOTE | 2023-09-26 08:32 | W.MHC.ACPN ---
Advanced Care Planning Note Advanced Care Planning Note Discussed with: patient and family member(s) Time spent (in minutes): 15 Narrative: Mr. Urena's , son, and [id number], were present at his bedside this morning. Mr. Urena and his family expressed that they have talked extensively, and feel that his philosophy of care should be transitioned to comfort-focused care at this point in time; Mr. Urena's two other sons would like to come to hospital, after which, they feel that the comfort-focused process should be started Problems Discussed (1) Cardiogenic shock: (2) Sustained ventricular tachycardia: (3) Acute and chronic respiratory failure: (4) Acute on chronic renal insufficiency: (5) COPD (chronic obstructive pulmonary disease): (6) LAMBERTO (obstructive sleep apnea): (7) Actinomyces infection:
[2023-09-26] MEDS: Scopolamine 1.5 MG PATCH.TD.3 EAR-BEHIND (08:45)
--- NOTE | 2023-09-26 09:22 | MHC.CLN ---
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
[2023-09-26] MEDS: Lidocaine 4 % Patch ADH..PATCH 1 PATCH TRANSDERMA (09:29)
[2023-09-26] MEDS: Morphine Sulfate/NS 100 MG/100 ML PLAST..BAG IVCONT (11:31)
[2023-09-26] MEDS: ondansetron HCL 4 MG/2 ML VIAL IVPUSH (11:31)
[2023-09-26] MEDS: LORazepam 2 MG/ML VIAL 0.5 MG IVPUSH (11:31)
[2023-09-26] MEDS: HYDROmorphone HCl 0.5 MG/0.5 ML SYRINGE IVPUSH (11:32)
--- NOTE | 2023-09-26 12:17 | P.DN_ITS ---
Discharge Sum: Prov Provider Primary care physician: Taylor Nuno MD Pronouncing clinician: Denisse Tena Discharge Sum: Diag Contributing Factors (1) Cardiogenic shock: (2) Sustained ventricular tachycardia: (3) Acute and chronic respiratory failure: (4) Acute on chronic renal insufficiency: (5) COPD (chronic obstructive pulmonary disease): (6) LAMBERTO (obstructive sleep apnea): (7) Actinomyces infection: Discharge Sum: Summary Date and Time Date of admission: 09/12/23 10:40 Date of : 09/26/23 Time of : 13:53 Summary Details: Mr. Uerna is a 78-year-old male with extensive cardiovascular disease including coronary artery disease status post CABG x2, complicated by congestive heart failure, and non-sustained ventricular tachycardia on amiodarone, abdominal aortic aneurysm status post repair, chronic obstructive pulmonary disease on 2 L nasal cannula at baseline, obstructive sleep apnea on CPAP, and prior pulmonary embolism on apixaban, initially presenting to emergency department on 09/11 with dyspnea, was 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, and admitted to medicine. Mr. Urena's hospital course was complicated by multiple episodes of sustained ventricular tachycardia further complicated by hypotension, necessitating defibrillation, and ICU admission on 09/19. Mr. Urena's ICU course was complicated by shock, likely multi-factorial cardiogenic and distributive shock, necessitating inotropic and vasopressor support, as well as acute on chronic renal insufficiency. Throughout his ICU course, Mr. Urena endorsed fatigue, anorexia, and diffuse pain, and had ongoing discussions with family regarding end-of-life care. On 09/25, Mr. Urena expressed desire to transition his philosophy of care to comfort- focused care. Mr. Urena on 09/25 at 13:53 with family at his bedside. Additional Data Confirmation of as documented by pronouncing clinician: no pulse, no respirations, no heart sounds and pupils fixed and dilated Family: at bedside Additional persons at bedside: breakfast attendant Attending physician: Denisse Tena MD
[2023-09-26] MEDS: Midazolam HCl/PF 2 MG/2 ML VIAL IVPUSH (12:20)
[2023-09-26] MEDS: Glycopyrrolate 0.2 MG/ML VIAL IVPUSH (12:22)
[2023-09-26] MEDS: Haloperidol Lactate 5 MG/ML VIAL IVPUSH (12:55)
[2023-09-26] MEDS: fentaNYL citrate/PF 100 MCG/2 ML VIAL 50 MCG IVPUSH (12:55)
== END 2023-09-26 13:53 | disposition expired | DRG 190 ==
LOC: HO.ED 07:45 → HO.EDOVER 10:45 → HO.IMC 15:08 → HO.ICU 09-18 13:21
PROVIDERS: Hospitalist; Internal Medicine Critical Care Medicine; Nurse Practitioner Family; Physician Assistant; Physician Assistant Medical; Admitting Provider Student in an Organized Health Care Education/Training Program; Emergency Provider Emergency Medicine Emergency Medical Services; PCP Internal Medicine; Visit Provider Internal Medicine Critical Care Medicine
DX: J44.0 Chronic obstructive pulmonary disease with (acute) lower respiratory infection (principal); J18.9 Pneumonia, unspecified organism; J96.21 Acute and chronic respiratory failure with hypoxia; N17.0 Acute kidney failure with tubular necrosis; S22.078A Other fracture of T9-T10 vertebra, initial encounter for closed fracture; N39.0 Urinary tract infection, site not specified; I13.0 Hypertensive heart and chronic kidney disease with heart failure and stage 1 through stage 4 chronic kidney disease, or unspecified chronic kidney disease; I50.32 Chronic diastolic (congestive) heart failure; R78.81 Bacteremia; I47.20 Ventricular tachycardia, unspecified; J44.1 Chronic obstructive pulmonary disease with (acute) exacerbation; Z99.81 Dependence on supplemental oxygen; B96.89 Other specified bacterial agents as the cause of diseases classified elsewhere; I25.5 Ischemic cardiomyopathy; W19.XXXA Unspecified fall, initial encounter; I95.9 Hypotension, unspecified; I73.9 Peripheral vascular disease, unspecified; N18.30 Chronic kidney disease, stage 3 unspecified; E78.2 Mixed hyperlipidemia; Z66 Do not resuscitate; R57.0 Cardiogenic shock; R31.9 Hematuria, unspecified; G47.33 Obstructive sleep apnea (adult) (pediatric); I25.10 Atherosclerotic heart disease of native coronary artery without angina pectoris; Z86.711 Personal history of pulmonary embolism; Z86.718 Personal history of other venous thrombosis and embolism; Z85.46 Personal history of malignant neoplasm of prostate; Z95.1 Presence of aortocoronary bypass graft; Z91.041 Radiographic dye allergy status; Z87.891 Personal history of nicotine dependence; Z79.01 Long term (current) use of anticoagulants; Z79.899 Other long term (current) drug therapy
CPT/HCPCS: 36415; 36600; 71045; 71250; 80048; 80053; 80202; 81001; 82040; 82550; 82565; 82803; 83605; 83690; 83735; 83880; 84100; 84484; 85025; 85027; 85730; 86850; 86900; 86901; 87040; 87070; 87076; 87086; 87205; 87493; 87507; 93005; 93306; 94640; 94660; 94799; 97116; 97162; 97530; 99285; C1758; J0282; J0456; J0696; J1170; J1596; J1630; J1940; J1956; J2060; J2185; J2250; J2270; J2310; J2405; J2543; J2598; J2919; J3010; J3370; J3475; J3480; P9047; Q9957

== ENCOUNTER → 2023-09-12 05:42 | Outpatient (BNV) | payer MEDICARE, SELFPAY | PROVIDERS: Admitting Provider Student in an Organized Health Care Education/Training Program; Emergency Provider Emergency Medicine Emergency Medical Services; PCP Internal Medicine; Visit Provider Internal Medicine Cardiovascular Disease | DX: I45.2 Bifascicular block (principal) | CPT/HCPCS: 93010 ==

== ENCOUNTER 2023-09-12 10:40 | Outpatient (BNV) | payer MEDICARE, SELFPAY | END 2023-09-20 10:42 | PROVIDERS: Admitting Provider Student in an Organized Health Care Education/Training Program; Emergency Provider Emergency Medicine Emergency Medical Services; PCP Internal Medicine; Visit Provider Internal Medicine Cardiovascular Disease | DX: I47.10 Supraventricular tachycardia, unspecified (principal) | CPT/HCPCS: 93010 ==

== ENCOUNTER 2023-09-12 10:40 | Outpatient (BNV) | payer MEDICARE, SELFPAY | END 2023-09-18 13:00 | PROVIDERS: Admitting Provider Student in an Organized Health Care Education/Training Program; Emergency Provider Emergency Medicine Emergency Medical Services; PCP Internal Medicine; Visit Provider Internal Medicine Cardiovascular Disease | DX: I35.1 Nonrheumatic aortic (valve) insufficiency (principal); I35.8 Other nonrheumatic aortic valve disorders; I42.2 Other hypertrophic cardiomyopathy | CPT/HCPCS: 93010; 93306 ==

== ENCOUNTER 2023-09-12 10:40 | Outpatient (BNV) | payer MEDICARE, SELFPAY | END 2023-09-22 | PROVIDERS: Admitting Provider Student in an Organized Health Care Education/Training Program; Emergency Provider Emergency Medicine Emergency Medical Services; PCP Internal Medicine; Visit Provider Internal Medicine | DX: R94.31 Abnormal electrocardiogram [ECG] [EKG] (principal) | CPT/HCPCS: 93010 ==

== ENCOUNTER → 2023-09-12 10:40 | Outpatient (BNV) | payer MEDICARE, SELFPAY | PROVIDERS: Admitting Provider Student in an Organized Health Care Education/Training Program; Emergency Provider Emergency Medicine Emergency Medical Services; PCP Internal Medicine; Visit Provider Internal Medicine Nephrology | DX: N17.0 Acute kidney failure with tubular necrosis (principal); N18.4 Chronic kidney disease, stage 4 (severe) | CPT/HCPCS: 99223; 99232 ==

== ENCOUNTER → 2023-09-12 10:40 | Outpatient (BNV) | payer MEDICARE, SELFPAY | PROVIDERS: Admitting Provider Student in an Organized Health Care Education/Training Program; Emergency Provider Emergency Medicine Emergency Medical Services; PCP Internal Medicine; Visit Provider Urology | DX: N39.0 Urinary tract infection, site not specified (principal); Z85.46 Personal history of malignant neoplasm of prostate; R33.9 Retention of urine, unspecified; R31.9 Hematuria, unspecified | CPT/HCPCS: 99222 ==

== ENCOUNTER → 2023-09-12 10:40 | Outpatient (BNV) | payer MEDICARE, SELFPAY | PROVIDERS: Admitting Provider Student in an Organized Health Care Education/Training Program; Emergency Provider Emergency Medicine Emergency Medical Services; PCP Internal Medicine; Visit Provider Internal Medicine | DX: R78.81 Bacteremia (principal); A42.9 Actinomycosis, unspecified | CPT/HCPCS: 99222 ==

== ENCOUNTER → 2023-09-12 10:40 | Outpatient (BNV) | payer MEDICARE, SELFPAY | PROVIDERS: Admitting Provider Student in an Organized Health Care Education/Training Program; Emergency Provider Emergency Medicine Emergency Medical Services; PCP Internal Medicine; Visit Provider Student in an Organized Health Care Education/Training Program | DX: R78.81 Bacteremia (principal) | CPT/HCPCS: 99223; 99232; 99233; 99499 ==

== ENCOUNTER → 2023-09-12 10:40 | Outpatient (BNV) | payer MEDICARE, SELFPAY | PROVIDERS: Admitting Provider Student in an Organized Health Care Education/Training Program; Emergency Provider Emergency Medicine Emergency Medical Services; PCP Internal Medicine; Visit Provider Internal Medicine Critical Care Medicine | DX: R57.0 Cardiogenic shock (principal); I47.20 Ventricular tachycardia, unspecified; J96.20 Acute and chronic respiratory failure, unspecified whether with hypoxia or hypercapnia; N28.9 Disorder of kidney and ureter, unspecified; N18.9 Chronic kidney disease, unspecified; A42.9 Actinomycosis, unspecified; G47.33 Obstructive sleep apnea (adult) (pediatric); J44.9 Chronic obstructive pulmonary disease, unspecified | CPT/HCPCS: 36556; 36620; 99238; 99291; 99292; 99499 ==

== ENCOUNTER → 2023-09-12 10:40 | Outpatient (BNV) | payer MEDICARE, SELFPAY | PROVIDERS: Admitting Provider Student in an Organized Health Care Education/Training Program; Emergency Provider Emergency Medicine Emergency Medical Services; PCP Internal Medicine; Visit Provider Internal Medicine Cardiovascular Disease | DX: I47.20 Ventricular tachycardia, unspecified (principal); J96.20 Acute and chronic respiratory failure, unspecified whether with hypoxia or hypercapnia | CPT/HCPCS: 99233; 99291 ==